=== PATIENT | male | born 1950 | race Caucasian/White ===

== ENCOUNTER 2018-04-13 00:20 | Outpatient (CLI) | payer MEDICARE, MEDICAID, SELFPAY ==
--- NOTE | 2018-04-13 11:00 | DI.CTLCSR_ITS ---
SYMPTOMS/DIAGNOSIS: YEARLY EXAM, NICOTINE DEPENDENCE, F17.200 CT SCAN OF THE CHEST LUNG CANCER SCREENING: CT scan of the chest was performed according to the lung cancer screening protocol. Comparison examination is 04/12/17. There is atherosclerosis of the thoracic aorta. The heart size is within normal limits. No significant pericardial effusion is seen. Coronary artery calcifications are seen. There are stable lymph nodes seen in the mediastinum. No significant thoracic adenopathy is seen. No pleural effusion or pneumothorax is present. Central lobular and paraseptal emphysematous changes are present. No noncalcified pulmonary nodules are identified. No focal consolidating infiltrates are seen. The tracheobronchial tree is unremarkable. Degenerative changes are seen in the spine. IMPRESSION: No pulmonary nodules. Lung-RAD Category: Lung RADS Category 1- Negative - annual follow up.
== END 2018-04-13 00:40 ==
PROVIDERS: PCP Family Medicine; Visit Provider Family Medicine
DX: Z12.2 Encounter for screening for malignant neoplasm of respiratory organs (principal); F17.200 Nicotine dependence, unspecified, uncomplicated; J43.9 Emphysema, unspecified
CPT/HCPCS: G0297

== ENCOUNTER 2018-10-13 16:23 | Outpatient (REF) | payer MEDICARE, MEDICAID, SELFPAY ==
[2018-10-13 19:12] LABS: Abs Immature Grans 0.01 k/cumm (0.0-0.09); Absolute Basophil Count 0.03 k/cumm (0.0-0.2); Absolute Eosinophil Count 0.21 k/cumm (0.0-0.7); Absolute Lymphocyte Count 1.98 k/cumm (1.2-3.4); Absolute Monocyte Count 0.49 k/cumm (0.11-0.7); Absolute Neutrophil Count 3.54 k/cumm (1.2-6.7); Basophils % 0.5; Eosinophils % 3.4; HCT 44.6 % (40.0-50.0); HGB 15.1 g/dL (13.5-17.5); Immature Grans % 0.2; Lymphocytes % 31.6; Mean Corp. HGB Concentration 33.9 g/dL (32.0-36.0); Mean Corpuscular Hemoglobin 30.5 pg (27.0-33.0); Mean Corpuscular Volume 90.1 fL (80-95); Mean Platelet Volume 10.1 fL (8.0-11.0); Monocytes % 7.8; Neutrophils % 56.5; Platelet Count 267 x1000/uL (130-400); RBC 4.95 m/cumm (4.50-6.00); RBC Distribution Width 12.9 % (11.8-14.1); White Blood Cell Count 6.26 k/cumm (4.4-10.8)
[2018-10-13 19:25] LABS: ALT 35 U/L (16-63); AST 20 U/L (15-37); Albumin 3.7 g/dL (3.4-5.0); Alkaline Phosphatase 53 U/L (46-116); Bilirubin, Direct 0.09 mg/dL (0.00-0.20); Bilirubin, Total 0.3 mg/dL (0.2-1.0); Total Protein 7.2 g/dL (6.4-8.2)
== END 2018-10-13 16:43 ==
LOC: LBN 16:23
PROVIDERS: PCP Family Medicine; Visit Provider Family Medicine
DX: R23.8 Other skin changes (principal)
CPT/HCPCS: 80076; 85025

== ENCOUNTER 2020-04-23 02:05 | Outpatient (CLI) | payer OTHER, MEDICAID, SELFPAY ==
[2020-04-23 12:52] LABS: ALT 42 U/L (16-63); AST 23 U/L (15-37); Albumin 3.7 g/dL (3.4-5.0); Alkaline Phosphatase 62 U/L (46-116); Anion Gap 11.4 mmol/L (3-11); BUN 13 mg/dL (7-18); Bilirubin, Total 0.6 mg/dL (0.2-1.0); CO2 23.6 mmol/L (21.0-32.0); CREATININE 1.2 mg/dL (0.70-1.30); Calcium 9.2 mg/dL (8.5-10.1); Calculated LDL 90 mg/dL (<100); Chloride 99 mmol/L (98-107); Cholesterol 154 mg/dL (<200); Glucose 95 mg/dL (74-106); HDL Cholesterol 44 mg/dL (40-60); Potassium 4.4 mmol/L (3.5-5.1); Sodium 134 mmol/L (136-145); Total Protein 7.5 g/dL (6.4-8.2); Triglyceride 101 mg/dL (<150)
== END 2020-04-23 02:06 | disposition home or self-care (01) ==
LOC: LOS 02:06
PROVIDERS: PCP Family Medicine; Visit Provider Family Medicine
DX: E78.5 Hyperlipidemia, unspecified (principal)
CPT/HCPCS: 36415; 80053; 80061

== ENCOUNTER 2020-06-16 01:43 | Outpatient (CLI) | payer OTHER, MEDICAID, SELFPAY ==
--- NOTE | 2020-06-16 06:45 | DI.US_ITS ---
Exam(s) US AAA SCREENING EXAM: US AAA SCREENING CLINICAL HISTORY: SCREENING FOR AAA,TOBACCO USE DISORDER,F17.200 COMPARISON: No exams were available for comparison FINDINGS: Dedicated ultrasound examination of the abdominal aorta exhibits no evidence of significant abdominal aortic aneurysm. Measurements as below. Abdominal Aorta: Proximal: 2.5 x 1.9 cm Mid: 1.8 x 1.6 cm Distal: 1.9 x 1.5 cm Iliac's: Right: 1.1 x 1.4 cm Left: 1.1 x 1.4 cm There is moderate atherosclerotic disease noted IMPRESSION: No evidence of significant abdominal aortic aneurysm. DATA REPOSITORY:
--- NOTE | 2020-06-16 08:32 | DI.CTLCSR_ITS ---
Exam(s) CT CHEST LUNG CANCER SCREEN EXAM: CT CHEST LUNG CANCER SCREEN CLINICAL HISTORY: Screening for lung cancer,CURRENT SMOKER, F17.210. TECHNIQUE: Imaging Protocol: Low Dose Technique CONTRAST MATERIAL: None COMPARISON: CT CT CHEST LUNG CANCER SCREEN from 04/13/2018 FINDINGS: CHEST: LUNGS: Advanced COPD emphysematous changes are again noted.. However, there is now a spiculated nodu le in the right lower lobe which measures approximately 1.4 by 0.7 cm, this noncalcified nodule appea ring concerning and not previously present. There are no new significant focal findings in the opposite-left lung. MEDIASTINUM: There is no obvious hilar nor mediastinal adenopathy. CARDIAC: Heart size is normal. There is no pericardial effusion.Moderate coronary artery calcificati on is noted. No pericardial effusion. Caliber thoracic aorta is within normal limits. OTHER: OSSEOUS: Advanced degenerative changes in the right shoulder-glenohumeral joint.. No fractures. No significant osseous lesions identified.. IMPRESSION: 1. The main finding here is a new concerning spiculated nodule in the right lower lobe as described a whitney, suspicious for malignancy. This is superimposed upon severe emphysematous COPD background. 2. There are no pleural effusions. No prominent intrathoracic adenopathy evident. 3. Lung RADS Cat 4X - Findings with additional features which require additional testing and tissue s ampling. Lung-RADS 1.0 CATEGORIES: Category 0 - Prior chest CT exam(s) being located for comparison. Category 1 - Annual screening in 12 months. No nodules or definitely benign nodules. Category 2 - Annual screening in 12 months. Benign appearance. Nodules with low likelihood of becomin g active cancer. Category 3 - 6-month follow-up. Probably benign. Short-term follow-up suggested. Nodules with low lik elihood of becoming active cancer. Category 4A - 3-month follow-up and CT/PET if >8 mm in size. Suspicious finding. Findings which requi re additional testing. Category 4B - Findings which require additional testing and tissue sampling. Modifier S- Potentially clinically significant findings (non lung cancer) RADIATION DOSE DELIVERED: 78.29mGy.cm Total DLP 1.84mGy CTDIvol DATA REPOSITORY: All CT scans at this facility are submitted to the National Radiology Data Registry (NRDR) Dose Index Registry (DIR) with the [employer] (ACR). RADIATION OPTIMIZATION: All CT scans at this facility use at least one of these dose optimization te chniques: automated exposure control; mA and/or kV adjustment per patient size (includes targeted exa ms where dose is matched to clinical indication); or iterative reconstruction.
== END 2020-06-16 02:03 ==
PROVIDERS: PCP Family Medicine; Visit Provider Family Medicine
DX: Z12.2 Encounter for screening for malignant neoplasm of respiratory organs (principal); F17.210 Nicotine dependence, cigarettes, uncomplicated; J44.9 Chronic obstructive pulmonary disease, unspecified; R91.1 Solitary pulmonary nodule; Z13.6 Encounter for screening for cardiovascular disorders
CPT/HCPCS: 71271; 76706

== ENCOUNTER 2021-01-19 01:35 | Outpatient (CLI) | payer OTHER, MEDICAID, SELFPAY ==
[2021-01-19 12:35] LABS: CREATININE 0.9 mg/dL (0.70-1.30)
--- NOTE | 2021-01-19 13:15 | DI.CT_ITS ---
Exam(s) CT CHEST W EXAM: CT CHEST W CLINICAL HISTORY: S/P SBRT RLL NSCLC, ASSESS TREATMENT RESPONSE. TECHNIQUE: Multi planar reconstructions were performed. CONTRAST MATERIAL: Omnipaque 350; 75 cc COMPARISON: CT CT CHEST LUNG CANCER SCREEN from 06/16/2020 FINDINGS: CHEST: LUNGS: COPD emphysematous changes in both lung gibbs again noted. The previously described subpleur al nodular infiltrate in the right lower lobe is again noted, slightly increased in size. No other r ight lung nodules evident and no pleural effusion. No left lung nodules identified. No new findings in trachea and mainstem bronchi. MEDIASTINUM: There is no hilar nor mediastinal adenopathy. Visualized thyroid unremarkable. CARDIAC: Heart size is normal. There is no pericardial effusion.Caliber of the thoracic aorta is wit hin normal limits. VISUALIZED UPPER ABDOMEN:There are no significant adrenal masses. There is a cyst in the caudate lob e of the liver which measures 1.2 x 0.7 cm, unchanged OSSEOUS: No significant osseous lesions.. IMPRESSION: 1. Previously described subpleural nodular density in the right lower lobe has slightly increased in size. This is spiculated and is suspicious for neoplasm. There is no overlying rib destruction. No associated pleural effusion nor obvious hilar/mediastinal adenopathy. 2. Findings are superimposed upon a severe COPD emphysematous setting. RADIATION DOSE DELIVERED: 514.34mGy.cm Total DLP DATA REPOSITORY: All CT scans at this facility are submitted to the National Radiology Data Registry (NRDR) Dose Index Registry (DIR) with the [employer] (ACR). RADIATION OPTIMIZATION: All CT scans at this facility use at least one of these dose optimization te chniques: automated exposure control; mA and/or kV adjustment per patient size (includes targeted exa ms where dose is matched to clinical indication); or iterative reconstruction.
[2021-01-19] MEDS: Omnipaque 350 MG/ML 100 ML BTL IJ (13:16)
== END 2021-01-19 01:55 ==
PROVIDERS: PCP Family Medicine; Visit Provider Preventive Medicine Undersea and Hyperbaric Medicine
DX: C34.31 Malignant neoplasm of lower lobe, right bronchus or lung (principal); R91.8 Other nonspecific abnormal finding of lung field; J44.9 Chronic obstructive pulmonary disease, unspecified
CPT/HCPCS: 71260; 82565; J3490

== ENCOUNTER → 2021-04-20 00:26 | Outpatient (CLI) | payer OTHER, MEDICAID, SELFPAY ==
--- NOTE | 2021-04-20 12:50 | DI.CT_ITS ---
Exam(s) CT CHEST W EXAM: CT CHEST W CLINICAL HISTORY: RT LUNG CA,S/P TREATMENT, EVALUATE FOR PROGRESSION,C34.91 TECHNIQUE: Imaging Protocol: Axial computed tomography images with coronal and sagittal reformatted images were created and reviewed CONTRAST MATERIAL: Intravenous: Omnipaque 350 Contrast volume:70 ml. COMPARISON: CT CT CHEST LUNG CANCER SCREEN from 06/16/[address] CHEST W from 01/19/2021 FINDINGS: Tracheobronchial tree: No bronchiectasis or mucous plugging. . Pulmonary parenchyma: Significant interval decrease in size and prominence of nodule in the superior segment of the right lower lobe. Now 9 millimeters maximally. Decreased density. Surrounding scarr ing. No new nodules. No infiltrates. Underlying emphysematous and fibrotic changes. Pleura: No effusion or pneumothorax. Heart: The heart is not dilated. coronary artery calcifications are seen. Aorta: Atherosclerotic changes. Upper abdomen: Cyst caudate lobe of the liver small left renal cyst. Lymph nodes: No change small mediastinal lymph nodes.. Bones: Unremarkable for age. Soft tissues: Unremarkable. IMPRESSION: Interval decrease in size of right lower lobe nodule. No new abnormalities. RADIATION DOSE DELIVERED: 436.83mGy.cm Total DLP DATA REPOSITORY: All CT scans at this facility are submitted to the National Radiology Data Registry (NRDR) Dose Index Registry (DIR) with the [employer] (ACR). RADIATION OPTIMIZATION: All CT scans at this facility use at least one of these dose optimization te chniques: automated exposure control; mA and/or kV adjustment per patient size (includes targeted exa ms where dose is matched to clinical indication); or iterative reconstruction.
[2021-04-20] MEDS: Omnipaque 350 MG/ML 100 ML BTL 70 ML IJ (12:54)
== END ==
PROVIDERS: PCP Family Medicine; Visit Provider Preventive Medicine Undersea and Hyperbaric Medicine
DX: Z01.812 Encounter for preprocedural laboratory examination (principal); C34.31 Malignant neoplasm of lower lobe, right bronchus or lung; R91.8 Other nonspecific abnormal finding of lung field
CPT/HCPCS: 71260; 82565; J3490

== ENCOUNTER → 2021-08-25 00:38 | Outpatient (CLI) | payer OTHER, MEDICAID, SELFPAY ==
--- NOTE | 2021-08-25 | DI.CT_ITS ---
Exam(s) CT CHEST WO EXAM: CT CHEST WO CLINICAL HISTORY: S/P SBRT FOR NSCLC RT LUNG, C34.91. TECHNIQUE: Multi planar reconstructions were performed. CONTRAST MATERIAL: None COMPARISON: CT CT CHEST W from 01/19/[address] CHEST W from 04/20/2021 FINDINGS: CHEST: LUNGS: The previously described right lower lobe nodule is unchanged in size and configuration from 0 04/20/2021, with maximum measurement 9 millimeters. No additional lung nodules noted and there are no pleural effusions. Interstitial fibrotic disease is again noted bilaterally. Also emphysematous ch anges. MEDIASTINUM: There is no obvious hilar nor mediastinal adenopathy. Visualized thyroid unremarkable.No obvious axillary adenopathy CARDIAC: Heart size is normal. There is no pericardial effusion.Caliber of the thoracic aorta is wit hin normal limits. VISUALIZED UPPER ABDOMEN:No adrenal masses. Cyst in the caudate lobe of the liver unchanged. Also c yst again noted in the posterior cortex of the left kidney. OSSEOUS: No significant osseous lesions.. IMPRESSION: 1. Stable appearance when compared to the most recent CT scan of 04/20/2021. 2. Maximum size of the right lower lobe nodule remains 9 mm, and there are no new additional nodules nor pleural effusions nor intrathoracic adenopathy. 3. Findings are again noted to be superimposed upon COPD and fibrotic changes. RADIATION DOSE DELIVERED: 418.64mGy.cm Total DLP DATA REPOSITORY: All CT scans at this facility are submitted to the National Radiology Data Registry (NRDR) Dose Index Registry (DIR) with the [employer] (ACR). RADIATION OPTIMIZATION: All CT scans at this facility use at least one of these dose optimization te chniques: automated exposure control; mA and/or kV adjustment per patient size (includes targeted exa ms where dose is matched to clinical indication); or iterative reconstruction.
--- OUTSIDE RECORDS SUMMARY | 2021-08-25 00:44 | XMS_ITS | Encounter Summary ---
:1950 Author Organization [facility] Address [address] [place] [address] Care Team Providers Name Role Phone Sheila aNyak MD PhD Primary Care Provider [phone] Reason for Visit Reason Onset Date Comments Appointment Related 09/14/2016 Patient no-showed fo r 09/14 appointment; per Dr. Luke, don't resc hedule appointment; he will send the patient a letter . Encounter Details Date Type Department Care Team Description 09/14/2016 Telephone [place] Jerad Luke Ap pointment Related Gastroenterology - Main (Patient no-showed [place] [address] [place] [address] for 09/14 appointment; [address] [facility] per Dr. Luke, [place] [address] [facility], [facility] don't reschedule [phone] Deb, Level 5 appointment; he will [place], [place] [phone] letter.) [phone] (Wo rk) Social History Tobacco Use Types Packs/Day Years Used Date Current Every Day Smoker Cigarettes 1 50 Smokeless Tobacco: Never Used Comments: occasionally; trying to quit Alcohol Use Standard Drinks/Week Comments Yes 10 (1 standard drink = 0.6 oz pure alcoh ol) Sex Assigned at Date Recorded Not on file documented as of this encounter Miscellaneous Notes Telephone Encounter - Frankie Tyson - 09/14/2016 1604 EDT Patient no-showed for 09/14 appointment; per Dr. Luke, don't reschedule appointment; he will send the patient a letter. documented in this encounter Plan of Treatment Not on filedocumented as of this encounter Goals Goal Patient Goal Associated Recent Patient-Stated? Author Type Problems Progress Blood Blood Hypertensive 122/70 No White, Pressure < Pressure disorder (12/31/2015 More 140/90 11:06 EST) documented as of this encounter Visit Diagnoses Not on filedocumented in this encounter Care Teams Liquefaction Supervisor Relationship Specialty Start Date End Date Sheila Nayak MD PhD PCP - General 06/10/08 05/18/17 [address] [place] [id number] documented as of this encounter
--- OUTSIDE RECORDS SUMMARY | 2021-08-25 00:44 | XMS_ITS | Encounter Summary ---
:1950 Author Organization [facility] Address [address] [place] [address] Care Team Providers Name Role Phone Sheila Nayak MD PhD Primary Care Provider [phone] Reason for Visit Reason Comments Immunizations Encounter Details Date Type Department Care Team Description 01/27/2016 Nurse Only [facility] Unknown, Marvin baires MD Need for hepatitis A Adult Primary Care - Linnea Arriola MD and B vaccination [place] Nurse, [facility] Ghassan Cannon MD (Primary Dx) [address] [place] [id number] Social History Tobacco Use Types Packs/Day Years Used Date Current Every Day Smoker Cigarettes 1 50 Smokeless Tobacco: Never Used Comments: occasionally; trying to quit Alcohol Use Standard Drinks/Week Comments Yes 10 (1 standard drink = 0.6 oz pure alcoh ol) Sex Assigned at Date Recorded Not on file documented as of this encounter Discharge Diagnoses Diagnosis Z23 Encounter for immunization-Z23[ICD-1 0-CM] documented in this encounter Discharge Disposition Disposition Code Departure Means Destination Auto Discharge documented in this encounter Progress Notes Erin Llanes RN - 01/27/2016 1100 EST I was supervised by Dr Sheila Nayak who was present and immediately available in the office suite. Erin Llanes RN 01/27/2016 11:16 documented in this encounter Plan of Treatment Not on filedocumented as of this encounter Goals Goal Patient Goal Associated Recent Patient-Stated? Author Type Problems Progress Blood Blood Hypertensive 122/70 No White, Pressure < Pressure disorder (12/31/2015 More 140/90 11:06 EST) documented as of this encounter Visit Diagnoses Diagnosis Need for hepatitis A and B vaccination - Primary Need for prophylactic vaccination and in oculation against viral hepatitis documented in this encounter Orders Immunization/Injection Count Last Ordered Date First O rdered Date HEPATITIS A HEPATITIS B COMBINED VACCINE 1 016 IM documented in this encounter Care Teams Brush Clearer Surveying Relationship Specialty Start Date End Date Sheila Nayak MD PhD PCP - General 06/10/08 05/18/17 [address] [place] [address] documented as of this encounter
--- OUTSIDE RECORDS SUMMARY | 2021-08-25 00:44 | XMS_ITS | Clinical Summary ---
:1950 Author Organization [facility] Address [address] [place] [address] Care Team Providers Name Role Phone Unknown, Provider Primary Care Provider Allergies Active Allergy Reactions Severity Noted Date Comments Other - See Comments Rash 11/14/2008 Contras t Dye Medications Medication Sig Dispensed Refills Start Date End Date Status ipratropium-albuterol Inhale 1 Puff as 1 Inhaler 3 09/02/2015 Active (COMBIVENT RESPIMAT) directed 4 times 20-100 mcg/actuation daily as needed for inhaler Wheezing. sofosbuvir-velpatasvi Take 1 Tab by mouth 28 Tab 2 01/07/20 16 Active r (EPCLUSA) 400-100 daily. Specialty mg tablet pharmacy simvastatin (ZOCOR) take 1 tablet by 90 Tab 0 12/22/2016 Active 10 mg tablet mouth once daily sildenafil citrate Take 1 Tab by mouth 3 Tab 3 12/22/2016 Active (VIAGRA) 100 mg as needed for tabletIndications: Erectile Male erectile Dysfunction. Needs disorder Office visit before next refill. Active Problems Problem Noted Date Chronic hepatitis C without hepatic coma ([facility]) Microhematuria 03/28/2012 Tobacco dependence syndrome 12/07/2010 Osteoarthritis of knee 09/15/2009 Hypertensive disorder 07/21/2009 Chronic obstructive pulmonary disease ([facility]) 2009 Hyperlipidemia 07/21/2009 Male erectile disorder 07/21/2009 Anxiety 07/21/2009 Gastric ulcer 07/21/2009 Overview: IMO Update Auto Replacement Immunizations Name Administration Dates Next Due Hep A/Hep B Vaccine (TWINRIX) IM 07/01/2016, 01/27/2016, Influenza Vaccine =>3yo Split 01/28/2012, 01/04/2011 Preservative Free IM Influenza Vaccine Quad (AFLURIA) PF 0.5 12/31/2015 ml IM (3 yrs+) Pneumococcal Conj Vacc PCV13 (PREVNAR-13) 09/02/2015 IM Pneumococcal Polysaccharide (PPSV23) 01/04/2011 Vaccine (PNEUMOVAX-23) =>2YO SQ/IM Zostavax (Zoster Vaccine, Live) SQ 02/26/2014 Medical History Medical History Date Comments Hypertension COPD (chronic obstructive pulmonary disease) ([facility]) ([facility]) Hyperlipidemia Fracture to face Gastric ulcer, unspecified as acute or chronic, without ment ion of 07/21/2009 hemorrhage, perforation, or obstruction Emphysema of lung ([facility]) ([facility]) Acne Arthritis Fatigue Wears glasses Sinus problem Back pain Joint pain Joint swelling Numbness High blood pressure High cholesterol Asthma Anxiety Depression Family History Medical History Relation Name Comments Cancer Father Skin Arthritis Sister Relation Name Status Comments Father Maternal Aunt Maternal Grandfather Maternal Grandmother Mother (Age 95) ?cancer Paternal Grandfather Paternal Grandmother Sister Alive Social History Tobacco Use Types Packs/Day Years Used Date Current Every Day Smoker Cigarettes 1 50 Smokeless Tobacco: Never Used Tobacco Cessation: Ready to Quit: Yes; C ounseling Given: Yes Comments: occasionally; trying to quit Alcohol Use Standard Drinks/Week Comments Yes 10 (1 standard drink = 0.6 oz pure alcoh ol) Sex Assigned at Date Recorded Not on file Last Filed Vital Signs Vital Sign Reading Time Taken Comments Blood Pressure 122/70 12/31/2015 1106 EST Pulse 68 12/31/2015 1106 EST r Temperature 36.3 ??C (97.4 ??F) 12/31/2015 1106 EST Respiratory Rate 16 12/31/2015 1106 EST Oxygen Saturation 95% 05/03/2012 0915 EDT Inhaled Oxygen Concentration - - Weight 60.3 kg (133 lb) 12/31/2015 1106 EST Height 165.1 cm (5' 5) 11/24/2015 1336 EDT Body Mass Index 22.13 11/24/2015 1336 EDT Plan of Treatment Health Maintenance Due Date Last Done Comments Copd Action Plan 1950 Lung Function Test (Spirometry) 1950 Barium Enema (Colon Cancer 2000 Screening) Colonoscopy (Colon Cancer 2000 Screening) Colorectal Cancer Screening 2000 Fecal Blood Test (Colon Cancer 2000 Screening) Fecal DNA (Colon Cancer Screening) 2000 Sigmoidoscopy (Colon Cancer 2000 Screening) Abdominal Aortic Aneurysm (AAA 05/18/2015 Screen) Fall Risk Screening 09/01/2016 09/02/2015 Hepatitis C Screen Completed 07/21/2016, 04/29/2016, 02/24/2016, Additional history exists Goals Goal Patient Goal Associated Recent Patient-Stated? Author Type Problems Progress Blood Blood Hypertensive 122/70 No White, Pressure < Pressure disorder (12/31/2015 More 140/90 11:06 EST) Advance Directives For more information, please contact: [phone] Documents on File Type Date Recorded Patient Manager Program Explanati on Advance Directives and Living Will Care Teams Rag Cutting Machine Operator Relationship Specialty Start Date End Date Unknown, Provider, PCP - General 05/19/17
--- OUTSIDE RECORDS SUMMARY | 2021-08-25 00:44 | XMS_ITS | Encounter Summary ---
:1950 Author Organization [facility] Address [address] [place] [address] Care Team Providers Name Role Phone Sheila Nayak MD PhD Primary Care Provider [phone] Reason for Visit Reason Onset Date Comments Medications Refill 12/22/2016 Encounter Details Date Type Department Care Team Description 12/22/2016 Refill [facility] Adult Sheila Nayak MD Medications Refill Primary Care - Ghassan PhD [address] [place] [address] [place], [place] [phone] (Wo rk) Social History Tobacco Use Types Packs/Day Years Used Date Current Every Day Smoker Cigarettes 1 50 Smokeless Tobacco: Never Used Comments: occasionally; trying to quit Alcohol Use Standard Drinks/Week Comments Yes 10 (1 standard drink = 0.6 oz pure alcoh ol) Sex Assigned at Date Recorded Not on file documented as of this encounter Ordered Prescriptions Prescription Sig Dispensed Refills Start Date End Date sildenafil citrate Take 1 Tab by mouth 3 Tab 3 12/23/19 17 (VIAGRA) 100 mg as needed for tabletIndications: Male Erectile Dysfunction. erectile disorder Needs Office visit before next refill. simvastatin (ZOCOR) 10 mg take 1 tablet by 90 Tab 0 12/08 tablet mouth once daily documented in this encounter Miscellaneous Notes Telephone Encounter - Christi Nava - 12/22/2016 1204 EST Medication(s) Requested: 1. ?? simvastatin (ZOCOR) 10 mg tablet [[id number]] Order Details ? Dose, Route, Frequency: As Directed ?? Dispense Quantity: 90 Tab Refills: 0 Fills Remaining: -- ? Sig: take 1 tablet by mouth once daily ? Written Date: 09/03/16 Expiration Date: -- ?? Start Date: 09/03/16 2. only wants 3 pills, can't afford more ?? sildenafil citrate (VIAGRA) 100 mg tablet [[id number]] DISCONTINUED Order Details ? Dose: 100 mg Route: oral Frequency: PRN for Erectile Dysfunction ?? Dispense Quantity: 3 Tab Refills: 3 Fills Remaining: -- ? Sig: Take 1 Tab by mouth as needed for Erectile Dysfunction. Needs Office visit before next refill. ?? Patient not taking: Reported on 11/24/2015 ? Discontinue Date: 12/25/2015 1403 Discontinue User: Patsy Miles RN Discontinue Reason: Therapy completed ?? Written Date: 09/02/15 Expiration Date: -- ?? Start Date: 09/02/15 End Date: 12/25/15 ? [facility] Is patient out of medication? Not out of the Zocor has 4 left Last Refill Date: 09.03.16 of the Zocor Last Visit Date with Ordering Provider: 12.31.15 Next Non-Acute Visit Date Scheduled with Care Team: No. Christi Nava 12/22/2016 12:05 documented in this encounter Plan of Treatment Not on filedocumented as of this encounter Goals Goal Patient Goal Associated Recent Patient-Stated? Author Type Problems Progress Blood Blood Hypertensive 122/70 No White, Pressure < Pressure disorder (12/31/2015 More 140/90 11:06 EST) documented as of this encounter Visit Diagnoses Diagnosis Male erectile disorder - Primary Impotence of organic origin documented in this encounter Discontinued Medications Medication Sig Discontinue Reason Start Date End Date simvastatin (ZOCOR) 10 mg take 1 tablet by Reorder 09/03/2016 12/22/2016 tablet mouth once daily documented as of this encounter Care Teams Air Quality Manager Relationship Specialty Start Date End Date Sheila Nayak MD PhD PCP - General 06/10/08 05/18/17 [address] [place] [phone] documented as of this encounter
--- OUTSIDE RECORDS SUMMARY | 2021-08-25 00:44 | XMS_ITS | Encounter Summary ---
:1950 Author Organization [facility] Address [address] [place] [address] Care Team Providers Name Role Phone Sheila Nayak MD PhD Primary Care Provider [phone] Reason for Visit Reason Comments Medication Management Encounter Details Date Type Department Care Team Description 05/03/[address] [facility] [address] [place] [address] Social History Tobacco Use Types Packs/Day Years Used Date Current Every Day Smoker Cigarettes 1 50 Smokeless Tobacco: Never Used Comments: occasionally; trying to quit Alcohol Use Standard Drinks/Week Comments Yes 10 (1 standard drink = 0.6 oz pure alcoh ol) Sex Assigned at Date Recorded Not on file documented as of this encounter Progress Notes Amanda Hernandez, [facility] - 05/03/2016 1329 EDT Celestine Dickson is a 65 y.o. male who will be starting treatment with Epclusa x12 weeks for HCV. ? I performed a complete review of the patient???s medical record, including medications, immunizations, and allergies. ? Regimen: Epclusa x12 weeks Genotype: 2 Treatment: Naive Cirrhosis: N Fibrosis Stage: 1 ? Treatment Start Date: 01/26/16 Lab: [facility] ? Week Date SCr Hct/Hgb AST ALT HCV RNA Quant Pretreatment 11/24/15 0.77 44.2/15.3 23 32 [id number] 4 02/23/16 ? 45.4 24 30 undetected 12 04/19/16 0.95 45.1/15.5 27 39 undetected?? 12 post-tx 07/12/16 ? Patient has completed therapy with Epclusa. SVR-12 lab results due in July. documented in this encounter Plan of Treatment Not on filedocumented as of this encounter Goals Goal Patient Goal Associated Recent Patient-Stated? Author Type Problems Progress Blood Blood Hypertensive 122/70 No White, Pressure < Pressure disorder (12/31/2015 More 140/90 11:06 EST) documented as of this encounter Visit Diagnoses Not on filedocumented in this encounter Care Teams Laundry Operator Wash Room Relationship Specialty Start Date End Date Sheila Nayak MD PhD PCP - General 06/10/08 05/18/17 [address] [place] [phone] documented as of this encounter
--- OUTSIDE RECORDS SUMMARY | 2021-08-25 00:44 | XMS_ITS | Encounter Summary ---
:1950 Author Organization [facility] Address [address] [place] [address] Care Team Providers Name Role Phone Sheila Nayak MD PhD Primary Care Provider [phone] Encounter Details Date Type Department Care Team Description 04/19/2016 Hospital Encounter [facility]- Maik Luke, [facility] [address] [facility] [phone] [place], [address] [place] [address] (Wo rk) Social History Tobacco Use Types Packs/Day Years Used Date Current Every Day Smoker Cigarettes 1 50 Smokeless Tobacco: Never Used Comments: occasionally; trying to quit Alcohol Use Standard Drinks/Week Comments Yes 10 (1 standard drink = 0.6 oz pure alcoh ol) Sex Assigned at Date Recorded Not on file documented as of this encounter Discharge Diagnoses Diagnosis B18.2 Chronic viral hepatitis C-B18.2[IC D-10-CM] documented in this encounter Medications at Time of Discharge Medication Sig Dispensed Refills Start Date End Date ipratropium-albuterol Inhale 1 Puff as 1 Inhaler 3 09/02/19 16 (COMBIVENT RESPIMAT) directed 4 times 20-100 mcg/actuation daily as needed for inhaler Wheezing. sofosbuvir-velpatasvir Take 1 Tab by mouth 28 Tab 2 12/10 (EPCLUSA) 400-100 mg daily. Specialty tablet pharmacy simvastatin (ZOCOR) 10 Take 1 Tab by mouth 90 Tab 3 08/0809/03/2016 mg tablet daily for 90 days. documented as of this encounter Discharge Disposition Disposition Code Departure Means Destination Home or Self Senior Care documented in this encounter Plan of Treatment Not on filedocumented as of this encounter Goals Goal Patient Goal Associated Recent Patient-Stated? Author Type Problems Progress Blood Blood Hypertensive 122/70 No White, Pressure < Pressure disorder (12/31/2015 More 140/90 11:06 EST) documented as of this encounter Visit Diagnoses Not on filedocumented in this encounter Care Teams Sand Slinger Operator Relationship Specialty Start Date End Date Sheila Nayak MD PhD PCP - General 06/10/08 05/18/17 [address] [place] [phone] documented as of this encounter
--- OUTSIDE RECORDS SUMMARY | 2021-08-25 00:44 | XMS_ITS | Encounter Summary ---
:1950 Author Organization [facility] Address [address] [place] [address] Care Team Providers Name Role Phone Sheila Nayak MD PhD Primary Care Provider [phone] Reason for Visit Reason Comments Other need for hep a and b vaccine Encounter Details Date Type Department Care Team Description 07/01/2016 Nurse Only [facility] Unknown, Marvin baires MD Need for hepatitis A Adult Primary Care - Eli Vargas PA-C [address] [place] [phone] and B vaccination [place] Nurse, [facility] Ghassan Cannon MD (Primary Dx) [address] [place] [address] Social History Tobacco Use Types Packs/Day Years [...] Discharge documented in this encounter Progress Notes Shilpa Wiley LPN - 07/01/2016 1300 EDT Obtained verbal consent prior to procedure. Patient received twinrix vaccine IM into Left arm. I was supervised by Dr. Romero who was present and immediately available in the office suite. SHILPA WILEY LPN 07/01/2016 13:15 documented in this encounter Plan of Treatment [...] HEPATITIS A HEPATITIS B COMBINED VACCINE 1 017 IM documented in this encounter Care Teams Farm General Manager Relationship Specialty Start Date End Date Sheila Nayak MD PhD PCP - General 06/10/08 05/18/17 [address] [place] [phone] documented as of this encounter
--- OUTSIDE RECORDS SUMMARY | 2021-08-25 00:44 | XMS_ITS | Encounter Summary ---
:1950 Author Organization [facility] Address [address] [place] [address] Care Team Providers Name Role Phone Sheila Nayak MD PhD Primary Care Provider [phone] Reason for Visit Reason Onset Date Comments Results 07/23/2016 Encounter Details Date Type Department Care Team Description 07/23/2016 Telephone [facility] Martha Gao RN [address] [address] Social History Tobacco Use Types Packs/Day Years Used Date Current Every Day Smoker Cigarettes 1 50 Smokeless Tobacco: Never Used Comments: occasionally; trying to quit Alcohol Use Standard Drinks/Week Comments Yes 10 (1 standard drink = 0.6 oz pure alcoh ol) Sex Assigned at Date Recorded Not on file documented as of this encounter Miscellaneous Notes Telephone Encounter - Martha Gao RN - 07/23/2016 1029 EDT Celestine Dickson is a 65 y.o. [...] Quant Pretreatment 11/24/15 0.77 44.2/15.3 23 32 [id number] 4 02/23/16 ? 45.4 24 30 undetected 12 04/19/16 0.95 45.1/15.5 27 39 undetected?? 12 post-tx 07/12/16 Undetected 07/21/16 The patient was made aware of 12 week post end of treatment HCV PCR and follow- up visit given for 09/14/16( per pt choice).He verbalized understanding and compliance. documented in this encounter Plan of Treatment Not on filedocumented as of this encounter Goals Goal Patient Goal Associated Recent Patient-Stated? Author Type Problems Progress Blood Blood Hypertensive 122/70 No White, Pressure < Pressure disorder (12/31/2015 More 140/90 11:06 EST) documented as of this encounter Visit Diagnoses Not on filedocumented in this encounter Care Teams Environmental Engineering Professor Relationship Specialty Start Date End Date Sheila Nayak MD PhD PCP - General 06/10/08 05/18/17 [address] [place] [address] documented as of this encounter
--- OUTSIDE RECORDS SUMMARY | 2021-08-25 00:44 | XMS_ITS | Encounter Summary ---
:1950 Author Organization [facility] Address [address] [place] [address] Care Team Providers Name Role Phone Sheila Nayak MD PhD Primary Care Provider [phone] Encounter Details Date Type Department Care Team Description 02/24/2016 Phlebotomy Only [facility] Med[facility] Emt, Chron ic hepatitis C - [facility] Outpatient without hepatic coma [address] ([facility]) (Primary [place], [place] Dx) [address] Social History Tobacco Use Types Packs/Day Years Used Date Current Every Day Smoker Cigarettes 1 50 Smokeless Tobacco: Never Used Comments: occasionally; trying to quit Alcohol Use Standard Drinks/Week Comments Yes 10 (1 standard drink = 0.6 oz pure alcoh ol) Sex Assigned at Date Recorded Not on file documented as of this encounter Plan of Treatment Not on filedocumented as of this encounter Goals Goal Patient Goal Associated Recent Patient-Stated? Author Type Problems Progress Blood Blood Hypertensive 122/70 No White, Pressure < Pressure disorder (12/31/2015 More 140/90 11:06 EST) documented as of this encounter Procedures Procedure Name Priority Date/Time Associated Comments Diagnosis HCV RNA DETECT QUANT Routine 02/24/2016 12:29 Chronic hepatiti s C Results for this EST without hepatic procedure ar e in coma (CMS-HCC) the results section. COMPLETE BLOOD COUNT Routine 02/24/2016 12:29 Chronic hepatiti s C Results for this EST without hepatic procedure ar e in coma (CMS-HCC) the results section. COMPREHENSIVE Routine 02/24/2016 12:29 Chronic hepatitis C Res ults for this METABOLIC PANEL (CMP) EST without hepatic pro cedure are in coma (CMS-HCC) the results section. documented in this encounter Results HCV RNA DETECT QUANT (02/24/2016 12:29 EST) Pathologist [facility] HCV RNA Detect Undetected Undetected IU/mL [facility] Quant Comment: CENTER Reference Range: ??Undetected LABORATORY The quantification range of this assay is 15 SERVICES IU/mL to 100,000,000 IU/mL. Testing was performed by the [employer] Ampliprep/Bria TaqMan HCV v2.0 ([employer] Specimen Blood specimen (specimen) - Blood Performing Organization Address City/[facility] Phon e Number [facility] [address] [place] [address] SERVICES COMPREHENSIVE METABOLIC PANEL (CMP) (02/24/2016 12:29 EST) Pathologist [facility] Potassium 4.7 3.5 - 5.0 [facility] mEq/L [place] [place] [facility] SERVICES Sodium 141 136 - 145 [facility] mEq/L [place] SERVICES Chloride 103 96 - 110 [facility] mEq/L [place] SERVICES CO2 25Comment: Note new 22 - 32 [facility] reference range mEq/L [facility] 11/25/15 SERVICES Total Alkaline 59 38 - 126 U/L [facility] Phosphatase [facility] Bilirubin, Total 0.6 <1.4 mg/dl [facility] SERVICES AST 24 15 - 46 U/L [facility] SERVICES ALT 30 21 - 72 U/L [facility] SERVICES Albumin 4.2 3.4 - 4.9 [facility] g/dl [facility] Total Protein 7.4 6.3 - 8.2 [facility] g/dl [facility] Creatinine 0.90 0.66 - 1.25 [facility] mg/dl [facility] SERVICES GFR, Calculated 89 >60 [facility] Comment: ml/min/1.73m [facility] LAB[facility]ATORY eGFR calculated using CKD-EPI equation for 2 SERVICES non Americans. Multiply eGFR by 1.16 for Americans. BUN 18 10 - 26 [facility] mg/dl [facility] SERVICES Calcium 9.3 8.5 - 10.5 [facility] mg/dl [facility] SERVICES Calculated Calcium 9.1 8.5 - 10.5 [facility] Comment: mg/dl [facility] Note new formula for calculation SERVICES in use 11/12/2015 Glucose, Serum 91 70 - 100 [facility] mg/dl [facility] SERVICES Fasting? YES [facility] SERVICES Specimen Blood specimen (specimen) - Blood Performing Organization Address City/[facility] Phon e Number [facility] [address] [place] [address] SERVICES HEMAGRAM (02/24/2016 12:29 EST) Pathologist Sig nature WBC 6.21 4.0 - 10.4 K/cmm [facility] SERVICES RBC 5.21 4.36 - 5.78 M/cmm [facility] SERVICES Hemoglobin 15.5 13.8 - 17.3 gm/dl [facility] SERVICES HCT 45.4 39.5 - 50.2 % [facility] SERVICES MCV 87 81 - 95 fl [facility] SERVICES MCH 29.8 27.6 - 33.0 pg [facility] SERVICES MCHC 34.1 32.8 - 36.4 gm/dl [facility] SERVICES RDW-CV 12.2 11.8 - 14.1 % [facility] SERVICES RDW-SD 38.7 36.5 - 45.9 fl [facility] SERVICES PLT 282 141 - 377 K/[facility] LABORATORY SERVICES MPV 10.0 9.5 - 12.7 fl [facility] SERVICES Specimen Blood specimen (specimen) - Blood Performing Organization Address City/State/[facility] Code Phon e Number [facility] [address] [place] [address] SERVICES documented in this encounter Visit Diagnoses Diagnosis Chronic hepatitis C without hepatic coma (HCC-CMS) (HCC) - Primary Chronic hepatitis C without mention of h epatic coma documented in this encounter Care Teams Vp Customer Development Relationship Specialty Start Date End Date Sheila Nayak MD PhD PCP - General 06/10/08 05/18/17 [address] [place] [phone] documented as of this encounter
--- OUTSIDE RECORDS SUMMARY | 2021-08-25 00:44 | XMS_ITS | Encounter Summary ---
:1950 Author Organization [facility] Address [address] [place] [address] Care Team Providers Name Role Phone Sheila Nayak MD PhD Primary Care Provider [phone] Reason for Visit Reason Comments Other Encounter Details Date Type Department Care Team Description 09/03/2016 Refill [facility] Adult Jesus Alberto Nayak MD PhD Other Primary Care - [address] [phone] (Wo rk) Social History Tobacco Use [...] Sig Dispensed Refills Start Date End Date simvastatin (ZOCOR) 10 mg take 1 tablet by 90 Tab 0 08/0812/22/2016 tablet mouth once daily documented in this encounter Miscellaneous Notes Telephone Encounter - Althea Vergara RN - 09/03/2016 0181 EDT Medication(s) Requested: Simvastatin 10 mg tablet Pharmacy: [facility] Last Refill Date: 09/02/15 Last Visit Date: 12/31/15 Next Visit Date: Visit date not found Is patient out of medication? Unknown ALTHEA VERGARA RN 09/03/2016 16:55 documented in this encounter Plan of Treatment Not on filedocumented as of this encounter Goals Goal Patient Goal Associated Recent Patient-Stated? Author Type Problems Progress Blood Blood Hypertensive 122/70 No White, Pressure < Pressure disorder (12/31/2015 More 140/90 11:06 EST) documented as of this encounter Visit Diagnoses Not on filedocumented in this encounter Discontinued Medications Medication Sig Discontinue Reason Start Date End Date simvastatin (ZOCOR) 10 mg Take 1 Tab by mouth Reorder 09/02/19 16 09/03/2016 tablet daily for 90 days. documented as of this encounter Care Teams Line Servicer Relationship Specialty Start Date End Date Sheila Nayak MD PhD PCP - General 06/10/08 05/18/17 [address] [place] [phone] documented as of this encounter
--- OUTSIDE RECORDS SUMMARY | 2021-08-25 00:44 | XMS_ITS | Encounter Summary ---
:[address] [facility] Address [address] [place] [address] Care Team Providers Name Role Phone Sheila Nayak MD PhD Primary Care Provider [phone] Reason for Visit Reason Onset Date Comments Labs Only 07/19/2016 Encounter Details Date Type Department Care Team Description 07/19/2016 Telephone [facility] Martha Gao RN La bs Only Gastroenterology - [facility] [place] [address] [place] [address] Social History Tobacco Use Types Packs/Day [...] Telephone Encounter - Martha Gao RN - 07/19/2016 1049 EDT Left reminder message to have 12 week post Hep C treatment HCV PCR drawn and need for follow-up appointment after labs are drawn. documented in this encounter Plan of Treatment Not on filedocumented as of this encounter Goals Goal Patient Goal Associated Recent Patient-Stated? Author Type Problems Progress Blood Blood Hypertensive 122/70 No White, Pressure < Pressure disorder (12/31/2015 More 140/90 11:06 EST) documented as of this encounter Visit Diagnoses Not on filedocumented in this encounter Care Teams Funding Analyst Relationship Specialty Start Date End Date Sheila Nayak MD PhD PCP - General 06/10/08 05/18/17 [facility] [place] [address] documented as of this encounter
--- OUTSIDE RECORDS SUMMARY | 2021-08-25 00:44 | XMS_ITS | Encounter Summary ---
:1950 Author Organization [facility] Address [address] [place] [address] Care Team Providers Name Role Phone Sheila Nayak MD PhD Primary Care Provider [phone] Reason for Visit Reason Onset Date Comments Results 03/02/2016 Encounter Details Date Type Department Care Team Description 03/02/[address] [facility] Martha Gao RN [address] [address] Social History Tobacco Use Types Packs/Day Years Used Date Current Every Day Smoker Cigarettes 1 50 Smokeless Tobacco: Never Used Comments: occasionally; trying to quit Alcohol Use Standard Drinks/Week Comments Yes 10 (1 standard drink = 0.6 oz pure alcoh ol) Sex Assigned at Date Recorded Not on file documented as of this encounter Miscellaneous Notes Telephone Encounter - Martha Gao RN - 03/02/2016 0928 EST Celestine Dickson is a 65 y.o. male who will be starting treatment with Epclusa x12 weeks for HCV. ?? I performed a complete review of the patient???s medical record, including medications, immunizations, and allergies. ?? Regimen: Epclusa x12 weeks Genotype: 2 Treatment: Naive Cirrhosis: N Fibrosis Stage: 1 ?? Treatment Start Date: 01/26/16 Lab: [facility] ?? Week Date SCr Hct/Hgb AST ALT HCV RNA Quant Pretreatment 11/24/15 0.77 44.2/15.3 23 32 [id number] 4 02/23/16 ?45.4 ??24 ??30 ??undetected 12 04/19/16 ? 12 post-tx 07/12/16 Patient called with results of week #4 labs while on Epclusa treatment & reminder to repeat labsat end of tx, week #12. Orders placed in Prism. Patient verbalized understanding & compliance. documented in this encounter Plan of Treatment Not on filedocumented as of this encounter Goals Goal Patient Goal Associated Recent Patient-Stated? Author Type Problems Progress Blood Blood Hypertensive 122/70 No White, Pressure < Pressure disorder (12/31/2015 More 140/90 11:06 EST) documented as of this encounter Results HEMAGRAM (04/19/2016 11:23 EDT) Pathologist Sig nature WBC 6.17 4.0 - 10.4 K/cmm [facility] RBC 5.11 4.36 - 5.78 M/cmm [facility] SERVICES Hemoglobin 15.5 13.8 - 17.3 gm/dl [facility] HCT 45.1 39.5 - 50.2 % [facility] SERVICES MCV 88 81 - 95 fl [facility] MCH 30.3 27.6 - 33.0 pg [facility] SERVICES MCHC 34.4 32.8 - 36.4 gm/dl [facility] SERVICES RDW-CV 12.5 11.8 - 14.1 % [facility] SERVICES RDW-SD 40.9 36.5 - 45.9 fl [facility] SERVICES PLT 248 141 - 377 K/cmm [facility] SERVICES MPV 9.7 9.5 - 12.7 fl [facility] SERVICES Specimen Blood specimen (specimen) - Blood Performing Organization Address City/State/ZIP Code Phon e Number [facility] [address] [place] [address] SERVICES PROTIME (04/19/2016 11:23 EDT) Pro Time 11.8 10.3 - 13.1 [facility] secs LABORATORY SERVICES I.N.R. 1.0 0.9 - 1.1 [facility] Comment: Ratio LABORATORY SERVICES Moderate Intensity Coumadin INR = 2.0-3.0 Adjustments in anticoagulant therapy dose should be based upon the INR and NOT the Pro Time. Specimen Blood specimen (specimen) - Blood Performing Organization Address City/[facility]/ZIP Code Phon e Number [facility] [address] [place] [address] SERVICES COMPREHENSIVE METABOLIC PANEL (CMP) (04/19/2016 11:23 EDT) Potassium 4.8 3.5 - 5.0 [facility] mEq/L [place] [facility] Sodium 137 136 - 145 [facility] mEq/L [place] [facility] Chloride 102 96 - 110 [facility] mEq/L [place] [facility] CO2 28Comment: Note new 22 - 32 [facility] reference range mEq/L [facility] 11/25/15 SERVICES Total Alkaline 60 38 - 126 U/L [facility] Phosphatase [place] [facility] Bilirubin, Total 0.6 <1.4 mg/dl [facility] SERVICES AST 27 15 - 46 U/L [facility] SERVICES ALT 39 21 - 72 U/L [facility] SERVICES Albumin 4.4 3.4 - 4.9 [facility] g/dl [place] [facility] Total Protein 7.5 6.3 - 8.2 [facility] g/dl [place] [facility] Creatinine 0.95 0.66 - 1.25 [facility] mg/dl [place] [facility] GFR, Calculated 84 >60 [facility] Comment: ml/min/1.73m [facility] eGFR calculated using CKD-EPI equation for 2 SERVICES non Americans. Multiply eGFR by 1.16 for Americans. BUN 17 10 - 26 [facility] mg/dl [facility] SERVICES Calcium 9.6 8.5 - 10.5 [facility] mg/dl [place] [facility] Calculated Calcium 9.3 8.5 - 10.5 [facility] Comment: mg/dl [facility] Note new formula for calculation SERVICES in use 11/12/2015 Glucose, Serum 99 70 - 100 [facility] mg/dl [facility] SERVICES Fasting? YES [facility] Specimen Blood specimen (specimen) - Blood Performing Organization Address City/[facility] Code Phon e Number [facility] [address] [place] [address] SERVICES documented in this encounter Visit Diagnoses Diagnosis Hep C w/o coma, chronic (HCC-CMS) (HCC) - Primary Chronic hepatitis C without mention of h epatic coma documented in this encounter Care Teams Firearms Sales Associate Relationship Specialty Start Date End Date Sheila Nayak MD PhD PCP - General 06/10/08 05/18/17 [address] [place] [phone] documented as of this encounter
--- OUTSIDE RECORDS SUMMARY | 2021-08-25 00:44 | XMS_ITS | Encounter Summary ---
:1950 Author Organization [facility] Address [address] [place] [address] Care Team Providers Name Role Phone Sheila Nayak MD PhD Primary Care Provider [phone] Reason for Visit Reason Onset Date Comments Other 07/13/2016 reminder for labwork due Encounter Details Date Type Department Care Team Description 07/13/2016 Telephone [facility] Martha Gao (jeronimo nevarez for Gastroenterology - Zachary Walsh RN labw ork due) [place] [address] [place] [address] Social History Tobacco Use Types Packs/Day [...] Telephone Encounter - Martha Gao RN - 07/13/2016 1242 EDT A call was made to the patient reminding him he is due for his 12 week post Epclusa tx. He verbalized understanding, stating he has been busy and will try to do so in the next week . documented in this encounter Plan of Treatment Not on filedocumented as of this encounter Goals Goal Patient Goal Associated Recent Patient-Stated? Author Type Problems Progress Blood Blood Hypertensive 122/70 No White, Pressure < Pressure disorder (12/31/2015 More 140/90 11:06 EST) documented as of this encounter Visit Diagnoses Not on filedocumented in this encounter Care Teams Card Runner Relationship Specialty Start Date End Date Sheila Nayak MD PhD PCP - General 06/10/08 05/18/17 [address] [place] [address] documented as of this encounter
--- OUTSIDE RECORDS SUMMARY | 2021-08-25 00:44 | XMS_ITS | Encounter Summary ---
:1950 Author Organization [facility] Address [address] [place] [address] Care Team Providers Name Role Phone Sheila Nayak MD PhD Primary Care Provider [phone] Encounter Details Date Type Department Care Team Description 04/29/2016 Phlebotomy Only [facility] It Infrastructure Specialist, Hep C w/o coma, - [facility] Outpatient chronic ([facility] [address] [facility] (Primary Dx) [place] [address] Social History Tobacco Use Types Packs/Day Years [...] encounter Procedures Procedure Name Priority Date/Time Associated Diagnosis Comme nts HCV RNA DETECT Routine 04/29/2016 11:45 Hep C w/o coma, Result s for this QUANT EDT chronic ([facility]) procedure are in the results section. documented in this encounter Results HCV RNA DETECT QUANT (04/29/2016 11:45 EDT) HCV RNA Detect Undetected Undetected IU/mL [facility] Comment: CENTER Reference Range: ??Undetected LABORATORY The quantification range of this assay is 15 SERVICES IU/mL to 100,000,000 IU/mL. Testing was performed by the Bria Ampliprep/Bria TaqMan HCV v2.0 ([employer] Specimen Blood specimen (specimen) - Blood Performing Organization Address City/State/ZIP Code Phon e Number [facility] [address] [place] [address] SERVICES documented in this encounter Visit Diagnoses Diagnosis Hep C w/o coma, chronic (HCC-CMS) (HCC) - Primary Chronic hepatitis C without mention of h epatic coma documented in this encounter Care Teams Bookkeeping Service Sales Agent Relationship Specialty Start Date End Date Sheila Nayak MD PhD PCP - General 06/10/08 05/18/17 2 [place] [address] documented as of this encounter
--- OUTSIDE RECORDS SUMMARY | 2021-08-25 00:44 | XMS_ITS | Encounter Summary ---
:1950 Author Organization [facility] Address [address] [place] [address] Care Team Providers Name Role Phone Sheila Nayak MD PhD Primary Care Provider [phone] Encounter Details Date Type Department Care Team Description 03/12/2016 Ambulatory Pharmacy [facility] [place] [facility] Main [place] [address] [place] [id number] Social History Tobacco Use Types Packs/Day Years [...] on filedocumented in this encounter Care Teams Carpentry Instructor Relationship Specialty Start Date End Date Sheila Nayak MD PhD PCP - General 06/10/08 05/18/17 [address] [place] [address] documented as of this encounter
--- OUTSIDE RECORDS SUMMARY | 2021-08-25 00:44 | XMS_ITS | Encounter Summary ---
:1950 Author Organization [facility] Address [address] [place] [address] Care Team Providers Name Role Phone Sheila Nayak MD PhD Primary Care Provider [phone] Reason for Visit Reason Onset Date Comments Results 05/03/2016 Encounter Details Date Type Department Care Team Description 05/03/2016 Telephone [facility] Martha Gao RN [address] [address] Social History Tobacco Use Types Packs/Day Years Used Date Current Every Day Smoker Cigarettes 1 50 Smokeless Tobacco: Never Used Comments: occasionally; trying to quit Alcohol Use Standard Drinks/Week Comments Yes 10 (1 standard drink = 0.6 oz pure alcoh ol) Sex Assigned at Date Recorded Not on file documented as of this encounter Miscellaneous Notes Telephone Encounter - Martha Gao RN - 05/03/2016 0903 EDT Celestine Dickson is a 65 y.o. [...] Quant Pretreatment 11/24/15 0.77 44.2/15.3 23 32 [id number] 4 02/23/16 ?45.4 ??24 ??30 ??undetected 12 3/13/17 ?0.95 ?45.1/15.5 ?27 ?39 ??undetected?? 12 post-tx 07/12/16 A message was left with results of week #12 viral load and recommendations to repeat this in 12 weeks, with a follow up appointment to be made after those results are reviewed.Lab slip was sent to the patient today as a reminder. documented in this encounter Plan of Treatment Not on filedocumented as of this encounter Goals Goal Patient Goal Associated Recent Patient-Stated? Author Type Problems Progress Blood Blood Hypertensive 122/70 No White, Pressure < Pressure disorder (12/31/2015 More 140/90 11:06 EST) documented as of this encounter Results HCV RNA DETECT QUANT (07/21/2016 11:14 EDT) HCV RNA Detect Undetected Undetected IU/mL [facility] Comment: CENTER Reference Range: ??Undetected LABORATORY The quantification range of this assay is 15 SERVICES IU/mL to 100,000,000 IU/mL. Testing was performed by the Bria Ampliprep/Bria TaqMan HCV v2.0 ([employer] Specimen Blood specimen (specimen) - Blood Performing Organization Address City/State/ZIP Code Phon e Number [facility] [address] [place] [address] SERVICES documented in this encounter Visit Diagnoses Diagnosis Hep C w/o coma, chronic (HCC-CMS) (HCC) - Primary Chronic hepatitis C without mention of h epatic coma documented in this encounter Care Teams Design Engineering Specialist Relationship Specialty Start Date End Date Sheila Nayak MD PhD PCP - General 06/10/08 05/18/17 2 [place] [address] documented as of this encounter
--- OUTSIDE RECORDS SUMMARY | 2021-08-25 00:44 | XMS_ITS | Encounter Summary ---
:1950 Author Organization [facility] Address [address] [place] [address] Care Team Providers Name Role Phone Sheila Nayak MD PhD Primary Care Provider [phone] Encounter Details Date Type Department Care Team Description 07/21/2016 Phlebotomy Only [facility] Rooms Coordinator, Hep C w/o coma, - [facility] Outpatient chronic ([facility]) [address] [facility] (Primary Dx) [place] [address] Social History Tobacco Use Types Packs/Day Years [...] Diagnosis Comme nts HCV RNA DETECT Routine 07/21/2016 11:14 Hep C w/o coma, Result s for this QUANT EDT chronic ([facility]) procedure are in the results section. documented in this encounter Results HCV RNA DETECT QUANT (07/21/2016 11:14 EDT) HCV RNA Detect Undetected Undetected IU/mL [facility] Comment: CENTER Reference Range: ??Undetected LABORATORY The quantification range of this assay is 15 SERVICES IU/mL to 100,000,000 IU/mL. Testing was performed by the Bria Ampliprep/Bria TaqMan HCV v2.0 ([employer] Specimen Blood specimen (specimen) - Blood Performing Organization Address City/State/ZIP Code Phon e Number [facility] [address] [place] [address] SERVICES documented in this encounter Visit Diagnoses Diagnosis Hep C w/o coma, chronic (HCC-CMS) (HCC) - Primary Chronic hepatitis C without mention of h epatic coma documented in this encounter Care Teams Head Piece Assembler Relationship Specialty Start Date End Date Sheila Nayak MD PhD PCP - General 06/10/08 05/18/17 2 [place] [address] documented as of this encounter
--- OUTSIDE RECORDS SUMMARY | 2021-08-25 00:44 | XMS_ITS | Encounter Summary ---
:1950 Author Organization [facility] Address [address] [place] [address] Care Team Providers Name Role Phone Sheila Nayak MD PhD Primary Care Provider [phone] Unknown, Provider Primary Care Provider Reason for Visit Reason Comments Medication Management Encounter Details Date Type Department Care Team Description 07/23/2016 Ambulatory Pharmacy [facility] [place] [address] [place] [address] Social History Tobacco Use Types Packs/Day Years Used Date Current Every Day Smoker Cigarettes 1 50 Smokeless Tobacco: Never Used Comments: occasionally; trying to quit Alcohol Use Standard Drinks/Week Comments Yes 10 (1 standard drink = 0.6 oz pure alcoh ol) Sex Assigned at Date Recorded Not on file documented as of this encounter Progress Notes Amanda Hernandez [facility] - 07/23/2016 1343 EDT Celestine Dickson is a 65 y.o. male who will be starting treatment with Epclusa x12 weeks for HCV. ? I performed a complete review of the patient???s medical record, including medications, immunizations, and allergies. ? Regimen: Epclusa x12 weeks Genotype: 2 Treatment: Naive Cirrhosis: N Fibrosis Stage: 1 ? Treatment Start Date: 01/26/16 Lab: [facility] ? Week Date SCr Hct/Hgb AST ALT HCV RNA Quant Pretreatment 11/24/15 0.77 44.2/15.3 23 32 [id number] 4 02/23/16 ? 45.4 24 30 undetected 12 04/19/16 0.95 45.1/15.5 27 39 undetected?? 12 post-tx 07/12/16 ? Undetected 07/21/16 ?? documented in this encounter Plan of Treatment Not on filedocumented as of this encounter Goals Goal Patient Goal Associated Recent Patient-Stated? Author Type Problems Progress Blood Blood Hypertensive 122/70 No White, Pressure < Pressure disorder (12/31/2015 More 140/90 11:06 EST) documented as of this encounter Visit Diagnoses Not on filedocumented in this encounter Care Teams Brewery Pumper Relationship Specialty Start Date End Date Sheila Nayak MD PhD PCP - General 06/10/08 05/18/[address] [place] [phone] Unknown, Provider, PCP - General 05/19/17 documented as of this encounter
--- OUTSIDE RECORDS SUMMARY | 2021-08-25 00:44 | XMS_ITS | Encounter Summary ---
:[address] [facility] Address [address] [place] [address] Care Team Providers Name Role Phone Sheila Nayak MD PhD Primary Care Provider [phone] Encounter Details Date Type Department Care Team Description 02/24/2016 Hospital Encounter [facility], [facility] [address] [address] [facility] [phone] [place], [address] [place] [address] (Wo rk) Social History Tobacco [...] Code Departure Means Destination Home or Self [facility] documented in this encounter Plan of Treatment Not on filedocumented as of this encounter Goals Goal Patient Goal Associated Recent Patient-Stated? Author Type Problems Progress Blood Blood Hypertensive 122/70 No White, Pressure < Pressure disorder (12/31/2015 More 140/90 11:06 EST) documented as of this encounter Visit Diagnoses Not on filedocumented in this encounter Care Teams Facepiece Line Supervisor Relationship Specialty Start Date End Date Sheila Nayak MD PhD PCP - General 06/10/08 05/18/17 2 [place] [address] documented as of this encounter
--- OUTSIDE RECORDS SUMMARY | 2021-08-25 00:44 | XMS_ITS | Encounter Summary ---
:1950 Author Organization [facility] Address [address] [place] [address] Care Team Providers Name Role Phone Sheila Nayak MD PhD Primary Care Provider [phone] Reason for Visit Reason Onset Date Comments Results 04/21/2016 labwork Encounter Details Date Type Department Care Team Description 04/21/2016 Telephone [facility] Martha Gao Resul ts (labwork) Gastroenterology - Main [place] [address] [place] [address] Social History Tobacco Use Types Packs/Day [...] Telephone Encounter - Martha Gao RN - 04/21/2016 0336 EDT A message was left for the patient that an HCV PCR quant was not drawn with his end of treatment labwork done on 04/19/16. A request was made to the patient to return to the lab at his convenience to have this drawn. ( order placed in Prism) documented in this encounter Plan of Treatment Not on filedocumented as of this encounter Goals Goal Patient Goal Associated Recent Patient-Stated? Author Type Problems Progress Blood Blood Hypertensive 122/70 No White, Pressure < Pressure disorder (12/31/2015 More 140/90 11:06 EST) documented as of this encounter Results HCV RNA DETECT QUANT (04/29/2016 11:45 EDT) HCV RNA Detect Undetected Undetected IU/mL [facility] Comment: CENTER Reference Range: ??Undetected LABORATORY The quantification range of this assay is 15 SERVICES IU/mL to 100,000,000 IU/mL. Testing was performed by the Bria Ampliprep/Bria TaqMan HCV v2.0 ([employer] Specimen Blood specimen (specimen) - Blood Performing Organization Address City/State/ZIP Code Phon e Number [facility] [address] [place] [address] SERVICES documented in this encounter Visit Diagnoses Diagnosis Hep C w/o coma, chronic (HCC-CMS) (HCC) - Primary Chronic hepatitis C without mention of h epatic coma documented in this encounter Care Teams Ground Service Equipment Mechanic Relationship Specialty Start Date End Date Sheila Nayak MD PhD PCP - General 06/10/08 05/18/17 [address] [place] [phone] documented as of this encounter
--- OUTSIDE RECORDS SUMMARY | 2021-08-25 00:44 | XMS_ITS | Encounter Summary ---
:1950 Author Organization [facility] Address [address] [place] [address] Care Team Providers Name Role Phone Sheila Nayak MD PhD Primary Care Provider [phone] Reason for Visit Reason Onset Date Comments Other 04/26/2016 Encounter Details Date Type Department Care Team Description 04/26/2016 Telephone [facility] Martha Gao RN Ot her Gastroenterology - [facility] [place] [address] [place] [address] Social History Tobacco Use Types [...] Telephone Encounter - Martha Gao RN - 04/26/2016 1040 EDT Another message was left with reminder to have end of treatment HCV PCR drawn,( not done with labs drawn on 04/19/16) order is in Prism. documented in this encounter Plan of Treatment Not on filedocumented as of this encounter Goals Goal Patient Goal Associated Recent Patient-Stated? Author Type Problems Progress Blood Blood Hypertensive 122/70 No White, Pressure < Pressure disorder (12/31/2015 More 140/90 11:06 EST) documented as of this encounter Visit Diagnoses Not on filedocumented in this encounter Care Teams Addresser Relationship Specialty Start Date End Date Sheila Nayak MD PhD PCP - General 06/10/08 05/18/17 [address] [place] [phone] documented as of this encounter
--- OUTSIDE RECORDS SUMMARY | 2021-08-25 00:44 | XMS_ITS | Encounter Summary ---
:1950 Author Organization [facility] Address [address] [place] [address] Care Team Providers Name Role Phone Sheila Nayak MD PhD Primary Care Provider [phone] Encounter Details Date Type Department Care Team Description 04/19/2016 Phlebotomy Only [facility] Hand Driller, Hep C w/o coma, - [facility] Outpatient chronic ([facility]) [address] [facility] (Primary Dx) [place] [address] Social History Tobacco Use Types Packs/Day Years [...] Procedure Name Priority Date/Time Associated Comments Diagnosis PROTIME Routine 04/19/2016 11:23 Hep C w/o coma, Results for this EDT chronic (CMS-HCC) procedure are in the results section. COMPLETE BLOOD COUNT Routine 04/19/2016 11:23 Hep C w/o coma, Results for this EDT chronic (CMS-HCC) procedure are in the results section. COMPREHENSIVE Routine 04/19/2016 11:23 Hep C w/o coma, Results for this METABOLIC PANEL (CMP) EDT chronic ([facility]) p rocedure are in the results section. documented in this encounter Results HEMAGRAM (04/19/2016 11:23 EDT) Pathologist Sig nature WBC 6.17 4.0 - 10.4 K/cmm [facility] RBC 5.11 4.36 - 5.78 M/cmm [facility] Hemoglobin 15.5 13.8 - 17.3 gm/dl [facility] HCT 45.1 39.5 - 50.2 % [facility] MCV 88 81 - 95 fl [facility] MCH 30.3 27.6 - 33.0 pg [facility] MCHC 34.4 32.8 - 36.4 gm/dl [facility] RDW-CV 12.5 11.8 - 14.1 % [facility] RDW-SD 40.9 36.5 - 45.9 fl [facility] PLT 248 141 - 377 K/cmm [facility] MPV 9.7 9.5 - 12.7 fl [facility] Specimen Blood specimen (specimen) - Blood Performing Organization Address City/[facility] Phon e Number [facility] [address] [place] [address] SERVICES PROTIME (04/19/2016 11:23 EDT) Pro Time 11.8 10.3 - 13.1 [facility] secs LABORATORY SERVICES I.N.R. 1.0 0.9 - 1.1 [facility] Comment: Ratio LABORATORY SERVICES Moderate Intensity Coumadin INR = 2.0-3.0 Adjustments in anticoagulant therapy dose should be based upon the INR and NOT the Pro Time. Specimen Blood specimen (specimen) - Blood Performing Organization Address City/[facility] Phon e Number [facility] [address] [place] [address] SERVICES COMPREHENSIVE METABOLIC PANEL (CMP) (04/19/2016 11:23 EDT) Potassium 4.8 3.5 - 5.0 [facility] mEq/L [facility] Sodium 137 136 - 145 [facility] mEq/L [facility] Chloride 102 96 - 110 [facility] mEq/L [facility] CO2 28Comment: Note new 22 - 32 [facility] reference range mEq/L [facility] 11/25/15 SERVICES Total Alkaline 60 38 - 126 U/L [facility] Phosphatase [facility] Bilirubin, Total 0.6 <1.4 mg/dl [facility] AST 27 15 - 46 U/L [facility] ALT 39 21 - 72 U/L [facility] Albumin 4.4 3.4 - 4.9 [facility] g/dl [facility] Total Protein 7.5 6.3 - 8.2 [facility] g/dl [facility] Creatinine 0.95 0.66 - 1.25 [facility] mg/dl [facility] GFR, Calculated 84 >60 [facility] Comment: ml/min/1.73m [facility] eGFR calculated using CKD-EPI equation for 2 SERVICES non Americans. Multiply eGFR by 1.16 for Americans. BUN 17 10 - 26 [facility] mg/dl [facility] Calcium 9.6 8.5 - 10.5 [facility] mg/dl [facility] Calculated Calcium 9.3 8.5 - 10.5 [facility] Comment: mg/dl [facility] Note new formula for calculation SERVICES in use 11/12/2015 Glucose, Serum 99 70 - 100 [facility] mg/dl [facility] Fasting? YES [facility] Specimen Blood specimen (specimen) - Blood Performing Organization Address City/State/ZIP Code Phon e Number [facility] [address] [place] [address] SERVICES documented in this encounter Visit Diagnoses Diagnosis Hep C w/o coma, chronic (HCC-CMS) (HCC) - Primary Chronic hepatitis C without mention of h epatic coma documented in this encounter Care Teams Test Conductor Relationship Specialty Start Date End Date Sheila Nayak MD PhD PCP - General 06/10/08 05/18/17 2 [place] [phone] documented as of this encounter
--- OUTSIDE RECORDS SUMMARY | 2021-08-25 00:44 | XMS_ITS | Encounter Summary ---
:[address] [facility] Address [address] [place] [address] Care Team Providers Name Role Phone Sheila Nayak MD PhD Primary Care Provider [phone] Unknown, Provider MD Primary Care Provider Reason for Visit Reason Comments Other Encounter Details Date Type Department Care Team Description 04/01/2017 Refill [facility] Adult Jesus Alberto Nayak MD PhD Other Primary Care - [address] [phone] (Wo rk) Social History Tobacco Use Types Packs/Day Years Used Date Current Every Day Smoker Cigarettes 1 50 Smokeless Tobacco: Never Used Comments: occasionally; trying to quit Alcohol Use Standard Drinks/Week Comments Yes 10 (1 standard drink = 0.6 oz pure alcoh ol) Sex Assigned at Date Recorded Not on file documented as of this encounter Miscellaneous Notes Telephone Encounter - Shara Vázquez - 04/17/2017 1418 EDT Patient has transferred care. elephone Encounter - Ayni Faith RN - 04/01/2017 1203 EST Requested Prescriptions Pending Prescriptions Disp Refills ??? simvastatin (ZOCOR) 10 mg tablet [Pharmacy Med Name: SIMVASTATIN 10 MG TABLET] 90 Tab 0 Sig: take 1 tablet by mouth once daily Pharmacy: [facility] Last Refill Date: 12/22/16 Last Visit Date: 12/31/15 Next Non-Acute Visit Date Scheduled with Care Team: Please Schedule an Appointment. Visit date not found Patient has not been seen for over a year. Needs an appointment with PCP Anyi Faith RN 04/01/2017 12:04 documented in this encounter Plan of Treatment Not on filedocumented as of this encounter Goals Goal Patient Goal Associated Recent Patient-Stated? Author Type Problems Progress Blood Blood Hypertensive 122/70 No White, Pressure < Pressure disorder (12/31/2015 More 140/90 11:06 EST) documented as of this encounter Visit Diagnoses Not on filedocumented in this encounter Care Teams Health Lead Relationship Specialty Start Date End Date Sheila Nayak MD PhD PCP - General 06/10/08 05/18/[address] [place] [phone] Unknown, Provider, PCP - General 05/19/17 documented as of this encounter
--- OUTSIDE RECORDS SUMMARY | 2021-08-25 00:44 | XMS_ITS | Encounter Summary ---
:1950 Author Organization [facility] Address [address] [place] [address] Care Team Providers Name Role Phone Sheila Nayak MD PhD Primary Care Provider [phone] Unknown, Provider MD Primary Care Provider Reason for Visit Reason Onset Date Comments Appointment Related 01/19/2016 cancelling med teach ing appt. today- needs to be called to [facility] this. Encounter Details Date Type Department Care Team Description 01/19/2016 Telephone [facility] Jerad Luke Ap pointment Related Gastroenterology - Main (cancelling med [place] [address] [place] [address] teaching appt. 111 [facility] today- needs to be [place], [place] [id number] [place] [address] called to [facility] this.) [phone] [facility] [address] [place] [phone] (Wo rk) Social History Tobacco Use Types [...] on filedocumented in this encounter Care Teams Farm Machine Tender Relationship Specialty Start Date End Date Sheila Nayak MD PhD PCP - General 06/10/08 05/18/17 [address] [place] [phone] Unknown, Provider, PCP - General 05/19/17 documented as of this encounter
--- OUTSIDE RECORDS SUMMARY | 2021-08-25 00:44 | XMS_ITS | Encounter Summary ---
:[address] [facility] Address [address] [place] [address] Care Team Providers Name Role Phone Sheila Nayak MD PhD Primary Care Provider [phone] Encounter Details Date Type Department Care Team Description 03/03/2016 Ambulatory Pharmacy [facility] - Main [facility] [place] [address] [place] [phone] Social History Tobacco Use Types Packs/Day Years Used Date Current Every Day Smoker Cigarettes 1 50 Smokeless Tobacco: Never Used Comments: occasionally; trying to quit Alcohol Use Standard Drinks/Week Comments Yes 10 (1 standard drink = 0.6 oz pure alcoh ol) Sex Assigned at Date Recorded Not on file documented as of this encounter Progress Notes Amanda Hernandez [facility] - 03/03/2016 1616 EST Celestine Dickson is a 65 y.o. male who will be starting treatment with Epclusa x12 weeks for HCV. ? I performed a complete review of the patient???s medical record, including medications, immunizations, and allergies. ? Regimen: Epclusa x12 weeks Genotype: 2 Treatment: Naive Cirrhosis: N Fibrosis Stage: 1 ? Treatment Start Date: 01/26/16 Lab: [facility] ? Week Date SCr Hct/Hgb AST ALT HCV RNA Quant Pretreatment 11/24/15 0.77 44.2/15.3 23 32 187328 4 02/23/16 ?45.4 ??24 ??30 ??undetected 12 04/19/16 ? 12 post-tx 07/12/16 ? documented in this encounter Plan of Treatment Not on filedocumented as of this encounter Goals Goal Patient Goal Associated Recent Patient-Stated? Author Type Problems Progress Blood Blood Hypertensive 122/70 No White, Pressure < Pressure disorder (12/31/2015 More 140/90 11:06 EST) documented as of this encounter Visit Diagnoses Not on filedocumented in this encounter Care Teams Batch Mixer Operator Relationship Specialty Start Date End Date Sheila Nayak MD PhD PCP - General 06/10/08 05/18/17 [address] [place] [address] documented as of this encounter
--- OUTSIDE RECORDS SUMMARY | 2021-08-25 00:44 | XMS_ITS | Encounter Summary ---
:1950 Author Organization [facility] Address [address] [place] [address] Care Team Providers Name Role Phone Sheila Nayak MD PhD Primary Care Provider [phone] Encounter Details Date Type Department Care Team Description 02/12/2016 Ambulatory Pharmacy [facility] Ambulatory Pharm[facility] - [facility] [place] [address] [place] [address] Social History Tobacco Use Types Packs/Day Years Used Date Current Every Day Smoker Cigarettes 1 50 Smokeless Tobacco: Never Used Comments: occasionally; trying to quit Alcohol Use Standard Drinks/Week Comments Yes 10 (1 standard drink = 0.6 oz pure alcoh ol) Sex Assigned at Date Recorded Not on file documented as of this encounter Progress Notes Nenita Weston - 02/12/2016 1243 EST Epclusa - [facility] will deliver Tuesday02/13/16 between 12-4pm. documented in this encounter Plan of Treatment Not on filedocumented as of this encounter Goals Goal Patient Goal Associated Recent Patient-Stated? Author Type Problems Progress Blood Blood Hypertensive 122/70 No White, Pressure < Pressure disorder (12/31/2015 More 140/90 11:06 EST) documented as of this encounter Visit Diagnoses Not on filedocumented in this encounter Care Teams Garment Patternmaker Relationship Specialty Start Date End Date Sheila Nayak MD PhD PCP - General 06/10/08 05/18/17 [address] [place] [phone] documented as of this encounter
--- OUTSIDE RECORDS SUMMARY | 2021-08-25 00:45 | XMS_ITS | Encounter Summary ---
:1950 Author Organization [facility] Address [address] [place] [address] Care Team Providers Name Role Phone Sheila Nayak MD PhD Primary Care Provider [phone] Encounter Details Date Type Department Care Team Description 04/03/2012 Hospital Encounter [facility] - S Ghazala [place] MD [address] [address] [place] [phone] Social History Tobacco Use Types Packs/Day Years Used Date Current Every Day Smoker Cigarettes 1 45 Smokeless Tobacco: Never Used Comments: occasionally; trying to quit Alcohol Use Standard Drinks/Week Comments Yes 35 (1 standard drink = 0.6 oz pure alcoh ol) Sex Assigned at Date Recorded Not on file documented as of this encounter Medications at Time of Discharge Medication Sig Dispensed Refills Start Date End Date alprazolam (XANAX) 0.5 mg Take 1 Tab by mouth 14 Each 0 0 03/28/2012 04/29/2012 tabletIndications: at bedtime as needed Anxiety for Sleep or Anxiety. aspirin 81 mg EC tablet Take 81 mg by mouth 0 12/25/2015 daily. ciprofloxacin (CIPRO) 500 Take 1 Tab by mouth 10 Tab 0 0 05/03/2012 08/15/2012 mg tablet 2 times daily. HYDROcodone-acetaminophen Take 1 Tab by mouth 5 Tab 0 0 05/03/2012 08/15/2012 (LORTAB) 5-500 mg tablet every 6 hours as needed for Pain. ipratropium-albuterol Inhale 2 Puffs as 1 Inhaler 3 012 04/23/2013 (COMBIVENT) 18-103 directed every 6 mcg/actuation inhaler hours as needed. omeprazole (PRILOSEC OTC) Take 1 Tab by mouth 90 Tab 3 1 03/06/2010 04/25/2012 20 mg tablet daily. sildenafil citrate Take 1 Tab by mouth 6 Tab 3 03/28/19 13 04/29/2012 (VIAGRA) 100 mg as needed for tabletIndications: Male Erectile erectile disorder Dysfunction. Needs Office visit before next refill. simvastatin (ZOCOR) 10 mg Take 1 Tab by mouth 90 Tab 3 0 02/11/2011 05/29/2012 tablet daily. documented as of this encounter Discharge Disposition Disposition Code Departure Means Destination Home or Self Care documented in this encounter Plan of Treatment Not on filedocumented as of this encounter Visit Diagnoses Not on filedocumented in this encounter Care Teams Outdoor Adventure Leader Relationship Specialty Start Date End Date Sheila Nayak MD PhD PCP - General 06/10/08 05/18/17 [address] [place] [phone] documented as of this encounter
--- OUTSIDE RECORDS SUMMARY | 2021-08-25 00:45 | XMS_ITS | Encounter Summary ---
:1950 Author Organization [facility] Address [address] [place] [address] Care Team Providers Name Role Phone Sheila Nayak MD PhD Primary Care Provider [phone] Encounter Details Date Type Department Care Team Description 08/28/2015 Phlebotomy Only [facility] Stack Supervisor, Vicente hernandez hypertension with goal blood pressure less than 140/90; - [facility] Outpatient Mixed hyperlipidemia [address] [place] [address] Social History Tobacco Use Types Packs/Day Years Used Date Current Every Day Smoker Cigarettes 1 45 Smokeless Tobacco: Never Used Comments: occasionally; trying to quit Alcohol Use Standard Drinks/Week Comments Yes 14 (1 standard drink = 0.6 oz pure alcoh ol) Sex Assigned at Date Recorded Not on file documented as of this encounter Plan of Treatment Not on filedocumented as of this encounter Procedures Procedure Name Priority Date/Time Associated Diagnosis Comme nts LIPID PROFILE Routine 08/28/2015 11:17 Mixed hyperlipidemia Re sults for this (INCLUDES EDT procedure are i n CHOLESTEROL, the results TRIGLYCERIDES, HDL, section. LDL) COMPREHENSIVE Routine 08/28/2015 11:17 Essential hypertension Results for this METABOLIC PANEL (CMP) EDT with goal blood pro cedure are in pressure less than the resul ts 140/90 section. documented in this encounter Results LIPID PROFILE (INCLUDES CHOLESTEROL, TRIGLYCERIDES, HDL, LDL) (08/28/2015 11:17 EDT) Cholesterol 172 mg/dl [facility] Comment: LABORATORY Desirable:<200 SERVICES Borderline High:200-239 High:>rn=955 Triglycerides 104 mg/dl [facility] Comment: LABORATORY Normal:<150 SERVICES Borderline High:150-199 High:200-499 Very High:>wm=165 HDL 48 mg/dl [facility] Comment: LABORATORY Low:<40 SERVICES Normal:40-60 Desirable: >60 LDL, Calculated 103 mg/dl [facility] Comment: LABORATORY Optimal:<100 SERVICES Near Optimal:100-129 Borderline High:130-159 High:160-189 Very High:>vm=069 Chol/HDL Ratio 3.6 [facility] LABORATORY SERVICES Fasting? YES [facility] LABORATORY SERVICES Non HDL Cholesterol 124 mg/dl [facility] Comment: LABORATORY Desirable:<130 SERVICES Borderline:130-159 High: 160-189 Very High: >ij=871 Specimen Blood specimen (specimen) - Blood Performing Organization Address City/State/ZIP Code Phon e Number [facility] LABORATORY [address] [place] [address] SERVICES (ABNORMAL) COMPREHENSIVE METABOLIC PANEL (CMP) (08/28/2015 11:17 EDT) Potassium 4.4 3.5 - 5.0 [facility] mEq/L [facility] Sodium 136 136 - 145 [facility] mEq/L [facility] Chloride 103 96 - 110 [facility] mEq/L [facility] CO2 23 (L) 24 - 32 mEq/L [facility]ORATORY SERVICES Total Alkaline 62 38 - 126 U/L [facility] Phosphatase [facility] Bilirubin, Total 0.7 <1.4 mg/dl [facility] LABORATORY SERVICES AST 22 15 - 46 U/L [facility]ORATORY SERVICES ALT 32 21 - 72 U/L [facility]ORATORY SERVICES Albumin 3.9 3.4 - 4.9 [facility] g/dl [facility] Total Protein 7.0 6.3 - 8.2 [facility] g/dl [facility] Creatinine 0.86 0.66 - 1.25 [facility] mg/dl [facility] GFR, Calculated 91 >60 [facility] Comment: ml/min/1.73m2 CENTER LABORATORY eGFR calculated using CKD-EPI equation for SERVICES non Americans. Multiply eGFR by 1.16 for Americans. BUN 13 10 - 26 mg/dl [facility] LABORATORY SERVICES Calcium 9.2 8.5 - 10.5 [facility] mg/dl [facility] Calculated Calcium 9.7 8.5 - 10.5 [facility] mg/dl [facility] Glucose, Serum 86 70 - 100 [facility] mg/dl [facility] SERVICES Fasting? YES [facility] LABORATORY SERVICES Specimen Blood specimen (specimen) - Blood Performing Organization Address City/State/ZIP Code Phon e Number [facility]ORY [address] [place] [address] SERVICES documented in this encounter Visit Diagnoses Diagnosis Essential hypertension with goal blood p ressure less than 140/90 Mixed hyperlipidemia documented in this encounter Care Teams Finished Carpet Inspector Relationship Specialty Start Date End Date Sheila Nayak MD PhD PCP - General 06/10/08 05/18/17 [address] [place] [address] documented as of this encounter
--- OUTSIDE RECORDS SUMMARY | 2021-08-25 00:45 | XMS_ITS | Encounter Summary ---
:1950 Author Organization [facility] Address [address] [place] [address] Care Team Providers Name Role Phone Sheila Nayak MD PhD Primary Care Provider [phone] Encounter Details Date Type Department Care Team Description 05/01/2012 Hospital Encounter [facility] [address] [facility] [address] [place] [address] [place], [place] [phone] Social History Tobacco Use Types Packs/Day Years [...] Sig Dispensed Refills Start Date End Date aspirin 81 mg EC tablet Take 81 [...] every 6 mcg/actuation inhaler hours as needed. simvastatin (ZOCOR) 10 mg Take 1 Tab by mouth 90 Tab 3 0 02/11/2011 05/29/2012 tablet daily. documented as of this encounter Discharge Disposition Disposition Code Departure Means Destination Auto Discharge Home documented in this encounter Plan of Treatment Not on filedocumented as of this encounter Visit Diagnoses Not on filedocumented in this encounter Care Teams Associate Director Regulatory Affairs Relationship Specialty Start Date End Date Sheila Nayak MD PhD PCP - General 06/10/08 05/18/17 [address] [place] [phone] documented as of this encounter
--- OUTSIDE RECORDS SUMMARY | 2021-08-25 00:45 | XMS_ITS | Encounter Summary ---
:[address] [facility] Address [address] [place] [address] Care Team Providers Name Role Phone Sheila Nayak MD PhD Primary Care Provider [phone] Encounter Details Date Type Department Care Team Description 08/16/2012 Phlebotomy Only [facility] Instrument Repair Technician, Micro scopic hematuria; - [facility] Outpatient Hypertension; [address] [facility] Microhematuria; [place] [address] Social History Tobacco Use Types Packs/Day Years Used Date Current Every Day Smoker Cigarettes 1 45 Smokeless Tobacco: Current User Comments: occasionally; trying to quit Alcohol Use Standard Drinks/Week Comments Yes 35 (1 standard drink = 0.6 oz pure alcoh ol) Sex Assigned at Date Recorded Not on file documented as of this encounter Plan of Treatment Not on filedocumented as of this encounter Procedures Procedure Name Priority Date/Time Associated Diagnosis Comme nts COMPLETE BLOOD COUNT Routine 08/16/2012 9:16 Hypertensio n Results for this EDT Microhematuria procedure are in the results section. COMPREHENSIVE Routine 08/16/2012 9:16 Hypertension Results for this METABOLIC PANEL (CMP) EDT proced ure are in the results section. URINE CHEMICAL (DIP) & Routine 08/16/2012 9:15 Microscopic Re sults for this SEDIMENT (MICRO) EDT hematuria procedure a re in WITHOUT REFLEX TO the result s CULTURE section. documented in this encounter Results HEMAGRAM (08/16/2012 9:16 EDT) Pathologist [facility] [place] WBC 7.50 4.0 - 10.4 K/cmm [facility] RBC 4.89 4.36 - 5.78 M/cmm [facility] Hemoglobin 14.6 13.8 - 17.3 gm/dl [facility] HCT 43.6 39.5 - 50.2 % [facility] MCV 89 81 - 95 fl [facility] MCH 29.8 27.6 - 33.0 pg [facility] MCHC 33.5 32.8 - 36.4 gm/dl [facility] PLT 200 141 - 320 K/cmm [facility] RDW-CV 12.9 11.8 - 14.1 % [facility] Specimen Blood specimen (specimen) Performing Organization Address City/[facility] Phon e Number [facility] [address] [place] [address] SERVICES [facility] [address] [place] [address] COMPREHENSIVE METABOLIC PANEL (CMP) (08/16/2012 9:16 EDT) [facility] Potassium 4.1 3.5 - 5.0 mEq/L [facility] Sodium 139 136 - 145 mEq/L [facility] Chloride 106 96 - 110 mEq/L [facility] CO2 25 24 - 32 mEq/L [facility] Total Alkaline 57 38 - 126 U/L [facility] Phosphatase Bilirubin, Total <0.5 0.2 - 1.3 mg/dl [facility] AST 44 15 - 46 U/L [facility] ALT 58 21 - 72 U/L [facility] Albumin 4.0 3.4 - 4.9 g/dl [facility] Total Protein 7.2 6.5 - 8.3 g/dl [facility] Creatinine 0.92 0.66 - 1.25 [facility] mg/dl GFR, Calculated >60 >60 [facility] ml/min/1.73m2 BUN 15 10 - 26 mg/dl [facility] Calcium 9.1 8.5 - 10.5 mg/dl [facility] Calculated Calcium 9.5 8.5 - 10.5 mg/dl [facility] Glucose, Serum 95 70 - 100 mg/dl [facility] Fasting? YES [facility] Specimen Blood specimen (specimen) Performing Organization Address City/[facility] Phon e Number [facility] [address] [place] [address] SERVICES [facility] [address] [place] [address] UA WITH MICROSCOPIC (08/16/2012 9:15 EDT) Color, UA Yellow [facility] Clarity, UA Clear [facility] Glucose, UA Neg Neg [facility] Bilirubin, UA Neg Neg [facility] Ketones, UA Neg Neg [facility] Specific [place], 1.010 1.001 - 1.035 [facility] Urine LAB Blood, UA Neg Neg [facility] pH, UA 5.5 4.6 - 8.0 [facility] Protein, UA Neg Neg [facility] Urobilinogen, UA 0.2 0.2 - 1.0 [facility] E.U./dl LAB Nitrite, UA Neg Neg [facility] Leuk Esterase Neg Neg [facility] WBC, UA None seen 0 - 5 /HPF [facility] RBC, UA None seen 0 - 5 /HPF [facility] Squam Epithel, UA None seen None seen [facility] /HPF LAB Renal Epithel, UA None seen None seen [facility] /HPF LAB Bacteria, UA None seen None seen [facility] /HPF LAB Crystals, UA None seen /HPF [facility] Hyaline Casts, UA None seen /LPF [facility] UA Comment Microscopic results [facility] Comment: LAB are unreliable on urines unrefrig >2hrs or refrig >8hrs. Specimen Urine (substance) - Urine Performing Organization Address City/State/ZIP Code Phon e Number [facility] [address] [place] [address] SERVICES [facility] [address] [place] [address] documented in this encounter Visit Diagnoses Diagnosis Microscopic hematuria Hypertensive disorder Unspecified essential hypertension Microhematuria Microscopic hematuria Gross hematuria documented in this encounter Orders Lab Orders Without Results Count Last Ordered Date st Ordered Date CYTOLOGY (NON-GYNECOLOGIC INCLUDING FLUIDS 1 08/16 AND FINE NEEDLE ASPIRATION)- ORDER ONLY documented in this encounter Care Teams Eligibility Consultant Relationship Specialty Start Date End Date Sheila Nayak MD PhD PCP - General 06/10/08 05/18/17 [address] [place] [phone] documented as of this encounter
--- OUTSIDE RECORDS SUMMARY | 2021-08-25 00:45 | XMS_ITS | Encounter Summary ---
:1950 Author Organization [facility] Address [address] [place] [address] Care Team Providers Name Role Phone Sheila Nayak MD PhD Primary Care Provider [phone] Reason for Visit Reason Onset Date Comments Medications Refill 05/29/2012 Encounter Details Date Type Department Care Team Description 05/29/2012 Refill [facility] Adult Sheila Nayak MD Medications Refill Primary [facility] - [place] PhD [address] [place] [id number] [place] [address] [phone] (Wo rk) Social History Tobacco Use [...] Tab by mouth 90 Tab 3 0 05/29/2012 03/29/2013 tablet daily. documented in this encounter Miscellaneous Notes Telephone Encounter - Melita Morse - 05/31/2012 1400 EDT I called [facility] in [place] to let them know that he is going to cone picker the Alprazolam Rx from 03/28/12 when he picks up the simvastatin Rx. elephone Encounter - Melita Morse - 05/29/2012 1515 EDT Pt requesting refill for: Med & Strength: Simvastatin, 10 mg Sig & Quantity: i po daily, #90 Pharmacy: [facility] [place] Last refill: 02/11/11 Last OV w/PCP: 03/28/12 Next OV w/PCP: 07/24/12 Is the pt out of the medication?: No Pt requesting refill for: Med & Strength: Alprazolam, 0.5 mg. Sig & Quantity: i po qhs prn sleep or anxiety/#14 Pharmacy: [facility] [place] Last refill: 03/28/12 Last OV w/PCP: 03/28/12 Next OV w/PCP: 07/24/12 Is the pt out of the medication?: Yes. He stated that he never picked up the 03/28/12 Rx. I verified this with [facility]. They have that Rx on file for him and said he can pick it up anytime he wants to. (He told me we would need to call it in again but [facility] says no.) documented in this encounter Plan of Treatment Not on filedocumented as of this encounter Visit Diagnoses Diagnosis Anxiety - Primary Anxiety state, unspecified documented in this encounter Discontinued Medications Medication Sig Discontinue Reason Start Date End Date simvastatin (ZOCOR) 10 mg Take 1 Tab by mouth Reorder 02/11/19 12 05/29/2012 tablet daily. documented as of this encounter Care Teams Mine Laborer Relationship Specialty Start Date End Date Sheila Nayak MD PhD PCP - General 06/10/08 05/18/17 [address] [place] [phone] documented as of this encounter
--- OUTSIDE RECORDS SUMMARY | 2021-08-25 00:45 | XMS_ITS | Encounter Summary ---
:1950 Author Organization [facility] Address [address] [place] [address] Care Team Providers Name Role Phone Sheila Nayak MD PhD Primary Care Provider [phone] Reason for Visit Reason Onset Date Comments Medications Refill 04/19/2013 Encounter Details Date Type Department Care Team Description 04/19/2013 Refill [facility] Adult Sheila Nayak MD Medications Refill Primary Care - [place] PhD [address] [place] [id number] [place] [address] [phone] (Wo rk) Social History Tobacco Use [...] Date ipratropium-albuterol Inhale 1 Puff as 1 Each 5 04/24/19 14 02/26/2014 (COMBIVENT RESPIMAT) directed 4 times 20-100 mcg/actuation daily. inhaler documented in this encounter Miscellaneous Notes Telephone Encounter - Amanda Goldstein RN - 04/23/2013 1303 EDT Tried to pend combivent but message comes up that MDI is no longer available and that all pts need to be changed to combivent respimat. I accepted the alternative offered and have pended it for physician to sign. elephone Encounter - Мария Bee - 04/19/2013 1033 EDT Pt requesting refill for: Med & Strength: Combivent inhaler Sig & Quantity: 2 puffs Q 6 hrs PRN Last refill:02/28/11 Is the pt out of the medication?: YES [facility]: [facility] Last OV w/PCP: 08/15/12 Next OV w/PCP: Visit date not found Мария Bee 04/19/2013 10:33 documented in this encounter Plan of Treatment Not on filedocumented as of this encounter Visit Diagnoses Not on filedocumented in this encounter Discontinued Medications Medication Sig Discontinue Reason Start Date End Date ipratropium-albuterol Inhale 2 Puffs as Reorder 11/29/2011 0 04/23/2013 (COMBIVENT) 18-103 directed every 6 mcg/actuation inhaler hours as needed. documented as of this encounter Care Teams Supervisor Paper Coating Relationship Specialty Start Date End Date Sheila Nayak MD PhD PCP - General 06/10/08 05/18/[address] [place] [phone] documented as of this encounter
--- OUTSIDE RECORDS SUMMARY | 2021-08-25 00:45 | XMS_ITS | Encounter Summary ---
:1950 Author Organization [facility] Address [address] [place] [address] Care Team Providers Name Role Phone Sheila Nayak MD PhD Primary Care Provider [phone] Encounter Details Date Type Department Care Team Description 04/03/2012 Phlebotomy Only [facility] Human Geography Faculty Member, [facility] Outpatient hematuria [address] [place] [address] Social History Tobacco Use Types Packs/Day Years [...] Name Priority Date/Time Associated Diagnosis Comme nts URINE CHEMICAL Routine 04/03/2012 9:27 EST Microscopic Result s for this (DIP) & SEDIMENT hematuria procedure a re in (MICRO) WITHOUT the results REFLEX TO CULTURE section. documented in this encounter Results (ABNORMAL) UA WITH MICROSCOPIC (04/03/2012 9:27 EST) Color, UA Yellow [facility] Clarity, UA Clear [facility] Glucose, UA Neg Neg [facility] Bilirubin, UA Neg Neg [facility] Ketones, UA Neg Neg [facility] Specific [place], >1.030 1.001 - [facility] Urine 1.035 LAB Blood, UA Trace (A) Neg [facility] pH, UA 5.5 4.6 - 8.0 [facility] Protein, UA Neg Neg [facility] Urobilinogen, UA 0.2 0.2 - 1.0 [facility]dl [facility] Nitrite, UA Neg Neg [facility] Leuk Esterase Neg Neg [facility] WBC, UA less than 1 0 - 5 /HPF [facility] RBC, UA less than 1 0 - 5 /HPF [facility] Squam Epithel, UA None seen None seen [facility] /HPF LAB Renal Epithel, UA None seen None seen [facility] /HPF LAB Bacteria, UA None seen None seen [facility] /[facility] Crystals, UA None seen /HPF [facility] Hyaline Casts, UA Rare /LPF [facility] Comment: LAB Hyaline Rare Granular UA Comment Microscopic results [facility] Comment: LAB are unreliable on urines unrefrig >2hrs or refrig >8hrs. Mucus, UA Present [facility] Refractometer 1.028 1.001 - [facility] SG,Urine 1.035 LAB Specimen Urine (substance) - Urine Performing Organization Address City/State/ZIP Code Phon e Number [facility] [address] [place] [address] SERVICES [facility] [address] [place] [address] documented in this encounter Visit Diagnoses Diagnosis Microscopic hematuria documented in this encounter Care Teams Hand Turner Relationship Specialty Start Date End Date Sheila Nayak MD PhD PCP - General 06/10/08 05/18/[address] [place] [address] [phone] documented as of this encounter
--- OUTSIDE RECORDS SUMMARY | 2021-08-25 00:45 | XMS_ITS | Encounter Summary ---
:1950 Author Organization [facility] Address [address] [place] [address] Care Team Providers Name Role Phone Sheila Nayak MD PhD Primary Care Provider [phone] Reason for Visit Reason Onset Date Comments Labs Only 02/18/2014 Encounter Details Date Type Department Care Team Description 02/18/2014 Telephone [facility] Adult Sheila Nayak MD Labs Only Primary Care - [place] PhD [address] [place] [address] [address] [place] [address] [place], [place] [phone] (Wo rk) Social History Tobacco Use Types Packs/Day Years Used Date Current Every Day Smoker Cigarettes 1 45 Smokeless Tobacco: Current User Comments: occasionally; trying to quit Alcohol Use Standard Drinks/Week Comments Yes 14 (1 standard drink = 0.6 oz pure alcoh ol) Sex Assigned at Date Recorded Not on file documented as of this encounter Miscellaneous Notes Telephone Encounter - [place] - 02/18/2014 1406 EST Patient notified of future fasting labs to be done prior to ov documented in this encounter Plan of Treatment Not on filedocumented as of this encounter Visit Diagnoses Not on filedocumented in this encounter Care Teams Postal Clerk Relationship Specialty Start Date End Date Sheila Nayak MD PhD PCP - General 06/10/08 05/18/17 [address] [place] [phone] documented as of this encounter
--- OUTSIDE RECORDS SUMMARY | 2021-08-25 00:45 | XMS_ITS | Encounter Summary ---
:1950 Author Organization [facility] Address [address] [place] [address] Care Team Providers Name Role Phone Sheila Nayak MD PhD Primary Care Provider [phone] Reason for Visit Reason Onset Date Comments Medications Refill 10/04/2013 Encounter Details Date Type Department Care Team Description 10/04/2013 Refill [facility] Adult Sheila Nayak MD Medications Refill Primary Care - [place] PhD [address] [place] [id number] [place] [address] [phone] (Wo rk) Social History Tobacco Use [...] 10 mg Take 1 Tab by mouth 30 Tab 0 0 10/04/2013 12/03/2013 tablet daily *office visit needed before further refills*. documented in this encounter Miscellaneous Notes Telephone Encounter - Zena Alexis - 10/04/2013 8618 EDT Rec'd fax from pharmacy for refill for: Simvastatin 10mg Take 1 tablet by mouth 1 time daily #90 Last Refill: 03/29/13 Is the pt out of the medication?: Unsure, fax from pharmacy Pharmacy: [facility] Last OV w/PCP: 08/15/12 Next OV w/PCP: Visit date not found Zena Alexis 10/04/2013 14:56 documented in this encounter Plan of Treatment Not on filedocumented as of this encounter Visit Diagnoses Not on filedocumented in this encounter Discontinued Medications Medication Sig Discontinue Reason Start Date End Date simvastatin (ZOCOR) 10 mg Take 1 Tab by mouth Reorder 03/29/19 14 10/04/2013 tablet daily. documented as of this encounter Care Teams Urban Renewal Manager Relationship Specialty Start Date End Date Sheila Nayak MD PhD PCP - General 06/10/08 05/18/17 [address] [place] [phone] documented as of this encounter
--- OUTSIDE RECORDS SUMMARY | 2021-08-25 00:45 | XMS_ITS | Encounter Summary ---
:1950 Author Organization [facility] Address [address] [place] [address] Care Team Providers Name Role Phone Sheila Nayak MD PhD Primary Care Provider [phone] Encounter Details Date Type Department Care Team Description 07/28/2012 Hospital Encounter [facility]- Sheila Nayak [facility] PhD [address] [address] [place], [place] [phone] (Wo rk) Social History Tobacco Use Types [...] 3 0 05/29/2012 03/29/2013 tablet daily. documented as of this encounter Discharge Disposition Disposition Code Departure Means Destination Home or Self Detention documented in this encounter Plan of Treatment Not on filedocumented as of this encounter Visit Diagnoses Not on filedocumented in this encounter Care Teams Fabric Lay Out Worker Relationship Specialty Start Date End Date Sheila Nayak MD PhD PCP - General 06/10/08 05/18/17 [address] [place] [phone] documented as of this encounter
--- OUTSIDE RECORDS SUMMARY | 2021-08-25 00:45 | XMS_ITS | Encounter Summary ---
:1950 Author Organization Address [address] [place] [address] Care Team Providers Name Role Phone Sheila Nayak MD PhD Primary Care Provider [phone] Encounter Details Date Type Department Care Team Description 08/28/2015 Hospital Encounter [facility]- Sheila Nayak [facility] MD PhD [address] [address] [place], [place] [phone] (Wo rk) Social History Tobacco Use Types Packs/Day Years Used Date Current Every Day Smoker Cigarettes 1 45 Smokeless Tobacco: Never Used Comments: occasionally; trying to quit Alcohol Use Standard Drinks/Week Comments Yes 14 (1 standard drink = 0.6 oz pure alcoh ol) Sex Assigned at Date Recorded Not on file documented as of this encounter Discharge Diagnoses Diagnosis E78.2 Mixed hyperlipidemia-E78.2[ICD-10- CM] I10 Essential (primary) hypertension-I10 [ICD-10-CM] documented in this encounter Medications at Time of Discharge Medication Sig Dispensed Refills Start Date End Date aspirin 81 mg EC tablet Take 81 mg by mouth 0 12/25/2015 daily. ipratropium-albuterol Inhale 1 Puff as 1 Inhaler 4 02/26/19 15 09/02/2015 (COMBIVENT RESPIMAT) directed every 4 20-100 mcg/actuation hours as needed for inhalerIndications: Wheezing. Chronic obstructive pulmonary disease (HCC-CMS) ([facility]) simvastatin (ZOCOR) 10 Take 1 Tab by mouth 90 Tab 0 /07/201509/02/2015 mg tablet daily for 90 days. traZODone (DESYREL) 50 Take 1 Tab by mouth 30 Tab 1 11/0809/02/2015 mg tablet at bedtime as needed for Sleep. documented as of this encounter Discharge Disposition Disposition Code Departure Means Destination Home or Self Intermediate documented in this encounter Plan of Treatment Not on filedocumented as of this encounter Procedures Procedure Name Priority Date/Time Associated Comments Diagnosis HCV RNA DETECT QUANT Routine 08/28/2015 11:17 Res ults for this EDT procedure are i n the results section. HEPATITIS C AB W Routine 08/28/2015 11:17 Results for this REFLEX TO HCV RNA BY EDT procedu re are in PCR the results section. HIV 1/2 ANTIGEN AND Routine 08/28/2015 11:17 Resu lts for this ANTIBODY, 4TH EDT procedure are in GENERATION the results section. PSA TOTAL, Routine 08/28/2015 11:17 Results for this DIAGNOSTIC EDT procedure are i n the results section. documented in this encounter Results (ABNORMAL) HCV RNA DETECT QUANT (08/28/2015 11:17 EDT) [facility] HCV RNA Detect 535,585 (A) Undetected IU/mL [facility] Comment: CENTER Reference Range: ??Undetected LABORATORY The quantification range of this assay is 15 SERVICES IU/mL to 100,000,000 IU/mL. Testing was performed by the [employer] Ampliprep/Bria TaqMan HCV v2.0 ([employer] Specimen Blood Performing Organization Address [facility] Phon e Number [facility] [address] [place] [address] SERVICES HIV 1/2 ANTIBODY (08/28/2015 11:17 EDT) [facility] HIV 1/2 Antibody Negative [facility] Comment: CENTER LABORATORY If acute HIV-1 infection is suspected in a SERVICES high risk patient, submit plasma specimen for HIV-1 RNA quantification test. Reference Range: ??Negative Assayed utilizing [employer] chemiluminescent technology. Specimen Blood Performing Organization Address [facility] Phon e Number [facility] [address] [place] [address] SERVICES (ABNORMAL) HEPATITIS C ANTIBODY (08/28/2015 11:17 EDT) [facility] Hep C Ab w Rfx PCR REACTIVE (A) Negative [facility] Comment: LABORATORY Supplemental testing for HCV RNA is ordered SERVICES to rule out active infection. Reference Range: ??Negative Specimen Blood Performing Organization Address City/State/ZIP Code Phon e Number [facility] [address] [place] [address] SERVICES PSA (08/28/2015 11:17 EDT) PSA 0.5 0 - 4.5 ng/ml [facility] Comment: LABORATORY SERVICES Serum PSA concentration should not be interpreted as absolute evidence for the presence or absence of malignant disease. Assayed utilizing [employer]) chemiluminescent technology. ??Values obtained by using different assay methods cannot be used interchangeably. Specimen Blood Performing Organization Address City/[facility]/ZIP Code Phon e Number [facility] [address] [place] [address] SERVICES documented in this encounter Visit Diagnoses Not on filedocumented in this encounter Care Teams Fruit Grader Relationship Specialty Start Date End Date Sheila Nayak MD PhD PCP - General 06/10/08 05/18/17 [address] [place] [phone] documented as of this encounter
--- OUTSIDE RECORDS SUMMARY | 2021-08-25 00:45 | XMS_ITS | Encounter Summary ---
:1950 Author Organization [facility] Address [address] [place] [address] Care Team Providers Name Role Phone Sheila Nayak MD PhD Primary Care Provider [phone] Reason for Referral Radiology Services (Other (Specify in Question)) - Closed Specialty Diagnoses / Procedures Referred By Contact Refer red To Contact Diagnoses Microscopic hematuria Víctor Cordova MD Procedures CHEST PA AND LATERAL [address] [place] [address] Referral ID Status Reason Start Date Expiration Date Visits Requ ested Visits Authorized [id number] Closed 03/27/2012 1 1 Reason for Visit Reason Onset Date Comments Orders (Non Pre-visit) 03/27/2012 Encounter Details Date Type Department Care Team Description 03/27/2012 Orders Only [facility] Víctor Cordova, Micro scopic hematuria Urology - Zachary arreguin MD (Primary Dx) [address] [facility] [address] [place], [place] [address] [place] [address] [phone] Social History Tobacco Use Types Packs/Day Years [...] Name Priority Date/Time Associated Diagnosis Comme nts CHEST PA AND Routine 05/01/2012 9:23 EDT Microscopic Results for this LATERAL hematuria procedure are i n the results section. documented in this encounter Results CHEST PA AND LATERAL (05/01/2012 9:23 EDT) Anatomical Region Laterality Modality Other Specimen Narrative [facility] - 05/01/2012 11:19 EDT CHEST PA AND LAT ??May 01, 2012 09:23:00 AM Signs and Symptoms/Comments: ?? 599.72-M icroscopic [id number]; PRE-OP CLEARANCE, HEMATURIA Comparison: 05/18/2009 Findings: Abnormally prominent interstit ial markings are unchanged from previously and the lungs look other lane clear. There is no evidence of pleural fluid. The cardiac s ilhouette and pulmonary vascularity are normal. The skeleton is grossly unremarkable for age. ?? Impression: Mild interstitial disease Procedure Note 05/01/2012 CHEST PA AND LAT May 01, 2012 09:23:00 A M Signs and Symptoms/Comments: 599.72-Micr oscopic [id number]; PRE-OP CLEARANCE, HEMATURIA Comparison: 05/18/2009 Findings: Abnormally prominent interstit ial markings are unchanged from previously and the lungs look other lane clear. There is no evidence of pleural fluid. The cardiac s ilhouette and pulmonary vascularity are normal. The skeleton is grossly unremarkable for age. Impression: Mild interstitial disease Performing Organization Address City/State/ZIP Code Phon e Number [facility] documented in this encounter Visit Diagnoses Diagnosis Microscopic hematuria - Primary documented in this encounter Care Teams Sales Store Checker Relationship Specialty Start Date End Date Sheila Nayak MD PhD PCP - General 06/10/08 05/18/17 [address] [place] [phone] documented as of this encounter
--- OUTSIDE RECORDS SUMMARY | 2021-08-25 00:45 | XMS_ITS | Encounter Summary ---
:1950 Author Organization [facility] Address [address] [place] [address] Care Team Providers Name Role Phone Sheila Nayak MD PhD Primary Care Provider [phone] Encounter Details Date Type Department Care Team Description 07/28/2012 Phlebotomy Only [facility] - Transmission Assembler, Hyp erlipidemia [facility] [address] [place] [address] Social History Tobacco Use Types Packs/Day Years [...] Associated Diagnosis Comme nts LIPID PROFILE Routine 07/28/2012 9:39 Hyperlipidemia Results f or this (INCLUDES EDT procedure are i n CHOLESTEROL, the results TRIGLYCERIDES, HDL, section. LDL) documented in this encounter Results LIPID PROFILE (INCLUDES CHOLESTEROL, TRIGLYCERIDES, HDL, LDL) (07/28/2012 9:39 EDT) Cholesterol 170 mg/dl [facility] Comment: Desirable:<200 Borderline High:200-239 High:>hz=536 Triglycerides 103 mg/dl [facility] Comment: Normal:<150 Borderline High:150-199 High:200-499 Very High:>yo=571 HDL 48 mg/dl [facility] Comment: Low:<40 Normal:40-60 Desirable: >60 LDL, Calculated 101 mg/dl [facility] Comment: Optimal:<100 Near Optimal:100-129 Borderline High:130-159 High:160-189 Very High:>bh=277 Chol/HDL Ratio 3.5 [facility] Fasting? YES [facility] Specimen Blood specimen (specimen) Performing Organization Address City/State/ZIP Code Phon e Number [facility] [address] [place] [address] SERVICES [facility] [address] [place] [address] documented in this encounter Visit Diagnoses Diagnosis Hyperlipidemia Other and unspecified hyperlipidemia documented in this encounter Care Teams Spiritual Counselor Relationship Specialty Start Date End Date Sheila Nayak MD PhD PCP - General 06/10/08 05/18/17 [address] [place] [phone] documented as of this encounter
--- OUTSIDE RECORDS SUMMARY | 2021-08-25 00:45 | XMS_ITS | Encounter Summary ---
:1950 Author Organization [facility] Address [address] [place] [address] Care Team Providers Name Role Phone Sheila Nayak MD PhD Primary Care Provider [phone] Reason for Referral Consult (Routine) - Specialty Report Received Specialty Diagnoses / Referred By Referred To Cont act Procedures Contact Gastroenterology and Diagnoses Hep C w/o coma, chronic (HCC-CMS) (HCC) Sheila Nayak M[facility] Hepatology MD Jaelyn PhD [address] [place] [id number] [place] [address] Phone: [phone] Referral ID Status Reason Start Expiration Visits Visits Date Date Requested Authorized [id number] Specialty Specialty 09/11/2015 1 1 Report Services Received Required Question Answer Reason for Request: Hep C - new, diagnosed on tx reening Reason for Visit Reason Onset Date Comments Results 09/10/2015 Encounter Details Date Type Department Care Team Description 09/10/2015 Telephone [facility] Adult Sheila Nayak MD Results Primary Care - [place] PhD [address] [place] [address] [address] [place], [place] [address] [place] [address] [phone] (Wo rk) Social History Tobacco Use Types Packs/Day Years Used Date Current Every Day Smoker Cigarettes 1 50 Smokeless Tobacco: Never Used Comments: occasionally; trying to quit Alcohol Use Standard Drinks/Week Comments Yes 10 (1 standard drink = 0.6 oz pure alcoh ol) Sex Assigned at Date Recorded Not on file documented as of this encounter Miscellaneous Notes Telephone Encounter - Sheila Nayak MD - 09/11/2015 0940 EDT i have made referral. Thank you for reaching him. elephone Encounter - Anyi Faith RN - 09/11/2015 0930 EDT Message reviewed with patient. He agreed to referral to Hepatology. elephone Encounter - Sheila Nayak MD - 09/10/2015 1427 EDT Please call pt. i have tried to reach him twice and left message both times. His hep c screening waspositive for hepatitis C. I recommend that he see the liver specialist as there are very good treatments. I will order referral once he is reached. documented in this encounter Plan of Treatment Scheduled Referrals Name Type Priority Associated Order Schedule Diagnoses AMB CONS/FOLLOW UP Outpatient Referral Routine Hep C w/o coma, Ordered: HEPATOLOGY chronic (CMS-HCC) 09/11/2015 documented as of this encounter Visit Diagnoses Diagnosis Hep C w/o coma, chronic (HCC-CMS) (HCC) - Primary Chronic hepatitis C without mention of h epatic coma documented in this encounter Care Teams Facsimile Operator Relationship Specialty Start Date End Date Sheila Nayak MD PhD PCP - General 06/10/08 05/18/17 [address] [place] [phone] documented as of this encounter
--- OUTSIDE RECORDS SUMMARY | 2021-08-25 00:45 | XMS_ITS | Encounter Summary ---
:1950 Author Organization [facility] Address [address] [place] [address] Care Team Providers Name Role Phone Sheila Nayak MD PhD Primary Care Provider [phone] Reason for Visit Reason Comments Chronic Obstructive Pulmonary Disease Hepatitis C Encounter Details Date Type Department Care Team Description 12/31/2015 Office Visit [facility] Sheila Nayak, Beatris ed for hepatitis A and B vaccination (Primary Dx); Adult Primary Care - PhD Need for influenza vaccination; [place] [address] [facility] Essential hypertension; [address] [place], [place] Chronic bronchitis, unspecif ied chronic bronchitis type ([facility]); [place] [id number] Tobacco dependence syndrome; [phone] (Wo rk) Chronic hepatitis C without hepatic coma ([facility]) Social History Tobacco Use Types Packs/Day Years [...] on file documented as of this encounter Last Filed Vital Signs Vital Sign Reading Time Taken Comments Blood Pressure 122/70 12/31/2015 1106 EST Pulse 68 12/31/2015 1106 EST r Temperature 36.3 ??C (97.4 ??F) 12/31/2015 1106 EST Respiratory Rate 16 12/31/2015 1106 EST Oxygen Saturation - - Inhaled Oxygen Concentration - - Weight 60.3 kg (133 lb) 12/31/2015 1106 EST Height - - Body Mass Index 22.13 11/24/2015 1336 EDT documented in this encounter Discharge Diagnoses Diagnosis Z23 Encounter for immunization-Z23[ICD-1 0-CM] I10 Essential (primary) hypertension-I10 [ICD-10-CM] J42 Unspecified chronic bronchitis-J42[I CD-10-CM] F17.200 Nicotine dependence, unspecified , uncomplicated-F17.200[ICD-10-CM] B18.2 Chronic viral hepatitis C-B18.2[IC D-10-CM] documented in this encounter Patient Instructions Patient InstructionsMore Watts - 12/31/2015 11:00 EST Quitting smoking Stopping smoking is the best step you can take to improve your own health and lengthen your life. Quitting smoking will lower your risk for heart attacks, lung problems, and many forms of cancer. When you stop smoking, your loved ones will breathe less smoke from the air. That will lower their risk for asthma, lung infections, heart attacks, and lung cancer. You will also save money, look and smell better, and feel good about what you've done. Many people have quit smoking. The best way to quit is to be clear on your reasons for quitting, ranulfo quit date, use medication, and work with a trained counselor. Counseling in [facility] offers free smoking cessation counseling services to [facility] including a telephone quit line, in person cessation groups, and [employer] - an online quit service. You may be able to get nicotine replacement medications for low or even no cost through these counseling services depending on your insurance. The [place] Department of [employer] also has tips and tools for those who want to try to quit on their own. To learn more about these options go to www.[employer].org or call 1 076-PPBV-RQK ( ). I hope you quit smoking. I think it's the best thing you can do for your health. Please call our office if you have any questions. documented in this encounter Discharge Disposition Disposition Code Departure Means Destination Auto Discharge documented in this encounter Progress Notes Sheila Nayak MD - 12/31/2015 1100 EST Subjective: Patient ID: Celestine Dickson is an 65 y.o. male. Chief Complaint Patient presents with ??? Chronic Obstructive Pulmonary Disease ??? Hepatitis C HPI Celestine follows up for a new diagnosis of hepatitis C as well as longstanding COPD and tobacco dependence. Saw Dr Luke and had recent liver ultrasound testing. Waiting to hear back from Dr Luke regarding treatment. He is here today also to get hep B and A vaccinations. He will need a PT, CMP and CBCannually. He continues to drink 2 to 3 alcoholic beverages per night. I reviewed Dr Luke's note and spoke to him regarding the importance of alcohol cessation. He had misunderstood this and only thought he needed to stop drinking while on treatment. He has multiple other questions regarding what hepatitis is and what hepatitis C is. These were all addressed. COPD: Continues to smoke. No complaints regarding his breathing. Continues on Combivent. Hyperlipidemia: Continues on simvastatin. 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 This is in the [facility]. We discussed that it would be easier for him to establish with a primary care doctor in that area rather than making the trip to [place]. He used to just reside seasonally in [place]. Patient Active Problem List Diagnosis ??? Hypertensive disorder ??? Chronic obstructive pulmonary disease ??? Hyperlipidemia ??? Male erectile disorder ??? Anxiety ??? Gastric ulcer ??? Osteoarthritis of knee ??? Tobacco dependence syndrome ??? Microhematuria ??? Chronic hepatitis C without hepatic coma Past Medical History Diagnosis Date ??? Acne ??? Anxiety ??? Arthritis ??? Asthma ??? Back pain ??? COPD (chronic obstructive pulmonary disease) ??? Depression ??? Emphysema of lung ??? Fatigue ??? Fracture to face ??? Gastric ulcer, unspecified as acute or chronic, without mention of hemorrhage, perforation, or obstruction 07/21/2009 ??? High blood pressure ??? High cholesterol ??? Hyperlipidemia ??? Hypertension ??? Joint pain ??? Joint swelling ??? Numbness ??? Sinus problem ??? Wears glasses Current Outpatient Prescriptions on File Prior to Visit Medication Sig Dispense Refill ??? ipratropium-albuterol (COMBIVENT RESPIMAT) 20-100 mcg/actuation inhaler Inhale 1 Puff as directed 4 times daily as needed for Wheezing. 1 Inhaler 3 ??? simvastatin (ZOCOR) 10 mg tablet Take 1 Tab by mouth daily for 90 days. 90 Tab 3 No current facility-administered medications on file prior to visit. Allergies Allergen Reactions ??? Other - See Comments Rash Contrast Dye Social Social History Substance Use Topics ??? Smoking status: Current Every Day Smoker Packs/day: 1.00 Years: 50.00 Types: Cigarettes ??? Smokeless tobacco: Never Used Comment: occasionally; trying to quit ??? Alcohol use 6.0 oz/week 10 Shots of liquor per week Review of Systems Constitutional: Negative for chills and fever. Cardiovascular: Negative for chest pain. Gastrointestinal: Negative for abdominal pain. Neurological: Negative for dizziness. - See HPI Objective: Visit Vitals ??? BP 122/70 (BP Cuff Location: Left arm, Patient Position: Sitting, BP Cuff Sizes: Adult, regular) ??? Pulse 68 Comment: r ??? Temp 36.3 ??C (97.4 ??F) (Tympanic) ??? Resp 16 ??? Wt 60.3 kg (133 lb) ??? BMI 22.13 kg/m2 Physical Exam Constitutional: He is oriented to person, place, and time. He appears well- developed and well-nourished. No distress. HENT: Head: Normocephalic. Eyes: Conjunctivae and EOM are normal. Neck: Normal range of motion. Neck supple. No thyromegaly present. Cardiovascular: Normal rate, regular rhythm, normal heart sounds and intact distal pulses. No murmur heard. Pulmonary/Chest: Effort normal and breath sounds normal. No respiratory distress. He has no wheezes.He has no rales. Musculoskeletal: He exhibits no edema. Lymphadenopathy: He has no cervical adenopathy. Neurological: He is alert and oriented to person, place, and time. Skin: Skin is warm and dry. Psychiatric: He has a normal mood and affect. His behavior is normal. Judgment and thought content normal. Vitals reviewed. Assessment: New hep C. Will be starting treatment. Advised no etoh. Hep a and b vaccines today Copd - advised no tobacco. 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 He may eventually establis with PCP in that area. Plan: Celestine was seen today for chronic obstructive pulmonary disease and hepatitis c. Diagnoses and all orders for this visit: Need for hepatitis A and B vaccination - Hepatitis A hepatitis B combined vaccine IM - Hepatitis A hepatitis B combined vaccine IM; Future - Hepatitis A hepatitis B combined vaccine IM; Future Need for influenza vaccination - [id number] - Influenza Vaccine =>3YO Quad Preservative Free IM Essential hypertension Chronic bronchitis, unspecified chronic bronchitis type Tobacco dependence syndrome Chronic hepatitis C without hepatic coma Return in about 10 months (around 10/30/2016) for P30. Maricruz Meléndez LPN - 12/31/2015 1100 EST Patient Education Topic: influenza quad vaccine AND adult Hepatitis A/ Hepatitis B(twinrix) vaccine given Method: Handout and Verbal Taught to: Patient Barriers: None Outcomes: independent and verbalized understanding Signature:Maricruz Leone LPN I was supervised by dr nayak who was present and immediately available in the office suite. Maricruz Leone LPN 12/31/2015 15:01 documented in this encounter Plan of Treatment [...] vaccination and in oculation against viral hepatitis Need for influenza vaccination Need for prophylactic vaccination and in oculation against influenza Essential hypertension Unspecified essential hypertension Chronic bronchitis, unspecified chronic bronchitis type (HCC-CMS) (HCC) Tobacco dependence syndrome Tobacco use disorder Chronic hepatitis C without hepatic coma (HCC-CMS) (HCC) Chronic hepatitis C without mention of h epatic coma documented in this encounter Orders Immunization/Injection Count Last Ordered Date First O rdered Date HEPATITIS A HEPATITIS B COMBINED VACCINE 3 017 12/31/2015 IM INFLUENZA VACCINE =>3YO QUAD PRESERVATIVE 1 2015 FREE IM documented in this encounter Care Teams Corporate Travel Agent Relationship Specialty Start Date End Date Sheila Nayak MD PhD PCP - General 06/10/08 05/18/17 [address] [place] [phone] documented as of this encounter
--- OUTSIDE RECORDS SUMMARY | 2021-08-25 00:45 | XMS_ITS | Encounter Summary ---
:1950 Author Organization [facility] Address [address] [place] [address] Care Team Providers Name Role Phone Sheila Nayak MD PhD Primary Care Provider [phone] Reason for Visit Reason Onset Date Comments Appointment Related 05/02/2012 cancel surg ? Time s ensitive. Encounter Details Date Type Department Care Team Description 05/02/2012 Telephone [facility] Víctor Cordova, Appoi ntment Related Urology - Main Jaqueline arreguin MD (cancel surg ? Time [address] [place] [address] [place], [place] [phone] Social History Tobacco Use Types Packs/Day Years Used Date Current Every Day Smoker Cigarettes 1 45 Smokeless Tobacco: Never Used Comments: occasionally; trying to quit Alcohol Use Standard Drinks/Week Comments Yes 35 (1 standard drink = 0.6 oz pure alcoh ol) Sex Assigned at Date Recorded Not on file documented as of this encounter Miscellaneous Notes Telephone Encounter - Margie Davalos RN - 05/02/[address] Cordova, pt advised that he can proceed with his procedure. If his symptoms become worse or if he develops a temperature he will need to reschedule. I advised the pt that anesthesia MD will talkto him and evaluate him prior to his procedure and they may choose to recommend rescheduling. elephone Encounter - Celina Porter RN - 05/02/2012 1314 EDT Per patient Sneezing, head cold, runny nose since last night. Denies fever, chills, body aches. Will review with Dr. Cordova. elephone Encounter - Noel Dykes. - 05/02/2012 1124 EDT Patient requests call back. Patient states he is coming down with a cold. Patient wants to know if he should cancel surgery tomrrow./ documented in this encounter Plan of Treatment Not on filedocumented as of this encounter Visit Diagnoses Not on filedocumented in this encounter Care Teams Group Home Worker Relationship Specialty Start Date End Date Sheila Nayak MD PhD PCP - General 06/10/08 05/18/17 [address] [place] [phone] documented as of this encounter
--- OUTSIDE RECORDS SUMMARY | 2021-08-25 00:45 | XMS_ITS | Encounter Summary ---
:1950 Author Organization [facility] Address [address] [place] [address] Care Team Providers Name Role Phone Sheila Nayak MD PhD Primary Care Provider [phone] Encounter Details Date Type Department Care Team Description 05/03/2012 Hospital Encounter [facility] Allyssa Cordova, Perioperative Services- [facility] [address] [place] [id number] [phone] Social History Tobacco Use Types Packs/Day Years [...] Sign Reading Time Taken Comments Blood Pressure 111/72 05/03/2012 0915 EDT Pulse - - Temperature 35.8 ??C (96.4 ??F) 05/03/2012 0845 EDT Respiratory Rate 18 05/03/2012 0915 EDT Oxygen Saturation 95% 05/03/2012 0915 EDT Inhaled Oxygen Concentration - - Weight 68 kg (150 lb) 04/29/2012 1334 EDT Height 167.6 cm (5' 6) 04/29/2012 1334 EDT Body Mass Index 24.21 04/29/2012 1334 EDT documented in this encounter Discharge Instructions Channing Olguin MD - 05/03/2012 Diet: Regular Activity: No restrictions. Driving: No driving while taking narcotic pain medication Skin/Wound Care: No dressing required. Bathing: No restrictions Pending Results: Not applicable Symptoms to Call Your Doctor About: Chest pain (angina) Dizziness or fainting Decreased urine output Inability to swallow or increasing difficulty swallowing Increased or new pain Shortness of breath or rapid breathing Signs of infection such as pain, redness, swelling or drainage at procedure or wound site Appointments: Follow up with Dr. Cordova in 2 weeks his office will contact you for an appointment documented in this encounter Medications at Time [...] tablet daily. documented as of this encounter Ordered Prescriptions Prescription Sig Dispensed Refills Start Date End Date ciprofloxacin (CIPRO) 500 Take 1 Tab by mouth 10 Tab 0 0 05/03/2012 08/15/2012 mg tablet 2 times daily. HYDROcodone-acetaminophen Take 1 Tab by mouth 5 Tab 0 0 05/03/2012 08/15/2012 (LORTAB) 5-500 mg tablet every 6 hours as needed for Pain. documented in this encounter Discharge Disposition Disposition Code Departure Means Destination Home or Self Care documented in this encounter Progress Notes Beata Jackson RN - 04/29/2012 1347 EDT Celestine Dickson has been instructed as follows regarding medication administration for the day of the scheduled procedure. Date of Surgery: 05/03/12 Instructions for Taking Medications Day of Surgery Medication Last Dose Hold DOS Take DOS ipratropium-albuterol (COMBIVENT) 18-103 mcg/actuation inhaler Yes,prn,bring simvastatin (ZOCOR) 10 mg tablet yes aspirin 81 mg EC tablet 04/25/12-takes for heart health-was told by surgeon and pcp to stop it due tohematuria. yes documented in this encounter H&P Notes Allyssa Cordova - 05/03/2012 0714 EDT The preoperative history and physical which was performed within 30 days of this procedure has been reviewed and the clinically appropriate elements of the physical examination havebeen repeated. There are no changes to the documented history and physical or if so such changes aredocumented below ALLYSSA CORDOVA MD 05/03/2012 7:14 Reba Bland PA - 04/25/2012 1409 EDT Subjective: Patient ID: Celestine Dickson is an 61 y.o. male. Chief Complaint Patient presents with ??? Pre-op Exam surgery on 05/03/[address] Cordova HPI Comments: Surgery: Bladder surgery Surgeon: Dr. Cordova Date: 05/03/12 HPI: pt has occasionally seen hemauria. He is scheduled for further evaluation of his bladder. Prior h/o of anesthetic complications - no Prior h/o bleeding problems -no Prior h/o DVT/PE - no Family history of anesthetic complications, bleeding problems or DVT/PE -no Cardiovascular or pulmonary risk factors: - no FH RI or CVA, father - DM, m.grandmother -DM Patient Active Problem List Diagnoses ??? Hypertension ??? Chronic obstructive pulmonary disease ??? Hyperlipidemia ??? Male erectile disorder ??? Anxiety ??? Gastric ulcer, unspecified as acute or chronic, without mention of hemorrhage, perforation, or obstruction ??? Osteoarthritis of knee ??? Tobacco dependence syndrome ??? Microhematuria Past Medical History Diagnosis Date ??? Hypertension ??? COPD (chronic obstructive pulmonary disease) ??? Hyperlipidemia ??? Fracture to face ??? Gastric ulcer, unspecified as acute or chronic, without mention of hemorrhage, perforation, or obstruction 07/21/2009 ??? Emphysema of lung ??? Acne ??? Arthritis ??? Fatigue ??? Wears glasses ??? Sinus problem ??? Back pain ??? Joint pain ??? Joint swelling ??? Numbness ??? High blood pressure ??? High cholesterol ??? Asthma ??? Anxiety ??? Depression Current Outpatient Prescriptions on File Prior to Visit Medication Sig Dispense Refill ??? alprazolam (XANAX) 0.5 mg tablet Take 1 Tab by mouth at bedtime as needed for Sleep or Anxiety. 14 Each 0 ??? sildenafil citrate (VIAGRA) 100 mg tablet Take 1 Tab by mouth as needed for Erectile Dysfunction. Needs Office visit before next refill. 6 Tab 3 ??? ipratropium-albuterol (COMBIVENT) 18-103 mcg/actuation inhaler Inhale 2 Puffs as directed every 6 hours as needed. 1 Inhaler 3 ??? simvastatin (ZOCOR) 10 mg tablet Take 1 Tab by mouth daily. 90 Tab 3 ??? omeprazole (PRILOSEC OTC) 20 mg tablet Take 1 Tab by mouth daily. 90 Tab 3 ??? aspirin 81 mg EC tablet Take 81 mg by mouth daily. Allergies Allergen Reactions ??? Other - See Comments Rash Contrast Dye Social History Substance Use Topics ??? Smoking status: Current Everyday Smoker -- 1.0 packs/day for 45 years Types: Cigarettes ??? Smokeless tobacco: Never Used Comment: occasionally; trying to quit ??? Alcohol Use: 21.0 oz/week 14 Shots of liquor per week Review of Systems Constitutional: Negative. HENT: Negative. Respiratory: Negative. Cardiovascular: Negative. Gastrointestinal: Negative. Genitourinary: Positive for hematuria. Musculoskeletal: Negative. Skin: Negative. Neurological: Negative. Psychiatric/Behavioral: Negative. - See HPI Objective: BP 124/82 Pulse 84 Temp(Src) 36.1 ??C (96.9 ??F) (Oral) Resp 16 Ht 165.1 cm (65) Wt 70.308 kg (155 lb) BMI 25.79 kg/m2 Physical Exam Nursing note and vitals reviewed. Constitutional: He is oriented to person, place, and time. He appears well- developed and well-nourished. No distress. HENT: Head: Normocephalic and atraumatic. Right Ear: Tympanic membrane, external ear and ear canal normal. Left Ear: Tympanic membrane, external ear and ear canal normal. Nose: Nose normal. Mouth/Throat: Oropharynx is clear and moist and mucous membranes are normal. No oropharyngeal exudate, posterior oropharyngeal edema or posterior oropharyngeal erythema. Eyes: Pupils are equal, round, and reactive to light. Neck: Normal range of motion. Neck supple. Cardiovascular: Normal rate and regular rhythm. No murmur heard. Pulmonary/Chest: Effort normal and breath sounds normal. No respiratory distress. He has no wheezes.He has no rales. Abdominal: Soft. Bowel sounds are normal. He exhibits no distension and no mass. There is no hepatosplenomegaly. There is no tenderness. There is no rebound, no guarding and no CVA tenderness. No hernia. Musculoskeletal: Normal range of motion. Lymphadenopathy: He has no cervical adenopathy. Neurological: He is alert and oriented to person, place, and time. Skin: Skin is warm and dry. He is not diaphoretic. Psychiatric: He has a normal mood and affect. Assessment: hematuria Plan: EKG:NSR Pre-op risk assessment: Pt smokes tobacco and has COPD. Revised Cardiac Risk Index: 0 risk factors. Rate of cardiac and nonfatal myocardial infarction, cardiac arrest or ventricular fibrillation, pulmonary edema, and complete heart block: No risk factors - 0.4 to 1.0 percent versus <1 percent with beta blockers Plan: Anesthesia per surgeon, pain management per surgeon, antibiotics per surgeon Hold nsaids, vitamin E, MVI and fish oil 1 week prior to surgery. Tobacco cessation recommended Reference: Revised Cardiac Risk Index (Simon - six independent predictors of cardiac complications): 1. High risk surgery (vascular, intraperitoneal, intrathoracic) 2. History of CAD (history of RI or a positive ETT, current ischemic chest pain, use of nitrates, orQ waves on ECG with pathological Q waves. (Don't count previous CABG unless another of the factors is present) 3. Hx CHF 4. Hx Stroke 5. Cr >2.0 mg/dl 6. DM on insulin documented in this encounter Procedure Notes MANAGER INVENTORY MANAGEMENT, SCAN 2 - 05/08/2012 4688 EDTAssociated Order(s): ECG REPORT - SCANNED documented in this encounter Nursing Notes MANAGER INVENTORY MANAGEMENT, SCAN 2 - 05/09/2012 1330 EDT documented in this encounter OR Notes OR PreOp - MANAGER INVENTORY MANAGEMENT, SCAN 2 - 05/08/2012 1552 EDT R PreOp - MANAGER INVENTORY MANAGEMENT, SCAN 2 - 05/05/2012 1319 EDT nesthesia Preprocedure Evaluation - MANAGER INVENTORY MANAGEMENT, SCAN 2 - 05/04/2012 1043 EDT R Surgeon - Allyssa Cordova - 05/04/2012 1018 EDT OPERATIVE REPORT SERVICE DATE: 05/03/2012 PREOPERATIVE DIAGNOSIS: Microhematuria. POSTOPERATIVE DIAGNOSIS: Microhematuria. PROCEDURE: Cystoscopy, bilateral retrograde pyelograms. SURGEON: Allyssa Cordova MD IMPREGNATOR AND DRIER HELPER: Channing Nayak MD ANESTHESIA: General. INDICATIONS: The patient is a 61-year-old male found to have microhematuria on urinalysis. Past smoking history is an average 2 packs per day since age 15. On 03/21/12, he had a cystoscopy, which showedno bladder tumor. He is allergic to IVP DYE. He underwent a kidney ultrasound, which showed no parenchymal lesion or stone. NARRATIVE: The patient was taken to the operating room and was placed in the supine position. He received adequate general anesthesia and a dose of intravenous antibiotic. He was placed in dorsal lithotomy position. The external genitalia and perineum were prepped and draped in the usual sterile fashion. A 22.5-Amharic cystoscope with 30-degree lens was introduced into the bladder. The bladder was examined with the 30 and 70-degree lenses. There was no papillary bladder tumor. No stone was seen. There was mild trabeculation. The prostate was 3 cm in length with slight to mild bilateral lateral lobe enlargement. There was a mild elevation of the bladder neck. Looking proximally from the verumontanum, there was no visual obstruction. The right ureteral orifice was cannulated with a 5-Amharic cone-tipblocking catheter. Contrast material diluted 70:30 was injected into the right ureter. Right ureteropyelogram showed no obstruction, filling defect or irregularity of the ureteral wall. Drainage film showed good exit of contrast from the right kidney. The left retrograde pyelogram was performed in thesame fashion. Evaluation of the left collecting system and ureter showed no filling defect or obstruction. There was no irregularity of the left ureteral wall. Drainage film showed exit of contrast from the left side. The bladder was drained and the cystoscope was removed. The patient tolerated the procedure well and was taken to the recovery area in stable condition. All intraoperative fluoroscopic images were interpreted by me. Fluoroscopy time was 0.9 minutes. Unless otherwise noted, there were no complications, no blood loss, no cultures obtained, no specimens removed, and no drains retained. Allyssa Cordova MD 09 09 AM / Allyssa Cordova MD ss Confirmation: [id number] Dictation ID: [id number] cc: Channing Nayak MD,PhD R PreOp - MANAGER INVENTORY MANAGEMENT, SCAN 2 - 05/03/2012 0857 EDT nesthesia Procedure Notes - MANAGER INVENTORY MANAGEMENT, SCAN 2 - 05/03/2012 0854 EDT documented in this encounter Miscellaneous Notes Scanned Note-Null - MANAGER INVENTORY MANAGEMENT, SCAN 2 - 05/08/2012 1552 EDT canned Note- Null - MANAGER INVENTORY MANAGEMENT, SCAN 2 - 05/08/2012 1552 EDT canned Note- Null - MANAGER INVENTORY MANAGEMENT, SCAN 2 - 05/05/2012 1319 EDT nesthesia Post-Eval - Tammy Jaramillo CRNA - 05/03/2012 0927 EDT Post Anesthesia Evaluation Note Date of Service: 05/03/2012 Celestine Dickson, a 61 y.o. year old male has received General Anesthesia today. He has been evaluated, assessed and discharged from anesthesia care with stable cardiorespiratory function and alert mental status. The last set of recorded vital signs and pain rating were reviewed: Temp: 35.8 ??C (96.4 ??F) (05/03/12 0845), Heart Rate: 78 BPM (05/03/12899), BP: 119/77 mmHg (05/03/12899), Resp: 18 (05/03/12899), SpO2: 96 % (05/03/12899),Numeric Pain Level (Scale 1-10): 0 Celestine Dickson participated in this evaluation unless otherwise noted. His pain, nausea and vomiting have been managed and his body temperature and fluid balance have been restored. Additional monitoring and assessment needs have been addressed. If present, any postoperative events are documented below. TAMMY JARAMILLO CRNA 05/03/2012 9:27 rief Op Note - Channing Nayak MD - 05/03/2012 0838 EDT BRIEF OP NOTE Pre-Op Diagnosis: hematuria Post-Op Diagnosis: same Procedure: cysto Date: .05/03/2012 Surgeon: Art ROUSSEAU Womens Volleyball Coach: King ONELIA Anesth: gen Findings: clean upper tract and negative cysto EBL: min IVF: 1000cc LR UOP: not kentrell Specimen: none Cultures: none Foreign Material Retained: none Complications: none Dispo: PACU stable Channing Nayak MD [id number] documented in this encounter Plan of Treatment Not on filedocumented as of this encounter Procedures Procedure Name Priority Date/Time Associated Comments Diagnosis ECG REPORT - SCANNED 05/08/2012 15:52 Res ults for this EDT procedure are i n the results section. RETROGRADE UROGRAM Routine 05/03/2012 8:33 EDT Re sults for this procedure are i n the results section. documented in this encounter Results ECG REPORT - SCANNED (05/08/2012 15:52 EDT) Specimen Narrative 05/08/2012 15:57 EDT Procedure Note MANAGER INVENTORY MANAGEMENT, SCAN 2 - 05/08/2012 15:52 EDT RETROGRADE UROGRAM (05/03/2012 8:33 EDT) Anatomical Region Laterality Modality Other Specimen Narrative [facility] - 05/03/2012 8:33 EDT Non Reportable Exam Procedure Note 05/03/2012 Non Reportable Exam Performing Organization Address City/State/ZIP Code Phon e Number [facility] documented in this encounter Visit Diagnoses Not on filedocumented in this encounter Administered Medications Inactive Administered Medications - up to 3 most recent administrations Medication Order MAR Action Action Date Dose Rate Site ceFAZolin (ANCEF) syringe 1 g Given by Other 05/03/2012 7:43 EDT 1 g 1 g, intravenous, Administer over 10 Minutes, PRE-OP ONCE, 1 dose, On Tue05/03/12 at 0700, Routine, Pre Op Day of Surgery lactated ringers (LR) infusion New Bag 05/03/2012 7:23 EDT 75 mL/hr at 75 mL/hr, intravenous, CONTINUOUS, Starting on Tue05/03/12 at 0700, Until Tue05/03/12 at 0827, Routine, Pre Op Day of Surgery documented in this encounter Discontinued Medications Medication Sig Discontinue Reason Start Date End Date alprazolam (XANAX) 0.5 Take 1 Tab by mouth 03/28/2012 04/29/2012 mg tabletIndications: at bedtime as needed Anxiety for Sleep or Anxiety. sildenafil citrate Take 1 Tab by mouth Error 03/28/2012 (VIAGRA) 100 mg as needed for tabletIndications: Male Erectile Dysfunction. erectile disorder Needs Office visit before next refill. documented as of this encounter Active and Recently Administered Medications Times are shown in EDT. Scheduled Medication Order 05/01/2012 05/02/2012 05/03/2012 ceFAZolin (ANCEF) syringe 1 g (COMPLETED) 07 (Due)0743 (Given by Other - Provider: Haider Groves RN - Comment: by anerodríguez) 1 g, intravenous, for 10 Minutes, PRE-OP ONCE, 1 dose, Tue at 0700 Continuous Medication Order 05/01/2012 05/02/2012 05/03/2012 lactated ringers (LR) infusion (CANCELED) 07 (New Bag - Provider: Leti Sanchez RN) at 75 mL/hr, intravenous, CONTINUOUS, St arting Tue05/03/12 at 0700, Until Tue05/03/12 at 0827 documented in this encounter Orders Medications Ordered That Might Not Have Count Last Ord ered Date First Ordered Date Been Administered acetaminophen (TYLENOL) tablet 650 mg 1 05/03/2012 atropine 0.1 mg/mL 10 mL syringe 0.4 mg 1 05/04/19 13 diphenhydrAMINE (BENADRYL) injection 6.25 1 2012 mg fentaNYL citrate (PF) 50 mcg/mL injection 1 2012 25-100 mcg HYDROcodone-acetaminophen (LORTAB) 5-500 1 013 mg tablet 1-2 Tab HYDROmorphone (DILAUDID) tablet 2 mg 1 05/03/2012 HYDROmorphone (PF) (DILAUDID) 1 mg/mL 1 05/03/2012 injection 0.2-1 mg lactated ringers (LR) infusion 1 05/03/2012 meperidine (PF) (DEMEROL) 25 mg/0.5 mL 1 3 injection 12.5 mg naloxone (NARCAN) injection 0.2 mg 1 05/03/2012 ondansetron (PF) (ZOFRAN) injection 2-4 mg 1 05/03 oxyCODONE (ROXICODONE) immediate release 1 013 tablet 5 mg oxyCODONE-acetaminophen (PERCOCET) 5-325 1 013 mg per tablet 1-2 Tab Transfer Count Last Ordered Date First Ordered Date NOTIFY PPS PACU PATIENT DISCHARGE 1 05/03/2012 NOTIFY PPS PATIENT ARRIVAL IN PACU 1 05/03/2012 Discharge Count Last Ordered Date First Ordered Date DISCHARGE PATIENT 1 05/03/2012 documented in this encounter Care Teams Turning Machine Operator Helper Relationship Specialty Start Date End Date Sheila Nayak MD PhD PCP - General 06/10/08 05/18/17 [address] [place] [id number] documented as of this encounter
--- OUTSIDE RECORDS SUMMARY | 2021-08-25 00:45 | XMS_ITS | Encounter Summary ---
:1950 Author Organization [facility] Address [address] [place] [address] Care Team Providers Name Role Phone Sheila Nayak MD PhD Primary Care Provider [phone] Reason for Visit Reason Onset Date Comments Labs Only 02/13/2014 Encounter Details Date Type Department Care Team Description 02/13/2014 Orders Only [facility] Sheila Nayak Hyperli pidemia (Primary Dx); Adult Primary Care - MD Jaelyn PhD HTN (hypertension) [address] [phone] Social History Tobacco Use Types Packs/Day Years [...] Not on filedocumented as of this encounter Results (ABNORMAL) COMPREHENSIVE METABOLIC PANEL (CMP) (02/25/2014 12:10 EST) Pathologist Sig nature Potassium 5.0 3.5 - 5.0 mEq/L [facility] Sodium 134 (L) 136 - 145 mEq/L [facility] Chloride 100 96 - 110 mEq/L [facility] CO2 24 24 - 32 mEq/L [facility] Total Alkaline 62 38 - 126 U/L [facility] Phosphatase LABORATORY SERVICES Bilirubin, Total 0.6 <1.4 mg/dl [facility] AST 26 15 - 46 U/L [facility] ALT 27 21 - 72 U/L [facility] Albumin 4.4 3.4 - 4.9 g/dl [facility] Total Protein 7.2 6.5 - 8.3 g/dl [facility] Creatinine 0.91 0.66 - 1.25 [facility] mg/dl LABORATORY SERVICES GFR, Calculated >60 >60 [facility] ml/min/1.73m2 LAB[facility] SERVICES BUN 19 10 - 26 mg/dl [facility] Calcium 9.4 8.5 - 10.5 [facility] mg/dl LABORATORY SERVICES Calculated Calcium 9.4 8.5 - 10.5 [facility] mg/dl LAB[facility]ORY SERVICES Glucose, Serum 96 70 - 100 mg/dl [facility] Fasting? YES [facility] Specimen Blood specimen (specimen) - Blood Performing Organization Address City/[facility] Phon e Number [facility] [address] [place] [address] SERVICES LIPID PROFILE (INCLUDES CHOLESTEROL, TRIGLYCERIDES, HDL, LDL) (02/25/2014 12:10 EST) Cholesterol 150 mg/dl [facility] Comment: LABORATORY Desirable:<200 SERVICES Borderline High:200-239 High:>wl=775 Triglycerides 43 mg/dl [facility] Comment: LABORATORY Normal:<150 SERVICES Borderline High:150-199 High:200-499 Very High:>lu=897 HDL 58 mg/dl [facility] Comment: LABORATORY Low:<40 SERVICES Normal:40-60 Desirable: >60 LDL, Calculated 83 mg/dl [facility] Comment: LABORATORY Optimal:<100 SERVICES Near Optimal:100-129 Borderline High:130-159 High:160-189 Very High:>ol=509 Chol/HDL Ratio 2.6 [facility] Fasting? YES [facility] Non HDL Cholesterol 92 mg/dl [facility] Comment: LABORATORY Desirable:<130 SERVICES Borderline:130-159 High: 160-189 Very High: >bf=161 Specimen Blood specimen (specimen) - Blood Performing Organization Address City/State/[facility] Phon e Number [facility] [address] [place] [address] SERVICES documented in this encounter Visit Diagnoses Diagnosis Hyperlipidemia - Primary Other and unspecified hyperlipidemia HTN (hypertension) Unspecified essential hypertension documented in this encounter Care Teams Germination Worker Relationship Specialty Start Date End Date Sheila Nayak MD PhD PCP - General 06/10/08 05/18/17 [address] [place] [phone] documented as of this encounter
--- OUTSIDE RECORDS SUMMARY | 2021-08-25 00:45 | XMS_ITS | Encounter Summary ---
:1950 Author Organization [facility] Address [address] [place] [address] Care Team Providers Name Role Phone Sheila Nayak MD PhD Primary Care Provider [phone] Encounter Details Date Type Department Care Team Description 08/16/2012 Hospital Encounter [facility]- Allyssa Rodriguez [facility] [address] [address] [place], [place] [phone] Social History Tobacco Use Types Packs/Day Years [...] Sig Dispensed Refills Start Date End Date ALPRAZolam (XANAX) 0.5 Take 0.5 mg by mouth 0 12/03/2013 mg tablet at bedtime as needed. aspirin 81 mg EC tablet Take 81 mg by mouth 0 12/25/2015 daily. ipratropium-albuterol Inhale 2 Puffs as 1 Inhaler 3 012 04/23/2013 (COMBIVENT) 18-103 directed every 6 mcg/actuation inhaler hours as needed. simvastatin (ZOCOR) 10 Take 1 Tab by mouth 90 Tab 3 05/0903/29/2013 mg tablet daily. documented as of this encounter Discharge Disposition Disposition Code Departure Means Destination Home or Self Jail documented in this encounter Plan of Treatment Not on filedocumented as of this encounter Procedures Procedure Name Priority Date/Time Associated Diagnosis Comme nts CYTOPATHOLOGY Routine 08/16/2012 0:00 EDT Results for this procedure are i n the results section . documented in this encounter Results CYTOPATHOLOGY (08/16/2012 0:00 EDT) Pathologist [facility] Pathology Report: CYTOPATHOLOGY REPORT [facility] Reports generated via electronic interface contain adriana ginal data; however they are lacking the format of the original re port. Caution should be taken when reading/interpreting unfo rmatted reports. Name: ? CELESTINE DICKSON ? Accession #: ? [id number] : ? 1950 (Age: 62) ??M ?Collect Date: ? 08/07 Location: ? [facility] ? Receive Date : ? 08/16/2012 Provider: ? ALLYSSA SQUIRES MD Copy to: ?SHEILA NAYAK MD ? CYTOLOGIC DIAGNOSIS: URINE, VOIDED, CYTOLOGIC EVALUATION: - ??Negative for malignant cells. Document reviewed and electronically signed by: ? CARLOS LINTON MD Report Date: ??08/16/2012 16:41 By the signature above, the attending physician certif ies that he/she has personally conducted a gross and/or microscopic examin ation of the described specimens and rendered or confirmed the above diagnosi s. Specimen Type: ? Urine, Voided Clinical History: ? Microscopic hematuria. clinical diagnosis code: ??599.72. ? Gross Description: ? 30 ccs of clear yellow fluid were received and processed by selective cellular enhancement technique. ? End of Report Specimen Performing Organization Address City/State/ZIP Code Phon e Number [facility] [address] [place] [address] SERVICES [facility] [address] [place] [address] documented in this encounter Visit Diagnoses Not on filedocumented in this encounter Care Teams Pipe Fitter Welding Relationship Specialty Start Date End Date Sheila Nayak MD PhD PCP - General 06/10/08 05/18/17 [address] [place] [phone] documented as of this encounter
--- OUTSIDE RECORDS SUMMARY | 2021-08-25 00:45 | XMS_ITS | Encounter Summary ---
:1950 Author Organization [facility] Address [address] [place] [address] Care Team Providers Name Role Phone Sheila Nayak MD PhD Primary Care Provider [phone] Reason for Visit Reason Comments Hematuria Encounter Details Date Type Department Care Team Description 09/26/2012 Office Visit [facility] Víctor Cordova, Micro scopic hematuria (Primary Dx); Urology - Zachary arreguin MD Nocturia [address] [facility] [address] [place] [address] [place], [place] [phone] Social History Tobacco Use Types Packs/Day Years Used Date Current Every Day Smoker Cigarettes 1 45 Smokeless Tobacco: Current User Comments: occasionally; trying to quit Alcohol Use Standard Drinks/Week Comments Yes 14 (1 standard drink = 0.6 oz pure alcoh ol) Sex Assigned at Date Recorded Not on file documented as of this encounter Progress Notes Víctor Cordova - 09/26/2012 1206 EDT Subjective: Patient ID: Celestine Dickson is an 62 y.o. male. Celestine Dickson is seen in the office today for Hematuria. HPI Comments: 02-25-12 last ov: blood found in his urine at a [facility] physicial 05-06-12 cystoscopy with bilateral retrograde pyelogram (films reviewed again today); operative note states prostate was 3 cm in length with slight to mild bilateral lateral lobe enlargement. There was a mild elevation of the bladder neck. Looking proximally from the verumontanum, there was no visual obstruction. 08-16-12 UA clear with negative cytology trouble holding it; it just seems like I don't have capacity any more; medium FOS (no decrease in FOS); denies hesitancy, sensation of incomplete emptying, double-voiding Current: smoking 1/2 ppd Hematuria Patient Active Problem List Diagnoses ??? Hypertension [...] cholesterol ??? Asthma ??? Anxiety ??? Depression No past surgical history on file. Family History Problem Relation Age of Onset ??? Cancer Father Skin ??? Arthritis Sister Social History Substance Use Topics ??? Smoking status: Current Everyday Smoker -- 1.0 packs/day for 45 years Types: Cigarettes ??? Smokeless tobacco: Current User Comment: occasionally; trying to quit ??? Alcohol Use: 21.0 oz/week 14 Shots of liquor per week Current Outpatient Prescriptions on File Prior to Visit Medication Sig Dispense Refill ??? ALPRAZolam (XANAX) 0.5 mg tablet Take 0.5 mg by mouth at bedtime as needed. ??? simvastatin (ZOCOR) 10 mg tablet Take 1 Tab by mouth daily. 90 Tab 3 ??? ipratropium-albuterol (COMBIVENT) 18-103 mcg/actuation inhaler Inhale 2 Puffs as directed every 6 hours as needed. 1 Inhaler 3 ??? aspirin 81 mg EC tablet Take 81 mg by mouth daily. Allergies Allergen Reactions ??? Other - See Comments Rash Contrast Dye Review of Systems Constitutional: Negative for fever. Genitourinary: No gross hematuria, urge incontinence, painful urination When I need to go, I need to go Nocturia X1-2 (new) Endo/Heme/Allergies: Does not bruise/bleed easily. - See HPI Objective: There were no vitals taken for this visit. Physical Exam Constitutional: No distress. Pulmonary/Chest: Effort normal. Neurological: He is alert. Psychiatric: He has a normal mood and affect. No visits with results within 1 Day(s) from this visit. Latest known visit with results is: Phlebotomy Only on 08/16/2012 Component Date Value Range Status ??? Color, UA 08/16/2012 Yellow Final ??? Clarity, UA 08/16/2012 Clear Final ??? Glucose, UA 08/16/2012 Neg Neg Final ??? Bilirubin, UA 08/16/2012 Neg Neg Final ??? Ketones, UA 08/16/2012 Neg Neg Final ??? Specific [place], Urine 08/16/2012 1.010 1.001 - 1.035 Final ??? Blood, UA 08/16/2012 Neg Neg Final ??? pH, UA 08/16/2012 5.5 4.6 - 8.0 Final ??? Protein, UA 08/16/2012 Neg Neg Final ??? Urobilinogen, UA 08/16/2012 0.2 0.2 - 1.0 E.U./dl Final ??? Nitrite, UA 08/16/2012 Neg Neg Final ??? Leuk Esterase 08/16/2012 Neg Neg Final ??? WBC, UA 08/16/2012 None seen 0 - 5 /HPF Final ??? RBC, UA 08/16/2012 None seen 0 - 5 /HPF Final ??? Squam Epithel, UA 08/16/2012 None seen None seen /HPF Final ??? Renal Epithel, UA 08/16/2012 None seen None seen /HPF Final ??? Bacteria, UA 08/16/2012 None seen None seen /HPF Final ??? Crystals, UA 08/16/2012 None seen Final ??? Casts, UA 08/16/2012 None seen Final ??? UA Comment 08/16/2012 Microscopic results Final Comment: are unreliable on urines unrefrig >2hrs or refrig >8hrs. ??? Potassium 08/16/2012 4.1 3.5 - 5.0 mEq/L Final ??? Sodium 08/16/2012 139 136 - 145 mEq/L Final ??? Chloride 08/16/2012 106 96 - 110 mEq/L Final ??? CO2 08/16/2012 25 24 - 32 mEq/L Final ??? Total Alkaline Phosphatase 08/16/2012 57 38 - 126 U/L Final ? ? Bilirubin, Total 08/16/2012 <0.5 0.2 - 1.3 mg/dl Final ??? AST 08/16/2012 44 15 - 46 U/L Final ??? ALT 08/16/2012 58 21 - 72 U/L Final ??? Albumin 08/16/2012 4.0 3.4 - 4.9 g/dl Final ??? Total Protein 08/16/2012 7.2 6.5 - 8.3 g/dl Final ??? Creatinine 08/16/2012 0.92 0.66 - 1.25 mg/dl Final ? ? GFR, Calculated 08/16/2012 >60 >60 ml/min/1.73m2 Final ??? BUN 08/16/2012 15 10 - 26 mg/dl Final ??? Calcium 08/16/2012 9.1 8.5 - 10.5 mg/dl Final ??? Calculated Calcium 08/16/2012 9.5 8.5 - 10.5 mg/dl Final ??? Glucose, Serum 08/16/2012 95 70 - 100 mg/dl Final ??? Fasting? 08/16/2012 YES Final ??? WBC 08/16/2012 7.50 4.0 - 10.4 K/cmm Final ??? RBC 08/16/2012 4.89 4.36 - 5.78 M/cmm Final ??? Hemoglobin 08/16/2012 14.6 13.8 - 17.3 gm/dl Final ??? HCT 08/16/2012 43.6 39.5 - 50.2 % Final ??? MCV 08/16/2012 89 81 - 95 fl Final ??? MCH 08/16/2012 29.8 27.6 - 33.0 pg Final ??? MCHC 08/16/2012 33.5 32.8 - 36.4 gm/dl Final ??? PLT 08/16/2012 200 141 - 320 K/cmm Final ??? RDW-CV 08/16/2012 12.9 11.8 - 14.1 % Final PSA: Lab Results Component Value Date PSA 0.7 05/21/2011 BMP: Lab Results Component Value Date NA 139 08/16/2012 K 4.1 08/16/2012 CL 106 08/16/2012 CO2 25 08/16/2012 BUN 15 08/16/2012 CREATININE 0.92 08/16/2012 CALCIUM 9.1 08/16/2012 CALCCA 9.5 08/16/2012 PHOS 3.0 05/21/2011 LABALBU 4.0 08/16/2012 Assessment / Plan: 1. Microscopic hematuria 2. Nocturia evaluated with (1) kidney U/S, (2) office cystoscopy, and (3) cystoscopy with bilateral retrograde pyelogram - no source of bleeding detected; last UA clear in 08-19 with negative cytology; patient will do two more voided urine cytologies this fall; send urine for UA today; he continues to smoke nocturia - degree of sx is I can live with it right now; discussed option of trial of tamsulosin 0.4 mg and mechanism of action; update PSA; next prostate exam in 02-20 Other Orders Placed This Visit Procedures ??? UA with Microscopic ??? PSA Víctor Cordova MD documented in this encounter Plan of Treatment Not on filedocumented as of this encounter Procedures Procedure Name Priority Date/Time Associated Diagnosis Comme nts URINE CHEMICAL Routine 09/26/2012 12:06 Microscopic Results f or this (DIP) & SEDIMENT EDT hematuria procedure a re in (MICRO) WITHOUT the results REFLEX TO CULTURE section. documented in this encounter Results (ABNORMAL) UA WITH MICROSCOPIC (09/26/2012 12:06 EDT) Color, UA Yellow [facility] Clarity, UA Clear [facility] Glucose, UA Neg Neg [facility] Bilirubin, UA Neg Neg [facility] Ketones, UA Neg Neg [facility] Specific [place], 1.010 1.001 - 1.035 [facility] Blood, UA Trace (A) Neg [facility] pH, UA 6.0 4.6 - 8.0 [facility] Protein, UA Neg Neg [facility] Urobilinogen, UA 0.2 0.2 - 1.0 [facility] E.U./dl LAB Nitrite, UA Neg Neg [facility] Leuk Esterase Neg Neg [facility] WBC, UA None seen 0 - 5 /HPF [facility] RBC, UA less than 1 0 - 5 /HPF [facility] Squam Epithel, UA None seen None seen [facility]PF LAB Renal Epithel, UA None seen None seen [facility] Bacteria, UA None seen None seen [facility] Crystals, UA None seen /HPF [facility] Hyaline Casts, UA None seen /LPF [facility] UA Comment Microscopic results [facility] Comment: LAB are unreliable on urines unrefrig >2hrs or refrig >8hrs. Specimen Urine (substance) - Urine Performing Organization Address City/State/ZIP Code Phon e Number [facility] [address] [place] [address] SERVICES [facility] [address] [place] [address] documented in this encounter Visit Diagnoses Diagnosis Microscopic hematuria - Primary Nocturia documented in this encounter Care Teams High Lift Mule Operator Relationship Specialty Start Date End Date Sheila Nayak MD PhD PCP - General 06/10/08 05/18/17 [address] [place] [address] documented as of this encounter
--- OUTSIDE RECORDS SUMMARY | 2021-08-25 00:45 | XMS_ITS | Encounter Summary ---
:[address] 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 LDL) COMPREHENSIVE Routine 02/25/2014 12:10 HTN (hypertension) Resu lts for this METABOLIC PANEL (CMP) EST proced ure are in the results section. documented in this encounter Results (ABNORMAL) COMPREHENSIVE METABOLIC PANEL (CMP) (02/25/2014 12:10 EST) Pathologist Sig nature Potassium 5.0 3.5 - 5.0 mEq/L [facility] Sodium 134 (L) 136 - 145 mEq/L [facility] Chloride 100 96 - 110 mEq/L [facility] CO2 24 24 - 32 mEq/L [facility] Total Alkaline 62 38 - 126 U/L [facility] Phosphatase LABORATORY SERVICES Bilirubin, Total 0.6 <1.4 mg/dl [facility] AST 26 15 - 46 U/L [facility] ALT 27 21 - 72 U/L [facility] Albumin 4.4 3.4 - 4.9 g/dl [facility] Total Protein 7.2 6.5 - 8.3 g/dl [facility] Creatinine 0.91 0.66 - 1.25 [facility] mg/dl LABORATORY SERVICES GFR, Calculated >60 >60 [facility] ml/min/1.73m2 LABORATORY SERVICES BUN 19 10 - 26 mg/dl [facility] Calcium 9.4 8.5 - 10.5 [facility] mg/dl LABORATORY SERVICES Calculated Calcium 9.4 8.5 - 10.5 [facility] mg/dl LABORATORY SERVICES Glucose, Serum 96 70 - 100 mg/dl [facility] Fasting? YES [facility] Specimen Blood specimen (specimen) - Blood Performing Organization Address [facility] Phon e Number [facility] [address] [place] [address] SERVICES LIPID PROFILE (INCLUDES CHOLESTEROL, TRIGLYCERIDES, HDL, LDL) (02/25/2014 12:10 EST) Cholesterol 150 mg/dl [facility] Comment: LABORATORY Desirable:<200 SERVICES Borderline High:200-239 High:>ps=751 Triglycerides 43 mg/dl [facility] Comment: LABORATORY Normal:<150 SERVICES Borderline High:150-199 High:200-499 Very High:>mg=283 HDL 58 mg/dl [facility] Comment: LABORATORY Low:<40 SERVICES Normal:40-60 Desirable: >60 LDL, Calculated 83 mg/dl [facility] Comment: LABORATORY Optimal:<100 SERVICES Near Optimal:100-129 Borderline High:130-159 High:160-189 Very High:>gj=757 Chol/HDL Ratio 2.6 [facility] SERVICES Fasting? YES [facility] Non HDL Cholesterol 92 mg/dl [facility] Comment: LABORATORY Desirable:<130 SERVICES Borderline:130-159 High: 160-189 Very High: >xv=745 Specimen Blood specimen (specimen) - Blood Performing Organization Address City/[facility] Phon e Number [facility] [address] [place] [address] SERVICES documented in this encounter Visit Diagnoses Diagnosis Hyperlipidemia Other and unspecified hyperlipidemia HTN (hypertension) Unspecified essential hypertension documented in this encounter Care Teams Marble Helper Relationship Specialty Start Date End Date Sheila Nayak MD PhD PCP - General 06/10/08 05/18/17 [address] [place] [address] documented as of this encounter
--- OUTSIDE RECORDS SUMMARY | 2021-08-25 00:45 | XMS_ITS | Encounter Summary ---
:[address] [facility] Address [address] [place] [address] Care Team Providers Name Role Phone Sheila Nayak MD PhD Primary Care Provider [phone] Reason for Visit Reason Onset Date Comments Labs Only 07/11/2012 Encounter Details Date Type Department Care Team Description 07/11/2012 Telephone [facility] Adult Sheila Nayak MD Labs Only Primary Care - [place] PhD [address] [place] [id number] [place] [address] [phone] (Wo rk) Social History Tobacco Use Types Packs/Day Years Used Date Current Every Day Smoker Cigarettes 1 45 Smokeless Tobacco: Never Used Comments: occasionally; trying to quit Alcohol Use Standard Drinks/Week Comments Yes 35 (1 standard drink = 0.6 oz pure alcoh ol) Sex Assigned at Date Recorded Not on file documented as of this encounter Miscellaneous Notes Telephone Encounter - Yessy Horvath - 07/11/2012 1519 EDT Pt aware Telephone Encounter - More Watts - 07/11/2012 1351 EDT When patient calls back notify of future fasting lab to be done 3-5 days before ov with dr. Nayak documented in this encounter Plan of Treatment Not on filedocumented as of this encounter Visit Diagnoses Not on filedocumented in this encounter Care Teams Warehouse Freight Handler Relationship Specialty Start Date End Date Sheila Nayak MD PhD PCP - General 06/10/08 05/18/17 [address] [place] [address] documented as of this encounter
--- OUTSIDE RECORDS SUMMARY | 2021-08-25 00:45 | XMS_ITS | Encounter Summary ---
:1950 Author Organization [facility] Address [address] [place] [address] Care Team Providers Name Role Phone Sheila Nayak MD PhD Primary Care Provider [phone] Reason for Visit Reason Onset Date Comments Medications Refill 06/13/2015 Encounter Details Date Type Department Care Team Description 06/13/2015 Refill [facility] Adult Sheila Nayak MD Medications Refill Primary Care - [place] PhD [address] [place] [id number] [place] [address] [phone] (Wo rk) Social History Tobacco Use [...] 1 Tab by mouth 90 Tab 0 0 06/13/2015 09/02/2015 tablet daily for 90 days. documented in this encounter Miscellaneous Notes Telephone Encounter - Reba Conrad PA - 06/13/2015 9134 EDT Eprescribed. elephone Encounter - Мария Bee - 06/13/2015 1301 EDT Medication(s) requested: Simvastatin 10 mg Is the pt out of the medication?: Yes [facility] Last refill date: 02-26-15 Last OV w/PCP: 02-26-14 Next OV w/PCP: 08/18/2015 Мария Bee 06/13/2015 13:01 documented in this encounter Plan of Treatment Not on filedocumented as of this encounter Visit Diagnoses Not on filedocumented in this encounter Discontinued Medications Medication Sig Discontinue Reason Start Date End Date simvastatin (ZOCOR) 10 mg Take 1 Tab by mouth Reorder 03/27/19 16 06/13/2015 tablet daily. documented as of this encounter Care Teams Hourly Shift Relationship Specialty Start Date End Date Sheila Nayak MD PhD PCP - General 06/10/08 05/18/17 [address] [place] [phone] documented as of this encounter
--- OUTSIDE RECORDS SUMMARY | 2021-08-25 00:45 | XMS_ITS | Encounter Summary ---
:1950 Author Organization [facility] Address [address] [place] [address] Care Team Providers Name Role Phone Sheila Nayak MD PhD Primary Care Provider [phone] Reason for Visit Reason Onset Date Comments Prior Auth, Medication 12/04/2013 Encounter Details Date Type Department Care Team Description 12/04/2013 Telephone [facility] Sheila Nayak, Pr ior Auth, Medication Adult Primary Care - PhD Ghass[place] [address] [phone] (Wo rk) Social History Tobacco Use Types [...] Sig Dispensed Refills Start Date End Date traZODone (DESYREL) 50 mg Take 1 Tab by mouth 30 Tab 1 1 09/02/2015 tablet at bedtime as needed for Sleep. documented in this encounter Miscellaneous Notes Telephone Encounter - Sheila Nayak MD - 12/05/2013 3108 EDT i ordered trazodone elephone Encounter - Erin Llanes RN - 12/05/2013 1432 EDT Spoke with patient. Patient would be willing to trial something else for sleep. Telephone Encounter - Sheila Nayak MD - 12/05/2013 1420 EDT My records say he uses this for sleep. I would recommend trazadone instead. elephone Encounter - Zandra Collins - 12/04/2013 1423 EDT Received request from [facility] for prior authorization for patient's Alprazolam 0.5 mg tablet. Called patient to find out if he has ever tried anything else left message for patient to call back. Talked to Melita at they can not approve until patient has tried at least two other m edications example lorazepam, clonazepam, diazepam. documented in this encounter Plan of Treatment Not on filedocumented as of this encounter Visit Diagnoses Not on filedocumented in this encounter Care Teams Manager Bar Relationship Specialty Start Date End Date Sheila Nayak MD PhD PCP - General 06/10/08 05/18/17 [address] [place] [phone] documented as of this encounter
--- OUTSIDE RECORDS SUMMARY | 2021-08-25 00:45 | XMS_ITS | Encounter Summary ---
:1950 Author Organization [facility] Address [address] [place] [address] Care Team Providers Name Role Phone Sheila Nayak MD PhD Primary Care Provider [phone] Reason for Visit Reason Comments Hyperlipidemia Hypertension Chronic Obstructive Pulmonary Disease Medications Refill xanax, simvastatin, combiven t Encounter Details Date Type Department Care Team Description 08/15/2012 Office Visit [facility] Sheila Nayak Chronic obstructive pulmonary disease ([facility]) (Primary Dx); Adult Primary Care - MD Jaelyn PhD Hyperlipidemia; [place] [address] Hypertension; [address] [place] [address] Tobacco dependence syndrome; [place], [place] [id number] Microhematuria [phone] Social History Tobacco Use Types Packs/Day Years [...] Sign Reading Time Taken Comments Blood Pressure 124/80 08/15/2012 1056 EDT Pulse 84 08/15/2012 1056 EDT r Temperature 36.4 ??C (97.5 ??F) 08/15/2012 1056 EDT Respiratory Rate 16 08/15/2012 1056 EDT Oxygen Saturation - - Inhaled Oxygen Concentration - - Weight 68.5 kg (151 lb) 08/15/2012 1056 EDT with shoes Height 167.6 cm (5' 6) 08/15/2012 1056 EDT Body Mass Index 24.37 08/15/2012 1056 EDT documented in this encounter Discharge Disposition Disposition Code Departure Means Destination Auto Discharge documented in this encounter Progress Notes Sheila Nayak MD - 08/15/2012 1247 EDT Subjective: Patient ID: Celestine Dickson is an 62 y.o. male. Chief Complaint Patient presents with ??? Hyperlipidemia ??? Hypertension ??? Chronic Obstructive Pulmonary Disease ??? Medications Refill xanax, simvastatin, combivent HPI Celestine is here to follow up for multiple medical problems including hyperlipidemia, hypertension, COPD and a problem of hematuria. Hematuria: He has followed with Dr Cordova. Had cystoscopy with review of bladder and upper urinary tract system. This was negative. A renal ultrasound done in Dr Cordova's office also negative. This was done in place of a CT urogram due to Mr Dickson's IV CONTRAST ALLERGY. At this point in time, he is not having any gross hematuria. He does have risk factors of tobacco use and he is continuing to smoke. He has tried to cut back and was down to 5 cigarettes a day, but now is back up to a pack a day. He is concerned as an uncle also had hematuria and a negative cystoscopy and then was found to havea bladder cancer. Discussed the importance of tobacco cessation. Hyperlipidemia: Continues on Zocor. Hypertension: Not on any medications. Blood pressure is at goal. COPD: Continuing to use inhaler. Patient Active Problem List Diagnoses ??? Hypertension [...] to Visit Medication Sig Dispense Refill ??? simvastatin (ZOCOR) 10 mg tablet Take [...] Review of Systems Constitutional: Negative. HENT: Negative. Eyes: Negative. Respiratory: Negative for cough and shortness of breath. Cardiovascular: Negative for chest pain. Gastrointestinal: Negative for nausea, vomiting and abdominal pain. Skin: Negative. Neurological: Negative for dizziness. - See HPI Objective: BP 124/80 Pulse 84 Temp(Src) 36.4 ??C (97.5 ??F) (Oral) Resp 16 Ht 167.6 cm (66) Wt 68.493 kg (151 lb) BMI 24.37 kg/m2 Physical Exam Vitals reviewed. Constitutional: He is oriented to person, place, and time. He appears well- developed and well-nourished. No distress. HENT: Head: Normocephalic. Eyes: Conjunctivae normal and EOM are normal. No scleral icterus. Neck: Normal range of motion. Neck supple. No JVD present. No thyromegaly present. +2 carotids, no bruits Cardiovascular: Normal rate, regular rhythm and normal heart sounds. No murmur heard. Pulmonary/Chest: Effort normal and breath sounds normal. No respiratory distress. He has no wheezes.He has no rales. Musculoskeletal: He exhibits no edema. Lymphadenopathy: He has no cervical adenopathy. Neurological: He is alert and oriented to person, place, and time. Skin: Skin is warm. Psychiatric: He has a normal mood and affect. His behavior is normal. Judgment and thought content normal. Results for orders placed in visit on 07/28/12 LIPID PROFILE (INCLUDES CHOLESTEROL, TRIGLYCERIDES, HDL, LDL) Component Value Range Cholesterol 170 Triglycerides 103 HDL 48 LDL, Calculated 101 Chol/HDL Ratio 3.5 Fasting? YES Assessment: Plan: Celestine was seen today for hyperlipidemia, hypertension, chronic obstructive pulmonary disease and medications refill. Diagnoses and associated orders for this visit: Chronic obstructive pulmonary disease Hyperlipidemia - at goal. Hypertension - nl bp. No meds. - Comprehensive Metabolic Panel (CMP); Future - Hemagram; Future Tobacco dependence syndrome - encouraged tobacco cessation. Using electric cigarette. Patch not effective. Microhematuria - nl cystoscopy. discussed with Dr. Cordova. He will contact pt to get urine cytologydone. This had been ordered but not done. Follow up with Dr. Cordova in Sep. - Hemagram; Future Other Orders - ALPRAZolam (XANAX) 0.5 mg tablet; Take 0.5 mg by mouth at bedtime as needed. Return in about 3 months (around 11/15/2012) for 30 min. Kalin Velez - 08/15/2012 1144 EDT Subjective: Patient ID: Celestine Dickson is an 62 y.o. male. Chief Complaint Patient presents with ??? Hyperlipidemia ??? Hypertension ??? Chronic Obstructive Pulmonary Disease ??? Medications Refill xanax, simvastatin, combivent HPIpt is a 62 yo M w/ PMHx significant for COPD, HLD, and HTN who presents to clinic today for follow up of his recurrent hematuria. Pt had UA about 6 mo. Ago which showed microscopic hematuria and since then began noticing occasional redness in his urine. He has had microscopic hematuria on multiple UA since then. In April he was evaluated by Dr. Cordova in Urology and underwent a cystoscopy and retrograde pyelogram. Both tests showed no evidence of malignancy or abnormality. No record of urine cytology found. He has had any gross hematuria recently since his cystoscopy in April. He denies any fever, chills, weight loss, chest pain, flank pain, abdominal pain, dysuria, changes in bowel habits, constipation. He is quite anxious about having some type of cancer because recently his maternal uncle had a similar workup that was negative and then was found later to have bladder cancer. Also discussed health maintenance w/ pt regarding his COPD, HLD, HTN, and tobacco use. He says he recently cut back from 2 packs per day to one pack by using the electronic cigarettes. He says he wantsto quit but has been unsuccessful in his previous attempts. He has tried the nicotine patch, the gum, and Chantix and none worked for him. Spoke with Dr. Cordova after patient's visit and he explained that a renal U/S was done in the office instead of a renal CT due to the patients allergy to contrast dye. He also said he would order a urine cytology and discuss this with the patient himself. I will call patient today to notify him of this update. Patient Active Problem List Diagnoses ??? Hypertension [...] to Visit Medication Sig Dispense Refill ??? simvastatin (ZOCOR) 10 mg tablet Take [...] liquor per week Review of Systems Constitutional: Positive for malaise/fatigue. Negative for fever, chills and weight loss. Respiratory: Positive for cough, shortness of breath and wheezing. Negative for sputum production. Cardiovascular: Positive for orthopnea. Negative for chest pain, palpitations, claudication and leg swelling. Gastrointestinal: Negative for nausea, abdominal pain, diarrhea, constipation and blood in stool. Genitourinary: Positive for hematuria. Negative for dysuria, urgency, frequency and flank pain. Neurological: Positive for weakness. Negative for dizziness. - See HPI Objective: BP 124/80 Pulse 84 Temp(Src) 36.4 ??C (97.5 ??F) (Oral) Resp 16 Ht 167.6 cm (66) Wt 68.493 kg (151 lb) BMI 24.37 kg/m2 Physical Exam Constitutional: He appears well-developed and well-nourished. No distress. HENT: Head: Normocephalic. Neck: Neck supple. No tracheal deviation present. Cardiovascular: Normal rate and regular rhythm. Exam reveals no gallop and no friction rub. No murmur heard. Pulmonary/Chest: Breath sounds normal. He has no wheezes. Abdominal: There is no CVA tenderness. Lymphadenopathy: He has no cervical adenopathy. Right: No supraclavicular adenopathy present. Left: No supraclavicular adenopathy present. Neurological: He is alert. Skin: Skin is warm and dry. Nails show clubbing. Assessment: Pt is a 62 yo M w/ PMHx significant for COPD, 45+ yr pack smoking Hx who presents to clinic today for f/u after urologic evaluation of his persistant gross/microscopic hematuria. Due to his risk factors of age>50, tobacco use, and gross hematuria, urinary tract malignancy must still be ruled out. Other causes of persistent hematuria could be nephrolithiasis, BPH, nephropathy, or idiopathic. Plan: Celestine was seen today for hyperlipidemia, hypertension, chronic obstructive pulmonary disease and medications refill. Diagnoses and associated orders for this visit: Chronic obstructive pulmonary disease - continue combivent as ordered - continue actively trying to quit smoking per below Hyperlipidemia - continue statin therapy Hypertension - Comprehensive Metabolic Panel (CMP); Future - Hemagram; Future Tobacco dependence syndrome - continue E-cigarette - attempt patch, nicorette gum again - smoking cessation counseling/support groups Microhematuria/Gross Hematuria - Hemagram; Future - f/u urology w/ Dr. Cordova - if hematuria continues, would get UCT and premedicate w/ Tylenol and Benadryl Other Orders - ALPRAZolam (XANAX) 0.5 mg tablet; Take 0.5 mg by mouth at bedtime as needed. Return in about 3 months (around 11/15/2012) for 30 min. documented in this encounter Plan of Treatment Not on filedocumented as of this encounter Results HEMAGRAM (08/16/2012 9:16 EDT) Pathologist Sig nature WBC 7.50 4.0 - 10.4 K/cmm [...] Organization Address City/State/ZIP Code Phon e Number [facility] [address] [place] [address] SERVICES [facility] [address] [place] [address] COMPREHENSIVE METABOLIC PANEL (CMP) (08/16/2012 9:16 EDT) Pathologist Sig nature Potassium 4.1 3.5 - 5.0 mEq/L [facility] [...] Organization Address City/State/ZIP Code Phon e Number [facility] [address] [place] [address] SERVICES [facility] [address] [place] [address] documented in this encounter Visit Diagnoses Diagnosis Chronic obstructive pulmonary disease (H CC-CMS) (HCC) - Primary Chronic airway obstruction, not elsewher e classified Hyperlipidemia Other and unspecified hyperlipidemia Hypertensive disorder Unspecified essential hypertension Tobacco dependence syndrome Tobacco use disorder Microhematuria Microscopic hematuria documented in this encounter Discontinued Medications Medication Sig Discontinue Reason Start Date End Date HYDROcodone-acetaminophen Take 1 Tab by 05/03/2012 0 08/15/2012 (LORTAB) 5-500 mg tablet mouth every 6 hours as needed for Pain. ciprofloxacin (CIPRO) 500 Take 1 Tab by 05/03/2012 0 08/15/2012 mg tablet mouth 2 times daily. documented as of this encounter Historical Medications This list may reflect changes made after this encounter. Medication Sig Dispensed Refills Start Date End Date ALPRAZolam (XANAX) 0.5 Take 0.5 mg by mouth 0 12/03/2013 mg tablet at bedtime as needed. added in this encounter Care Teams E Marketing Specialist Relationship Specialty Start Date End Date Sheila Nayak MD PhD PCP - General 06/10/08 05/18/17 2 [place] [address] documented as of this encounter
--- OUTSIDE RECORDS SUMMARY | 2021-08-25 00:45 | XMS_ITS | Encounter Summary ---
:1950 Author Organization [facility] Address [address] [place] [address] Care Team Providers Name Role Phone Sheila Nayak MD PhD Primary Care Provider [phone] Encounter Details Date Type Department Care Team Description 11/24/2015 Results Only [facility] Jerad Luke, Gastroenterology - [address] [address] [address], [place] [id number] (Wo rk) Social History Tobacco Use Types [...] Priority Date/Time Associated Diagnosis Comme nts HCV GENOTYPE, SERUM Routine 11/24/2015 14:35 Resu lts for this EDT procedure are i n the results section. documented in this encounter Results (ABNORMAL) HCV GENOTYPE, SERUM (11/24/2015 14:35 EDT) Hepatitis C 2 (A) Undetected [facility] Genotype Comment: LABORATORY SERVICES (Note) ADDITIONAL INFORMATION ------ This test was performed using the [employer] RealTime HCV Genotype II assay ([employer] [place], [place]). Performed by: [facility]: [address], [place] [address], Lab Dir: Vijay Joaquin II, M.D., Ph.D. Specimen Blood Performing Organization Address City/State/ZIP Code Phon e Number [facility] [address] [place] [phone] SERVICES documented in this encounter Visit Diagnoses Not on filedocumented in this encounter Care Teams Chief Radiology Relationship Specialty Start Date End Date Sheila Nayak MD PhD PCP - General 06/10/08 05/18/17 [address] [place] [address] documented as of this encounter
--- OUTSIDE RECORDS SUMMARY | 2021-08-25 00:45 | XMS_ITS | Encounter Summary ---
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) (Primary [place], [place] Dx) [address] Social History Tobacco Use Types Packs/Day Years [...] Priority Date/Time Associated Comments Diagnosis HCV RNA QUANT WITH Routine 11/24/2015 14:35 Chronic hepatitis C Results for this REFLEX TO GENOTYPE EDT without hepatic proced ure are in coma ([facility]) the results section. HEPATITIS A TOTAL Routine 11/24/2015 14:35 Chronic hepatitis C Results for this ANTIBODY W REFLEX EDT without hepatic procedu re are in coma ([facility]-H[facility]) the results section. HEPATITIS B SURFACE Routine 11/24/2015 14:35 Chronic hepatitis C Results for this ANTIBODY EDT without hepatic procedure ar e in coma ([facility]-H[facility]) the results section. HEPATITIS B SURFACE Routine 11/24/2015 14:35 Chronic hepatitis C Results for this ANTIGEN EDT without hepatic procedure ar e in coma (CMS-HCC) the results section. PROTIME Routine 11/24/2015 14:35 Chronic hepatitis C Resu lts for this EDT without hepatic procedure ar e in coma (CMS-HCC) the results section. COMPLETE BLOOD COUNT Routine 11/24/2015 14:35 Chronic hepatiti s C Results for this EDT without hepatic procedure ar e in coma (CMS-HCC) the results section. COMPREHENSIVE Routine 11/24/2015 14:35 Chronic hepatitis C Res ults for this METABOLIC PANEL (CMP) EDT without hepatic pro cedure are in coma (CMS-HCC) the results section. documented in this encounter Results (ABNORMAL) HCV RNA QUANT WITH REFLEX TO GENOTYPE (11/24/2015 14:35 EDT) [facility] HCV RNA Detect 586,863 (A) Undetected IU/mL [facility] Comment: CENTER Reference Range: ??Undetected LABORATORY The quantification range of this assay is 15 SERVICES IU/mL to 100,000,000 IU/mL. Testing was performed by the Bria Ampliprep/Bria TaqMan HCV v2.0 ([employer] Specimen Blood specimen (specimen) - Blood Performing Organization Address City/[facility]/ZIP [facility] Phon e Number [facility] [address] [place] [address] SERVICES HEPATITIS B SURFACE ANTIBODY (11/24/2015 14:35 EDT) [facility] Hepatitis B Negative [facility] Surface Ab Comment: LABORATORY SERVICES Reference Range: Unvaccinated: ??Negative Vaccinated: ??Positive HBs Antibody, <5.0 mIU/mL [facility] Quant Comment: LABORATORY SERVICES Patient is presumed to not be immune to infection with HBV. Reference Range: Positive: >=12.0 mIU/mL Indeterminate: >=5.0 to <12.0 mIU/mL Negative: <5.0 mIU/mL Specimen Blood specimen (specimen) - Blood Performing Organization Address City/[facility] Phon e Number [facility] [address] [place] [address] SERVICES HEPATITIS A TOTAL ANTIBODY (11/24/2015 14:35 EDT) Pathologist [facility] Hep A Antibody NegativeComment: [facility] Reference Range: LABORATORY SERVICES Negative Specimen Blood specimen (specimen) - Blood Performing Organization Address City/[facility]/ZIP Code Phon e Number [facility] [address] [place] [address] SERVICES HEPATITIS B SURFACE ANTIGEN (11/24/2015 14:35 EDT) Hepatitis B NegativeComment: [facility] Surface Ag Reference Range: LABORATORY SERVICES Negative Specimen Blood specimen (specimen) - Blood Performing Organization Address City/[facility]/ZIP Code Phon e Number [facility] [address] [place] [address] SERVICES PROTIME (11/24/2015 14:35 EDT) Pro Time 12.5Comment: New 10.3 - 13.1 [facility] prothrombin time range secs LABORATORY SERVICE S effective 11/04/15 I.N.R. 1.1 0.9 - 1.1 [facility] Comment: Ratio LABORATORY SERVICES Moderate Intensity Coumadin INR = 2.0-3.0 Adjustments in anticoagulant therapy dose should be based upon the INR and NOT the Pro Time. Specimen Blood specimen (specimen) - Blood Performing Organization Address City/[facility]/ZIP Code Phon e Number [facility] [address] [place] [address] SERVICES (ABNORMAL) HEMAGRAM (11/24/2015 14:35 EDT) Pathologist Sig nature WBC 6.38 4.0 - 10.4 K/cmm [facility] SERVICES RBC 5.02 4.36 - 5.78 M/cmm [facility] SERVICES Hemoglobin 15.3 13.8 - 17.3 gm/dl [facility] SERVICES HCT 44.2 39.5 - 50.2 % [facility] SERVICES MCV 88 81 - 95 fl [facility] SERVICES MCH 30.5 27.6 - 33.0 pg [facility] SERVICES MCHC 34.6 32.8 - 36.4 gm/dl [facility] SERVICES RDW-CV 12.5 11.8 - 14.1 % [facility] SERVICES RDW-SD 41.0 36.5 - 45.9 fl [facility] SERVICES PLT 268 141 - 377 K/cmm [facility] SERVICES MPV 9.2 (L) 9.5 - 12.7 fl [facility] SERVICES Specimen Blood specimen (specimen) - Blood Performing Organization Address City/[facility]/ZIP Code Phon e Number [facility] [address] [place] [address] SERVICES (ABNORMAL) COMPREHENSIVE METABOLIC PANEL (CMP) (11/24/2015 14:35 EDT) Potassium 4.2 3.5 - 5.0 [facility] mEq/L [facility] Sodium 139 136 - 145 [facility] mEq/L [facility] Chloride 101 96 - 110 [facility] mEq/L [facility] CO2 24 24 - 32 [facility] mEq/L [facility] Total Alkaline 47 38 - 126 U/L [facility] Phosphatase [facility] Bilirubin, Total 0.5 <1.4 mg/dl [facility] SERVICES AST 23 15 - 46 U/L [facility] ALT 32 21 - 72 U/L [facility] SERVICES Albumin 4.0 3.4 - 4.9 [facility] g/dl [facility] Total Protein 7.3 6.3 - 8.2 [facility] g/dl [facility] Creatinine 0.77 0.66 - 1.25 [facility] mg/dl [facility] GFR, Calculated 95 >60 [facility] Comment: ml/min/1.73m [facility] eGFR calculated using CKD-EPI equation for 2 SERVICES non Americans. Multiply eGFR by 1.16 for Americans. BUN 9 (L) 10 - 26 [facility] mg/dl [facility] Calcium 9.5 8.5 - 10.5 [facility] mg/dl [facility] Calculated Calcium 9.5 8.5 - 10.5 [facility] Comment: mg/dl [facility] Note new formula for calculation SERVICES in use 11/12/2015 Glucose, Serum 78 70 - 100 [facility] mg/dl [facility] Fasting? No [facility] SERVICES Specimen Blood specimen (specimen) - Blood Performing Organization Address City/[facility]/ZIP Code Phon e Number [facility] [address] [place] [address] SERVICES documented in this encounter Visit Diagnoses Diagnosis Chronic hepatitis C without hepatic coma (HCC-CMS) (HCC) - Primary Chronic hepatitis C without mention of h epatic coma documented in this encounter Care Teams Human Resources Team Member Relationship Specialty Start Date End Date Sheila Nayak MD PhD PCP - General 06/10/08 05/18/17 2 [place] [address] documented as of this encounter
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
--- OUTSIDE RECORDS SUMMARY | 2021-08-25 00:45 | XMS_ITS | Encounter Summary ---
:1950 Author Organization [facility] Address [address] [place] [address] Care Team Providers Name Role Phone Sheila Nayak MD PhD Primary Care Provider [phone] Reason for Visit Reason Comments Pre-op Exam surgery on 05/03/[address] Cordova Encounter Details Date Type Department Care Team Description 04/25/2012 Office Visit [facility], Pre-opera ti cardiovascular examination (Primary Dx); Adult Primary Care - [place] Disla Microhematuria [place] [address] [address] [place] [id number] Social History Tobacco Use Types Packs/Day Years [...] Sign Reading Time Taken Comments Blood Pressure 124/82 04/25/2012 1357 EDT Pulse 84 04/25/2012 1357 EDT r Temperature 36.1 ??C (96.9 ??F) 04/25/2012 1357 EDT Respiratory Rate 16 04/25/2012 1357 EDT Oxygen Saturation - - Inhaled Oxygen Concentration - - Weight 70.3 kg (155 lb) 04/25/2012 1357 EDT Height 165.1 cm (5' 5) 04/25/2012 1357 EDT Body Mass Index 25.79 04/25/2012 1357 EDT documented in this encounter Discharge Disposition Disposition Code Departure Means Destination Auto Discharge documented in this encounter Progress Notes More Watts - 04/25/2012 1430 EDT ekg performed today I was supervised by Reba Conrad PA-C who was present and immediately available in the office suite. More Watts 04/25/2012 14:30 Reba Bland PA - 04/25/2012 1409 EDT [...] or pulmonary risk factors: - no FH DC or CVA, father - DM, m.grandmother -DM [...] intrathoracic) 2. History of CAD (history of DC or a positive ETT, current ischemic chest pain, use of nitrates, orQ waves on ECG with pathological Q waves. (Don't count previous CABG unless another of the factors is present) 3. Hx CHF 4. Hx Stroke 5. Cr >2.0 mg/dl 6. DM on insulin documented in this encounter Procedure Notes MEDICATION TECHNICIAN, SCAN 2 - 04/25/2012 1534 EDTAssociated Order(s): ECG REPORT - SCANNED documented in this encounter Plan of Treatment Scheduled Orders Name Type Priority Associated Diagnoses Order S chedule EKG 12-LEAD ECG Routine Pre-operative cardiovascular Ordered: 04/25/2012 examination documented as of this encounter Procedures Procedure Name Priority Date/Time Associated Diagnosis Comme nts ECG REPORT - 04/25/2012 15:34 Results for this SCANNED EDT procedure are i n the results section. documented in this encounter Results ECG REPORT - SCANNED (04/25/2012 15:34 EDT) Specimen Narrative 04/25/2012 15:34 EDT Procedure Note MEDICATION TECHNICIAN, SCAN 2 - 04/25/2012 15:34 EDT documented in this encounter Visit Diagnoses Diagnosis Pre-operative cardiovascular examination - Primary Microhematuria Microscopic hematuria documented in this encounter Discontinued Medications Medication Sig Discontinue Reason Start Date End Date omeprazole (PRILOSEC Take 1 Tab by Patient Stopped Taking 1 04/25/2012 OTC) 20 mg tablet mouth daily. documented as of this encounter Care Teams Pcas Relationship Specialty Start Date End Date Sheila Nayak MD PhD PCP - General 06/10/08 05/18/17 [address] [place] [address] documented as of this encounter
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
--- OUTSIDE RECORDS SUMMARY | 2021-08-25 00:45 | XMS_ITS | Encounter Summary ---
:1950 Author Organization [facility] Address [address] [place] [address] Care Team Providers Name Role Phone Sheila Nayak MD PhD Primary Care Provider [phone] Reason for Visit Reason Onset Date Comments Health Assistance Program 03/04/2014 Encounter Details Date Type Department Care Team Description 03/04/2014 Telephone [facility] Sheila Nayak He alth Assistance Family Medicine - MD PhD Program [address] [address] [phone] Social History Tobacco Use Types Packs/Day Years Used Date Current Every Day Smoker Cigarettes 1 45 Smokeless Tobacco: Never Used Comments: occasionally; trying to quit Alcohol Use Standard Drinks/Week Comments Yes 14 (1 standard drink = 0.6 oz pure alcoh ol) Sex Assigned at Date Recorded Not on file documented as of this encounter Miscellaneous Notes Telephone Encounter - Debra Nunez - 03/04/2014 1121 EST LM for patient with HAP contact info and also mailed letter to patient's home with our info. documented in this encounter Plan of Treatment Not on filedocumented as of this encounter Visit Diagnoses Not on filedocumented in this encounter Care Teams Siebel Administrator Relationship Specialty Start Date End Date Sheila Nayak MD PhD PCP - General 06/10/08 05/18/17 [address] [place] [address] documented as of this encounter
--- OUTSIDE RECORDS SUMMARY | 2021-08-25 00:45 | XMS_ITS | Encounter Summary ---
:1950 Author Organization [facility] Address [address] [place] [address] Care Team Providers Name Role Phone Sheila Nayak MD PhD Primary Care Provider [phone] Encounter Details Date Type Department Care Team Description 01/07/2016 Orders Only [facility] Amanda Hernandez Gastroenterology - [facility] [address] [place] [address] Social History Tobacco Use Types [...] Sig Dispensed Refills Start Date End Date sofosbuvir-velpatasvir Take 1 Tab by mouth 28 Tab 2 12/10 (EPCLUSA) 400-100 mg daily. Specialty tablet pharmacy documented in this encounter Plan of Treatment Not on filedocumented as of this encounter Goals Goal Patient Goal Associated Recent Patient-Stated? Author Type Problems Progress Blood Blood Hypertensive 122/70 No White, Pressure < Pressure disorder (12/31/2015 More 140/90 11:06 EST) documented as of this encounter Visit Diagnoses Not on filedocumented in this encounter Care Teams Senior Housekeeper Relationship Specialty Start Date End Date Sheila Nayak MD PhD PCP - General 06/10/08 05/18/17 [address] [place] [phone] documented as of this encounter
--- OUTSIDE RECORDS SUMMARY | 2021-08-25 00:45 | XMS_ITS | Encounter Summary ---
:1950 Author Organization [facility] Address [address] [place] [address] Care Team Providers Name Role Phone Sheila Nayak MD PhD Primary Care Provider Reason for Visit Reason Onset Date Comments No Show 09/04/2014 Encounter Details Date Type Department Care Team Description 09/06/2014 Telephone [facility] Adult Sheila Nayak MD No Show Primary Care - [place] PhD [address] [place] [address] [address] [place] [address] [place], [place] [phone] (Wo rk) Social History Tobacco Use [...] Notes Telephone Encounter - Zena Alexis - 09/06/2014 1104 EDT Left a message for Celestine regarding his missed appointment (F30) with Dr Nayak on 09/04/14. Asked thathe call back to reschedule. documented in this encounter Plan of Treatment Not on filedocumented as of this encounter Visit Diagnoses Not on filedocumented in this encounter Care Teams Orthopedic Podiatrist Relationship Specialty Start Date End Date Sheila Nayak MD PhD PCP - General 06/10/08 05/18/17 2 [place] [address] documented as of this encounter
--- OUTSIDE RECORDS SUMMARY | 2021-08-25 00:45 | XMS_ITS | Encounter Summary ---
:1950 Author Organization [facility] Address [address] [place] [address] Care Team Providers Name Role Phone Sheila Nayak MD PhD Primary Care Provider [phone] Reason for Visit Reason Onset Date Comments Prior Auth, Medication 01/05/2016 Encounter Details Date Type Department Care Team Description 01/05/2016 Telephone [facility] Jerad Luke Pr ior Auth, Gastroenterology - [facility] Medication [place] [address] [place] [id number] [place] [address] [facility] [address] [place] [address] (Wo rk) Social History Tobacco Use Types Packs/Day Years Used Date Current Every Day Smoker Cigarettes 1 50 Smokeless Tobacco: Never Used Comments: occasionally; trying to quit Alcohol Use Standard Drinks/Week Comments Yes 10 (1 standard drink = 0.6 oz pure alcoh ol) Sex Assigned at Date Recorded Not on file documented as of this encounter Miscellaneous Notes Telephone Encounter - Nenita Weston - 01/05/2016 1542 EST Prior Authorization Approval Medication: Epclusa Approved: 10/09/15-01/06/17 Authorization Number: N/A Benefits Information or Other Notes: [facility]: [facility] Prior Authorization Submission Process Medication: Epclusa Insurance: LocalSort Date PA Request Received: 12/29/15 [place] Submission Date: 01/05/16 Submitted by: Nenita Castillo Phone: documented in this encounter Plan of Treatment Not on filedocumented as of this encounter Goals Goal Patient Goal Associated Recent Patient-Stated? Author Type Problems Progress Blood Blood Hypertensive 122/70 No White, Pressure < Pressure disorder (12/31/2015 More 140/90 11:06 EST) documented as of this encounter Visit Diagnoses Not on filedocumented in this encounter Care Teams Drilling Rig Operator Relationship Specialty Start Date End Date Sheila Nayak MD PhD PCP - General 06/10/08 05/18/17 [address] [place] [phone] documented as of this encounter
--- OUTSIDE RECORDS SUMMARY | 2021-08-25 00:45 | XMS_ITS | Encounter Summary ---
:1950 Author Organization [facility] Address [address] [place] [address] Care Team Providers Name Role Phone Sheila Nayak MD PhD Primary Care Provider [phone] Reason for Visit Reason Comments Other Encounter Details Date Type Department Care Team Description 03/26/2015 Telephone [facility] Adult Sheila Nayak MD Other Primary Care - [place] PhD [address] [place] [id number] [place] [address] [phone] (Wo rk) Social History Tobacco Use [...] Tab by mouth 30 Tab 0 0 03/27/2015 06/13/2015 tablet daily. documented in this encounter Miscellaneous Notes Telephone Encounter - Мария Bee - 03/28/2015 1641 EST Patient scheduled elephone Encounter - Jaleesa Alas RN - 03/27/2015 1054 EST Pt was due for f/u in August. 1 month refill given of simvastatin. Please call pt to set up f/u appt with Dr. Nayak. documented in this encounter Plan of Treatment Not on filedocumented as of this encounter Visit Diagnoses Not on filedocumented in this encounter Discontinued Medications Medication Sig Discontinue Reason Start Date End Date simvastatin (ZOCOR) 10 mg Take 1 Tab by mouth Reorder 02/26/19 15 03/26/2015 tablet daily. documented as of this encounter Care Teams High School Teacher Relationship Specialty Start Date End Date Sheila Nayak MD PhD PCP - General 06/10/08 05/18/[address] [place] [phone] documented as of this encounter
--- OUTSIDE RECORDS SUMMARY | 2021-08-25 00:45 | XMS_ITS | Encounter Summary ---
:1950 Author Organization [facility] Address [address] [place] [address] Care Team Providers Name Role Phone Sheila Nayak MD PhD Primary Care Provider [phone] Encounter Details Date Type Department Care Team Description 08/15/2012 Orders Only [facility] Víctor Cordova, Gross hematuria (Primary Dx); Urology - Zachary arreguin MD Microscopic hematuria [address] [place] [address] [place], [place] [phone] Social History Tobacco Use Types Packs/Day Years [...] as of this encounter Visit Diagnoses Diagnosis Gross hematuria - Primary Microscopic hematuria documented in this encounter Orders Lab Orders Without Results Count Last Ordered Date Fir st Ordered Date CYTOLOGY (NON-GYNECOLOGIC INCLUDING FLUIDS 3 08/15 AND FINE NEEDLE ASPIRATION)- ORDER ONLY UA WITH MICROSCOPIC 1 08/15/2012 documented in this encounter Care Teams Registered Representative Relationship Specialty Start Date End Date Sheila Nayak MD PhD PCP - General 06/10/08 05/18/17 [address] [place] [phone] documented as of this encounter
--- OUTSIDE RECORDS SUMMARY | 2021-08-25 00:45 | XMS_ITS | Encounter Summary ---
:1950 Author Organization [facility] Address [address] [place] [address] Care Team Providers Name Role Phone Sheila Nayak MD PhD Primary Care Provider [phone] Reason for Visit Reason Comments New Patient Visit HEP C Consult (Routine) - Specialty Report Received Specialty Diagnoses / Referred By Referred To Cont act Procedures Contact Gastroenterology and Diagnoses Hep C w/o coma, chronic ([facility]) (HCC) Sheila Nayak Mp5 Gi Hepatology MD Jaelyn PhD [address] [place] [address] Phone: [phone] Referral ID Status Reason Start Expiration Visits Visits Date Date Requested Authorized [id number] Specialty Specialty 09/11/2015 1 1 Report Services Received Required Encounter Details Date Type Department Care Team Description 11/24/2015 Office Visit [facility] Jerad Luke ic hepatitis C Gastroenterology - Zachary Morales MD without hepatic [place] [address] [facility] (CMS-HCC) [address] [facility] (Primary Dx) [place], [place] [id number] [place] [address] [facility] [address] [place] [address] Social History Tobacco Use Types Packs/Day Years Used Date Current Every Day Smoker Cigarettes 1 50 Smokeless Tobacco: Never Used Tobacco Cessation: Ready to Quit: Yes Comments: occasionally; trying to quit Alcohol Use Standard Drinks/Week Comments Yes 10 (1 standard drink = 0.6 oz pure alcoh ol) Sex Assigned at Date Recorded Not on file documented as of this encounter Last Filed Vital Signs Vital Sign Reading Time Taken Comments Blood Pressure 118/66 11/24/2015 1336 EDT Pulse 72 11/24/2015 1336 EDT Temperature - - Respiratory Rate 14 11/24/2015 1336 EDT Oxygen Saturation - - Inhaled Oxygen Concentration - - Weight 60.6 kg (133 lb 8 oz) 11/24/2015 1336 EDT Height 165.1 cm (5' 5) 11/24/2015 1336 EDT Body Mass Index 22.22 11/24/2015 1336 EDT documented in this encounter Discharge Diagnoses Diagnosis B18.2 Chronic viral hepatitis C-B18.2[IC D-10-CM] documented in this encounter Discharge Disposition Disposition Code Departure Means Destination Auto Discharge documented in this encounter Progress Notes Jerad Luke MD - 11/24/2015 1400 EDT This office note has been dictated. documented in this encounter Consult Notes Jerad Luke MD - 11/25/2015 0800 EDT [facility] GA[facility]PATOLOGY CONSULTATION - 11/24/2015 Sheila Nayak MD,PhD [facility] - [place] [address] Nayak: Thank you for asking me to see your patient, Celestine Dickson, in consultation today. As you know, he is a 65-year-old man with recently diagnosed hepatitis C infection. He underwent laboratory screeningin August 2015. Serum hepatitis C antibody was positive, and the diagnosis was confirmed by detection of hepatitis C viral RNA. There have been no previous signs or symptoms from the standpoint of liver disease, including jaundice, fluid retention or gastrointestinal bleeding. Past health is otherwise significant for chronic obstructive pulmonary disease, dyslipidemia, and a history of borderline hypertension. There is no history of blood transfusion. Over the past year, there has been an unintentional 20-pound weight loss. A 12-point review of systems was taken, which was otherwise negative. Family history is negative for liver disease. 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 There is a history of significant alcohol use, which has been scaled down over the past several years to approximately 10 to 18 units per week. Adverse reactions to agents include CONTRAST DYE. Current medications include simvastatin, ipratropium albuterol inhaler and aspirin. On physical examination, the patient was found to be a cooperative white man. Weight 133 pounds, (BMI 22.22), blood pressure 118/66, pulse 72. The skin revealed no spider angiomata. The sclerae were clear. The oropharynx was clear. The neck revealed no lymphadenopathy. The lungs revealed decreased breath sounds throughout. Cardiac examination revealed a regular rhythm. The abdomen revealed no obviousascites. It was soft, nontender, and no masses were appreciated. I could not palpate a liver or spleen. There was no pretibial edema. Laboratory data obtained in August 2015 show bilirubin 0.7, alkaline phosphatase 62, ALT 32, AST 22, albumin 3.9. In summary, Mr Dickson has hepatitis C infection, which is likely chronic and possibly of long duration. If so, the presence of concomitant alcohol use and components of metabolic syndrome place him at increased risk for the presence of advanced hepatic fibrosis. To evaluate this, I will arrange for laboratory testing today. If the FIB-4 score is elevated, I will arrange for a screening ultrasound and if unrevealing, a liver biopsy. If not, I will arrange for transient elastography, a noninvasive test that measures liver stiffness. Regardless of the test results, successful antiviral treatment will prevent the development of decompensated liver disease. I have strongly recommended alcohol cessation. The treatment of choice for hepatitis C is genotype dependent, and I will arrange for testing. I will be in touch with you and the patient when the results are available. My only other recommendations are that you vaccinate the patient against hepatitis A and B if there is no serological evidence of immunity (I will test for this) and that you monitor him at least yearly with a complete blood count, comprehensive metabolic panel and prothrombin time. Thank you once again for allowing me to see this patient in consultation with you. Should you have any further questions regarding this evaluation, please feel free to contact me at any time. Sincerely, Jerad Luke MD,PhD 04 08 PM - Jerad Luke MD,PhD jn Dictation ID: [id number] cc: Sheila Nayak MD,PhD, [facility] - [place] [address] documented in this encounter Plan of Treatment Not on filedocumented as of this encounter Goals Goal Patient Goal Associated Recent Patient-Stated? Author Type Problems Progress Blood Blood Hypertensive 122/70 No White, Pressure < Pressure disorder (12/31/2015 More 140/90 11:06 EST) documented as of this encounter Results (ABNORMAL) HCV RNA QUANT WITH REFLEX TO GENOTYPE (11/24/2015 14:35 EDT) Pathologist [facility] [place] HCV RNA Detect [phone] (A) Undetected IU/mL [facility] Comment: CENTER Reference Range: ??Undetected LABORATORY The quantification range of this assay is 15 SERVICES IU/mL to 100,000,000 IU/mL. Testing was performed by the [employer] Ampliprep/Bria TaqMan HCV v2.0 ([employer] Specimen Blood specimen (specimen) - Blood Performing Organization Address [facility] Phon e Number [facility] [address] [place] [address] SERVICES HEPATITIS B SURFACE ANTIBODY (11/24/2015 14:35 EDT) Pathologist [facility] [place] Hepatitis B Negative [facility] Surface Ab Comment: LABORATORY SERVICES Reference Range: Unvaccinated: ??Negative Vaccinated: ??Positive HBs Antibody, <5.0 mIU/mL [facility] Quant Comment: LABORATORY SERVICES Patient is presumed to not be immune to infection with HBV. Reference Range: Positive: >=12.0 mIU/mL Indeterminate: >=5.0 to <12.0 mIU/mL Negative: <5.0 mIU/mL Specimen Blood specimen (specimen) - Blood Performing Organization Address [facility] Phon e Number [facility] [address] [place] [phone] SERVICES HEPATITIS A TOTAL ANTIBODY (11/24/2015 14:35 EDT) Pathologist Sig nature Hep A Antibody NegativeComment: [facility] Reference Range: LABORATORY SERVICES Negative Specimen Blood specimen (specimen) - Blood Performing Organization Address City/[facility]/ZIP Code Phon e Number [facility] [address] [place] [address] SERVICES HEPATITIS B SURFACE ANTIGEN (11/24/2015 14:35 EDT) Hepatitis B NegativeComment: [facility] Surface Ag Reference Range: LABORATORY SERVICES Negative Specimen Blood specimen (specimen) - Blood Performing Organization Address City/[facility]/ZIP [facility] Phon e Number [facility] [address] [place] [address] SERVICES PROTIME (11/24/2015 14:35 EDT) Pro Time 12.5Comment: New 10.3 - 13.1 [facility] prothrombin time range secs LABORATORY SERVICE S effective 11/04/15 I.N.R. 1.1 0.9 - 1.1 [facility] Comment: Ratio LABORATORY SERVICES Moderate Intensity Coumadin INR = 2.0-3.0 Adjustments in anticoagulant therapy dose should be based upon the INR and NOT the Pro Time. Specimen Blood specimen (specimen) - Blood Performing Organization Address [facility]/ZIP [facility] Phon e Number [facility] [address] [place] [address] SERVICES (ABNORMAL) HEMAGRAM (11/24/2015 14:35 EDT) Pathologist Sig nature WBC 6.38 4.0 - 10.4 K/cmm [facility] SERVICES RBC 5.02 4.36 - 5.78 M/cmm [facility] SERVICES Hemoglobin 15.3 13.8 - 17.3 gm/dl [facility] SERVICES HCT 44.2 39.5 - 50.2 % [facility] SERVICES MCV 88 81 - 95 fl [facility] SERVICES MCH 30.5 27.6 - 33.0 pg [facility] SERVICES MCHC 34.6 32.8 - 36.4 gm/dl [facility] SERVICES RDW-CV 12.5 11.8 - 14.1 % [facility] SERVICES RDW-SD 41.0 36.5 - 45.9 fl [facility] SERVICES PLT 268 141 - 377 K/cmm [facility] SERVICES MPV 9.2 (L) 9.5 - 12.7 fl [facility] SERVICES Specimen Blood specimen (specimen) - Blood Performing Organization Address City/[facility] Code Phon e Number [facility] [address] [place] [address] SERVICES (ABNORMAL) COMPREHENSIVE METABOLIC PANEL (CMP) (11/24/2015 14:35 EDT) Potassium 4.2 3.5 - 5.0 [facility] mEq/L [facility] Sodium 139 136 - 145 [facility] mEq/L [facility] Chloride 101 96 - 110 [facility] mEq/L [facility] CO2 24 24 - 32 [facility] mEq/L [facility] Total Alkaline 47 38 - 126 U/L [facility] Phosphatase [facility] SERVICES Bilirubin, Total 0.5 <1.4 mg/dl [facility] SERVICES AST 23 15 - 46 U/L [facility] SERVICES ALT 32 21 - 72 U/L [facility] SERVICES Albumin 4.0 3.4 - 4.9 [facility] g/dl [facility] Total Protein 7.3 6.3 - 8.2 [facility] g/dl [facility] SERVICES Creatinine 0.77 0.66 - 1.25 [facility] mg/dl [facility] SERVICES GFR, Calculated 95 >60 [facility] Comment: ml/min/1.73m [facility] eGFR calculated using CKD-EPI equation for 2 SERVICES non Americans. Multiply eGFR by 1.16 for Americans. BUN 9 (L) 10 - 26 [facility] mg/dl [facility] SERVICES Calcium 9.5 8.5 - 10.5 [facility] mg/dl [facility] SERVICES Calculated Calcium 9.5 8.5 - 10.5 [facility] Comment: mg/dl CENTER LABORATORY Note new formula for calculation SERVICES in use 11/12/2015 Glucose, Serum 78 70 - 100 [facility] mg/dl [facility] SERVICES Fasting? No [facility] SERVICES Specimen Blood specimen (specimen) - Blood Performing Organization Address City/[facility] Code Phon e Number [facility] [address] [place] [address] SERVICES documented in this encounter Visit Diagnoses Diagnosis Chronic hepatitis C without hepatic coma (HCC-CMS) (HCC) - Primary Chronic hepatitis C without mention of h epatic coma documented in this encounter Care Teams Mis Specialist Relationship Specialty Start Date End Date Sheila Nayak MD PhD PCP - General 06/10/08 05/18/17 [address] [place] [phone] documented as of this encounter
--- OUTSIDE RECORDS SUMMARY | 2021-08-25 00:45 | XMS_ITS | Encounter Summary ---
:1950 Author Organization [facility] Address [address] [place] [address] Care Team Providers Name Role Phone Sheila Nayak MD PhD Primary Care Provider [phone] Reason for Visit Reason Onset Date Comments Medications Refill 03/29/2013 Encounter Details Date Type Department Care Team Description 03/29/2013 Refill [facility] Adult Sheila Nayak MD Medications Refill Primary Care - Ghassan PhD [address] [place] [address] [place], [place] [phone] (Wo rk) Social History Tobacco Use [...] Take 1 Tab by mouth 90 Tab 1 0 03/29/2013 10/04/2013 tablet daily. documented in this encounter Miscellaneous Notes Telephone Encounter - Melita Kelly - 03/29/2013 0834 EST Pt requesting refill for: Med & Strength: Simvastatin 10 mg Sig & Quantity: Take 1 tab by mouth daily, #90 Last refill: 05/29/12 Is the pt out of the medication?: No Only has a few days left [facility] Last OV w/PCP: 08/15/12 Next OV w/PCP: Visit date not found Melita Kelly 03/29/2013 8:34 documented in this encounter Plan of Treatment Not on filedocumented as of this encounter Visit Diagnoses Not on filedocumented in this encounter Discontinued Medications Medication Sig Discontinue Reason Start Date End Date simvastatin (ZOCOR) 10 mg Take 1 Tab by mouth Reorder 05/30/19 13 03/29/2013 tablet daily. documented as of this encounter Care Teams Guest Relation Officer Relationship Specialty Start Date End Date Sheila Nayak MD PhD PCP - General 06/10/08 05/18/17 [address] [place] [phone] documented as of this encounter
--- OUTSIDE RECORDS SUMMARY | 2021-08-25 00:46 | XMS_ITS | Encounter Summary ---
:1950 Author Organization [facility] Address [address] [place] [address] Care Team Providers Name Role Phone Sheila Nayak MD PhD Primary Care Provider [phone] Reason for Visit Reason Onset Date Comments Medications Refill 10/31/2009 Encounter Details Date Type Department Care Team Description 10/31/2009 Refill [facility] Adult Sheila Nayak MD Medications Refill Primary Care - Golva PhD [address] [place] [id number] [place] [address] [phone] (Wo rk) Social History Tobacco Use Types Packs/Day Years Used Date Current Every Day Smoker Cigarettes 1 45 Comments: occasionally; trying to quit Alcohol Use Standard Drinks/Week Comments Yes 35 (1 standard drink = 0.6 oz pure alcoh ol) Sex Assigned at Date Recorded Not on file documented as of this encounter Ordered Prescriptions Prescription Sig Dispensed Refills Start Date End Date alprazolam (XANAX) 0.5 mg Take by mouth. 1/2 30 Each 5 11/12/2010 tablet - 1 BID PRN lisinopril (PRINIVIL, Take 1 Tab by mouth 90 Tab 3 10/3111/12/2010 ZESTRIL) 10 mg tablet daily. simvastatin (ZOCOR) 10 mg Take 1 Tab by mouth 90 Tab 3 0 10/31/2009 11/12/2010 tablet daily. documented in this encounter Miscellaneous Notes Telephone Encounter - Yessy Horvath - 10/31/2009 1523 EDT Script called to pharmacy elephone Encounter - Risa Medina - 10/31/2009 1126 EDT Please check SIG for Alprazolam, is unclear as to how he should be taking it Needs today. Xpld 72 hour notice for future refills. documented in this encounter Plan of Treatment Not on filedocumented as of this encounter Visit Diagnoses Not on filedocumented in this encounter Discontinued Medications Medication Sig Discontinue Reason Start Date End Date simvastatin (ZOCOR) 10 mg Take 10 mg by Reorder 0 10/31/2009 tablet mouth. lisinopril (PRINIVIL, Take 10 mg by Reorder 10/31 ZESTRIL) 10 mg tablet mouth. alprazolam (XANAX) 0.5 mg Take 0.5 mg by Reorder 10/31/2009 tablet mouth 2 times daily as needed for Sleep. 1/2 - 1 BID PRN documented as of this encounter Care Teams Armature Straightener Relationship Specialty Start Date End Date Sheila Nayak MD PhD PCP - General 06/10/08 05/18/17 [address] [place] [phone] documented as of this encounter
--- OUTSIDE RECORDS SUMMARY | 2021-08-25 00:46 | XMS_ITS | Encounter Summary ---
:1950 Author Organization [facility] Address [address] [place] [address] Care Team Providers Name Role Phone Sheila Nayak MD PhD Primary Care Provider [phone] Reason for Visit Reason Comments Mouth Lesions Encounter Details Date Type Department Care Team Description 01/28/2012 Office Visit [facility] 111 [facility] [address] [phone] [facility], [address] [place] [address] (Wo rk) Social History Tobacco Use Types Packs/Day Years Used Date Current Every Day Smoker Cigarettes 1 45 Smokeless Tobacco: Never Used Comments: occasionally; trying to quit Alcohol Use Standard Drinks/Week Comments Yes 35 (1 standard drink = 0.6 oz pure alcoh ol) Sex Assigned at Date Recorded Not on file documented as of this encounter Progress Notes Anyi Rivera MD - 01/28/2012 1532 EST Subjective: Patient ID: Celestine Dickson is an 61 y.o. male. Chief Complaint Patient presents with ??? Mouth Lesions HPI Sheila Nayak has requested that I see Celestine Dickson in consultation regarding mouth lesions. He first noticed these about 6 months ago. 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 He denies associated pain, otalgia, dysphagia, odynophagia, throat pain, voice change, or weightloss. Patient Active Problem List Diagnoses ??? Hypertension ??? Chronic obstructive pulmonary disease ??? Hyperlipidemia ??? Male erectile disorder ??? Anxiety ??? Gastric ulcer, unspecified as acute or chronic, without mention of hemorrhage, perforation, or obstruction ??? Osteoarthritis of knee ??? Tobacco dependence syndrome Past Medical History Diagnosis Date ??? Hypertension ??? COPD (chronic obstructive pulmonary disease) ??? Hyperlipidemia ??? Fracture to face ??? Gastric ulcer, unspecified as acute or chronic, without mention of hemorrhage, perforation, or obstruction 07/21/2009 ??? Emphysema of lung ??? Acne ??? Arthritis No past surgical history on file. Family History Problem Relation Age of Onset ??? Cancer Father Skin ??? Arthritis Sister Social History Social History ??? Marital Status: Single Spouse Name: N/A Number of Children: N/A ??? Years of Education: N/A Occupational History ??? Not on file. Social History Main Topics ??? Smoking status: Current Everyday Smoker -- 1.0 packs/day for 45 years Types: Cigarettes ??? Smokeless tobacco: Never Used Comment: occasionally; trying to quit ??? Alcohol Use: 21.0 oz/week 14 Shots of liquor per week ??? Drug Use: No ??? Sexually Active: Yes -- Female partner(s) Other Topics Concern ??? Not on file Social History Narrative ??? No narrative on file Outpatient Prescriptions Marked as Taking for the 01/28/12 encounter (Office Visit) with Anyi Rivera MD Medication Sig Dispense Refill ??? ipratropium-albuterol (COMBIVENT) 18-103 mcg/actuation inhaler Inhale 2 Puffs as directed every 6 hours as needed. 1 Inhaler 3 ??? buPROPion (WELLBUTRIN XL) 150 mg XL tablet Take 1 Tab by mouth every morning. 30 Tab 2 ??? simvastatin (ZOCOR) 10 mg tablet Take 1 Tab by mouth daily. 90 Tab 3 ??? aspirin 81 mg EC tablet Take 81 mg by mouth daily. Allergies Allergen Reactions ??? Other - See Comments Rash Contrast Dye Review of Systems Constitutional: Negative for fever, chills, weight loss and malaise/fatigue. HENT: Positive for sore throat. Negative for hearing loss, ear pain, congestion and tinnitus. Eyes: Negative for blurred vision, double vision and photophobia. Respiratory: Positive for cough and shortness of breath. Negative for hemoptysis and wheezing. Cardiovascular: Negative for chest pain, palpitations, claudication and leg swelling. Gastrointestinal: Negative for heartburn. Musculoskeletal: Positive for joint pain. Negative for myalgias. Skin: Negative for rash. Neurological: Negative for sensory change, focal weakness and headaches. Endo/Heme/Allergies: Negative for environmental allergies. Does not bruise/bleed easily. - See HPI Objective: There were no vitals taken for this visit. Physical Exam Department of Otolaryngology PHYSICAL EXAMINATION CONSTITUTIONAL: VITAL SIGNS: Not reviewed APPEARANCE: The patient appears alert, cooperative, and comfortable. ABILITY TO COMMUNICATE / VOICE: Normal HEAD AND FACE: INSPECTION: Normal without apparent scars, lesions, or masses. PALPATION: There are no masses or sinus tenderness. SALIVARY GLANDS: Submandibular and Parotid glands are normal bilaterally FACIAL STRENGTH: Intact and symmetrical bilaterally EXTERNAL EAR & NOSE: No external ear or nose deformity noted EYES: EYES: exam not performed EARS, NOSE, MOUTH AND THROAT: OTOSCOPY: Right external auditory canal: patent and non-inflamed Left external auditory canal: patent and non-inflamed Right tympanic membrane: intact and normally mobile without retraction, perforation or effusion Left tympanic membrane: intact and normally mobile without retraction, perforation or effusion WHISPER/TUNING FORK: Not assessed NOSE: normal turbinates and mucosa: septum in midline LIPS, TEETH & GUMS: partially edentulous, poor dentition ORAL CAVITY & OROPHARYNX: mandibular torii present with clear flow of saliva from both camelia'sducts HYPOPHARYNX & PHARYNGEAL WANG: Unable to visualize because of significant gag reflex LARYNX: Unable to visualize because of significant gag reflex NASOPHARYNX: Not examined NECK: GENERAL: Supple, no asymmetry or crepitus, trachea midline THYROID: Normal LYMPHATIC: CERVICAL LYMPH NODES: No pathologic cervical lymphadenopathy noted RESPIRATORY: LUNGS: Not examined CARDIOVASCULAR: CARDIOVASCULAR: Not examined NEUROLOGIC: NEUROLOGIC: Normal mood and affect Assessment: 61 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 These are benign lesions that do not require further treatment at this time. 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
--- OUTSIDE RECORDS SUMMARY | 2021-08-25 00:46 | XMS_ITS | Encounter Summary ---
:[address] [facility] Address [address] [place] [address] Care Team Providers Name Role Phone Sheila Nayak MD PhD Primary Care Provider [phone] Encounter Details Date Type Department Care Team Description 03/08/2012 Phlebotomy Only [facility] Gelatin Dynamite Packing Operator, Micro [facility] Outpatient hematuria [address] [place] [address] Social History Tobacco Use Types Packs/Day Years [...] Associated Diagnosis Comme nts URINE CHEMICAL Routine 03/08/2012 10:57 Microscopic Results f or this (DIP) & SEDIMENT EST hematuria procedure a re in (MICRO) WITHOUT the results REFLEX TO CULTURE section. documented in this encounter Results (ABNORMAL) UA WITH MICROSCOPIC (03/08/2012 10:57 EST) Color, UA Yellow [facility] Clarity, UA Clear [facility] Glucose, UA Neg Neg [facility] Bilirubin, UA Neg Neg [facility] Ketones, UA Neg Neg [facility] Specific [place], 1.020 1.001 - 1.035 [facility] Blood, UA Trace (A) Neg [facility] pH, UA 5.5 4.6 - [...] Epithel, UA None seen None seen [facility] Bacteria, UA None seen None seen [facility] Crystals, UA None seen /HPF [facility] Hyaline Casts, UA None seen /LPF [facility] UA Comment Microscopic results [facility] Comment: LAB are unreliable on urines unrefrig >2hrs or refrig >8hrs. Specimen Urine (substance) - Urine Performing Organization Address City/State/ZIP Code Phon e Number [facility] [address] [place] [address] SERVICES [facility] [address] [place] [address] documented in this encounter Visit Diagnoses Diagnosis Microscopic hematuria documented in this encounter Care Teams Chimney Sweeper Relationship Specialty Start Date End Date Sheila Nayak MD PhD PCP - General 06/10/08 05/18/17 [address] [place] [phone] documented as of this encounter
--- OUTSIDE RECORDS SUMMARY | 2021-08-25 00:46 | XMS_ITS | Encounter Summary ---
:1950 Author Organization [facility] Address [address] [place] [address] Care Team Providers Name Role Phone Sheila Nayak MD PhD Primary Care Provider [phone] Encounter Details Date Type Department Care Team Description 03/13/2012 Phlebotomy Only [facility] Heavy Duty Mechanic Farm Equipment, Micro [facility] Outpatient hematuria [address] [place] [address] Social History Tobacco Use Types Packs/Day Years [...] Associated Diagnosis Comme nts URINE CHEMICAL Routine 03/13/2012 11:46 Microscopic Results f or this (DIP) & SEDIMENT EST hematuria procedure a re in (MICRO) WITHOUT the results REFLEX TO CULTURE section. documented in this encounter Results (ABNORMAL) UA WITH MICROSCOPIC (03/13/2012 11:46 EST) Color, UA Yellow [facility] Clarity, UA Clear [facility] Glucose, UA Neg Neg [facility] Bilirubin, UA Neg Neg [facility] Ketones, UA Neg Neg [facility] Specific [place], 1.020 1.001 - 1.035 [facility] Blood, UA Trace (A) Neg [facility] pH, UA 6.0 4.6 - 8.0 [facility] Protein, UA Neg Neg [facility] Urobilinogen, UA 0.2 0.2 - 1.0 [facility]dl [facility] Nitrite, UA Neg Neg [facility] Leuk Esterase Neg Neg [facility] WBC, UA None seen 0 - 5 /HPF [facility] RBC, UA 1 to 5 0 - 5 /HPF [facility] Squam Epithel, UA None seen None seen [facility] Renal Epithel, UA None seen None seen [facility] Bacteria, UA None seen None seen [facility] Crystals, UA None seen /HPF [facility] Hyaline Casts, UA None seen /LPF [facility] UA Comment Microscopic results [facility] Comment: LAB are unreliable on urines unrefrig >2hrs or refrig >8hrs. Mucus, UA Present [facility] Specimen Urine (substance) - Urine Performing Organization Address City/State/ZIP Code Phon e Number [facility] [address] [place] [address] SERVICES [facility] [address] [place] [address] documented in this encounter Visit Diagnoses Diagnosis Microscopic hematuria documented in this encounter Care Teams Qa Auditor Relationship Specialty Start Date End Date Sheila Nayak MD PhD PCP - General 06/10/08 05/18/17 [address] [place] [phone] documented as of this encounter
--- OUTSIDE RECORDS SUMMARY | 2021-08-25 00:46 | XMS_ITS | Encounter Summary ---
:1950 Author Organization [facility] Address [address] [place] [address] Care Team Providers Name Role Phone Sheila Nayak MD PhD Primary Care Provider [phone] Reason for Visit Reason Onset Date Comments Results 12/22/2009 Patient called to [facility] lab results. Please call. Encounter Details Date Type Department Care Team Description 12/22/2009 Telephone [facility] Beata Gilbert, Harleen segura (Patient Dermatology - Main PA called to get lab [address] results. Please call. [address]IOJOSA ) [place] [address] [facility] [address] [place] [address] (Wo rk) Social History Tobacco Use Types Packs/Day Years Used Date Current Every Day Smoker Cigarettes 1 45 Smokeless Tobacco: Never Used Comments: occasionally; trying to quit Alcohol Use Standard Drinks/Week Comments Yes 35 (1 standard drink = 0.6 oz pure alcoh ol) Sex Assigned at Date Recorded Not on file documented as of this encounter Miscellaneous Notes Telephone Encounter - Tisha Edwards - 12/23/2009 8937 EST Spoke with patient today regarding his need to have his blood drawn. He will have that done as soon as possible. He then asked if he could have the RX for Lamisil. I did inform him that he does have tohave his blood work done, prior to getting the RX. Tisha Edwards elephone Encounter - Beata Gilbert PA - 12/23/2009 1426 EST Please have the patient go to the lab to have his bloodwork drawn and then once they come back I cangive him his lab results. Thanks .cssi documented in this encounter Plan of Treatment Not on filedocumented as of this encounter Visit Diagnoses Not on filedocumented in this encounter Care Teams Corporate Physical Security Supervisor Relationship Specialty Start Date End Date Sheila Nayak MD PhD PCP - General 06/10/08 05/18/17 [address] [place] [phone] documented as of this encounter
--- OUTSIDE RECORDS SUMMARY | 2021-08-25 00:46 | XMS_ITS | Encounter Summary ---
:1950 Author Organization [facility] Address [address] [place] [address] Care Team Providers Name Role Phone Sheila Nayak MD PhD Primary Care Provider [phone] Reason for Visit Reason Comments Hematuria cystoscopy. Renal ultrasound done today Encounter Details Date Type Department Care Team Description 03/21/2012 Office Visit [facility] Allyssa Cordova, Micro scopic hematuria Urology - Zachary arreguin MD (Primary Dx) 111 [facility] [address] [place], [place] [id number] [place] [phone] Social History Tobacco Use Types Packs/Day Years Used Date Current Every Day Smoker Cigarettes 1 45 Smokeless Tobacco: Never Used Comments: occasionally; trying to quit Alcohol Use Standard Drinks/Week Comments Yes 35 (1 standard drink = 0.6 oz pure alcoh ol) Sex Assigned at Date Recorded Not on file documented as of this encounter Progress Notes Allyssa Cordova - 03/21/2012 1104 EST Subjective: Patient ID: Celestine Dickson is an 61 y.o. male. Celestine Dickson is seen in the office today for kidney ultrasound and cystoscopy. HPI Comments: I reviewed the patient's renal ultrasound from today: no renal parenchymal lesion or stone Hematuria Associated symptoms include hematuria. Patient Active Problem List Diagnoses ??? Hypertension [...] cholesterol ??? Asthma ??? Anxiety ??? Depression History reviewed. No pertinent past surgical history. Family History Problem Relation Age of Onset [...] Sleep or Anxiety. 14 Each 0 ??? ipratropium-albuterol (COMBIVENT) 18-103 mcg/actuation inhaler Inhale 2 Puffs as directed every 6 hours as needed. 1 Inhaler 3 ??? sildenafil citrate (VIAGRA) 100 mg tablet Take 1 Tab by mouth as needed for Erectile Dysfunction. Needs Office visit before next refill. 6 Tab 3 ??? buPROPion (WELLBUTRIN XL) 150 mg XL tablet Take 1 Tab by mouth every morning. 30 Tab 2 ??? simvastatin (ZOCOR) 10 mg tablet Take 1 Tab by mouth daily. 90 Tab 3 ??? omeprazole (PRILOSEC OTC) 20 mg tablet Take 1 Tab by mouth daily. 90 Tab 3 ??? diclofenac (VOLTAREN) 50 mg EC tablet Take 1 Tab by mouth 2 times daily. 180 Each 0 ??? aspirin 81 mg EC tablet Take 81 mg by mouth daily. Allergies Allergen Reactions ??? Other - See Comments Rash Contrast Dye Review of Systems Genitourinary: Positive for hematuria. - See HPI Objective: There were no vitals taken for this visit. Physical Exam No visits with results within 1 Day(s) from this visit. Latest known visit with results is: Phlebotomy Only on 03/13/2012 Component Date Value Range Status ??? Color, UA 03/13/2012 Yellow Final ??? Clarity, UA 03/13/2012 Clear Final ??? Glucose, UA 03/13/2012 Neg Neg Final ??? Bilirubin, UA 03/13/2012 Neg Neg Final ??? Ketones, UA 03/13/2012 Neg Neg Final ??? Specific [place], Urine 03/13/2012 1.020 1.001-1.035 Final ??? Blood, UA 03/13/2012 Trace* Neg Final ??? pH, UA 03/13/2012 6.0 4.6-8.0 Final ??? Protein, UA 03/13/2012 Neg Neg Final ??? Urobilinogen, UA (E.U./dl) 03/13/2012 0.2 0.2-1.0 Final ??? Nitrite, UA 03/13/2012 Neg Neg Final ??? Leuk Esterase 03/13/2012 Neg Neg Final ??? WBC, UA (/HPF) 03/13/2012 None seen 0-5 Final ??? RBC, UA (/HPF) 03/13/2012 1 to 5 0-5 Final ??? Squam Epithel, UA (/HPF) 03/13/2012 None seen None seen Final ??? Renal Epithel, UA (/HPF) 03/13/2012 None seen None seen Final ??? Bacteria, UA (/HPF) 03/13/2012 None seen None seen Final ??? Crystals, UA (/HPF) 03/13/2012 None seen Final ??? Casts, UA (/LPF) 03/13/2012 None seen Final ??? UA Comment 03/13/2012 Microscopic results Final Comment: are unreliable on urines unrefrig >2hrs or refrig >8hrs. ??? Mucus, UA 03/13/2012 Present Final PSA: Lab Results Component Value Date PSA 0.7 05/21/2011 BMP: Lab Results Component Value Date NA 138 01/28/2012 K 4.5 01/28/2012 CL 105 01/28/2012 CO2 26 01/28/2012 BUN 18 01/28/2012 CREATININE 0.96 01/28/2012 CALCIUM 9.1 01/28/2012 CALCCA 9.3 01/28/2012 PHOS 3.0 05/21/2011 LABALBU 4.0 05/21/2011 URO Office Cystoscopy Office cystoscopy for: Hematuria. Anesthesia: 2% lidocaine gel . Procedure: Patient identified, prepped and draped in usual sterile manner 14 welsh. Flexible cystoscope inserted into urethra and guided into bladder under direct vision. Finding: mild to moderate trabeculation; no tumor or stone; one tiny (1-2 mm) area of slightly increased erythema on mid-left posterior wall that was fairly well-circumscribed, and most consistent withinflammatory change; bladder washing sent for cytology; with retroflexion, mild intravesical component to prostate; 3 cm prostatic urethral length; slight to mild bilateral lateral lobe enlargement with anterior 1/3 midline coaptation; no visual obstruction, looking proximally from the verumontanum Plan: ciprofloxacin 500 mg PO now. ALLYSSA CORDOVA MD March 21, 2012 Assessment / Plan: 1. Microscopic hematuria between first ov 02-25-12 and now, one of patient's urinalyses showed 1-5R, and the other two <1R allergic to IVP contrast kidney U/S neg.; BPH seen on cystoscopy - may be source of urine findings check bladder wash cytology result first morning urine for cytology X 3 advise close follow-up of UA and urine cytology at 6 month intervals; if abnormal cytology or changein amount of microscopic hematuria, re-evaluate: cystoscopy and bilateral retrograde pyelograms Other Orders Placed This Visit Procedures ??? POCT Urine Sediment ??? POCT Urine Dipstick Allyssa Cordova MD documented in this encounter Miscellaneous Notes Scanned Note-Null - MAIL FORWARDING SYSTEM MARKUP CLERK, SCAN 2 - 03/26/2012 0708 EST documented in this encounter Plan of Treatment Not on filedocumented as of this encounter Visit Diagnoses Diagnosis Microscopic hematuria - Primary documented in this encounter Care Teams Maintenance Plumber Relationship Specialty Start Date End Date Sheila Nayak MD PhD PCP - General 06/10/08 05/18/17 2 [place] [phone] documented as of this encounter
--- OUTSIDE RECORDS SUMMARY | 2021-08-25 00:46 | XMS_ITS | Encounter Summary ---
:1950 Author Organization [facility] Address [address] [place] [address] Care Team Providers Name Role Phone Sheila Nayak MD PhD Primary Care Provider [phone] Reason for Visit Reason Comments Follow-up review things, blood work do ne two weeks ago Encounter Details Date Type Department Care Team Description 05/05/2011 Office Visit [facility] Sheila Nayak HT N (hypertension); Adult Primary Care - PhD Hyperlipidemia; [address] COPD (chronic obstructive pulmonary dise ase) ([facility]); [address] [place] [address] Tobacco abuse; [place], [place] [id number] Elevated serum creatinine [phone] (Wo rk) Social History Tobacco Use Types [...] Sign Reading Time Taken Comments Blood Pressure 120/80 05/05/2011 0848 EDT Pulse 62 05/05/2011 0848 EDT reg Temperature - - Respiratory Rate - - Oxygen Saturation - - Inhaled Oxygen Concentration - - Weight 68.9 kg (152 lb) 05/05/2011 0848 EDT Height 167 cm (5' 5.75) 05/05/2011 0848 EDT Body Mass Index 24.72 05/05/2011 0848 EDT documented in this encounter Patient Instructions Patient InstructionsSheila Nayak MD PhD - 05/05/2011 9:14 EDT Stop diclofenac and lisinopril . Start wellbutrin. documented in this encounter Ordered Prescriptions Prescription Sig Dispensed Refills Start Date End Date buPROPion (WELLBUTRIN XL) Take 1 Tab by mouth 30 Tab 2 0 05/05/2011 03/28/2012 150 mg XL every morning. tabletIndications: Tobacco abuse documented in this encounter Progress Notes Sheila Nayak MD PhD - 05/06/2011 1531 EDT Subjective: Patient ID: Celestine Dickson is an 60 y.o. male. Chief Complaint Patient presents with ??? Follow-up review things, blood work done two weeks ago HPI Celestine is here in followup for multiple medical problems including hypertension, hyperlipidemia, COPDand tobacco use. His medication list was reviewed and updated. Problem list reviewed. He has completed laboratories. He continues to try to quit smoking. He is interested in trying Wellbutrin. He has a prescription for Xanax but rarely uses this. His neck and hand pain have improved. He is currently taking diclofenac once a day. Reviewed his laboratories. His creatinine has increased, which is new for him. He has no complaints of dysuria, frequency or urgency. As noted above, taking diclofenac daily. He is also on lisinopril. Patient Active Problem List Diagnoses ??? HTN (hypertension) ??? COPD (chronic obstructive pulmonary disease) ??? Hyperlipidemia ??? ED (erectile dysfunction) ??? Anxiety ??? Stomach ulcer ??? Osteoarthritis of knee ??? Tobacco dependence Past Medical History Diagnosis Date ??? Hypertension ??? COPD (chronic obstructive pulmonary disease) ??? Hyperlipidemia ??? Fracture to face ??? Stomach ulcer 07/21/2009 ??? Emphysema of lung ??? Acne ??? Arthritis Current Outpatient Prescriptions on File Prior to Visit Medication Sig Dispense Refill ??? lisinopril (PRINIVIL, ZESTRIL) 10 mg tablet Take 1 Tab by mouth daily. 90 Tab 3 ??? simvastatin (ZOCOR) 10 mg tablet Take 1 Tab by mouth daily. 90 Tab 3 ??? omeprazole (PRILOSEC OTC) 20 mg tablet Take 1 Tab by mouth daily. 90 Tab 3 ??? alprazolam (XANAX) 0.5 mg tablet Take 1 Tab by mouth at bedtime as needed for Sleep or Anxiety. 14 Each 0 ??? sildenafil citrate (VIAGRA) 100 mg tablet Take 1 Tab by mouth as needed for Erectile Dysfunction. Needs Office visit before next refill. 6 Tab 3 ??? diclofenac (VOLTAREN) 50 mg EC tablet Take 1 Tab by mouth 2 times daily. 180 Each 0 ??? aspirin 81 mg EC tablet Take 81 mg by mouth daily. ??? IPRATROPIUM/ALBUTEROL SULFATE (COMBIVENT INHL) Inhale 2 Puffs as directed 4 times daily as needed. Allergies Allergen Reactions ??? Other - See Comments Rash Contrast Dye Social History Substance Use Topics ??? Smoking status: Current Everyday Smoker -- 1.0 packs/day for 45 years Types: Cigarettes ??? Smokeless tobacco: Never Used Comment: occasionally; trying to quit ??? Alcohol Use: 21.0 oz/week 14 Shots of liquor per week Review of Systems Constitutional: Negative for fever, chills, weight loss and malaise/fatigue. HENT: Negative. Respiratory: Negative for cough and shortness of breath. Cardiovascular: Negative for chest pain and leg swelling. Gastrointestinal: Negative for heartburn and abdominal pain. Genitourinary: Negative. Musculoskeletal: Negative. Skin: Negative. Neurological: Negative. Negative for weakness. Endo/Heme/Allergies: Negative. - See HPI Objective: BP 120/80 Pulse 62 Ht 167 cm (65.75) Wt 68.947 kg (152 lb) BMI 24.72 kg/m2 Physical Exam Vitals reviewed. Constitutional: He is oriented to person, place, and time. He appears well- developed and well-nourished. No distress. HENT: Head: Normocephalic. Eyes: Conjunctivae and EOM are normal. No [...] Results for orders placed in visit on 04/22/11 LIPID PROFILE (INCLUDES CHOLESTEROL, TRIGLYCERIDES, HDL, LDL) Component Value Range Cholesterol 153 Triglycerides 71 HDL 47 LDL 92 Chol/HDL Ratio 3.3 Fasting? Yes COMPREHENSIVE METABOLIC PANEL (CMP) Component Value Range Potassium 5.4 (*) 3.5 - 5.0 (mEq/L) Sodium 140 136 - 145 (mEq/L) Chloride 105 96 - 110 (mEq/L) CO2 26 24 - 32 (mEq/L) Total Alkaline Phosphatase 64 38 - 126 (U/L) Bilirubin, Total <0.5 0.2 - 1.3 (mg/dl) AST 37 15 - 46 (U/L) ALT 44 21 - 72 (U/L) Albumin 4.1 3.4 - 4.9 (g/dl) Total Protein 7.0 6.5 - 8.3 (g/dl) Creatinine 1.33 (*) 0.66 - 1.25 (mg/dl) GFR, Calculated 55 (*) >60 (ml/min/1.73m2) BUN 32 (*) 10 - 26 (mg/dl) Calcium 9.1 8.5 - 10.5 (mg/dl) Calculated Calcium 9.4 8.5 - 10.5 (mg/dl) Glucose, Serum 89 70 - 100 (mg/dl) Fasting? Yes Assessment: Plan: Celestine was seen today for follow-up. Diagnoses and associated orders for this visit: Htn (hypertension) - BP is good. Due to increase in CR will d/c lisinopril for now and see him back in 3-4 weeks. Hyperlipidemia - doing well on statin. Cholesterol good Copd (chronic obstructive pulmonary disease) Tobacco abuse - encouraged cessation - buPROPion (WELLBUTRIN XL) 150 mg XL tablet; Take 1 Tab by mouth every morning. Elevated serum creatinine - increase may be due to nsaid. stop diclofenac and lisinopril. Encouragedfluids and rov in 3 weeks with labs before. - Albumin, Urine; Future - PSA; Future - Nephrology Profile (Includes BUN, Creatinine, Calculated GFR, Electrolytes, Calcium, Phosphorus, Albumin); Future documented in this encounter Plan of Treatment Not on filedocumented as of this encounter Results (ABNORMAL) NEPHROLOGY PROFILE (INCLUDES BUN, CREATININE, CALCULATED GFR, ELECTROLYTES, CALCIUM, PHOSPHORUS, ALBUMIN) (05/21/2011 12:36 EDT) Pathologist Sig nature Sodium 136 136 - 145 mEq/L [facility] Potassium 4.3 3.5 - 5.0 mEq/L [facility] Chloride 105 96 - 110 mEq/L [facility] CO2 21 (L) 24 - 32 mEq/L [facility] Albumin 4.0 3.4 - 4.9 g/dl [facility] Calcium 8.6 8.5 - 10.5 mg/dl [facility] Calculated Calcium 9.0 8.5 - 10.5 mg/dl [facility] BUN 21 10 - 26 mg/dl [facility] Creatinine 0.87 0.66 - 1.25 mg/dl [facility] GFR, Calculated >60 >60 ml/min/1.73m2 [facility] Phosphorus 3.0 2.5 - 4.5 mg/dl [facility] Specimen Blood specimen (specimen) Performing Organization Address [facility] Phon e Number [facility] [address] [place] [address] SERVICES [facility] [address] [place] [address] PSA (05/21/2011 12:36 EDT) PSA 0.7 0 - 4.5 ng/ml [facility] Comment: LAB Serum PSA concentration should not be interpreted as absolute evidence for the presence or absence of malignant disease. Assayed utilizing Siemens (Source4Style) chemiluminescent technology. ??Values obtained by using different assay methods cannot be used interchangeably. Specimen Blood specimen (specimen) Performing Organization Address [facility] Phon e Number [facility] [address] [place] [address] SERVICES [facility] [address] [place] [address] ALBUMIN, URINE (05/21/2011 12:26 EDT) Pathologist Sig nature Creatinine, Urn 191.4 mg/dl [facility] Ur Albumin mg/dl 0.7 <1.9 mg/dl [facility] Ur Alb ug/mg Crea 3.7 ug/mg Crea [facility] Comment: Normal: <30 ug/mg creat High: 30-300 ug/mg creat Very high and nephrotic: >300 ug/mg creat Specimen Urine (substance) Performing Organization Address City/State/ZIP Code Phon e Number [facility] [address] [place] [address] SERVICES [facility] [address] [place] [address] documented in this encounter Visit Diagnoses Diagnosis HTN (hypertension) Unspecified essential hypertension Hyperlipidemia Other and unspecified hyperlipidemia COPD (chronic obstructive pulmonary dise ase) ([facility]) (HCC) Chronic airway obstruction, not elsewher e classified Tobacco abuse Tobacco use disorder Elevated serum creatinine Other nonspecific findings on examinatio n of blood documented in this encounter Discontinued Medications Medication Sig Discontinue Reason Start Date End Date cyclobenzaprine (FLEXERIL) Take 1 Tab by 12/07/2010 05/05/2011 10 mg tablet mouth at bedtime as needed for Muscle Spasms. documented as of this encounter Care Teams Ground Worker Relationship Specialty Start Date End Date Sheila Nayak MD PhD PCP - General 06/10/08 05/18/17 [address] [place] [address] documented as of this encounter
--- OUTSIDE RECORDS SUMMARY | 2021-08-25 00:46 | XMS_ITS | Encounter Summary ---
:1950 Author Organization [facility] Address [address] [place] [address] Care Team Providers Name Role Phone Sheila Nayak MD PhD Primary Care Provider [phone] Reason for Visit Reason Comments Hematuria Mouth Lesions growths Encounter Details Date Type Department Care Team Description 01/28/2012 Office Visit [facility] Sheila Nayak He maturia (Primary Dx); Adult Primary Care - PhD Oral lesion; [address] Flu vaccine need; [address] [place] [address] [place] [phone] (Wo rk) Social History Tobacco Use Types [...] Sign Reading Time Taken Comments Blood Pressure 116/82 01/28/2012 0835 EST left Pulse 80 01/28/2012 0835 EST Temperature 36.2 ??C (97.1 ??F) 01/28/2012 0835 EST Respiratory Rate 12 01/28/2012 0835 EST Oxygen Saturation - - Inhaled Oxygen Concentration - - Weight 69.4 kg (153 lb) 01/28/2012 0835 EST with shoes Height 167.6 cm (5' 6) 01/28/2012 0835 EST with shoes Body Mass Index 24.69 01/28/2012 0835 EST documented in this encounter Progress Notes Sheila Nayak MD - 01/28/2012 1531 EST Subjective: Patient ID: Celestine Dickson is an 61 y.o. male. Chief Complaint Patient presents with ??? Hematuria ??? 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 The examining physician there noted that he had microhematuria. He also noted oral lesions. Celestine states that maybe about 4 months ago he noted something in his mouth, but that it was very small and itdid not bother him. When this was pointed out to him by the physician at [facility], he was very surprised at how much these had changed and grown in size. He denies any pain. Has not really been bothered by them in his mouth. No problems with chewing or swallowing. The growths are on the bottom of hismouth. He was also noted to have hematuria. He denies any gross hematuria. No difficulty with urination. Nofever or back pain. History of tobacco: He continues to smoke, but continues to try to cut back. Patient Active Problem List Diagnoses ??? Hypertension [...] for fever, chills, weight loss and malaise/fatigue. Respiratory: Negative for cough. Cardiovascular: Negative for chest pain. Genitourinary: Negative for dysuria, urgency, frequency and flank pain. Neurological: Negative for headaches. - See HPI Objective: BP 116/82 Pulse 80 Temp(Src) 36.2 ??C (97.1 ??F) (Oral) Resp 12 Ht 167.6 cm (66) Wt 69.4 kg (153 lb) BMI 24.69 kg/m2 Physical Exam Vitals reviewed. Constitutional: He is oriented to person, place, and time. He appears well- developed and well-nourished. No distress. HENT: Head: Normocephalic. Floor of mouth (under tongue) has 2 large, firm/hard, submucosal masses, one on right and one on left, symmetric. Cardiovascular: Normal rate, regular rhythm and normal heart sounds. Pulmonary/Chest: Effort normal and breath sounds normal. No respiratory distress. He has no wheezes.He has no rales. Neurological: He is alert and oriented to person, place, and time. Skin: Skin is warm and dry. Psychiatric: He has a normal mood and affect. His behavior is normal. Judgment and thought content normal. Results for orders placed in visit on 01/28/12 POCT URINE DIPSTICK Component Value Range Color YELLOW Clarity, UA Clear Glucose Neg Neg Bilirubin Neg Neg Ketones Neg Neg Specific [place] 1.020 1.001 - 1.035 Blood 1+ (*) Neg pH 6.0 4.6 - 8.0 Protein Neg Neg Urobilinogen 0.2 0.2 - 1.0 (E.U./dl) Nitrite Neg Neg Leuk Esterase Neg Neg Tech ID [id number] BASIC METABOLIC PANEL Component Value Range Sodium 138 136 - 145 (mEq/L) Potassium 4.5 3.5 - 5.0 (mEq/L) Chloride 105 96 - 110 (mEq/L) CO2 26 24 - 32 (mEq/L) BUN 18 10 - 26 (mg/dl) Creatinine 0.96 0.66 - 1.25 (mg/dl) GFR, Calculated >60 >60 (ml/min/1.73m2) Calcium 9.1 8.5 - 10.5 (mg/dl) Calculated Calcium 9.3 8.5 - 10.5 (mg/dl) Glucose, Serum 86 70 - 100 (mg/dl) Fasting? Unknown Assessment: Plan: Celestine was seen today for hematuria and mouth lesions. Diagnoses and associated orders for this visit: Hematuria - refer to Urology for microhematuria. Cx urine. - POCT Urine Dipstick - Basic Metabolic Panel - Bacterial Culture, Urine Oral lesion - possible oral alisson. He will see ENT today. Flu vaccine need - Flu vaccine greater than or equal to 3yo preservative free IM Tobacco dependence syndrome - encouraged cessation. Other Orders - Cancel: HiB HBOC conjugate vaccine 4 dose IM Izabela Emerson - 01/28/2012 0930 EST Patient Education Topic: Flu vaccine administered with no issues Method: Handout and Verbal Taught to: Patient Barriers: None Outcomes: independent and verbalized understanding PT drawn for labs ordered from 01/28/12 office visit note, per Dr. Nayak. I was supervised by Sheila Nayak documented in this encounter Plan of Treatment Not on filedocumented as of this encounter Procedures Procedure Name Priority Date/Time Associated Diagnosis Comme nts BACTERIAL CULTURE, Routine 01/28/2012 10:28 Hematuria Resul ts for this URINE EST procedure are i n the results section. POCT URINE Routine 01/28/2012 9:14 EST Hematuria Results for this DIPSTICK, CLINITEK procedure are in the results section. BASIC METABOLIC Routine 01/28/2012 9:07 EST Hematuria Resul ts for this PANEL (BMP) procedure are i n the results section. documented in this encounter Results BACTERIAL CULTURE, URINE (01/28/2012 10:28 EST) Specimen Description Urine [facility] Result No growth [facility] Report Status 01/29/2012 Final [facility] Specimen Urine (substance) - Urine Performing Organization Address [facility] Phon e Number [facility] [address] [place] [address] SERVICES [facility] [address] [place] [address] (ABNORMAL) POCT URINE DIPSTICK (01/28/2012 9:14 EST) Color YELLOW [facility] Clarity, UA Clear [facility] Glucose Neg Neg [facility] Bilirubin Neg Neg [facility] Ketones Neg Neg [facility] Specific [place] 1.020 1.001 - 1.035 [facility] Blood 1+ (A) Neg [facility] pH 6.0 4.6 - 8.0 [facility] Protein Neg Neg [facility] Urobilinogen 0.2 0.2 - 1.0 [facility] E.U./dl LAB Nitrite Neg Neg [facility] Leuk Esterase Neg Neg [facility] clutch operator ID [id number]: [facility] Test performed at [facility] Specimen Urine (substance) Performing Organization Address City/[facility]/ZIP Code Phon e Number [facility] [address] [place] [address] SERVICES [facility] [address] [place] [address] BASIC METABOLIC PANEL (01/28/2012 9:07 EST) Pathologist Sig nature Sodium 138 136 - 145 mEq/L [facility] Potassium 4.5 3.5 - 5.0 mEq/L [facility] Chloride 105 96 - 110 mEq/L [facility] CO2 26 24 - 32 mEq/L [facility] BUN 18 10 - 26 mg/dl [facility] Creatinine 0.96 0.66 - 1.25 mg/dl [facility] GFR, Calculated >60 >60 ml/min/1.73m2 [facility] Calcium 9.1 8.5 - 10.5 mg/dl [facility] Calculated Calcium 9.3 8.5 - 10.5 mg/dl [facility] Glucose, Serum 86 70 - 100 mg/dl [facility] Fasting? Unknown [facility] Specimen Blood specimen (specimen) Performing Organization Address City/State/ZIP Code Phon e Number [facility] [address] [place] [address] SERVICES [facility] [address] [place] [address] documented in this encounter Visit Diagnoses Diagnosis Hematuria - Primary Hematuria, unspecified Oral lesion Other and unspecified diseases of the or al soft tissues Flu vaccine need Need for prophylactic vaccination and in oculation against influenza Tobacco dependence syndrome Tobacco use disorder documented in this encounter Discontinued Medications Medication Sig Discontinue Reason Start Date End Date lisinopril (PRINIVIL, Take 1 Tab by mouth 02/11/2011 01/28/2012 ZESTRIL) 10 mg tablet daily. documented as of this encounter Orders Immunization/Injection Count Last Ordered Date First O rdered Date INFLUENZA VACCINE =>3YO SPLIT PRESERVATIVE 1 01/27 FREE IM documented in this encounter Care Teams Cable Assembler And Swager Relationship Specialty Start Date End Date Sheila Nayak MD PhD PCP - General 06/10/08 05/18/17 [address] [place] [address] documented as of this encounter
--- OUTSIDE RECORDS SUMMARY | 2021-08-25 00:46 | XMS_ITS | Encounter Summary ---
:1950 Author Organization [facility] Address [address] [place] [address] Care Team Providers Name Role Phone Sheila Nayak MD PhD Primary Care Provider [phone] Reason for Visit Reason Comments Hematuria microscopic. Encounter Details Date Type Department Care Team Description 02/25/2012 Office Visit [facility] Víctor Cordova, Micro scopic hematuria Urology - Zachary arreguin MD (Primary Dx) [address] [facility] [address] [place], [place] [id number] [place] [address] [phone] Social History Tobacco Use Types Packs/Day Years Used Date Current Every Day Smoker Cigarettes 1 45 Smokeless Tobacco: Never Used Comments: occasionally; trying to quit Alcohol Use Standard Drinks/Week Comments Yes 35 (1 standard drink = 0.6 oz pure alcoh ol) Sex Assigned at Date Recorded Not on file documented as of this encounter Progress Notes Vícotr Cordova - 02/25/2012 0958 EST Subjective: Patient ID: Celestine Dickson is an [address] Sheila Nayak has requested that I see Celestine Dickson in consultation for Hematuria. 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 Patient Active [...] Emphysema of lung ??? Acne ??? Arthritis History reviewed. No pertinent past surgical history. [...] Review of Systems Genitourinary: Positive for hematuria. No difficulty passing his urine No gross hematuria Endo/Heme/Allergies: Does not bruise/bleed easily. - See HPI Objective: There were no vitals taken for this visit. Physical Exam Constitutional: He appears well-developed and well-nourished. No distress. Cardiovascular: Normal rate and regular rhythm. Distant heart sounds Pulmonary/Chest: Diminished breath sounds right lobe Abdominal: Soft. He exhibits no distension. There is no tenderness. Genitourinary: Penis normal. Right testis shows no mass and no tenderness. Left testis shows no massand no tenderness. Circumcised. Prostate 15-20 gm, slightly irregular contour, compressible without discrete nodule Lymphadenopathy: He has no cervical adenopathy. Skin: Skin is warm and dry. Psychiatric: He has a normal mood and affect. No visits with results within 1 Day(s) from this visit. Latest known visit with results is: Office Visit on 01/28/2012 Component Date Value Range Status ??? Color 01/28/2012 YELLOW Final ??? Clarity, UA 01/28/2012 Clear Final ??? Glucose 01/28/2012 Neg Neg Final ??? Bilirubin 01/28/2012 Neg Neg Final ??? Ketones 01/28/2012 Neg Neg Final ??? Specific [place] 01/28/2012 1.020 1.001-1.035 Final ??? Blood 01/28/2012 1+* Neg Final ??? pH 01/28/2012 6.0 4.6-8.0 Final ??? Protein 01/28/2012 Neg Neg Final ??? Urobilinogen (E.U./dl) 01/28/2012 0.2 0.2-1.0 Final ??? Nitrite 01/28/2012 Neg Neg Final ??? Leuk Esterase 01/28/2012 Neg Neg Final ??? Tech ID 01/28/2012 [id number] Final Test performed at [facility] ??? Sodium (mEq/L) 01/28/2012 138 136-145 Final ??? Potassium (mEq/L) 01/28/2012 4.5 3.5-5.0 Final ??? Chloride (mEq/L) 01/28/2012 105 96-110 Final ??? CO2 (mEq/L) 01/28/2012 26 24-32 Final ??? BUN (mg/dl) 01/28/2012 18 10-26 Final ??? Creatinine (mg/dl) 01/28/2012 0.96 0.66-1.25 Final ? ? GFR, Calculated (ml/min/1.73m2) 01/28/2012 >60 >60 Final ??? Calcium (mg/dl) 01/28/2012 9.1 8.5-10.5 Final ??? Calculated Calcium (mg/dl) 01/28/2012 9.3 8.5-10.5 Final ??? Glucose, Serum (mg/dl) 01/28/2012 86 70-100 Final ??? Fasting? 01/28/2012 Unknown Final ??? Specimen Description 01/28/2012 Urine Final ??? Result 01/28/2012 No growth Final ??? Report Status 01/28/2012 01/29/2012 Final Final PSA: Lab Results Component Value Date PSA 0.7 05/21/2011 BMP: Lab Results Component Value Date NA 138 01/28/2012 K 4.5 01/28/2012 CL 105 01/28/2012 CO2 26 01/28/2012 BUN 18 01/28/2012 CREATININE 0.96 01/28/2012 CALCIUM 9.1 01/28/2012 CALCCA 9.3 01/28/2012 PHOS 3.0 05/21/2011 LABALBU 4.0 05/21/2011 Assessment / Plan: 1. Microscopic hematuria risk factor for TCCa is heavy smoking hx; tiny to small amount of microhematuria on testing so far; anatomic evaluation for source of urinary blood: 3 complete UAs thru hospital Cystoscopy Office kidney U/S Other Orders Placed This Visit Procedures ??? POCT Urine Sediment ??? POCT Urine Dipstick Víctor Cordova MD documented in this encounter Plan of Treatment Not on filedocumented as of this encounter Procedures Procedure Name Priority Date/Time Associated Diagnosis Comme nts POCT URINE Routine 02/25/2012 10:06 Microscopic Results for this DIPSTICK, CLINITEK EST hematuria procedure are in the results section. POCT URINE SEDIMENT Routine 02/25/2012 9:15 EST Microscopic R esults for this hematuria procedure are i n the results section. documented in this encounter Results (ABNORMAL) POCT URINE DIPSTICK (02/25/2012 10:06 EST) Color YELLOW [facility] Clarity, UA Clear [facility] Glucose Neg Neg [facility] Bilirubin Neg Neg [facility] Ketones Neg Neg [facility] Specific [place] <=1.005 1.001 - 1.035 [facility] Blood Trace (A) Neg [facility] pH 6.0 4.6 - 8.0 [facility] Protein Neg Neg [facility] Urobilinogen 0.2 0.2 - 1.0 [facility] E.U./dl LAB Nitrite Neg Neg [facility] Leuk Esterase Neg Neg [facility] loan documentation specialist ID [id number]: [facility] Test performed at [facility] Specimen Urine (substance) Performing Organization Address City/State/ZIP Code Phon e Number [facility] [address] [place] [address] SERVICES [facility] [address] [place] [address] POCT URINE SEDIMENT (02/25/2012 9:15 EST) Pathologist Sig nature WBC, POC 0 5 /HPF POINT OF CARE RBC, POC 0-1 0 - 5 /HPF POINT OF CARE Squamous Epithelial 0 0 - 0 /HPF POINT OF CARE Cells, POC Renal Epithelial Cells, 0 0 - 0 /HPF POINT OF CARE POC Casts, POC 0 0 - 2 Hyaline/HPF POINT OF CARE Crystals, POC 0 POINT OF CARE Mucous, POC 0 POINT OF CARE Bacteria, POC 0 0 - 0 /HPF POINT OF CARE Specimen Urine (substance) Performing Organization Address City/[facility]/ZIP [facility] Phon e Number [facility] POINT OF CARE POINT OF CARE documented in this encounter Visit Diagnoses Diagnosis Microscopic hematuria - Primary documented in this encounter Care Teams Typesetters Printer Relationship Specialty Start Date End Date Sheila Nayak MD PhD PCP - General 06/10/08 05/18/17 [address] [place] [address] documented as of this encounter
--- OUTSIDE RECORDS SUMMARY | 2021-08-25 00:46 | XMS_ITS | Encounter Summary ---
:[address] [facility] Address [address] [place] [address] Care Team Providers Name Role Phone Sheila Nayak MD PhD Primary Care Provider [phone] Reason for Visit Reason Onset Date Comments Medications Refill 07/21/2009 Encounter Details Date Type Department Care Team Description 07/21/2009 Refill [facility] Adult Sheila Nayak MD Medications Refill Primary Care - [place] PhD [address] [place] [id number] [place] [address] [phone] (Wo rk) Social History Tobacco Use Types Packs/Day Years Used Date Never Assessed Comments: occasionally; trying to quit Alcohol Use Standard Drinks/Week Comments Yes 35 (1 standard drink = 0.6 oz pure alcoh ol) Sex Assigned at Date Recorded Not on file documented as of this encounter Ordered Prescriptions Prescription Sig Dispensed Refills Start Date End Date sildenafil citrate Take 1 Tab by mouth 3 Tab 5 07/22/19 10 08/13/2010 (VIAGRA) 100 mg tablet as needed for Erectile Dysfunction. documented in this encounter Miscellaneous Notes Telephone Encounter - Melita Morse - 07/21/2009 1331 EDT Patient states he usually gets #6 but would only like #3 because he doesn't have much money. documented in this encounter Plan of Treatment Not on filedocumented as of this encounter Visit Diagnoses Not on filedocumented in this encounter Discontinued Medications Medication Sig Discontinue Reason Start Date End Date sildenafil citrate Take 100 mg by mouth Reorder 0 07/21/2009 (VIAGRA) 100 mg tablet as needed for Erectile Dysfunction. documented as of this encounter Care Teams Link Trainer Maintenance Man Relationship Specialty Start Date End Date Sheila Nayak MD PhD PCP - General 06/10/08 05/18/17 [address] [place] [address] documented as of this encounter
--- OUTSIDE RECORDS SUMMARY | 2021-08-25 00:46 | XMS_ITS | Encounter Summary ---
:1950 Author Organization [facility] Address [address] [place] [address] Care Team Providers Name Role Phone Sheila Nayak MD PhD Primary Care Provider [phone] Reason for Visit Reason Comments Chest Pain Left ribs. Fell Tuesday at wo rk onto metal lift. Breathing and moving painful. Encounter Details Date Type Department Care Team Description 05/18/[address] [facility] Doug Amaral MD Contusion of chest Urgent Care - [place] [id number] [facility] [address] [place] [address] [phone] Social History Tobacco Use Types Packs/Day Years Used Date Never Assessed Comments: occasionally; trying to quit Alcohol Use Standard Drinks/Week Comments Yes 35 (1 standard drink = 0.6 oz pure alcoh ol) Sex Assigned at Date Recorded Not on file documented as of this encounter Last Filed Vital Signs Vital Sign Reading Time Taken Comments Blood Pressure 110/60 05/18/2009 1351 EDT Pulse 80 05/18/2009 1351 EDT Temperature 36.7 ??C (98.1 ??F) 05/18/2009 1351 EDT Respiratory Rate 18 05/18/2009 1351 EDT Oxygen Saturation - - Inhaled Oxygen Concentration - - Weight - - Height - - Body Mass Index - - documented in this encounter Discharge Instructions Viral Forrester - 05/18/2009 Images from the original note were not included. [facility] Patient Instructions Chest Contusion: After Your Visit Your Care Instructions A chest contusion, or bruise, is caused by a fall or direct blow to the chest. Car crashes, falls, getting punched, and injury from bicycle handlebars are common causes of chest contusions. A very forceful blow to the chest can injure the heart or blood vessels in the chest, the lungs, the airway, theliver, or the spleen. Pain may be caused by an injury to muscles, cartilage, or ribs. Deep breathing, coughing, or sneezing can increase your pain. Lying on the injured area also can cause pain. Follow-up care is a gilmore part of your treatment and safety. Be sure to make and go to all appointments, and call your doctor if you are having problems. It???s also a good idea to know your test resultsand keep a list of the medicines you take. How can you care for yourself at home? ?? Rest and protect the injured or sore area. Stop, change, or take a break from any activity that may be causing your pain. Put ice or a cold pack on the area for 10 to 20 minutes at a time. Put a thin cloth between the ice and your skin. After 2 or 3 days, if your swelling is gone, apply a heating pad set on low or a warm cloth to your chest. Some doctors suggest that you go back and forth between hot and cold. Put a thin cloth betweenthe heating pad and your skin. Do not wrap or tape your ribs for support. This may cause you to take smaller breaths, which could increase your risk of pneumonia and lung collapse. Take anti-inflammatory medicines to reduce pain and swelling. These include ibuprofen (Advil, Motrin) and naproxen (Aleve). Read and follow all instructions on the label. Take your medicines exactly as prescribed. Call your doctor if you think you are having a problem with your medicine. Gentle stretching and massage may help you feel better after a few days of rest. Stretch slowly to the point just before discomfort begins, then hold the stretch for 30 to 60 seconds. Do this 3 or 4 times per day. As your pain gets better, slowly return to your normal activities. Be patient, because chest bruisescan take weeks or months to heal. Any increased pain may be a sign that you need to rest a while longer. When should you call for help? Call 911 anytime you think you may need emergency care. For example, call if: ?? You have severe trouble breathing. You cough up blood. Call your doctor now or seek immediate medical care if: ?? You have belly pain. You are dizzy or lightheaded, or you feel like you may faint. You develop new symptoms with the chest pain. Your chest pain gets worse. You have a fever. You have some shortness of breath. You have a cough that brings up mucus from the lungs. Watch closely for changes in your health, and be sure to contact your doctor if: ?? Your chest pain is not improving after 1 week. Where can you learn more? Go to www.ipvive.net/fahc Enter I174 in the search box to learn more about Chest Contusion: After Your Visit. ?? 2005 - 2008 [employer]. Care instructions adapted under license by [facility], [facility] . This care instruction is for use with your licensed healthcare professional. If youhave questions about a medical condition or this instruction, always ask your healthcare professional. [employer] disclaims any warranty or liability for your use of this information. documented in this encounter Medications at Time of Discharge Medication Sig Dispensed Refills Start Date End Date alprazolam (XANAX) 0.5 Take 0.5 mg by mouth 0 10/31/2009 mg tablet 2 times daily as needed for Sleep. 1/2 - 1 BID PRN ASPIRIN ORAL Take by mouth. 0 12/12/19 10 diclofenac (CATAFLAM) 50 Take 50 mg by mouth 0 09/15/2009 mg tablet daily as needed. BID - TID PRN IPRATROPIUM/ALBUTEROL Inhale 2 Puffs as 0 11/29/2011 SULFATE (COMBIVENT INHL) directed 4 times daily as needed. lisinopril (PRINIVIL, Take 10 mg by mouth. 0 10/31/2009 ZESTRIL) 10 mg tablet sildenafil citrate Take 100 mg by mouth 0 07/21/2009 (VIAGRA) 100 mg tablet as needed for Erectile Dysfunction. simvastatin (ZOCOR) 10 Take 10 mg by mouth. 0 10/31/2009 mg tablet VARENICLINE TARTRATE Take by mouth. 0 09/15/2009 (CHANTIX ORAL) documented as of this encounter Discharge Disposition Disposition Code Departure Means Destination Home or Self Care documented in this encounter ED Notes Amaral, Viral L - 05/18/2009 1431 EDT Images from the original note were not included. DOS: 05/18/2009 Chief Complaint Patient presents with ??? Chest Pain Left ribs. Fell Tuesday at work onto metal lift. Breathing and moving painful. HPI Comments: This pleasant man present with pain in his left chest. He fell two days ago while at work. His arms were full so he did not break his fall. He struck a metal edge with his left chest. He has had rib injuries before and states that this feels similar. He took someaspirin from a friend and had moderate improvement. The history is provided by the patient. Chest Pain This is a new problem. The current episode started 2 days ago. The problem has not changed since onset. The pain is associated with exertion, coughing and movement. The pain is present in the lateral region. The pain quality is described as sharp. The pain does not radiate. The symptoms are worsened by certain positions and deep breathing. Pertinent negatives include no diaphoresis, no fever, no malaise/fatigue, no numbness, no claudication, no exertional chest pressure, no irregular heartbeat, no near-syncope, no orthopnea, no palpitations, no PND, no syncope, no abdominal pain, no nausea, no vomiting, no headaches, no back pain, no leg pain, no lower extremity edema, no dizziness, no weakness, no cough, no hemoptysis, no shortness of breath and no sputum production. Review of Systems Constitutional: Negative for fever, malaise/fatigue and diaphoresis. HENT: Negative. Eyes: Negative. Respiratory: Negative for cough, hemoptysis, sputum production, choking, chest tightness and shortness of breath. Cardiovascular: Positive for chest pain. Negative for palpitations, orthopnea, claudication, leg swelling, syncope and PND. Gastrointestinal: Negative for nausea, vomiting and abdominal pain. Musculoskeletal: Negative for back pain. Skin: Negative. Neurological: Negative for dizziness, weakness, numbness and headaches. Hematological: Negative. Psychiatric/Behavioral: Negative. Current outpatient prescriptions Medication Sig Dispense Refill ??? simvastatin (ZOCOR) 10 mg tablet Take 10 mg by mouth. ??? IPRATROPIUM/ALBUTEROL SULFATE (COMBIVENT INHL) Inhale 2 Puffs as directed 4 times daily as needed. ??? lisinopril (PRINIVIL, ZESTRIL) 10 mg tablet Take 10 mg by mouth. ??? diclofenac (CATAFLAM) 50 mg tablet Take 50 mg by mouth daily as needed. BID - TID PRN ??? alprazolam (XANAX) 0.5 mg tablet Take 0.5 mg by mouth 2 times daily as needed for Sleep. 1/2 - 1BID PRN ??? sildenafil citrate (VIAGRA) 100 mg tablet Take 100 mg by mouth as needed for Erectile Dysfunction. ??? ASPIRIN ORAL Take by mouth. ??? VARENICLINE TARTRATE (CHANTIX ORAL) Take by mouth. Allergies Allergen Reactions ??? Other - See Comments Rash Contrast Dye Past Medical History Diagnosis Date ??? Hypertension ??? COPD (chronic obstructive pulmonary disease) ??? Hyperlipidemia ??? Fracture to face History Substance Use Topics ??? Tobacco Use: occasionally; trying to quit ??? Alcohol Use: 21.0 oz/week 14 Shot(s) of liquor per week History reviewed. No pertinent family history. BP 110/60 Pulse 80 Temp(Src) 98.1 ??F (36.7 ??C) (Oral) Resp 18 Physical Exam Nursing note and vitals reviewed. Constitutional: He is oriented. He appears well-developed and well-nourished. He appears not diaphoretic. No distress. HENT: Head: Normocephalic and atraumatic. Eyes: Conjunctivae and extraocular motions are normal. Pupils are equal, round, and reactive to light. Neck: Normal range of motion. Neck supple. Cardiovascular: Normal rate, regular rhythm and normal heart sounds. No murmur heard. Pulmonary/Chest: Effort normal. He has decreased breath sounds. He has no wheezes. He has no rhonchi. He has no rales. Chest wall is not dull to percussion. He exhibits tenderness and bony tenderness. He exhibits no mass. Abdominal: Soft. Bowel sounds are normal. He exhibits no distension. No tenderness. Musculoskeletal: Normal range of motion. Neurological: He is alert and oriented. Skin: Skin is warm and dry. He is not diaphoretic. Psychiatric: He has a normal mood and affect. His behavior is normal. Judgment and thought content normal. Consult orders: None PCP: SHEILA NAYAK MD,PHD No results found for this visit on 05/18/09. Radiology orders: CHEST PA AND LATERAL CHEST PA AND LATERAL (Results Pending) Procedures Course: CXR: no acute abnormalities (reviewed studies and final reading). Discussed supportive care. Note written for work. No supervision required. MDM 05/18/2009 2:31 PM amion Melendez MA - 05/18/2009 1351 EDT Pt asked to put on a gown. documented in this encounter Miscellaneous Notes Scanned Note-Null - Inpatient, MD Mai - 05/26/2009 0731 EDT documented in this encounter Plan of Treatment Not on filedocumented as of this encounter Procedures Procedure Name Priority Date/Time Associated Diagnosis Comme nts CHEST PA AND STAT 05/18/2009 14:44 Results for this LATERAL EDT procedure are i n the results section. documented in this encounter Results CHEST PA AND LATERAL (05/18/2009 14:44 EDT) Anatomical Region Laterality Modality Other Specimen Narrative [facility] - 05/18/2009 18:11 EDT CHEST PA AND LAT ??May 18, 2009 02:44:00 PM Signs and Symptoms/Comments: ??CHEST MCKAYLA N- left chest wall Comparisons: None. Runnings: Two views of the chest were obtained and show coarse interstitial markings throughout the lungs. The diaph ragms are flattened and there is increased AP dimension of the chest. These findings likely reflect emphysematous disease. No focal airspace opacity or pleural effusion is identified. The cardiomediastinal franck houette and pulmonary vascularity is within normal limits. Evaluation of the skeleton reveals defor mity at the right acromioclavicular joint, likely from peggy or trauma. No acute fracture is identified. Impression: No acute cardiopulmonary disease. There are findings likely reflective of emphysema. I have personally reviewed the images an d the above interpretation and agree with the findings. Procedure Note Cindy Avina MD / Cindy Aivna MD / Cindy vAina MD - 05/18/2009 CHEST PA AND LAT May 18, 2009 02:44:00 P M Signs and Symptoms/Comments: CHEST PAIN- left chest wall Comparisons: None. Runnings: Two views of the chest were obtained and show coarse interstitial markings throughout the lungs. The diaph ragms are flattened and there is increased AP dimension of the chest. These findings likely reflect emphysematous disease. No focal airspace opacity or pleural effusion is identified. The cardiomediastinal franck houette and pulmonary vascularity is within normal limits. Evaluation of the skeleton reveals defor mity at the right acromioclavicular joint, likely from peggy or trauma. No acute fracture is identified. Impression: No acute cardiopulmonary disease. There are findings likely reflective of emphysema. I have personally reviewed the images an d the above interpretation and agree with the findings. Performing Organization Address City/State/ZIP Code Phon e Number [facility] documented in this encounter Visit Diagnoses Diagnosis Contusion of chest wall documented in this encounter Care Teams Historic Site Administrator Relationship Specialty Start Date End Date Sheila Nayak MD PhD PCP - General 06/10/08 05/18/17 [address] [place] [id number] documented as of this encounter
--- OUTSIDE RECORDS SUMMARY | 2021-08-25 00:46 | XMS_ITS | Encounter Summary ---
:1950 Author Organization [facility] Address [address] [place] [address] Care Team Providers Name Role Phone Sheila Nayak MD PhD Primary Care Provider [phone] Encounter Details Date Type Department Care Team Description 05/21/2011 Hospital Encounter [facility]- Sheila Nayak [facility] PhD [address] [address] [place], [place] [phone] (Wo rk) Social History Tobacco Use Types [...] (XANAX) 0.5 Take 1 Tab by mouth 14 Each 0 12/0911/29/2011 mg tablet at bedtime as needed for Sleep or Anxiety. aspirin 81 mg EC tablet Take 81 mg by mouth 0 12/25/2015 daily. buPROPion (WELLBUTRIN Take 1 Tab by mouth 30 Tab 2 05/0403/28/2012 XL) 150 mg XL every morning. tabletIndications: Tobacco abuse diclofenac (VOLTAREN) 50 Take 1 Tab by mouth 2 180 Each 0 11/12/2010 03/28/2012 mg EC tablet times daily. IPRATROPIUM/ALBUTEROL Inhale 2 Puffs as 0 11/29/2011 SULFATE (COMBIVENT INHL) directed 4 times daily as needed. lisinopril (PRINIVIL, Take 1 Tab by mouth 90 Tab 3 02/1101/28/2012 ZESTRIL) 10 mg tablet daily. omeprazole (PRILOSEC Take 1 Tab by mouth 90 Tab 3 201004/25/2012 OTC) 20 mg tablet daily. sildenafil citrate Take 1 Tab by mouth 6 Tab 3 12/08/19 11 11/29/2011 (VIAGRA) 100 mg tablet as needed for Erectile Dysfunction. Needs Office visit before next refill. simvastatin (ZOCOR) 10 Take 1 Tab by mouth 90 Tab 3 06/201105/29/2012 mg tablet daily. documented as of this encounter Discharge Disposition Disposition Code Departure Means Destination Home or Self [facility] documented in this encounter Plan of Treatment Not on filedocumented as of this encounter Visit Diagnoses Not on filedocumented in this encounter Care Teams Oil Analyst Relationship Specialty Start Date End Date Sheila Nayak MD PhD PCP - General 06/10/08 05/18/17 [address] [place] [phone] documented as of this encounter
--- OUTSIDE RECORDS SUMMARY | 2021-08-25 00:46 | XMS_ITS | Encounter Summary ---
:1950 Author Organization [facility] Address [address] [place] [address] Care Team Providers Name Role Phone Sheila Nayak MD PhD Primary Care Provider [phone] Reason for Visit Reason Comments Hematuria Encounter Details Date Type Department Care Team Description 03/21/2012 Office Visit [facility] Unknown, Prov MD dequan Microhematuria (Primary Urology - Main Víctor Cordova MD [address] [place] [phone] Dx) [facility], Ultrasound [address] [place], [place] [id number] Social History Tobacco Use Types Packs/Day Years Used Date Current Every Day Smoker Cigarettes 1 45 Smokeless Tobacco: Never Used Comments: occasionally; trying to quit Alcohol Use Standard Drinks/Week Comments Yes 35 (1 standard drink = 0.6 oz pure alcoh ol) Sex Assigned at Date Recorded Not on file documented as of this encounter Progress Notes Mc Sigala - 03/21/2012 1004 EST Renal ultrasound performed 03/21/2012 documented in this encounter Plan of Treatment Not on filedocumented as of this encounter Visit Diagnoses Diagnosis Microhematuria - Primary Microscopic hematuria documented in this encounter Care Teams Flag Signaler Relationship Specialty Start Date End Date Sheila Nayak MD PhD PCP - General 06/10/08 05/18/[address] [place] [phone] documented as of this encounter
--- OUTSIDE RECORDS SUMMARY | 2021-08-25 00:46 | XMS_ITS | Encounter Summary ---
:1950 Author Organization [facility] Address [address] [place] [address] Care Team Providers Name Role Phone Sheila Nayak MD PhD Primary Care Provider [phone] Reason for Visit Reason Comments Rash on left hand itches blisters , gets better than breaks out again. at least 2 months Encounter Details Date Type Department Care Team Description 09/15/2009 Office Visit [facility] Sheila Nayak Ec zema (Primary Dx); Adult Primary Care - PhD HTN (hypertension); Ghassan [address] COPD (chronic obstructive pulmonary dise ase) ([facility]); [address] [place] [address] Hyperlipidemia; [place] [phone] Stomach ulcer; [phone] (Wo rk) Arthritis Social History Tobacco Use Types Packs/Day Years Used Date Current Every Day Smoker Cigarettes 1 45 Comments: occasionally; trying to quit Alcohol Use Standard Drinks/Week Comments Yes 35 (1 standard drink = 0.6 oz pure alcoh ol) Sex Assigned at Date Recorded Not on file documented as of this encounter Last Filed Vital Signs Vital Sign Reading Time Taken Comments Blood Pressure 110/62 09/15/2009 1018 EDT Pulse 62 09/15/2009 1018 EDT reg Temperature 36.7 ??C (98.1 ??F) 09/15/2009 1018 EDT Respiratory Rate - - Oxygen Saturation - - Inhaled Oxygen Concentration - - Weight 68.5 kg (151 lb) 09/15/2009 1018 EDT Height - - Body Mass Index - - documented in this encounter Ordered Prescriptions Prescription Sig Dispensed Refills Start Date End Date diclofenac (CATAFLAM) 50 Take 1 Tab by mouth 30 Tab 0 12/11/2009 mg tabletIndications: daily as needed. BID Arthritis - TID PRN triamcinolone (KENALOG) Apply topically 2 1 Tube 1 09/1512/07/2010 0.1 % ointment times daily. As instructed. documented in this encounter Progress Notes Sheila Nayak MD PhD - 10/08/2009 4011 EDT Primary Care Internal Medicine [address] [place] [address] PROGRESS/FOLLOWUP NOTE - 09/15/2009 PROBLEM 1: Rash. PROBLEM 2: Hypertension. PROBLEM 3: Hyperlipidemia. SUBJECTIVE: Celestine is here today for a new problem of rash on his right hand, as well as chronic problems of hypertension and hyperlipidemia. His medication list was reviewed and updated. He is due for laboratory studies. Complains of at least a month of a very itchy rash on his left hand. Part of this has blistered at various times. He has treated it with peroxide and alcohol, as well as skin lubricants over the counter. He has not tried any ulgv-qoo-zlxcixa triamcinolone or steroid. He does not recall any new activities with his hands. Does not recall any new exposures. Does not have any rash on his right hand. Other review of systems is negative for chest pain, shortness of breath, weakness or dizziness. He has had athletes foot in the past, but not currently. Usually treats that with wwez-muz-nfsbifg antifungals. He has had no fever or chills. No cough. SOCIAL HISTORY: Continues to smoke 1 pack per day. Sexually active with female partners and drinks 21 ounces of alcohol per week. OBJECTIVE: He is pleasant and in no distress. Blood pressure is 110/62. Pulse 62. Weight 151 pounds,temperature 98.1. No pain. His lungs are clear to auscultation bilaterally. Heart regular rate and rhythm. Left hand has a slightly erythematous lichenified patch at the dorsal surface of his left handat the base of his 5th digit and extending along the metacarpal. He also has some lichenification over the knuckles of his 2nd, 3rd and 4th digits. This area has less erythema. His right hand is without any rashes. ASSESSMENT: 1. Suspect eczema. No prior trial of topical steroid. 2. Hypertension with blood pressure at goal. 3. Hyperlipidemia, due for recheck of labs. PLAN: 1. Begin triamcinolone 0.1% applied b.i.d. Return office visit in 3 weeks. Check labs to include a fasting lipid profile, CMP and CBC. Electronically Signed by Sheila Nayak MD,PhD 10/08/2009 22:25 Sheila Nayak MD,PhD - Sheila Nayak MD,PhD - [facility] Job ID: SM Doc ID: [id number] Ext Doc ID: [id number] cc: Sheila Nayak MD PhD - 09/15/2009 8531 EDT This office note has been dictated. documented in this encounter Plan of Treatment Not on filedocumented as of this encounter Procedures Procedure Name Priority Date/Time Associated Comments Diagnosis COMPLETE BLOOD COUNT Routine 09/15/2009 10:58 HTN (hypertensio n) Results for this EDT procedure are i n the results section. LIPID PROFILE Routine 09/15/2009 10:58 HTN (hypertensi on) Results for this (INCLUDES CHOLESTEROL, EDT Hyperlipidemia pro cedure are in TRIGLYCERIDES, HDL, the resu lts LDL) section. COMPREHENSIVE Routine 09/15/2009 10:58 HTN (hypertension) Resu lts for this METABOLIC PANEL (CMP) EDT proced ure are in the results section. documented in this encounter Results HEMAGRAM (09/15/2009 10:58 EDT) [facility] WBC 7.76 4.0 - 10.4 K/cmm [facility] RBC 4.89 4.36 - 5.78 M/cmm [facility] Hemoglobin 15.0 13.8 - 17.3 gm/dl [facility] HCT 43.8 39.5 - 50.2 % [facility] MCV 90 81 - 95 fl [facility] MCH 30.7 27.6 - 33.0 pg [facility] MCHC 34.2 32.8 - 36.4 gm/dl [facility] PLT 235 141 - 320 K/cmm [facility] RDW-CV 13.1 11.8 - 14.1 % [facility] Specimen Blood specimen (specimen) Performing Organization Address City/[facility] Phon e Number [facility] [address] [place] [address] SERVICES [facility] [address] [place] [address] (ABNORMAL) COMPREHENSIVE METABOLIC PANEL (09/15/2009 10:58 EDT) [facility] Potassium 4.7 3.5 - 5.0 mEq/L [facility] Sodium 138 136 - 145 mEq/L [facility] Chloride 106 96 - 110 mEq/L [facility] CO2 24 24 - 32 mEq/L [facility] Total Alkaline 62 38 - 126 U/L [facility] Phosphatase Bilirubin, Total <0.5 0.2 - 1.3 mg/dl [facility] AST 24 15 - 46 U/L [facility] ALT 27 21 - 72 U/L [facility] Albumin 3.9 3.4 - 4.9 g/dl [facility] Total Protein 6.4 (L) 6.5 - 8.3 g/dl [facility] Creatinine 0.98 0.7 - 1.5 mg/dl [facility] GFR, Calculated >60 ml/min/1.73m2 [facility] BUN 24 10 - 26 mg/dl [facility] Calcium 9.0 8.5 - 10.5 [facility] mg/dl Calculated Calcium 9.5 8.5 - 10.5 [facility] mg/dl Glucose, Serum 74 70 - 100 mg/dl [facility] Fasting? Unknown [facility] Specimen Blood specimen (specimen) Performing Organization Address City/[facility] Phon e Number [facility] [address] [place] [address] SERVICES [facility] [address] [place] [address] LIPID PROFILE (INCLUDES CHOLESTEROL, TRIGLYCERIDES, HDL, LDL) (09/15/2009 10:58 EDT) Cholesterol 138Comment: mg/dl [facility] Desirable:<200 LAB Borderline High:200-239 High:>oq=345 Triglycerides 71 35 - 160 mg/dl [facility] HDL 40Comment: Low:<40 mg/dl [facility] High(Desirable):>or LAB =60 LDL, Calculated 84 mg/dl [facility] Comment: LAB Optimal:<100 Above optimal:100-129 Borderline High:130 -159 High:160-189 Very High:>nx=287 Chol/HDL Ratio 3.5 [facility] Fasting? Unknown [facility] Specimen Blood specimen (specimen) Performing Organization Address City/State/ZIP Code Phon e Number [facility] [address] [place] [address] SERVICES [facility] [address] [place] [address] documented in this encounter Visit Diagnoses Diagnosis Eczema - Primary Contact dermatitis and other eczema, due to unspecified cause HTN (hypertension) Unspecified essential hypertension COPD (chronic obstructive pulmonary dise ase) ([facility]) ([facility]) Chronic airway obstruction, not elsewher e classified Hyperlipidemia Other and unspecified hyperlipidemia Gastric ulcer, unspecified as acute or c hronic, without mention of hemorrhage, perforation, or obstruction Arthritis Arthropathy, unspecified, site unspecifi ed documented in this encounter Discontinued Medications Medication Sig Discontinue Reason Start Date End Date VARENICLINE TARTRATE Take by mouth. Patient Stopped Taking 09/15/2009 (CHANTIX ORAL) diclofenac (CATAFLAM) Take 50 mg by Reorder 09/15 50 mg tablet mouth daily as needed. BID - TID PRN documented as of this encounter Care Teams Obstetrics/Gynecology Nurse Relationship Specialty Start Date End Date Sheila Nayak MD PhD PCP - General 06/10/08 05/18/17 [address] [place] [phone] documented as of this encounter
--- OUTSIDE RECORDS SUMMARY | 2021-08-25 00:46 | XMS_ITS | Encounter Summary ---
:1950 Author Organization [facility] Address [address] [place] [address] Care Team Providers Name Role Phone Sheila Nayak MD PhD Primary Care Provider [phone] Encounter Details Date Type Department Care Team Description 11/14/2008 [facility] Adult Sheila Nayak MD Primary Care - Ghassan PhD [address] [place] [address] [place], [place] [phone] (Wo rk) Social History Tobacco Use Types Packs/Day Years Used Date Never Assessed Sex Assigned at Date Recorded Not on file documented as of this encounter Plan of Treatment Not on filedocumented as of this encounter Visit Diagnoses Not on filedocumented in this encounter Historical Medications This list may reflect changes made after this encounter. Medication Sig Dispensed Refills Start Date End Date VARENICLINE TARTRATE Take by mouth. 0 09/15/2009 (CHANTIX ORAL) ASPIRIN ORAL Take by mouth. 0 12/12/19 10 sildenafil citrate Take 100 mg by mouth 0 07/21/2009 (VIAGRA) 100 mg tablet as needed for Erectile Dysfunction. alprazolam (XANAX) 0.5 Take 0.5 mg by mouth 0 10/31/2009 mg tablet 2 times daily as needed for Sleep. 1/2 - 1 BID PRN diclofenac (CATAFLAM) 50 Take 50 mg by mouth 0 09/15/2009 mg tablet daily as needed. BID - TID PRN lisinopril (PRINIVIL, Take 10 mg by mouth. 0 10/31/2009 ZESTRIL) 10 mg tablet IPRATROPIUM/ALBUTEROL Inhale 2 Puffs as 0 11/29/2011 SULFATE (COMBIVENT INHL) directed 4 times daily as needed. simvastatin (ZOCOR) 10 Take 10 mg by mouth. 0 10/31/2009 mg tablet added in this encounter Care Teams Journeyman Wireman Relationship Specialty Start Date End Date Sheila Nayak MD PhD PCP - General 06/10/08 05/18/17 [address] [place] [phone] documented as of this encounter
--- OUTSIDE RECORDS SUMMARY | 2021-08-25 00:46 | XMS_ITS | Encounter Summary ---
:1950 Author Organization [facility] Address [address] [place] [address] Care Team Providers Name Role Phone Sheila Nayak MD PhD Primary Care Provider [phone] Reason for Referral Consult (Routine) - Closed Specialty Diagnoses / Procedures Referred By Contact Refer red To Contact Dermatology Diagnoses Sheila Brown MD [facility] PhD [address] [facility] [address] [place] [address] [place], [place] Phone: [phone] Referral ID Status Reason Start Date Expiration Date Visits V isits Requested Authorized [id number] Closed Specialty 12/04/2009 1 1 Services Required Question Answer Reason for Request: rash Reason for Visit Reason Onset Date Comments Rash 12/04/2009 Encounter Details Date Type Department Care Team Description 12/04/2009 Telephone [facility] Adult Sheila Nayak MD Rash Primary Care - Ad[place] PhD [address] [place] [address] [address] [place] [address] [place], [place] [phone] (Wo rk) Social History Tobacco Use Types Packs/Day Years Used Date Current Every Day Smoker Cigarettes 1 45 Comments: occasionally; trying to quit Alcohol Use Standard Drinks/Week Comments Yes 35 (1 standard drink = 0.6 oz pure alcoh ol) Sex Assigned at Date Recorded Not on file documented as of this encounter Miscellaneous Notes Telephone Encounter - Albina Mcclelland - 12/04/2009 1258 EDT Left message on patient's home phone that the referral will be mailed to him today. He can schedule the appt with [facility] ([phone]) directly. elephone Encounter - Sheila Nayak MD PhD - 12/04/2009 1240 EDT I have ordered. Please call pt elephone Encounter - Albina Mcclelland - 12/04/2009 1010 EDT The medicine you gave him for his skin condition doesn't work. He would like to be referred to a chief radiology as you suggested. Please refer. He prefers [facility]. documented in this encounter Plan of Treatment Scheduled Referrals Name Type Priority Associated Order Schedule Diagnoses AMB CONSULT Outpatient Referral Routine Rash Ordered: DERMATOLOGY 12/04/2009 documented as of this encounter Visit Diagnoses Diagnosis Rash Rash and other nonspecific skin eruption documented in this encounter Care Teams Investment Strategist Relationship Specialty Start Date End Date Sheila Nayak MD PhD PCP - General 06/10/08 05/18/17 [address] [place] [phone] documented as of this encounter
--- OUTSIDE RECORDS SUMMARY | 2021-08-25 00:46 | XMS_ITS | Encounter Summary ---
:1950 Author Organization [facility] Address [address] [place] [address] Care Team Providers Name Role Phone Sheila Nayak MD PhD Primary Care Provider [phone] Reason for Visit Reason Onset Date Comments Results 02/02/2012 Encounter Details Date Type Department Care Team Description 02/02/2012 Telephone [facility] Adult Primary Parker Jackman RN Results Care - [address] [phone] Social History Tobacco Use Types Packs/Day Years Used Date Current Every Day Smoker Cigarettes 1 45 Smokeless Tobacco: Never Used Comments: occasionally; trying to quit Alcohol Use Standard Drinks/Week Comments Yes 35 (1 standard drink = 0.6 oz pure alcoh ol) Sex Assigned at Date Recorded Not on file documented as of this encounter Miscellaneous Notes Telephone Encounter - Erin Llanes RN - 02/02/2012 1452 EST See duplicate encounter. Patient aware of hematuria. Patient aware of referral to urology. The patient indicates understanding of these issues and agrees with the plan. Telephone Encounter - Parker Jackman RN - 02/02/2012 0831 EST Message copied by PARKER JACKMAN on TueFeb 02, 2012 0831 ------ Message from: SHEILA NAYAK Created: TueFeb 01, 2012 2130 Please let pt know that final urinc culture was negative for infection. He should have appt with [facility]. documented in this encounter Plan of Treatment Not on filedocumented as of this encounter Visit Diagnoses Not on filedocumented in this encounter Care Teams Retirement Village Manager Relationship Specialty Start Date End Date Sheila Nayak MD PhD PCP - General 06/10/08 05/18/17 [address] [place] [phone] documented as of this encounter
--- OUTSIDE RECORDS SUMMARY | 2021-08-25 00:46 | XMS_ITS | Encounter Summary ---
:[address] [facility] Address [address] [place] [address] Care Team Providers Name Role Phone Sheila Nayak MD PhD Primary Care Provider [phone] Encounter Details Date Type Department Care Team Description 03/03/2012 Hospital Encounter [facility] [address] [address] [place], [place] [phone] Social History Tobacco Use Types Packs/Day Years [...] 1 Tab by mouth 14 Each 0 11/0803/28/2012 mg tablet at bedtime as needed for Sleep or Anxiety. aspirin 81 mg EC tablet Take 81 mg by mouth 0 12/25/2015 daily. buPROPion (WELLBUTRIN Take 1 Tab by mouth 30 Tab 2 05/0403/28/2012 XL) 150 mg XL every morning. tabletIndications: Tobacco abuse diclofenac (VOLTAREN) 50 Take 1 Tab by mouth 2 180 Each 0 11/12/2010 03/28/2012 mg EC tablet times daily. ipratropium-albuterol Inhale 2 Puffs as 1 Inhaler 3 012 04/23/2013 (COMBIVENT) 18-103 directed every 6 mcg/actuation inhaler hours as needed. omeprazole (PRILOSEC Take 1 Tab by mouth 90 Tab 3 201004/25/2012 OTC) 20 mg tablet daily. sildenafil citrate Take 1 Tab by mouth 6 Tab 3 11/29/19 12 03/28/2012 (VIAGRA) 100 mg as needed for tabletIndications: Male Erectile Dysfunction. erectile disorder Needs Office visit before next refill. simvastatin (ZOCOR) 10 Take 1 Tab by mouth 90 Tab 3 06/201105/29/2012 mg tablet daily. documented as of this encounter Discharge Disposition Disposition Code Departure Means Destination Home or Self [facility] documented in this encounter Plan of Treatment Not on filedocumented as of this encounter Procedures Procedure Name Priority Date/Time Associated Diagnosis Comme nts MULTIPLE DOC ORDERS Routine 03/03/2012 11:22 Resu lts for this EST procedure are i n the results section. documented in this encounter Results MULTIPLE DOC ORDERS (03/03/2012 11:22 EST) Multiple Doc This report contains lab results ordered [facility] Orders Comment: LAB by another provider which were collected and processed simultaneously with the orders you requested. If you have any questions, please call Customer Service at [phone]. Specimen Performing Organization Address City/State/ZIP Code Phon e Number [facility] [address] [place] [address] SERVICES [facility] [address] [place] [address] documented in this encounter Visit Diagnoses Not on filedocumented in this encounter Care Teams Salesperson Furs Relationship Specialty Start Date End Date Sheila Nayak MD PhD PCP - General 06/10/08 05/18/17 [address] [place] [phone] documented as of this encounter
--- OUTSIDE RECORDS SUMMARY | 2021-08-25 00:46 | XMS_ITS | Encounter Summary ---
:1950 Author Organization [facility] [address] Care Team Providers Name Role Phone Bill Damon Primary Care Provider Reason for Referral Diagnostic Test (Routine) - New Request Specialty Diagnoses / Procedures Referred By Contact Refer red To Contact Radiology Diagnoses Non-small cell cancer of right lung Villa Roper MD Procedures CT Chest w Contrast [facility] [place] [address] Referral ID Status Reason Start Expiration Visits Visits Date Date Requested Authorized [id number] New Request Specialty 07/22/2022 1 1 Service 1 Requested Encounter Details Date Type Department Care Team Description 01/21/2021 Office Visit Radiation Oncology at [facility] Roper, Non-small cell cancer [facility] ROUSSEAU of right lung [address] [place] [phone] RADIATION ONCOLOGY [phone] [place], [place] [address] Social History Tobacco Use Types Packs/Day Years Used Date Current Every Day Smoker Cigarettes 1 55 Smokeless Tobacco: Never Used Comments: 5-10 cigarettes per day. he is trying to quit Alcohol Use Standard Drinks/Week Comments Yes 14 (1 standard drink = 0.6 oz pure alcoh ol) Financial Resource Strain Answer Date Recorded How hard is it for you to pay for the very basics like Somew hat hard 09/03/2020 food, housing, medical care, and heating? Transportation Needs Answer Date Recorded In the past 12 months, has lack of transportation kept you f rom No 09/03/2020 medical appointments or from getting medications? In the past 12 months, has lack of transportation kept you f rom No 09/03/2020 meetings, work, or getting things needed for daily living? Housing Stability Answer Date Recorded In the last 12 months, was there a time when you were Patien t refused 09/03/2020 not able to pay the mortgage or rent on time? In the last 12 months, how many places have you lived? 1 09/03/2020 In the last 12 months, was there a time when you did No 09/03/[address] to sleep or slept in a assisted (including now)? Sex Assigned at Date Recorded Not on file documented as of this encounter Last Filed Vital Signs Vital Sign Reading Time Taken Comments Blood Pressure 134/73 01/21/2021 9:10 AM EST Pulse 71 01/21/2021 9:10 AM EST Temperature 36.5 ??C (97.7 ??F) 01/21/2021 9:10 AM EST Respiratory Rate 20 01/21/2021 9:10 AM EST Oxygen Saturation 100% 01/21/2021 9:10 AM EST Inhaled Oxygen Concentration - - Weight 65 kg (143 lb 6.4 oz) 01/21/2021 9:10 AM EST wit h shoes Height - - Body Mass Index 23.86 08/07/2020 1:15 PM EDT documented in this encounter Progress Notes Villa Roper MD - 01/21/2021 9:00 AM EST Images from the original note were not included. Radiation Oncology Follow Up Patient Visit PATIENT NAME: Celestine Dickson DATE OF : 1950 ONCOLOGIC HISTORY DIAGNOSIS / TREATMENT OVERVIEW?? 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 TREATMENT DETAILS Treatment Intent Curative Site Treated Primary malignancy Technique IMRT, MRI LINAC (ViewRay) Adaptive Plan Required No Concurrent Chemo No Clinical Trial No TECHNICAL DETAILS ?? View-Ray IMRT plan --Total Beams:19 --Total Segments: 33 ?? Treatment Dates: 10/06/20 to 10/20/20, treated every other day ?? Total Dose: 50 Gy in 5 fractions ?? PLAN IMAGES ? Post-therapy course: Time from therapy completion: ~ 3 months INTERVAL HISTORY: no interval issues Currently, he has the following symptoms: Symptom Description Intervention Pain He notes pain associated with his right mid-back, radiates up to shoulder and into arm. It lasts for a few minutes at a time, occurs infrequently. Dyspnea Baseline dyspnea, not at rest, but with activity. Moderate. Cough Baseline cough. Dysphagia Mild dysphagia immediately after treating but has resolved Nutrition Issues / Weight Loss No issues Smoking Status Smoking ~ 1 ppd. Voice Changes Denies Other No Issues ECOG PS: 0 Grade ECOG PERFORMANCE STATUS 0 Fully active, able to carry on all pre-disease performance without restriction 1 Restricted in physically strenuous activity but ambulatory and able to carry out work of a light or sedentary nature 2 Ambulatory and capable of all selfcare but unable to carry out any work activities; up and about > 50% of waking hours 3 Capable of only limited selfcare; confined to bed or chair more than 50% of waking hours 4 Completely disabled; cannot carry on any selfcare; totally confined to bed or chair EXAM There were no vitals filed for this visit. Physical Exam Constitutional: Appearance: He is well-developed. Eyes: Pupils: Pupils are equal, round, and reactive to light. Pulmonary: Effort: Pulmonary effort is normal. No respiratory distress. Breath sounds: Normal breath sounds. No wheezing or rales. Chest: Chest wall: No tenderness. Skin: Findings: No erythema. Neurological: Mental Status: He is alert and oriented to person, place, and time. Cranial Nerves: No cranial nerve deficit. Psychiatric: Behavior: Behavior normal. HISTORY Allergies as of 01/21/2021 - Review Complete 01/21/2021 Allergen Reaction Noted ??? X-ray dye [iodine and iodide containing products] Rash 10/13/2018 Past Medical History: Diagnosis Date ??? COPD (chronic obstructive pulmonary disease) ??? Hypercholesteremia ??? Lung cancer ??? Tobacco use Past Surgical History: Procedure Laterality Date ??? CT GUIDED BIOPSY LUNG 07/31/2020 CT Guided Biopsy Lung 07/31/2020 Bishnu Renee MD [facility] RAD CAT SCAN ??? PRO COLONOSCOPY, FLEX, W/DIR SUBMUC INJECT N/A 08/07/2020 COLONOSCOPY WITH DIRECTED SUBMUCOSAL INJ (WRVU 3.66) performed by Basil Martin MD at [facility] ENDOSCOPY ??? PRO COLONOSCOPY, REMV LESN, SNARE N/A 08/07/2020 COLONOSCOPY, POLYPECTOMY, REMOVAL LESION BY SNARE (WRVU 4.67) performed by [facility] END[facility] Social History Socioeconomic History ??? Marital status: Spouse name: Not on file ??? Number of children: Not on file ??? Years of education: Not on file ??? Highest education level: Not on file Occupational History ??? Not on file Tobacco Use ??? Smoking status: Current Every Day Smoker Packs/day: 1.00 Years: 55.00 Pack years: 55.00 Types: Cigarettes ??? Smokeless tobacco: Never Used ??? Tobacco comment: 5-10 cigarettes per day. he is trying to quit Vaping Use ??? Vaping Use: Never used Substance and Sexual Activity ??? Alcohol use: Yes Alcohol/week: 14.0 standard drinks Types: 14 Shots of liquor per week ??? Drug use: Not Currently ??? Sexual activity: Not on file Other Topics Concern ??? Not on file Social History Narrative Worked in [employer] Social Determinants of Health Financial Resource Strain: Medium Risk ??? Difficulty of Paying Living Expenses: Somewhat hard Food Insecurity: Unknown ??? Worried About Running Out of Food in the Last Year: Patient refused ??? Ran Out of Food in the Last Year: Not on file Transportation Needs: No Transportation Needs ??? Lack of Transportation (Medical): No ??? Lack of Transportation (Non-Medical): No Physical Activity: Not on file Housing Stability: Unknown ??? Unable to Pay for Housing in the Last Year: Patient refused ??? Number of Places Lived in the Last Year: 1 ??? Unstable Housing in the Last Year: No No family history on file. ROS: I reviewed and agree with the nursing review of systems accompanying this encounter. The remainder of the comprehensive review of systems was negative with the exception of the pertinent positivesand negatives noted above. MEDICATIONS Current Outpatient Medications on File Prior to Visit Medication Sig Dispense Refill ??? nicotine (NICOTROL) 10 mg Cartridge Inhale 1 puff into the lungs as needed for Smoking cessation. 42 each 0 ??? finasteride (Proscar) 5 mg Tablet Take 5 mg by mouth daily. ??? simvastatin (Zocor) 10 mg Tablet 5 mg daily. ??? sildenafiL (VIAGRA) 100 mg Tablet TAKE 1 TABLET BY MOUTH DAILY SEXUAL ACTIVITY NEEDED No current facility-administered medications on file prior to visit. IMAGING/LAB I have personally reviewed the imaging reports and images referenced in the oncologic hx and agree with the assessment as stated. Further pertinent imaging data below CT chest 01/19/21: In comparison to 09/22/20 the mass appears slightly smaller with associated post-radiotherapy changes. ASSESSMENT / PLAN Disease Status: No evidence of progression on imaging. ?? We discussed that he is still at risk of recurrence and requires continued surveillance Toxicity: ?? No significant issues. FU: follow per NCC standard We again discussed smoking cessation, he was not interested in see a counselor at this time. documented in this encounter Plan of Treatment Upcoming Encounters Date Type Specialty Care Team Description 08/26/2021 Office Visit Radiation Oncology Jeremias Roper MD [facility] [place] [address] (Wo rk) Scheduled Orders Name Type Priority Associated Diagnoses Order S chedule Creatinine Lab Routine Non-small cell cancer of Exp ected: 04/21/2021 right lung (Approximate), Expires: 10/21/2021 CT Chest w Contrast Imaging Routine Non-small cell cancer of Expected: 04/21/2021 right lung (Approximate), Expires: 10/21/2021 documented as of this encounter Visit Diagnoses Diagnosis Non-small cell cancer of right lung documented in this encounter Care Teams Manufacturing Coordinator Relationship Specialty Start Date End Date Bill Damon DO PCP - General Family Medicine 06/27/[address] [place] [address] documented as of this encounter
--- OUTSIDE RECORDS SUMMARY | 2021-08-25 00:46 | XMS_ITS | Encounter Summary ---
:1950 Author Organization [facility] Address [address] [place] [address] Care Team Providers Name Role Phone Sheila Nayak MD PhD Primary Care Provider [phone] Encounter Details Date Type Department Care Team Description 04/22/[address] [facility] - Cook Supervisor, Hyp erlipidemia; [facility] Outpatient HTN (hypertension) [address] [place] [address] Social History Tobacco Use Types Packs/Day Years [...] Associated Diagnosis Comme nts LIPID PROFILE Routine 04/22/2011 9:56 Hyperlipidemia Results f or this (INCLUDES EDT procedure are i n CHOLESTEROL, the results TRIGLYCERIDES, HDL, section. LDL) COMPREHENSIVE Routine 04/22/2011 9:56 HTN (hypertension) Resul ts for this METABOLIC PANEL (CMP) EDT proced ure are in the results section. documented in this encounter Results (ABNORMAL) COMPREHENSIVE METABOLIC PANEL (CMP) (04/22/2011 9:56 EDT) Pathologist Sig nature Potassium 5.4 (H) 3.5 - 5.0 mEq/L [facility] Sodium 140 136 - 145 mEq/L [facility] Chloride 105 96 - 110 mEq/L [facility] CO2 26 24 - 32 mEq/L [facility] Total Alkaline 64 38 - 126 U/L [facility] Phosphatase Bilirubin, Total <0.5 0.2 - 1.3 mg/dl [facility] AST 37 15 - 46 U/L [facility] ALT 44 21 - 72 U/L [facility] Albumin 4.1 3.4 - 4.9 g/dl [facility] Total Protein 7.0 6.5 - 8.3 g/dl [facility] Creatinine 1.33 (H) 0.66 - 1.25 [facility] mg/dl GFR, Calculated 55 (L) >60 [facility] ml/min/1.73m2 BUN 32 (H) 10 - 26 mg/dl [facility] Calcium 9.1 8.5 - 10.5 [facility] mg/dl Calculated Calcium 9.4 8.5 - 10.5 [facility] mg/dl Glucose, Serum 89 70 - 100 mg/dl [facility] Fasting? Yes [facility] Specimen Blood specimen (specimen) Performing Organization Address [facility] Phon e Number [facility] [address] [place] [address] SERVICES [facility] [address] [place] [address] LIPID PROFILE (INCLUDES CHOLESTEROL, TRIGLYCERIDES, HDL, LDL) (04/22/2011 9:56 EDT) Cholesterol 153 mg/dl [facility] Comment: Desirable:<200 Borderline High:200-239 High:>lc=092 Triglycerides 71 mg/dl [facility] Comment: Normal:<150 Borderline High:150-199 High:200-499 Very High:>lu=312 HDL 47 mg/dl [facility] Comment: Low:<40 Normal:40-60 Desirable: >60 LDL, Calculated 92 mg/dl [facility] Comment: Optimal:<100 Near Optimal:100-129 Borderline High:130-159 High:160-189 Very High:>fp=116 Chol/HDL Ratio 3.3 [facility] Fasting? Yes [facility] Specimen Blood specimen (specimen) Performing Organization Address [facility] Phon e Number [facility] [address] [place] [address] SERVICES [facility] [address] [place] [address] documented in this encounter Visit Diagnoses Diagnosis Hyperlipidemia Other and unspecified hyperlipidemia HTN (hypertension) Unspecified essential hypertension documented in this encounter Care Teams Parts Data Writer Relationship Specialty Start Date End Date Sheila Nayak MD PhD PCP - General 06/10/08 05/18/17 [address] [place] [address] documented as of this encounter
--- OUTSIDE RECORDS SUMMARY | 2021-08-25 00:46 | XMS_ITS | Encounter Summary ---
:1950 Author Organization [facility] [place] [address] Care Team Providers Name Role Phone Bill Damon Primary Care Provider Reason for Referral Diagnostic Test (Routine) - New Request Specialty Diagnoses / Procedures Referred By Contact Refer red To Contact Radiology Diagnoses Non-small cell cancer of right lung Villa Roper MD Procedures CT Chest wo Contrast (Generic) [facility] [place] [place] [address] Referral ID Status Reason Start Expiration Visits Visits Date Date Requested Authorized [id number] New Request Specialty 07/31/2021 01/30/2023 1 1 Service Requested Encounter Details Date Type Department Care Team Description 07/31/2021 Orders Only Radiation Oncology at [facility], Non-small cell cancer [facility] [place] [place] of right lung [facility] [place] [address] RADIATION ONCOLOGY [phone] [place], [place] [address] Social History Tobacco Use Types Packs/Day Years [...] place to sleep or slept in a custodial (including now)? Sex Assigned at Date Recorded Not on file documented as of this encounter Plan of Treatment Upcoming Encounters Date Type Specialty Care Team Description 08/26/2021 Office Visit Radiation Oncology Jeremias Roper MD [facility] RADIATION ONCOLO [place], [place] [address] (Wo rk) Scheduled Orders Name Type Priority Associated Diagnoses Order S chedule CT Chest wo Contrast Imaging Routine Non-small cell cance r of Expected: 08/30/2021 (Generic) right lung (Approximate), Expires: 2022 documented as of this encounter Visit Diagnoses Diagnosis Non-small cell cancer of right lung documented in this encounter Care Teams Superintendent Division Relationship Specialty Start Date End Date Bill Damon DO PCP - General Family Medicine 06/27/[address] [place] [address] documented as of this encounter
--- OUTSIDE RECORDS SUMMARY | 2021-08-25 00:46 | XMS_ITS | Encounter Summary ---
:1950 Author Organization [facility] Address [address] [place] [address] Care Team Providers Name Role Phone Sheila Nayak MD PhD Primary Care Provider [phone] Encounter Details Date Type Department Care Team Description 03/08/2012 Hospital Encounter [facility]- [facility] [address] [address] [place], [place] [phone] [address] Social History Tobacco Use Types Packs/Day Years [...] Code Departure Means Destination Home or Self Residential documented in this encounter Plan of Treatment Not on filedocumented as of this encounter Visit Diagnoses Not on filedocumented in this encounter Care Teams Data Management Relationship Specialty Start Date End Date Sheila Nayak MD PhD PCP - General 06/10/08 05/18/17 [address] [place] [address] documented as of this encounter
--- OUTSIDE RECORDS SUMMARY | 2021-08-25 00:46 | XMS_ITS | Encounter Summary ---
:1950 Author Organization [facility] Address [address] [place] [address] Care Team Providers Name Role Phone Sheila Nayak MD PhD Primary Care Provider [phone] Reason for Visit Reason Onset Date Comments Medications Refill 02/24/2010 Encounter Details Date Type Department Care Team Description 02/24/2010 Telephone [facility] Adult Sheila Nayak nn, Medications Refill Primary Care - Ghassan ROUSSEAU PhD [address] [place] [address] [place] [address] [phone] (Wo rk) Social History Tobacco Use [...] Dispensed Refills Start Date End Date diclofenac (VOLTAREN) 50 Take 1 Tab by mouth 30 Each 0 11/12/2010 mg EC tablet 2 times daily. documented in this encounter Miscellaneous Notes Telephone Encounter - Sheila Nayak MD PhD - 02/25/2010 1802 EST Ordered. elephone Encounter - Мария Bee - 02/24/2010 1527 EST PATIENT CALLED FOR REFILL OF DICLOFEN DOT 50 MG 1-3 TIMES DAILY PRN, USES FOR ARTHRITIS PAIN , USUALLY GET 30 NOT ON MED LIST documented in this encounter Plan of Treatment Not on filedocumented as of this encounter Visit Diagnoses Not on filedocumented in this encounter Care Teams Dryer Feeder Relationship Specialty Start Date End Date Sheila Nayak MD PhD PCP - General 06/10/08 05/18/17 [address] [place] [address] documented as of this encounter
--- OUTSIDE RECORDS SUMMARY | 2021-08-25 00:46 | XMS_ITS | Encounter Summary ---
:1950 Author Organization [facility] Address [address] [place] [address] Care Team Providers Name Role Phone Sheila Nayak MD PhD Primary Care Provider [phone] Reason for Visit Reason Onset Date Comments Medications Refill 08/13/2010 Encounter Details Date Type Department Care Team Description 08/13/2010 Refill [facility] Adult Sheila Nayak MD Medications Refill Primary Care - [place] PhD [address] [place] [id number] [place] [address] [phone] (Wo rk) Social History Tobacco Use [...] Take 1 Tab by mouth 6 Tab 0 08/14/19 11 09/02/2010 (VIAGRA) 100 mg tablet as needed for Erectile Dysfunction. Needs Office visit before next refill. documented in this encounter Miscellaneous Notes Telephone Encounter - Gabbi Hadley - 08/13/2010 1522 EDT Pt left RX refill message in voicemail for Viagra 100mg tab documented in this encounter Plan of Treatment Not on filedocumented as of this encounter Visit Diagnoses Not on filedocumented in this encounter Discontinued Medications Medication Sig Discontinue Reason Start Date End Date sildenafil citrate Take 1 Tab by mouth Reorder 07/21/2009 (VIAGRA) 100 mg tablet as needed for Erectile Dysfunction. documented as of this encounter Care Teams Fast Food Sales Assistant Relationship Specialty Start Date End Date Sheila Nayak MD PhD PCP - General 06/10/08 05/18/17 [address] [place] [phone] documented as of this encounter
--- OUTSIDE RECORDS SUMMARY | 2021-08-25 00:46 | XMS_ITS | Encounter Summary ---
:1950 Author Organization [facility] [place] [address] Care Team Providers Name Role Phone Bill Damon Nico HENRIQUEZ Primary Care Provider Reason for Referral Diagnostic Test (Routine) - Closed Specialty Diagnoses / Procedures Referred By Contact Refer red To Contact Diagnoses Non-small cell cancer of right lung Villa Roper MD Procedures CT Chest w Contrast [facility] [place] [address] Referral ID Status Reason Start Date Expiration Date Visits V isits Requested Authorized [id number] Closed Specialty 04/29/2021 10/30/2022 1 1 Service Requested Encounter Details Date Type Department Care Team Description 04/29/2021 Telephone Radiation Oncology [place] [facility] [place] Roper MD [facility] [place] [address] RADIATION ONCOLOGY [phone] [place] [id number] (Wo rk) Social History Tobacco Use Types [...] place to sleep or slept in a nursing home (including now)? Sex Assigned at Date Recorded Not on file documented as of this encounter Miscellaneous Notes Telephone Encounter - Villa Roper MD - 04/29/2021 9:50 AM EDT Images from the original note were not included. I called Mr. Dickson regarding the results of his CT scan, which I have reviewed: He has no symptoms, and is overall doing well. We will see him in routine follow up. documented in this encounter Plan of Treatment Upcoming Encounters Date Type Specialty Care Team Description 08/26/2021 Office Visit Radiation Oncology Jeremias Roper MD [facility] RADIATION [place], [place] [address] (Wo rk) Scheduled Orders Name Type Priority Associated Diagnoses Order S chedule Creatinine Lab Routine Non-small cell cancer of Exp ected: 08/29/2021 right lung (Approximate), Expires: 02/28/2022 CT Chest w Contrast Imaging Routine Non-small cell cancer of Expected: 08/29/2021 right lung (Approximate), Expires: 02/28/2022 documented as of this encounter Visit Diagnoses Diagnosis Non-small cell cancer of right lung documented in this encounter Care Teams Beck Operator Relationship Specialty Start Date End Date Bill Damon DO PCP - General Family Medicine 06/27/[address] [place] [address] documented as of this encounter
--- OUTSIDE RECORDS SUMMARY | 2021-08-25 00:46 | XMS_ITS | Encounter Summary ---
:1950 Author Organization [facility] Address [address] [place] [address] Care Team Providers Name Role Phone Sheila Nayak MD PhD Primary Care Provider [phone] Reason for Visit Reason Onset Date Comments Medications Refill 11/12/2010 Encounter Details Date Type Department Care Team Description 11/12/2010 Refill [facility] Adult Sheila Nayak MD Medications Refill Primary Care - [place] PhD [address] [place] [id number] [place] [address] [phone] (Wo rk) Social History Tobacco Use [...] (VOLTAREN) 50 Take 1 Tab by mouth 180 Each 0 03/28/2012 mg EC tablet 2 times daily. alprazolam (XANAX) 0.5 mg Take by mouth. 1/2 14 Each 0 12/07/2010 tablet - 1 BID PRN simvastatin (ZOCOR) 10 mg Take 1 Tab by mouth 90 Tab 0 1 12/07/2010 tablet daily. lisinopril (PRINIVIL, Take 1 Tab by mouth 90 Tab 0 11/1212/07/2010 ZESTRIL) 10 mg tablet daily. documented in this encounter Miscellaneous Notes Telephone Encounter - Risa Medina - 11/12/2010 1337 EDT Alprazolam called in to [facility] in [place], pt aware that it was only for #14. Viagra not done per note on last fill that pt needs OV before next fill. Spoke w/pt, he will call to schedule. elephone Encounter - Rubina Myles MD - 11/12/2010 1312 EDT No refill for viagra without visit per Dr. Nayak note. elephone Encounter - Risa Medina - 11/12/2010 0845 EDT Pt requesting refill for Alprazolam, Diclofenac, Lisinopril, Viagra, & Simvastatin, all to go [facility] in [place]. Routing to doc of session due to the Alprazolam. Pt needs before the weekend, Dr. Nayak not back in until Tuesday. documented in this encounter Plan of Treatment Not on filedocumented as of this encounter Visit Diagnoses Not on filedocumented in this encounter Discontinued Medications Medication Sig Discontinue Reason Start Date End Date lisinopril (PRINIVIL, Take 1 Tab by mouth Reorder 10/31/2009 11/12/2010 ZESTRIL) 10 mg tablet daily. simvastatin (ZOCOR) 10 mg Take 1 Tab by mouth Reorder 11/01/19 10 11/12/2010 tablet daily. alprazolam (XANAX) 0.5 mg Take by mouth. 1/2 Reorder 0 11/12/2010 tablet - 1 BID PRN diclofenac (VOLTAREN) 50 Take 1 Tab by mouth Reorder 1 11/12/2010 mg EC tablet 2 times daily. documented as of this encounter Care Teams Resolution Rep Relationship Specialty Start Date End Date Sheila Nayak MD PhD PCP - General 06/10/08 05/18/17 [address] [place] [address] documented as of this encounter
--- OUTSIDE RECORDS SUMMARY | 2021-08-25 00:46 | XMS_ITS | Encounter Summary ---
:1950 Author Organization [facility] Address [address] [place] [address] Care Team Providers Name Role Phone Sheila Nayak MD PhD Primary Care Provider [phone] Encounter Details Date Type Department Care Team Description 03/03/2012 Phlebotomy Only [facility] Home Therapy Clinician, Helene uria; - [facility] Outpatient Microscopic hematuria [address] [place] [address] Social History Tobacco Use Types Packs/Day Years [...] Associated Diagnosis Comme nts URINE CHEMICAL Routine 03/03/2012 11:22 Microscopic Results f or this (DIP) & SEDIMENT EST hematuria procedure a re in (MICRO) WITHOUT the results REFLEX TO CULTURE section. documented in this encounter Results (ABNORMAL) UA WITH MICROSCOPIC (03/03/2012 11:22 EST) Color, UA Yellow [facility] Clarity, UA Clear [facility] Glucose, UA Neg Neg [facility] Bilirubin, UA Neg Neg [facility] Ketones, UA Neg Neg [facility] Specific [place], 1.015 1.001 - 1.035 [facility] Blood, UA Trace (A) Neg [facility] [...] Hyaline Casts, UA None seen /LPF [facility] UA Comment Microscopic results ALEKSANDER ABDALLA Comment: LAB are unreliable on urines unrefrig >2hrs or refrig >8hrs. Specimen Urine (substance) - Urine Performing Organization Address City/State/ZIP Code Phon e Number [facility] [address] [place] [address] SERVICES [facility] [address] [place] [address] documented in this encounter Visit Diagnoses Diagnosis Hematuria Hematuria, unspecified Microscopic hematuria documented in this encounter Care Teams Rewrite Editor Relationship Specialty Start Date End Date Sheila Nayak MD PhD PCP - General 06/10/08 05/18/17 [address] [place] [address] documented as of this encounter
--- OUTSIDE RECORDS SUMMARY | 2021-08-25 00:46 | XMS_ITS | Encounter Summary ---
:1950 Author Organization [facility] Address [address] [place] [address] Care Team Providers Name Role Phone Sheila Nayak MD PhD Primary Care Provider [phone] Encounter Details Date Type Department Care Team Description 04/22/2011 Hospital Encounter [facility] Sheila Nayak [facility] MD PhD [address] [address] [place], [place] [phone] (Wo rk) Social History Tobacco Use Types [...] 1 Tab by mouth 14 Each 0 1 02/28/2010 11/29/2011 tablet at bedtime as needed for Sleep or Anxiety. aspirin 81 mg EC tablet Take 81 mg by mouth 0 12/25/2015 daily. cyclobenzaprine (FLEXERIL) Take 1 Tab by mouth 20 Each 1 12/07/2010 05/05/2011 10 mg tablet at bedtime as needed for Muscle Spasms. diclofenac (VOLTAREN) 50 Take 1 Tab by mouth 180 Each 0 03/28/2012 mg EC tablet 2 times daily. IPRATROPIUM/ALBUTEROL Inhale 2 Puffs as 0 11/29/2011 SULFATE (COMBIVENT INHL) directed 4 times daily as needed. lisinopril (PRINIVIL, Take 1 Tab by mouth 90 Tab 3 02/1101/28/2012 ZESTRIL) 10 mg tablet daily. omeprazole (PRILOSEC OTC) Take 1 Tab by [...] Code Departure Means Destination Home or Self Assisted documented in this encounter Plan of Treatment Not on filedocumented as of this encounter Visit Diagnoses Not on filedocumented in this encounter Care Teams Annual Giving Officer Relationship Specialty Start Date End Date Sheila Nayak MD PhD PCP - General 06/10/08 05/18/17 [address] [place] [phone] documented as of this encounter
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
--- OUTSIDE RECORDS SUMMARY | 2021-08-25 00:46 | XMS_ITS | Encounter Summary ---
:1950 Author Organization [facility] Address [address] [place] [address] Care Team Providers Name Role Phone Sheila Nayak MD PhD Primary Care Provider [phone] Reason for Visit Reason Onset Date Comments Orders (Non Pre-visit) 02/22/2012 Encounter Details Date Type Department Care Team Description 02/22/2012 Orders Only [facility] Víctor Cordova, Hemat uria, unspecified Urology - [facility] Jaqueline arreguin MD (Primary Dx) [address] [facility] [address] [place], [place] [id number] [place] [address] [phone] Social History Tobacco Use Types Packs/Day [...] as of this encounter Visit Diagnoses Diagnosis Hematuria, unspecified - Primary documented in this encounter Care Teams Plastic Roller Relationship Specialty Start Date End Date Sheila Nayak MD PhD PCP - General 06/10/08 05/18/17 [address] [place] [address] documented as of this encounter
--- OUTSIDE RECORDS SUMMARY | 2021-08-25 00:46 | XMS_ITS | Encounter Summary ---
:1950 Author Organization [facility] Address [address] [place] [address] Care Team Providers Name Role Phone Sheila Nayak MD PhD Primary Care Provider [phone] Reason for Referral Consult, Test and Treat (Routine) - Closed Specialty Diagnoses / Procedures Referred By Contact Refer red To Contact Rehab Therapies Diagnoses Neck pain Sheila Nayak MD PhD [address] [place] [address] Referral ID Status Reason Start Date Expiration Date Visits V isits Requested Authorized [id number] Closed Specialty 12/07/2010 1 1 Services Required Question Answer Reason for Request: upper back pain Reason for Visit Reason Comments Back Pain upper back, for the past wee k Medications Refill Encounter Details Date Type Department Care Team Description 12/07/2010 Office Visit [facility] Sheila Nayak, HT N (hypertension); Adult Primary Care - PhD COPD (chronic obstructive pulmonary dise ase) ([facility] [place] [address] Hyperlipidemia; [address] [place] [address] Anxiety; [place] [phone] Tobacco dependence; [phone] (Wo rk) Neck pain Social History Tobacco Use Types Packs/Day Years [...] Sign Reading Time Taken Comments Blood Pressure 128/80 12/07/2010 1016 EDT Pulse 80 12/07/2010 1016 EDT R Temperature - - Respiratory Rate - - Oxygen Saturation - - Inhaled Oxygen Concentration - - Weight 68 kg (150 lb) 12/07/2010 1016 EDT with shoes Height - - Body Mass Index - - documented in this encounter Ordered Prescriptions Prescription Sig Dispensed Refills Start Date End Date simvastatin (ZOCOR) 10 mg Take 1 Tab by mouth 90 Tab 3 1 02/11/2011 tablet daily. lisinopril (PRINIVIL, Take 1 Tab by mouth 90 Tab 3 12/0702/11/2011 ZESTRIL) 10 mg tablet daily. cyclobenzaprine (FLEXERIL) Take 1 Tab by mouth 20 Each 1 12/07/2010 05/05/2011 10 mg tablet at bedtime as needed for Muscle Spasms. omeprazole (PRILOSEC OTC) Take 1 Tab by mouth 28 Tab 5 1 01/04/2011 20 mg tablet daily. alprazolam (XANAX) 0.5 mg Take 1 Tab by mouth 14 Each 0 1 12/29/2010 tablet at bedtime as needed for Sleep or Anxiety. sildenafil citrate Take 1 Tab by mouth 6 Tab 3 12/08/19 11 11/29/2011 (VIAGRA) 100 mg tablet as needed for Erectile Dysfunction. Needs Office visit before next refill. documented in this encounter Progress Notes Sheila Nayak MD PhD - 12/07/2010 1250 EDT Subjective: Patient ID: Celestine Dickson is an 60 y.o. male. Chief Complaint Patient presents with ??? Back Pain upper back, for the past week ??? Medications Refill HPI HTN, COPD, tobacco, anxiety, ED. New complaint of upper back pain. He recently was living in [place] and moved back to [place]. Last office visit was over a year ago. Here today because he called for refills and was told he needed to be seen. Taking all meds. Needs all refills. Occasionally takes xanax at bedtime - about one per week. Due for labs. Upper back and neck pain for 5 days. Woke with pain last . Ferrari snot recall any trauma. Wonders if he should go to a chiropractor. Has been to chiropractor before and not sure if he needs a referral. 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 He has tried OTC med . He has diclofenac but not clear if he is taking this. Describes pain at his left neck radiating to the left medial scapula and tingling in left arm and hand. No weakness. No fever. COPD: Continues to smoke. Breathing ok. ED: Out of viagra and needs renewal. Patient Active Problem List Diagnoses ??? HTN [...] Review of Systems Constitutional: Negative for fever, chills and weight loss. HENT: Positive for neck pain. Negative for congestion. Respiratory: Negative for cough and shortness of breath. Cardiovascular: Negative for chest pain. Gastrointestinal: Negative for abdominal pain. Genitourinary: Negative for dysuria, urgency and frequency. Musculoskeletal: Positive for back pain. Skin: Negative for itching and rash. Neurological: Positive for tingling. Negative for weakness and headaches. Endo/Heme/Allergies: Negative. Psychiatric/Behavioral: Negative for suicidal ideas. - See HPI Objective: BP 128/80 Pulse 80 Wt 68.04 kg (150 lb) Physical Exam Vitals reviewed. Constitutional: He is [...] no rales. Musculoskeletal: He exhibits no edema. Good rom of shoulders and neck. Entire spine has some tenderness to palpation. Tender to palpate left trapezius. Lymphadenopathy: He has no cervical adenopathy. Neurological: He is alert and oriented to person, place, and time. He has normal reflexes. Strength in upper extremities is normal. Slight resting tremor in fingers bilateral. FTN intact. Zeina normal. Skin: Skin is warm. Psychiatric: He has a normal mood and affect. His behavior is normal. Judgment and thought content normal. Assessment: Plan: Celestine was seen today for back pain and medications refill. Diagnoses and associated orders for this visit: Htn (hypertension) - at goal - Comprehensive Metabolic Panel (CMP); Future Copd (chronic obstructive pulmonary disease) Hyperlipidemia - due for labs. - Lipid Profile (Includes Cholesterol, Triglycerides, HDL, LDL); Future Anxiety Tobacco dependence - encouraged cessation Neck pain - 5 days of pain, advise ibuprofen, Add OTC prilosec. Flexeril at HS. Refer to PT and willcheck xray. rov in one month. - CERVICAL SPINE 2-3 VIEWS - Ambulatory Consult Physical Therapy Other Orders - sildenafil citrate (VIAGRA) 100 mg tablet; Take 1 Tab by mouth as needed for Erectile Dysfunction.Needs Office visit before next refill. - alprazolam (XANAX) 0.5 mg tablet; Take 1 Tab by mouth at bedtime as needed for Sleep or Anxiety. - omeprazole (PRILOSEC OTC) 20 mg tablet; Take 1 Tab by mouth daily. - cyclobenzaprine (FLEXERIL) 10 mg tablet; Take 1 Tab by mouth at bedtime as needed for Muscle Spasms. - lisinopril (PRINIVIL, ZESTRIL) 10 mg tablet; Take 1 Tab by mouth daily. - simvastatin (ZOCOR) 10 mg tablet; Take 1 Tab by mouth daily. documented in this encounter Plan of Treatment Scheduled Referrals Name Type Priority Associated Diagnoses Order S chedule AMB CONSULT Outpatient Referral Routine Neck pain Ordered: PHYSICAL THERAPY 12/07/2010 documented as of this encounter Procedures Procedure Name Priority Date/Time Associated Diagnosis Comme nts CERVICAL SPINE 2-3 Routine 12/29/2010 14:54 Neck pain Resul ts for this VIEWS EST procedure are i n the results [...] Specimen Blood specimen (specimen) Performing Organization Address [facility] Phon e Number [facility] [address] [place] [address] SERVICES [facility] [address] [place] [address] LIPID PROFILE (INCLUDES CHOLESTEROL, TRIGLYCERIDES, HDL, LDL) (04/22/2011 9:56 EDT) Cholesterol 153 mg/dl [facility] Comment: Desirable:<200 Borderline High:200-239 High:>qw=686 Triglycerides 71 mg/dl [facility] Comment: Normal:<150 Borderline High:150-199 High:200-499 Very High:>oi=855 HDL 47 mg/dl [facility] Comment: Low:<40 Normal:40-60 Desirable: >60 LDL, Calculated 92 mg/dl [facility] Comment: Optimal:<100 Near Optimal:100-129 Borderline High:130-159 High:160-189 Very High:>ma=003 Chol/HDL Ratio 3.3 [facility] Fasting? Yes [facility] Specimen Blood specimen (specimen) Performing Organization Address [facility] Phon e Number [facility] [address] [place] [address] SERVICES [facility] [address] [place] [address] CERVICAL SPINE 2-3 VIEWS (12/29/2010 14:54 EST) Anatomical Region Laterality Modality Other Specimen Narrative [facility] - 12/29/2010 15:34 EST CERVICAL SPINE 2-3 VIEWS ??Dec 29, 2010 02:54:00 PM Signs and Symptoms/Comments: ??723.1-CER [id number]-[id number]-CM neck pain No comparison studies. Lateral, odontoid, AP, swimmer's views o f the cervical spine. No gross abnormality at the C1-C2 articu lation on the open-mouth odontoid or lateral view. Lateral view s hows mild retrolisthesis of C3 on C4. There is some posterior spurri ng at other levels but no definite malalignment on the lateral charles ge. There is no lateral subluxation. AP view does suggest greate r uncinate spurring on the right at the C3-C4 level. No compression fractures. Multilevel disc narrowing noted. No gross retropharyngea l soft tissue abnormality. Impression: Degenerative changes through out the cervical spine which focally are greatest at the C3-C4 level where there is retrolisthesis and uncinate spurring greater on the rig ht. Further evaluation could be done with MRI if indicated. Procedure Note 12/29/2010 CERVICAL SPINE 2-3 VIEWS Dec 29, 2010 02 :54:00 PM Signs and Symptoms/Comments: 723.1-CERVI GBFKAN-FFF-0-CM neck pain No comparison studies. Lateral, odontoid, AP, swimmer's views o f the cervical spine. No gross abnormality at the C1-C2 articu lation on the open-mouth odontoid or lateral view. Lateral view s hows mild retrolisthesis of C3 on C4. There is some posterior spurri ng at other levels but no definite malalignment on the lateral charles ge. There is no lateral subluxation. AP view does suggest greate r uncinate spurring on the right at the C3-C4 level. No compression fractures. Multilevel disc narrowing noted. No gross retropharyngea l soft tissue abnormality. Impression: Degenerative changes through out the cervical spine which focally are greatest at the C3-C4 level where there is retrolisthesis and uncinate spurring greater on the rig ht. Further evaluation could be done with MRI if indicated. Performing Organization Address City/State/ZIP Code Phon e Number [facility] documented in this encounter Visit Diagnoses Diagnosis HTN (hypertension) Unspecified essential hypertension COPD (chronic obstructive pulmonary dise ase) ([facility]) (HCC) Chronic airway obstruction, not elsewher e classified Hyperlipidemia Other and unspecified hyperlipidemia Anxiety Anxiety state, unspecified Tobacco dependence Tobacco use disorder Neck pain Cervicalgia documented in this encounter Discontinued Medications Medication Sig Discontinue Reason Start Date End Date triamcinolone (KENALOG) Apply topically 2 09/15/2009 12/07/2010 0.1 % ointment times daily. As instructed. sildenafil citrate Take 1 Tab by mouth Reorder 09/02/2010 (VIAGRA) 100 mg tablet as needed for Erectile Dysfunction. Needs Office visit before next refill. alprazolam (XANAX) 0.5 Take by mouth. /2 - 11/12/2010 12/07/2010 mg tablet 1 BID PRN lisinopril (PRINIVIL, Take 1 Tab by mouth Reorder 11/12/2010 12/07/2010 ZESTRIL) 10 mg tablet daily. simvastatin (ZOCOR) 10 Take 1 Tab by mouth Reorder 11/12/2010 12/07/2010 mg tablet daily. documented as of this encounter Care Teams Software Maintenance Engineer Relationship Specialty Start Date End Date Sheila Nayak MD PhD PCP - General 06/10/08 05/18/17 [address] [place] [phone] documented as of this encounter
--- OUTSIDE RECORDS SUMMARY | 2021-08-25 00:46 | XMS_ITS | Encounter Summary ---
:1950 Author Organization [facility] Address [facility] [address] [place] [address] Care Team Providers Name Role Phone Bill Damon Primary Care Provider Encounter Details Date Type Department Care Team Description 11/07/2020 Telephone Radiation Oncology a t [facility] Villa Roper MD [facility] [place] [address] [place] [phone] RADIATION ONCOLOGY [phone] [place], [place] [address] (Wo rk) Social History Tobacco Use Types [...] place to sleep or slept in a group home (including now)? Sex Assigned at Date Recorded Not on file documented as of this encounter Miscellaneous Notes Telephone Encounter - Villa Roper MD - 11/07/2020 12:01 PM EDT I called Mr. Dickson regarding SBRT. He is experiencing fatigue, as expected, and some mild back irritation overall is doing well. We will see him in routine follow up. documented in this encounter Plan of Treatment Upcoming Encounters Date Type Specialty Care Team Description 08/26/2021 Office Visit Radiation Oncology Jeremias Roper MD [facility] RADIATION ONCOLO [place], [place] [address] (Wo rk) documented as of this encounter Visit Diagnoses Not on filedocumented in this encounter Care Teams Community Mental Health Worker Relationship Specialty Start Date End Date Bill Damon DO PCP - General Family Medicine 06/27/[address] [place] [address] documented as of this encounter
--- OUTSIDE RECORDS SUMMARY | 2021-08-25 00:46 | XMS_ITS | Encounter Summary ---
:1950 Author Organization [facility] Address [address] [place] [address] Care Team Providers Name Role Phone Sheila Nayak MD PhD Primary Care Provider [phone] Reason for Referral Consult (Routine/Next Available) - Closed Specialty Diagnoses / Procedures Referred By Contact Refer red To Contact Urology Diagnoses Microhematuria Sheial Nayak MD PhD [address] [place], [place] [address] Referral ID Status Reason Start Date Expiration Date Visits V isits Requested Authorized [id number] Closed Specialty 01/28/2012 1 1 Services Required Question Answer Reason for Request: microhematuria Reason for Visit Reason Onset Date Comments Results 01/28/2012 Encounter Details Date Type Department Care Team Description 01/28/2012 Telephone [facility] Sheila Nayak MD Results Primary Care - Ghassan PhD [address] [place] [address] [address] [place] [address] [place] [phone] (Wo rk) Social History Tobacco Use [...] Notes Telephone Encounter - Risa Medina - 02/02/2012 1555 EST 02.24.13, 9:15, Dr. Víctor Cordova, ACC, EP5, pt aware. elephone Encounter - Erin Llanes RN - 02/02/2012 1445 EST Patient aware of hematuria. Patient aware of urology referral. Patient will await call with date andtime of appointment. elephone Encounter - Sheila Nayak MD - 01/28/2012 1552 EST Microhematuria on UA persists. I made referral to urology. Please let pt know of appt. He was here for UA today and result not available before he left. Renal function normal. documented in this encounter Plan of Treatment Scheduled Referrals Name Type Priority Associated Diagnoses Order S chedule AMB CONSULT Outpatient Referral Routine Microhematuria Ordere d: UROLOGY 01/28/2012 documented as of this encounter Visit Diagnoses Diagnosis Microhematuria - Primary Microscopic hematuria documented in this encounter Care Teams Director Of Cath Lab Relationship Specialty Start Date End Date Sheila Nayak MD PhD PCP - General 06/10/08 05/18/17 [address] [place] [address] documented as of this encounter
--- OUTSIDE RECORDS SUMMARY | 2021-08-25 00:46 | XMS_ITS | Encounter Summary ---
:1950 Author Organization [facility] Address [address] [place] [address] Care Team Providers Name Role Phone Sheila Nayak MD PhD Primary Care Provider [phone] Reason for Referral Consult (Routine/Next Available) - Closed Specialty Diagnoses / Procedures Referred By Contact Refer red To Contact Otolaryngology Diagnoses Oral lesion Sheila Nayak MD PhD [address] [place] [address] Referral ID Status Reason Start Date Expiration Date Visits V isits Requested Authorized [id number] Closed Specialty 01/27/2012 1 1 Services Required Question Answer Reason for Request: grouth in mouth Reason for Visit Reason Onset Date Comments Referral Request 01/24/2012 follow 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 Also told him the recommendation to have lab work done and a UA. Offered him an OV with Dr. Nayak tomorrow if he preferred. He took the OV tomorrow at 8:30 (time was added to PCP's schedule).The patient indicates understanding of these issues and agrees with the plan. Since pt will be in the office. Discussed with MA's and will add a POCT UA, UMIO and bacterial culture and cancel the UA with micro. elephone Encounter - Amanda Goldstein RN - 01/27/2012 1522 EST PSS made the appt with ENT. It is tomorrow 01/28/[address] Dykes. [facility] level 5 at 3:00. ([phone] to reschedule). Triage will give him this information when speaking with him about the other issue. Called pt and left message asking for a call back today. elephone Encounter - Sheila Nayak MD - 01/27/2012 1426 EST I placed an order for referral to ENT for oral lesion. Please call, if the wait is too long, we can refer to oral surgeon instead. Regarding the hematuria, he should have the UA repeated and renal function. I will also order that and he can go to lab to get done. I am also happy to add him on tomorrowin the am - 8:30 or noon. We could do UA in the office if visit is better for him. elephone Encounter - Yessy Horvath - 01/27/2012 0814 EST Pt called again - very worried. 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 He wants to get this taken care of immediately. elephone Encounter - Мария Bee - 01/24/2012 1302 EST Please see letter from [facility] for results from DOT physical , re: hematuria and growth in mouth Letter will be on board documented in this encounter Plan of Treatment Scheduled Referrals Name Type Priority Associated Diagnoses Order S chedule AMB CONSULT ENT Outpatient Referral Routine Oral lesion Order ed: 01/27/2012 documented as of this encounter Results BACTERIAL CULTURE, URINE (01/28/2012 10:28 EST) Specimen Description Urine [facility] Result No growth [facility] Report Status 01/29/2012 Final [facility] Specimen Urine (substance) - Urine Performing Organization Address City/[facility]/ZIP Code Phon e Number [facility] [address] [place] [address] SERVICES [facility] [address] [place] [address] (ABNORMAL) POCT URINE DIPSTICK (01/28/2012 9:14 EST) Color YELLOW [facility] Clarity, UA Clear [facility] Glucose Neg Neg [facility] Bilirubin Neg Neg [facility] Ketones Neg Neg [facility] Specific [place] 1.020 1.001 - 1.035 [facility] Blood 1+ (A) Neg [facility] pH 6.0 4.6 - 8.0 [facility] Protein Neg Neg [facility] Urobilinogen 0.2 0.2 - 1.0 [facility] Nitrite Neg Neg [facility] Leuk Esterase Neg Neg [facility] pecan gatherer ID [id number]: [facility] Test performed at LAB [facility] Specimen Urine (substance) Performing Organization Address City/[facility]/ZIP Code Phon e Number [facility] [address] [place] [address] SERVICES [facility] [address] [place] [address] documented in this encounter Visit Diagnoses Diagnosis Oral lesion - Primary Other and unspecified diseases of the or al soft tissues Hematuria Hematuria, unspecified documented in this encounter Orders Lab Orders Without Results Count Last Ordered Date Fir st Ordered Date URINE MICROSCOPIC ONLY 1 01/27/2012 documented in this encounter Care Teams Blanket Weaver Relationship Specialty Start Date End Date Sheila Nayak MD PhD PCP - General 06/10/08 05/18/17 [address] [place] [address] documented as of this encounter
--- OUTSIDE RECORDS SUMMARY | 2021-08-25 00:46 | XMS_ITS | Encounter Summary ---
:1950 Author Organization [facility] Address [address] [place] [address] Care Team Providers Name Role Phone Sheila Nayak MD PhD Primary Care Provider [phone] Reason for Visit Reason Onset Date Comments Medications Refill 12/29/2010 Encounter Details Date Type Department Care Team Description 12/29/2010 Refill [facility] Adult Sheila Nayak MD Medications Refill Primary Care - Ghassan PhD [address] [place] [address] [place] [address] [phone] (Wo rk) Social History Tobacco Use [...] bedtime as needed for Sleep or Anxiety. documented in this encounter Miscellaneous Notes Telephone Encounter - Мария Bee - 12/29/2010 7345 EST Phoned in Telephone Encounter - Gabbi Hadley - 12/29/2010 1512 EST Rec'd fax from pharmacy for refill of Alprazolam 0.5mg tabs, QTY 14, take one tablet by outh at bedtime as needed for sleep or anxiety. documented in this encounter Plan of Treatment Not on filedocumented as of this encounter Visit Diagnoses Not on filedocumented in this encounter Discontinued Medications Medication Sig Discontinue Reason Start Date End Date alprazolam (XANAX) 0.5 Take 1 Tab by mouth Reorder 12/07/2010 12/29/2010 mg tablet at bedtime as needed for Sleep or Anxiety. documented as of this encounter Care Teams Accelerator Technician Relationship Specialty Start Date End Date Sheila Nayak MD PhD PCP - General 06/10/08 05/18/17 [address] [place] [address] documented as of this encounter
--- OUTSIDE RECORDS SUMMARY | 2021-08-25 00:46 | XMS_ITS | Encounter Summary ---
:[address] [facility] Address [address] [place] [address] Care Team Providers Name Role Phone Sheila Nayak MD PhD Primary Care Provider [phone] Reason for Visit Reason Onset Date Comments Medications Refill 02/11/2011 Encounter Details Date Type Department Care Team Description 02/11/[address] [facility] Adult Sheila Nayak MD Medications Refill Primary Care - [place] PhD [address] [place] [id number] [place] [address] [phone] (Wo rk) Social History Tobacco Use [...] Tab 3 0 02/11/2011 05/29/2012 tablet daily. lisinopril (PRINIVIL, Take 1 Tab by mouth 90 Tab 3 02/1101/28/2012 ZESTRIL) 10 mg tablet daily. documented in this encounter Miscellaneous Notes Telephone Encounter - Risa Medina - 02/11/2011 0851 EST Pt requesting refill for Lisinopril & Simvastatin. I have amrita'd it up w/refills per office protocol. documented in this encounter Plan of Treatment Not on filedocumented as of this encounter Visit Diagnoses Not on filedocumented in this encounter Discontinued Medications Medication Sig Discontinue Reason Start Date End Date lisinopril (PRINIVIL, Take 1 Tab by mouth Reorder 12/07/2010 02/11/2011 ZESTRIL) 10 mg tablet daily. simvastatin (ZOCOR) 10 mg Take 1 Tab by mouth Reorder 12/08/19 11 02/11/2011 tablet daily. documented as of this encounter Care Teams Allergist/Md Relationship Specialty Start Date End Date Sheila Nayak MD PhD PCP - General 06/10/08 05/18/17 [address] [place] [address] documented as of this encounter
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
--- OUTSIDE RECORDS SUMMARY | 2021-08-25 00:46 | XMS_ITS | Encounter Summary ---
:1950 Author Organization [facility] Address [address] [place] [address] Care Team Providers Name Role Phone Sheila Nayak MD PhD Primary Care Provider [phone] Reason for Visit Reason Comments Back Pain Encounter Details Date Type Department Care Team Description 01/04/2011 Office Visit [facility] Sheila Nayak Anxiety ; Adult Primary Care - MD Jaelyn PhD COPD (chronic obstructive pulmonary dise ase) ([facility]); [address] HTN (hypertension); [address] [place] [address] Hyperlipidemia; [place] [phone] Need for pneumococcal vaccination; [phone] Flu vaccine nebud d; (Work) Neck pain Social History Tobacco Use Types [...] Sign Reading Time Taken Comments Blood Pressure 120/70 01/04/2011 1015 EST Pulse 60 01/04/2011 1015 EST Temperature - - Respiratory Rate - - Oxygen Saturation - - Inhaled Oxygen Concentration - - Weight 71.4 kg (157 lb 8 oz) 01/04/2011 1015 EST w/shoe s Height 167.6 cm (5' 6) 01/04/2011 1015 EST w/shoes Body Mass Index 25.42 01/04/2011 1015 EST documented in this encounter Progress Notes Sheila Nayak MD PhD - 01/04/2011 1254 EST Subjective: Patient ID: Celestine Dickson is an 60 y.o. male. Chief Complaint Patient presents with ??? Back Pain HPI Celestine is here for followup for multiple medical problems. Neck and back pain have improved considerably. Has been seeing physical therapy and a chiropractor. Pain is better, strength is better. Hyperlipidemia and hypertension: Did not get labwork done. Breathing is good. Using Combivent only occasionally. Taking other medications. Medication list was reviewed and updated and problem list reviewed. COPD: Continues to smoke. Has been able to cut down to 1 pack per day from 2 packs per day. As above, not using Combivent very much. Wart on left small toe. Please see review of systems. Problem list reviewed and updated. Patient Active Problem List Diagnoses ??? HTN [...] before next refill. 6 Tab 3 ??? omeprazole (PRILOSEC OTC) 20 mg tablet Take 1 Tab by mouth daily. 28 Tab 5 ??? cyclobenzaprine (FLEXERIL) 10 mg tablet Take 1 Tab by mouth at bedtime as needed for Muscle Spasms. 20 Each 1 ??? lisinopril (PRINIVIL, ZESTRIL) 10 mg tablet [...] Negative. HENT: Negative. Eyes: Negative. Respiratory: Negative. Cardiovascular: Negative. Gastrointestinal: Negative. Genitourinary: Negative. Musculoskeletal: Negative. Skin: Negative. Wart on left small toe Neurological: Negative. Endo/Heme/Allergies: Negative. Psychiatric/Behavioral: Negative. - See HPI Objective: BP 120/70 Pulse 60 Ht 167.6 cm (66) Wt 71.442 kg (157 lb 8 oz) BMI 25.42 kg/m2 Physical Exam Vitals reviewed. Constitutional: He [...] is normal. Judgment and thought content normal. wart left smalltoe. Assessment: Plan: Celestine was seen today for back pain. Diagnoses and associated orders for this visit: Anxiety Copd (chronic obstructive pulmonary disease) - encouraged tobacco cessation. Htn (hypertension) - BP at goal. He will get lab work done. rov in 4 months. Hyperlipidemia Need for pneumococcal vaccination - Pneumococcal polysaccharide vaccine 23-valent greater than or equal to 2yo subcutaneous/IM Flu vaccine need - Flu vaccine greater than or equal to 3yo preservative free IM Neck pain - back to baseline. Follow up prn. HM: Review at [facility] in 4 months. More Anderson - 01/04/2011 1124 EST Flu vaccine administered today Patient here for Pneumococcal vaccine 1. Route: Intramuscular Location: Right deltoid 2. Med Lot #: [id number] 3. NDC #: 4981-0137-43 4. Exp Date: 06/12/12 5. Restorative Coordinator: Kspl[employer] Patient EducationTopic: Pneumococcal vaccine Method: Handout Taught to: Patient Barriers: None Outcomes: verbalized understanding I was supervised by dr. Nayak who was present and immediately available in the office suite. More Watts 01/04/2011 11:25 documented in this encounter Plan of Treatment Not on filedocumented as of this encounter Visit Diagnoses Diagnosis Anxiety Anxiety state, unspecified COPD (chronic obstructive pulmonary dise ase) ([facility]) (HCC) Chronic airway obstruction, not elsewher e classified HTN (hypertension) Unspecified essential hypertension Hyperlipidemia Other and unspecified hyperlipidemia Need for pneumococcal vaccination Need for prophylactic vaccination agains t streptococcus pneumoniae (pneumococcus) Flu vaccine need Need for prophylactic vaccination and in oculation against influenza Neck pain Cervicalgia documented in this encounter Orders Immunization/Injection Count Last Ordered Date First O rdered Date INFLUENZA VACCINE =>3YO SPLIT PRESERVATIVE 1 01/04 FREE IM PNEUMOCOCCAL POLYSACCHARIDE VACCINE 1 01/04/2011 23-VALENT =>2YO SQ/IM documented in this encounter Care Teams Bill Board Poster Relationship Specialty Start Date End Date Sheila Nayak MD PhD PCP - General 06/10/08 05/18/17 [address] [place] [phone] documented as of this encounter
--- OUTSIDE RECORDS SUMMARY | 2021-08-25 00:46 | XMS_ITS | Encounter Summary ---
:1950 Author Organization [facility] Address [address] [place] [address] Care Team Providers Name Role Phone Sheila Nayak MD PhD Primary Care Provider [phone] Reason for Visit Reason Onset Date Comments Medications Refill 09/02/2010 Encounter Details Date Type Department Care Team Description 09/02/2010 Refill [facility] Adult Sheila Nayak MD Medications Refill Primary Care - [place] PhD [address] [place] [id number] [place] [address] [phone] (Wo rk) Social History Tobacco Use [...] 1 Tab by mouth 6 Tab 0 09/03/19 11 12/07/2010 (VIAGRA) 100 mg tablet as needed for Erectile Dysfunction. Needs Office visit before next refill. documented in this encounter Miscellaneous Notes Telephone Encounter - Yessy Horvath - 09/02/2010 1348 EDT Pt called for refill of viagra Last ov 09/2009 documented in this encounter Plan of Treatment Not on filedocumented as of this encounter Visit Diagnoses Not on filedocumented in this encounter Discontinued Medications Medication Sig Discontinue Reason Start Date End Date sildenafil citrate Take 1 Tab by mouth Reorder 08/13/2010 (VIAGRA) 100 mg tablet as needed for Erectile Dysfunction. Needs Office visit before next refill. documented as of this encounter Care Teams Shipping Clerk Packing Relationship Specialty Start Date End Date Sheila Nayak MD PhD PCP - General 06/10/08 05/18/17 [address] [place] [phone] documented as of this encounter
--- OUTSIDE RECORDS SUMMARY | 2021-08-25 00:46 | XMS_ITS | Encounter Summary ---
:1950 Author Organization [facility] Address [address] [place] [address] Care Team Providers Name Role Phone Sheila Nayak MD PhD Primary Care Provider [phone] Encounter Details Date Type Department Care Team Description 03/08/[address] [facility] [place] [facility] [address] [place] [address] Social History Tobacco Use Types Packs/Day Years [...] on filedocumented in this encounter Care Teams Production Control Coordinator Relationship Specialty Start Date End Date Sheila Nayak MD PhD PCP - General 06/10/08 05/18/17 [address] [place] [phone] documented as of this encounter
--- OUTSIDE RECORDS SUMMARY | 2021-08-25 00:46 | XMS_ITS | Encounter Summary ---
:1950 Author Organization [facility] Address [address] [place] [address] Care Team Providers Name Role Phone Sheila Nayak MD PhD Primary Care Provider [phone] Encounter Details Date Type Department Care Team Description 03/03/2012 Abstract [facility] Spine [place], DPM Program - [place] [address] [place], [place] [phone] (Wo rk) Social History Tobacco Use Types [...] on filedocumented in this encounter Care Teams Rn Acute Dialysis Relationship Specialty Start Date End Date Sheila Nayak MD PhD PCP - General 06/10/08 05/18/17 [address] [place] [phone] documented as of this encounter
--- OUTSIDE RECORDS SUMMARY | 2021-08-25 00:46 | XMS_ITS | Encounter Summary ---
:1950 Author Organization [facility] Address [address] [place] [address] Care Team Providers Name Role Phone Sheila Nayak MD PhD Primary Care Provider [phone] Encounter Details Date Type Department Care Team Description 05/21/2011 Phlebotomy Only [facility] Microarray Operations Vice President, Esequiel surseh [facility] Outpatient creatinine [address] [place] [address] Social History Tobacco Use Types Packs/Day Years [...] Procedure Name Priority Date/Time Associated Comments Diagnosis NEPHROLOGY PROFILE Routine 05/21/2011 12:36 Elevated serum Res ults for this (INCLUDES BUN, EDT creatinine procedure are in CREATININE, the results CALCULATED GFR, section. ELECTROLYTES, CALCIUM, PHOSPHORUS, ALBUMIN) PSA TOTAL, Routine 05/21/2011 12:36 Elevated serum Results f or this DIAGNOSTIC EDT creatinine procedure are i n the results section. URINE Routine 05/21/2011 12:26 Elevated serum Results f or this [id number] EDT creatinine procedu re are in E RATIO (ACR) the results section. documented in this encounter Results (ABNORMAL) NEPHROLOGY PROFILE (INCLUDES BUN, CREATININE, CALCULATED GFR, ELECTROLYTES, CALCIUM, PHOSPHORUS, ALBUMIN) (05/21/2011 12:36 EDT) Pathologist Sig nature Sodium 136 136 - 145 mEq/L [facility] Potassium 4.3 3.5 - 5.0 mEq/L [...] Specimen Blood specimen (specimen) Performing Organization Address [facility] Phon e Number [facility] [address] [place] [address] SERVICES [facility] [address] [place] [address] PSA (05/21/2011 12:36 EDT) PSA 0.7 0 - 4.5 ng/ml [facility] Comment: LAB Serum PSA concentration should not be interpreted as absolute evidence for the presence or absence of malignant disease. Assayed utilizing [employer] ([employer]) chemiluminescent technology. ??Values obtained by using different assay methods cannot be used interchangeably. Specimen Blood specimen (specimen) Performing Organization Address [facility] Phon e Number [facility] [address] [place] [address] SERVICES [facility] [address] [place] [address] ALBUMIN, URINE (05/21/2011 12:26 EDT) Pathologist Sig nature Creatinine, Urn 191.4 mg/dl [facility] [place] [facility] Albumin mg/dl 0.7 <1.9 mg/dl [facility] Ur Alb ug/mg Crea 3.7 ug/mg Crea [facility] Comment: Normal: <30 ug/mg creat High: 30-300 ug/mg creat Very high and nephrotic: >300 ug/mg creat Specimen Urine (substance) Performing Organization Address [facility] Phon e Number [facility] [address] [place] [address] SERVICES [facility] [address] [place] [address] documented in this encounter Visit Diagnoses Diagnosis Elevated serum creatinine Other nonspecific findings on examinatio n of blood documented in this encounter Care Teams Saloon Keeper Relationship Specialty Start Date End Date Sheila Nayak MD PhD PCP - General 06/10/08 05/18/17 [address] [place] [address] documented as of this encounter
--- OUTSIDE RECORDS SUMMARY | 2021-08-25 00:46 | XMS_ITS | Encounter Summary ---
:1950 Author Organization [facility] Address [address] [place] [address] Care Team Providers Name Role Phone Sheila Nayak MD PhD Primary Care Provider [phone] Reason for Visit Reason Onset Date Comments Medications Refill 01/04/2011 Encounter Details Date Type Department Care Team Description 01/04/2011 Refill [facility] Adult Sheila Nayak MD Medications Refill Primary Care - Hgassan PhD [address] [place] [address] [place] [address] [phone] (Wo rk) Social History Tobacco Use [...] Sig Dispensed Refills Start Date End Date omeprazole (PRILOSEC OTC) Take 1 Tab by mouth 90 Tab 3 1 03/06/2010 04/25/2012 20 mg tablet daily. documented in this encounter Miscellaneous Notes Telephone Encounter - Мария Bee - 01/04/2011 1009 EST Because of insurance, needs to be 90 day script (prilosec 20 mg) documented in this encounter Plan of Treatment Not on filedocumented as of this encounter Visit Diagnoses Not on filedocumented in this encounter Discontinued Medications Medication Sig Discontinue Reason Start Date End Date omeprazole (PRILOSEC OTC) Take 1 Tab by mouth Reorder 12/08/19 11 01/04/2011 20 mg tablet daily. documented as of this encounter Care Teams Garment Steamer Relationship Specialty Start Date End Date Sheila Nayak MD PhD PCP - General 06/10/08 05/18/17 [address] [place] [address] documented as of this encounter
--- OUTSIDE RECORDS SUMMARY | 2021-08-25 00:46 | XMS_ITS | Encounter Summary ---
:1950 Author Organization [facility] Address [address] [place] [address] Care Team Providers Name Role Phone Sheila Nayak MD PhD Primary Care Provider [phone] Encounter Details Date Type Department Care Team Description 12/29/2010 Hospital Encounter [facility] Sheila Nayak [facility] PhD [address] [address] [place], [place] [phone] (Wo rk) Social History Tobacco Use Types [...] 3 12/0702/11/2011 ZESTRIL) 10 mg tablet daily. omeprazole (PRILOSEC OTC) Take 1 Tab by mouth 28 Tab 5 1 01/04/2011 20 mg tablet daily. sildenafil citrate Take 1 Tab by mouth 6 Tab 3 12/08/19 11 11/29/2011 (VIAGRA) 100 mg tablet as needed for Erectile Dysfunction. Needs Office visit before next refill. simvastatin (ZOCOR) 10 mg Take 1 Tab by mouth 90 Tab 3 1 02/11/2011 tablet daily. documented as of this encounter Discharge Disposition Disposition Code Departure Means Destination Auto Discharge Home documented in this encounter Plan of Treatment Not on filedocumented as of this encounter Visit Diagnoses Not on filedocumented in this encounter Care Teams Bench Mechanic Relationship Specialty Start Date End Date Sheila Nayak MD PhD PCP - General 06/10/08 05/18/17 [address] [place] [id number] documented as of this encounter
--- OUTSIDE RECORDS SUMMARY | 2021-08-25 00:46 | XMS_ITS | Encounter Summary ---
:1950 Author Organization [facility] Address [address] [place] [address] Care Team Providers Name Role Phone Sheila Nayak MD PhD Primary Care Provider [phone] Reason for Visit Reason Onset Date Comments Other 01/28/2012 Encounter Details Date Type Department Care Team Description 01/28/2012 Telephone [facility] Adult Sheila Nayak MD Other Primary Care - [place] PhD [address] [place] [address] [address] [place] [address] [place], [place] [phone] (Wo rk) Social History Tobacco Use [...] Telephone Encounter - Sheila Nayak MD - 02/08/20122206 EST error documented in this encounter Plan of Treatment Not on filedocumented as of this encounter Visit Diagnoses Not on filedocumented in this encounter Care Teams Cleaning Machine Operator Relationship Specialty Start Date End Date Sheila Nayak MD PhD PCP - General 06/10/08 05/18/17 [address] [place] [address] documented as of this encounter
--- OUTSIDE RECORDS SUMMARY | 2021-08-25 00:46 | XMS_ITS | Encounter Summary ---
:1950 Author Organization [facility] [place] [address] Care Team Providers Name Role Phone Bill Damon Primary Care Provider Encounter Details Date Type Department Care Team Description 04/20/2021 Ancillary Procedure Radiology Library at Jeremias Roper, [facility] [place] [address] RADIATION ONCOLOGY [phone] [place] [address] (Wo rk) Social History Tobacco Use Types [...] place to sleep or slept in a penitentiary (including now)? Sex Assigned at Date Recorded Not on file documented as of this encounter Plan of Treatment Upcoming Encounters Date Type Specialty Care Team Description 08/26/2021 Office Visit Radiation Oncology Jeremias Roper MD [facility] RADIATION [place], [place] [address] (Wo rk) documented as of this encounter Procedures Procedure Name Priority Date/Time Associated Diagnosis Comme nts FILM LIBRARY Routine 04/20/2021 12:00 AM Results for this STORAGE ONLY CT EDT procedure ar e in CHEST the results section. documented in this encounter Results Film Library- Storage Only CT Chest (04/20/2021 12:00 AM EDT) Specimen (Source) Anatomical Location Collection Method / Collectio n Time Received Time / Laterality Volume Narrative RAD - 04/21/2021 6:28 AM EDT This exam is auto-finalizing. It's purpo se is for storage only. Villa Roper MD IMG FILM LIBRARY ORDERABLES Performing Organization Address City/State/ZIP Code Phon e Number [place], [place] documented in this encounter Visit Diagnoses Not on filedocumented in this encounter Care Teams Vault Person Relationship Specialty Start Date End Date Bill Damon DO PCP - General Family Medicine 06/27/[address] [place] [address] documented as of this encounter
--- OUTSIDE RECORDS SUMMARY | 2021-08-25 00:47 | XMS_ITS | Encounter Summary ---
:1950 Author Organization [facility] Address [address] [facility] [place] [address] Care Team Providers Name Role Phone Bill Damon Primary Care Provider Encounter Details Date Type Department Care Team Description 09/17/2020 [facility] OFFICE OF CARE [address] [place] [phone] Social History Tobacco Use Types Packs/Day Years [...] place to sleep or slept in a care home (including now)? Sex Assigned at Date Recorded Not on file documented as of this encounter Progress Notes Leila Martinez MSW - 09/17/2020 9:46 AM EDT Reason for Referral: Brief assessment of social and emotional needs. Met with pt after his sim today. Social Supports: Pt indicated he relies on himself. He girlfriend Yisel visits weekly and is a support to him. He did indicate he has a few neighbors he could call on. Living Situation/Daily Activities/Transportation: Pt lives alone. 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 He manages his daily chores and activities. He is expecting 5 RT treatments. He does not expect any issues with transportation. Work/Finances/Insurance: Pt is retired from [employer] and [employer]. He has Managed Medicare and Medicaid for insurance. Advance Directives: Pt indicated he has completed his advance directive. Requested a copy for his record. Utilization of Community Resources: Food assistance; Fuel assistance Adjustment to Illness/Mental Health Issues: Pt indicated he is coping as best he can. He is independent and self reliant. He has some support from his girlfriends. Identified Needs: Pt did not identify any specific needs today. Referrals: None at this time. Interventions this visit:Psychosocial assessment Supportive Counseling Plan: Informed pt of [employer] availability and contact information. Will follow for support and resources. documented in this encounter Plan of Treatment Upcoming Encounters Date Type Specialty Care Team Description 08/26/2021 Office Visit Radiation Oncology Jeremias Roper MD [facility] RADIATION ONCOL[place], [place] [address] (Wo rk) documented as of this encounter Visit Diagnoses Not on filedocumented in this encounter Care Teams Director It Relationship Specialty Start Date End Date Bill Damon DO PCP - General Family Medicine 06/27/20 [address] [place] [address] documented as of this encounter
--- OUTSIDE RECORDS SUMMARY | 2021-08-25 00:47 | XMS_ITS | Encounter Summary ---
:1950 Author Organization [facility] [place] [address] Care Team Providers Name Role Phone Bill Damon Primary Care Provider Reason for Referral Consultation (Routine) - Closed Specialty Diagnoses / Procedures Referred By Contact Refer red To Contact Radiation Oncology Diagnoses Pre-operative cardiovascular examination, high risk surgery Adenocarcinoma of lung, right Jas Mary, [facility] Papi Onc MD Treatment [address] [place], [place] Thoracic Surgery [phone] [place] [address] Referral ID Status Reason Start Date Expiration Date Visits V isits Requested Authorized [id number] Closed Consult, 08/14/2020 08/14/2021 1 1 Test & Treat Diagnostic Test (Routine) - Closed Specialty Diagnoses / Procedures Referred By Contact Refer red To Contact Radiology Diagnoses Pre-operative cardiovascular examination, high risk surgery Adenocarcinoma of lung, right Jas Mary MD [facility] Rad Nuclear Med Procedures NM Pharmacologic Stress and Rest Myocardial Perfusion [facility] [place] [address] [place] [address] Fax: Referral ID Status Reason Start Date Expiration Date Visits V isits Requested Authorized [id number] Closed Specialty 08/14/2020 11/12/2020 1 1 Service Requested Diagnostic Test (Routine) - Closed Specialty Diagnoses / Procedures Referred By Contact Refer red To Contact Radiology Diagnoses Pre-operative cardiovascular examination, high risk surgery Adenocarcinoma of lung, right Jas Mary MD [facility] Rad Nuclear Med Procedures NM Pharmacologic Stress CT Component [facility] Thoracic Surgery [id number] [place] [address] Fax: Referral ID Status Reason Start Date Expiration Date Visits V isits Requested Authorized [id number] Closed Specialty 08/14/2020 11/12/2020 1 1 Service Requested Reason for Visit Reason Comments Lung Cancer Consultation (Routine) - Closed Specialty Diagnoses / Procedures Referred By Contact Refer red To Contact Thoracic Surgery Diagnoses Non-small cell cancer of right lung Non-small cell cancer of right lung Robert Garcia MD [facility] [address] [place] [address] Carmen [facility] PULMONARY MEDICINE [address] [address] Fax: Referral ID Status Reason Start Date Expiration Date Visits V isits Requested Authorized [id number] Closed Consult, 08/12/2020 08/12/2021 1 1 Test & Treat Encounter Details Date Type Department Care Team Description 08/14/2020 Office Visit Thoracic Surgery at Jas Mary Pre- operative cardiovascular examination, high risk surgery; [facility] MD Carmen Adenocarcinoma of lung, right; [facility] a [facility] [place] Thoracic Surgery [address] [place] [address] [phone] Social History Tobacco Use Types Packs/Day Years Used Date Current Every Day Smoker Cigarettes 1 55 Smokeless Tobacco: Never Used Tobacco Cessation: Ready to Quit: Yes Comments: 5-10 cigarettes per day. he is [...] place to sleep or slept in a usp (including now)? Sex Assigned at Date Recorded Not on file documented as of this encounter Last Filed Vital Signs Vital Sign Reading Time Taken Comments Blood Pressure 143/89 08/14/2020 10:31 AM EDT Pulse 70 08/14/2020 10:31 AM EDT Temperature 36.5 ??C (97.7 ??F) 08/14/2020 10:31 AM EDT Respiratory Rate 17 08/14/2020 10:31 AM EDT Oxygen Saturation 98% 08/14/2020 10:31 AM EDT Inhaled Oxygen Concentration - - Weight 62.9 kg (138 lb 9.6 oz) 08/14/2020 10:31 AM EDT Height - - Body Mass Index 23.06 08/07/2020 1:15 PM EDT documented in this encounter Patient Instructions Patient InstructionsHien Lewis RN - 08/14/2020 10:30 AM EDT Thank you for visiting Dr. Mary in clinic 08/14/20 Dr. Mary would like to see you back in clinic with a recent Nuclear Stress Test You will be having a stress test. A stress test shows how well your heart works with increased demands on it. You will check in for your stress test at [facility] area [address]. You must refrain from eating or drinking anything for 3 hours prior to your check in time. Additionally, you must refrain from eating or drinking any item that may contain caffeine for 12 hours prior to your check in time. This includes NO GUM. MINTS, TIC TACS - ANY FOOD. Our nurse will contact you with special instructions regarding your daily medications, if they need to be taken differently prior to the testing. Failure to adhere to these guidelines will result in your testing being canceled and rescheduled to a later date. We have also sent a referral to Radiation Oncology in [facility]. They will contact you to make an appointment. You will receive a letter in the mail to schedule this appointment. ?? Exercise each day for 30 minutes or longer. Daily aerobic exercise for at least 30 minutes will help improve your endurance and improve the breathing capacity of your lungs. This means that you are breathing hard, your heart is beating fast and that you are sweating. Examples of this include walking, biking, swimming, and using a treadmill or stationary bike. Please call Thoracic surgery at with any questions or concerns. documented in this encounter Progress Notes Robert Adams - 08/14/2020 10:30 AM EDT error documented in this encounter H&P Notes Robert Adams - 08/14/2020 10:30 AM EDT Images from the original note were not included. Thoracic Surgery Outpatient Consultation Note [place] [address] FAX: ?? Date of Consultation: 08/14/2020 This consultation has been requested by PCP: Bill Damon DO Referring Physician: Robert Garcia MD ?? Purpose for Consultation: Lung Cancer ?? HPI: Mr. Celestine Dickson is a 70 year old male with a history of COPD/emphysema and 55-pack year smoking history, current 0.5 ppd, and HLD who is referred by Dr. Robert Garcia for a newly diagnosed lung cancer. He was found to have a 1.4 cm spiculated nodule on routine screening chest CT. 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 PET CT showed avidity in this nodule without uptake in regional lymph nodes or elsewhere concerning for metastatic disease. (Uptake in the ascending colon non- specific and patient recently had a negative colonoscopy). Mr. Dickson is currently trying to quit smoking, down to half a pack per day from 2 ppd previously,but thinks he is allergic to the nicotine patches and the buproprion makes him nauseous. He drinks 3-4 servings of liquor per day, denies marijuana or other drug use. Symptomatically he feels well with no major changes apart from his chronic cough and dyspnea from COPD. He is able to walk up flights of stairs without stopping but does get short of breath around the 4th or 5th stair. He has a productive cough throughout the day and brings up white phlegm without anyblood, including coughing at night. Sometimes he feels a wheeze but it is intermittent and mild. He does not feel that he's lost weight overall but did note that he was down 5-7 pounds from his normal weight today (normal 145), attributing to recent colonoscopy and NPO for various procedures in the past 2 weeks (CT-guided biopsy and colo. ?? The patient endorses dyspnea on exertion, cough, intermittent wheeze, weight loss. The patient denies hemoptysis, chest pain, fever, chills, nausea, vomiting, dysphagia. ?? Past Medical History: Patient Active Problem List ?? Diagnosis Date Noted ??? HLD (hyperlipidemia) 07/23/2020 ??? Right lower lobe pulmonary nodule 07/23/2020 ??? History of tobacco use 07/23/2020 ?? Past Surgical History: Past Surgical History: Procedure Laterality Date ??? CT GUIDED BIOPSY LUNG ?? 07/31/2020 ?? CT Guided Biopsy Lung 07/31/2020 Bishnu Renee MD [facility] RAD CAT SCAN ??? PRO COLONOSCOPY, FLEX, W/DIR SUBMUC INJECT N/A 08/07/2020 ?? COLONOSCOPY WITH DIRECTED SUBMUCOSAL INJ (WRVU 3.66) performed by Basil Martin MD at [facility] ENDOSCOPY ??? PRO COLONOSCOPY, REMV LESN, SNARE N/A 08/07/2020 ?? COLONOSCOPY, POLYPECTOMY, REMOVAL LESION BY SNARE (WRVU 4.67) performed by Basil Martin MD at [facility] ENDOSCOPY ?? Current Outpatient Medications: ??? finasteride (Proscar) 5 mg Tablet, Take 5 mg by mouth daily., Disp: , Rfl: ??? simvastatin (Zocor) 10 mg Tablet, 5 mg daily., Disp: , Rfl: ??? sildenafiL (VIAGRA) 100 mg Tablet, TAKE 1 TABLET BY MOUTH DAILY SEXUAL ACTIVITY NEEDED, Disp:, Rfl: ??? buPROPion SR (Wellbutrin SR) 150 mg tablet sustained-release 12 hr, Take 1 tablet by mouth dailyfor 3 days, THEN 1 tablet 2 times daily for 90 days., Disp: 183 tablet, Rfl: 0 ??? nicotine (NICODERM CQ) 21 mg/24 hr Patch 24 hr, Change 1 patch on the skin daily. (Patient not taking: Reported on 08/14/2020), Disp: 56 patch, Rfl: 3 ??? nicotine polacrilex (COMMIT) 4 mg Lozenge, Place 1 lozenge inside cheek as needed for Smoking cessation. (Patient not taking: Reported on 08/14/2020), Disp: 100 tablet, Rfl: 0 ?? Allergies: Allergies Allergen Reactions ??? X-Ray Dye [Iodine And Iodide Containing Products] Rash ?? Family History: Father had skin cancer, aunt lung cancer, grandfather some sort of cancer but he is unsure of they type. ?? Social History: Social History ?? Socioeconomic History ??? Marital status: ? Spouse name: Not on file ??? Number of children: Not on file ??? Years of education: Not on file ??? Highest education level: Not on file Occupational History ??? Not on file Tobacco Use ??? Smoking status: Current Every Day Smoker ? Packs/day: 1-2ppd ? Years: 55.00 ? Pack years: 55.00 ? Types: Cigarettes ??? Smokeless tobacco: Never Used ??? Tobacco comment: 5-10 cigarettes per day. he is trying to quit Vaping Use ??? Vaping Use: Never used Substance and Sexual Activity ??? Alcohol use: Yes ? Alcohol/week: 14.0 standard drinks ? Types: 14 Shots of liquor per week ??? Drug use: Not Currently ??? Sexual activity: Not on file Other Topics Concern ??? Not on file Social History Narrative ??? Not on file ?? Social Determinants of Health ?? Financial Resource Strain: ??? Difficulty of Paying Living Expenses: Food Insecurity: ??? Worried About Running Out of Food in the Last Year: ??? Ran Out of Food in the Last Year: Transportation Needs: ??? Lack of Transportation (Medical): ??? Lack of Transportation (Non-Medical): Physical Activity: ??? Days of Exercise per Week: ??? Minutes of Exercise per Session: ? REVIEW OF SYSTEMS: General: Denies fatigue, chills, night sweats. + ~5 lb weight loss Neuro: Denies seizure, TIA, CVA, neurologic deficits including tremor, incoordination, paresthesias,difficulties with memory or speech, sensory or motor disturbances, or muscular coordination. Cardiovascular: Denies arrythmias, CAD, HTN, family history of cardiac disease, CHF. + Hx hyperlipidemia per chart. Respiratory: + COPD, emphysema, cough productive of white sputum. Mild intermittemt wheezing. Deniesasthma, hemoptysis, respiratory infection. GI/: Denies changes in bowel or bladder habits. Denies N/V/D, abdominal pain, changes in appetite. Hematologic: Denies history of DVT, PE, petechiae, bleeding diathesis. Endocrine: Denies diabetes mellitus ?? Physical Exam: There were no vitals taken for this visit. General Appearance: Alert, cooperative, no distress, appears stated age ?? HEENT: PERRL, MMM, non-icteric Neck: Supple, symmetrical, trachea midline, no adenopathy; no tenderness/mass/nodules Lungs: Faint coarse inspiratory sounds diffusely, mild crackles RLL, respirations unlabored, no wheezes Heart: Regular rate and rhythm, S1 and S2 normal, no murmur, rub, or gallop Abdomen: Soft, non-tender, non-distended ?? Extremities: Extremities normal, no cyanosis, mild clubbing. No LE edema ?? Neurologic: A+Ox3, cranial nerves II-XII grossly intact Musculoskeletal: 5/5 throughout with normal gait ? Diagnostics: Imaging has been reviewed, including: ?? CT Chest (07/23/20): PET (07/23/20): 1. ??FDG avid known approximately 1 cm irregular subpleural superior segment right lower lobe pulmonary nodule, highly suspicious for a primary lung malignancy. No regional yariel or distant FDG avid metastases identified. 2. ??CT visualized sub-5 mm right middle lobe nodular opacity, stable dating back to April 2017 CT, which would favor a benign process/scarring. 3. ??UNEXPECTED FINDING: Diffuse increased metabolic activity within the lumen of the ascending colon correlating with intraluminal soft tissue is indeterminate for a possible primary colonic neoplasm versus normal variant bowel activity. ?? Pathology (07/31/20): Right lung, biopsy: - Poorly-differentiated carcinoma with spindle cell (sarcomatoid) features. The morphology and IHC profile performed are not specific for tumor site of origin. 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 Focal associated markedly atypical pneumocytes are also present, which may possibly represent a better differentiated adenocarcinoma component; however, reactive type II pneumocyte atypia cannot be excluded in this small biopsy. ?? PFT (07/23/20): FVC 123% predicted, FEV1 96% predicted, DLCO 72% predicted, DLCO/VA 64% ? Assessment: This is a 70 y.o. male with PET-avid RLL spiculated nodule with biopsy showing carcinomawith high-grade features consistent with NSCLC. There was no FDG uptake in local lymph nodes or elsewhere concerning for metastatic disease, which would classify as [id number] pending surgical pathology for the lesion and nodes. Patient has emphysema but DLCO 72% makes him an appropriate surgical candidate, provided he is able to quit smoking and has a reassuring cardiac stress test. The patient was counseled on treatment options for stage I disease including lung resection versus stereotactic radiation therapy, both options which he would like to think about.? Plan of Management: 1. Pt counseled about surgical option of anatomic lung resection (segmentectomy vs lobectomy) with lymph node biopsies, if able to quit smoking. 2. Continue nicotine replacement, and meeting with smoking cessation today. Is interested in and currently attempting to quit 3. Pt would like to speak with Rad Onc as well; will be referred to Dr. Frank at [facility] 4. Cardiac stress test to further risk stratify for surgery 5. Exercise as tolerated to improve functional status ?? Sandygertrude Adams, MS4 This patient was seen and examined with Attending Physician: Dr. Mary I have seen the patient and reviewed the student's above note and I agree with the details as written. I have personally reviewed the relevant imaging. The assessment and plan were formulated in discussion with me and I agree with them as documented. I have edited the note as appropriate. Please see my note for further details. Jas Mary MD ?? Jas Mary MD - 08/14/2020 10:30 AM EDT Thoracic Surgery Attending Outpatient Consultation Note Jas Mary MD [place] [phone] FAX: Referring Provider: Bill Damon DO [address] [place] [phone] Reason for Consultation: Right lower lobe lung cancer Today, 08/15/2020, I saw Mr. Dickson in the Thoracic Surgery Clinic at [facility] in consultation for a Right lower lobe lung cancer at your request. His history was obtained from the patient. I have also reviewed his medical records and imaging prior to today's visit. As you know, Mr. Dickson is a 70 y.o. male with a newly diagnosed lung cancer. He was found to have a 1.4 cm spiculated nodule on routine screening chest CT. 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 PET CT showed avidity in this nodule without uptake in regional lymph nodes or elsewhere concerning for metastatic disease. (Uptake in the ascending colon non-specific and patient recently had a negative colonoscopy). ?? He is currently trying to quit smoking, down to half a pack per day from 2 ppd previously, but thinks he is allergic to the nicotine patches and the buproprion makes him nauseous. He drinks 3-4 servings of liquor per day, denies marijuana or other drug use. ?? Symptomatically he feels well with no major changes apart from his chronic cough and dyspnea from COPD. He is able to walk up flights of stairs without stopping but does get short of breath around the 4th or 5th stair. He has a productive cough throughout the day and brings up white phlegm without anyblood, including coughing at night. Sometimes he feels a wheeze but it is intermittent and mild. He does not feel that he's lost weight overall but did note that he was down 5-7 pounds from his normal weight today (normal 145), attributing to recent colonoscopy and NPO for various procedures in the past 2 weeks (CT-guided biopsy and colonoscopy). ? He endorses dyspnea on exertion, cough, intermittent wheeze, weight loss. He denies hemoptysis, chest pain, fever, chills, nausea, vomiting, dysphagia.??. I have personally reviewed the following scans and results that are part of the work up, including: Pulmonary function tests on 07/23/20 showed an FVC of 4.38L, 123% of predicted; and FEV1 of 2.62L, 96% predicted; and a DLCO of 72% predicted. CT Chest 06/16/20: spiculated nodule in the right lower lobe which measures approximately 1.4 by 0.7 cm, this non-calcified nodule appearing concerning and not previously present. Emphysema; No lymphadenopathy; +CAD. PET/CT 07/23/20: IMPRESSION 1. FDG avid known approximately 1 cm irregular subpleural superior segment right lower lobe pulmonary nodule, highly suspicious for a primary lung malignancy. No regional yariel or distant FDG avid metastases identified. 2. CT visualized sub-5 mm right middle lobe nodular opacity, stable dating back to April 2017 CT, which would favor a benign process/scarring. 3. UNEXPECTED FINDING: Diffuse increased metabolic activity within the lumen of the ascending colon correlating with intraluminal soft tissue is indeterminate for a possible primary colonic neoplasm versus normal variant bowel activity. Suggest correlation with direct visualization. Colonoscopy 08/07/20 10mm adenoma in the sigmoid; no concerning lesion in the ascending colon His ECOG performance status is 1 - Symptomatic but completely ambulatory REVIEW OF SYSTEMS: General:??Denies fatigue, chills, night sweats. + ~5 lb weight loss Neuro:??Denies seizure, TIA, CVA, neurologic deficits including tremor, incoordination, paresthesias, difficulties with memory or speech, sensory or motor disturbances, or muscular coordination. Cardiovascular:??Denies arrythmias, CAD, HTN, family history of cardiac disease, CHF. + Hx hyperlipidemia per chart. Respiratory:??+ COPD, emphysema, cough productive of white sputum. Mild intermittemt wheezing. Denies asthma, hemoptysis, respiratory infection. GI/:??Denies changes in bowel or bladder habits. Denies N/V/D, abdominal pain, changes in appetite. Hematologic:??Denies history of DVT, PE, petechiae, bleeding diathesis. Endocrine:??Denies diabetes mellitus He has a past medical history of HLD, COPD and tobacco use. He has a past surgical history that includes CT Guided Biopsy Lung (07/31/2020); Colonoscopy, Remv Lesn, Snare ([id number]) (N/A, 08/07/2020); and Colonoscpy, Flex, W/Dir Submuc Inject ([id number]) (N/A, 08/07/2020). He has a current medication list which includes the following prescription(s): finasteride, simvastatin, sildenafil, bupropion sr, nicotine, and nicotine polacrilex. He is allergic to x-ray dye [iodine and iodide containing products]. His family history is significant for skin cancer in his father, a grandfather who had some type of metastatic cancer and an aunt with breast cancer. A review of his social history shows: Social History Tobacco Use ??? Smoking status: Current Every Day Smoker Packs/day: 1.00 Years: 55.00 Pack years: 55.00 Types: Cigarettes ??? Smokeless tobacco: Never Used ??? Tobacco comment: 5-10 cigarettes per day. he is trying to quit Substance Use Topics ??? Alcohol use: Yes Alcohol/week: 14.0 standard drinks Types: 14 Shots of liquor per week Prior 1-2 ppd smoker; currently at 1/2ppd and trying to quit. On examination, Mr. Dickson is a well nourished, well-developed male. He is alert and oriented. Vital Signs: BP 143/89 (Patient Position: Sitting) Pulse 70 Temp 36.5 ??C (97.7 ??F) (Temporal) Resp 17 Wt 62.9 kg (138 lb 9.6 oz) SpO2 98% BMI 23.06 kg/m?? Body mass index is 23.06 kg/m??. Hispulse is regular, breathing is unlabored and temperature is afebrile. In general he is in no acute distress. His pupils are reactive. His sclera are anicteric. He has no palpable cervical or supraclavicular adenopathy. The lung gibbs are coarse to auscultation bilaterally. Heart rate and rhythm are normal, and there is no murmur. The abdomen is soft and nontender. There is no peripheral edema or cyan osis. He does have mild clubbing of the fingers. Pulses are full and equal bilaterally at the wrists. Neurologic examination is grossly intact. Musculoskelatal exam is grossly intact with 5/5 strength.His skin is non-jaundiced. In summary, Mr. Dickson is a 70 y.o. male with a lung nodule/mass. We have discussed the differential diagnosis including primary lung cancer or less likely metastatic cancer to the lung. Today we had a long discussion related to the diagnosis, staging and potential treatments of lung cancer. We discussed that the standard of care treatment for those who can medically undergo surgery isan anatomic lung resection, which for him would be a robotic-assisted superior segmentectomy or lower lobectomy with mediastinal lymph node dissection as indicated by intraoperative findings. He would need a stress test given his age, smoking status and evidence of coronary artery disease on his CT. We also discussed radiation therapy with SBRT as an alternative to surgery in early stage disease. We discussed that complete smoking cessation is necessary for him to be considered an operative candidate. Today we reviewed the risks of anatomic lung resection. He understands the risks of bleeding, damageto surrounding structures, including the laryngeal nerve resulting in hoarseness, the phrenic nerve resulting in diaphragmatic paralysis, possible shortness of breath, the need for oxygen, a benign nodule, cancer recurrence, a prolonged air leak, heart attack, arrhythmia, stroke and . He asked appropriate questions and would like to attempt to quit smoking, schedule the stress test and also meetwith radiation oncology to hear more about this as a potential treatment option. I have placed a referral to Dr. Frank in [facility]. We have asked Mr. Dickson to begin a regular exercise regimen that involves dedicated walking 30-60minutes per day, 6 days per week, or some equivalent form of exercise/activity. We have provided himwith an incentive spirometer and instructed him on its use, asking him to use it several times a day. He will meet with our tobacco cessation specialist today. He will need to be completely smoke free for 2 weeks prior to surgery if he decides to have this as his treatment. His stress test is scheduledfor 08/19/20. I would like him to return to see me in 2 weeks to check on the status of his smoking. If he should have any further questions or concerns, he should feel free to contact us. Jas Mary MD 08/14/20 documented in this encounter Plan of Treatment Upcoming Encounters Date Type Specialty Care Team Description 08/26/2021 Office Visit Radiation Oncology Jeremias Roper MD [facility] RADIATION ONCLINDA [place], [place] 0[address] (Wo rk) Scheduled Referrals Name Type Priority Associated Diagnoses Order S chedule Referral to Outpatient Referral Routine Pre-operative Ordered : Radiation Oncology cardiovascular 021 examination, high risk surgery Adenocarcinoma of lung, right documented as of this encounter Results NM Pharmacologic Stress CT Component (08/19/2020 10:05 AM EDT) Anatomical Region Laterality Modality Nuclear Medicine Specimen (Source) Anatomical Location Collection Method / Collectio n Time Received Time / Laterality Volume Narrative 08/19/2020 2:12 PM EDT EXAMINATION: NM PHARMACOLOGIC STRESS CT COMPONENT CLINICAL HISTORY: Study performed for at tenuation correction of the myocardial perfusion scan. TECHNIQUE: A limited field of view, non- contrast, non-breath hold, low dose CT scan of the region surrounding the myoca rdium was performed for the purpose of attenuation correction of the myocardial perfusion scan. COMPARISON: None INCIDENTAL CT FINDINGS: Coronary and aortic calcification. Pleur al-based nodule in the posterior right lower lobe, better characterized on PET/ CT of 07/23/2020. I have personally reviewed the image(s) and the resident's interpretation and agree with the findings, Trey Lopez at 08/19/2020 2:12 PM Thank you for letting us participate in the care of this patient. ??If you are a health care provider and have any questi ons regarding this report, please contact the number below. ??For patients who have questions please contact the health director of career resources that requested your imaging first. ? Procedure Note Nic Rosales MD - 08/19/2020Formatti ng of this note might be different from the original. EXAMINATION: NM PHARMACOLOGIC STRESS CT COMPONENT CLINICAL HISTORY: Study performed for at tenuation correction of the myocardial perfusion scan. TECHNIQUE: A limited field of view, non- contrast, non-breath hold, low dose CT scan of the region surrounding the myoca rdium was performed for the purpose of attenuation correction of the myocardial perfusion scan. COMPARISON: None INCIDENTAL CT FINDINGS: Coronary and aortic calcification. Pleur al-based nodule in the posterior right lower lobe, better characterized on PET/ CT of 07/23/2020. I have personally reviewed the image(s) and the resident's interpretation and agree with the findings, Trey Lopez at 08/19/2020 2:12 PM Thank you for letting us participate in the care of this patient. If you are a health care provider and have any questi ons regarding this report, please contact the number below. For patients w ho have questions please contact the health director of career resources that requested your imaging first. Jas Mary MD [facility] [place] [place] ORDERABLES Nuclear Pharmacologic Stress Cardiology (08/19/2020 9:45 AM EDT) Specimen (Source) Anatomical Location Collection Method / Collectio n Time Received Time / Laterality Volume Narrative This result has an attachment that is no t available. Jas Mary MD [facility] ORDERABLES NM Pharmacologic Stress and Rest Myocardial Perfusion (08/19/2020 9:45 AM EDT) Anatomical Region Laterality Modality Nuclear Medicine Specimen (Source) Anatomical Location Collection Method / Collectio n Time Received Time / Laterality Volume Impressions 08/19/2020 12:36 PM EDT 1. ??No ischemia or scar. 2. ??Left ventricular function is normal . Preliminary report signed by: Miguel Angel martines at 08/19/2020 12:10 PM I have personally reviewed the image(s) and the resident's interpretation and agree with the findings, Víctor Lewis MD at 08/19/2020 12:36 PM Thank you for letting us participate in the care of this patient. ??If you are a health care provider and have any questi ons regarding this report, please contact the number below. ??For patients who have questions please contact the health director of career resources that requested your imaging first. ? Narrative 08/19/2020 12:36 PM EDT EXAMINATION: NM PHARMACOLOGIC STRESS AND REST MYOCARDIAL PERFUSION CLINICAL HISTORY: Patient with NSCLC, pelaez rgical planning, evidence of cardiac issue on scans Paient with NSCLC, surgical planning TECHNIQUE: During rest, 8.3 mCi of techn etium-99m sestamibi was administered intravenously. Approximately 20 minutes later, SPECT images of the heart were obtained with reconstruction in the shor t, vertical long and horizontal long axis. The patient then received regadenoson in travenously at a dose of 0.4 mg. 20 seconds later, 28.3 mCi of technetium-99 m sestamibi was administered intravenously. Images of the heart were then again obtained with SPECT reconstruction. A low-dose CT scan was acquired for the purpose of attenuation correction COMPARISON: None FINDINGS: No fixed or reversible perfusion defects are present. Functional analysis: Myocardial function: There is normal wal l thickening and wall motion. Left ventricular ejection fraction: 56 % (normal greater than than 50%). INCIDENTAL CT FINDINGS: Incidental findings CT chest performed f rom the purpose of attenuation correction will be reported separately. Procedure Note Víctor Lewis MD - 08/19/2020Formatt ing of this note might be different from the original. EXAMINATION: NM PHARMACOLOGIC STRESS AND REST MYOCARDIAL PERFUSION CLINICAL HISTORY: Patient with NSCLC, pelaez rgical planning, evidence of cardiac issue on scans Paient with NSCLC, surgical planning TECHNIQUE: During rest, 8.3 mCi of techn etium-99m sestamibi was administered intravenously. Approximately 20 minutes later, SPECT images of the heart were obtained with reconstruction in the shor t, vertical long and horizontal long axis. The patient then received regadenoson in travenously at a dose of 0.4 mg. 20 seconds later, 28.3 mCi of technetium-99 m sestamibi was administered intravenously. Images of the heart were then again obtained with SPECT reconstruction. A low-dose CT scan was acquired for the purpose of attenuation correction COMPARISON: None FINDINGS: No fixed or reversible perfusion defects are present. Functional analysis: Myocardial function: There is normal wal l thickening and wall motion. Left ventricular ejection fraction: 56 % (normal greater than than 50%). INCIDENTAL CT FINDINGS: Incidental findings CT chest performed f rom the purpose of attenuation correction will be reported separately. IMPRESSION 1. No ischemia or scar. 2. Left ventricular function is normal. Preliminary report signed by: Miguel Angle martines at 08/19/2020 12:10 PM I have personally reviewed the image(s) and the resident's interpretation and agree with the findings, Víctor Lewis MD at 08/19/2020 12:36 PM Thank you for letting us participate in the care of this patient. If you are a health care provider and have any questi ons regarding this report, please contact the number below. For patients w ho have questions please contact the health director of career resources that requested your imaging first. Jas Mary MD [facility] ORDERABLES documented in this encounter Visit Diagnoses Diagnosis Pre-operative cardiovascular examination , high risk surgery Pre-operative cardiovascular examination Adenocarcinoma of lung, right Tobacco abuse Tobacco use disorder Pre-operative cardiovascular examination , high risk surgery Pre-operative cardiovascular examination Adenocarcinoma of lung, right Pre-operative cardiovascular examination , high risk surgery Pre-operative cardiovascular examination Adenocarcinoma of lung, right documented in this encounter Care Teams Making Department Preparer Relationship Specialty Start Date End Date Bill Damon DO PCP - General Family Medicine 06/27/20 [address] [place] [address] documented as of this encounter
--- OUTSIDE RECORDS SUMMARY | 2021-08-25 00:47 | XMS_ITS | Encounter Summary ---
:1950 Author Organization [facility] Address [facility] [place] [address] Care Team Providers Name Role Phone Bill Damon Primary Care Provider Encounter Details Date Type Department Care Team Description 07/24/2020 Telephone Pulmonology at [facility] Jesica Vásquez [facility] [place] [address] Social History Tobacco Use Types Packs/Day Years Used Date Current Every Day Smoker Cigarettes 1 55 Smokeless Tobacco: Never Used Financial Resource Strain Answer Date Recorded How [...] place to sleep or slept in a intermediate (including now)? Sex Assigned at Date Recorded Not on file documented as of this encounter Plan of Treatment Upcoming Encounters Date Type Specialty Care Team Description 08/26/2021 Office Visit Radiation Oncology Jeremias Roper MD [facility] RADIATION ON[place], [place] [address] (Wo rk) documented as of this encounter Visit Diagnoses Not on filedocumented in this encounter Care Teams Undercover Operator Relationship Specialty Start Date End Date Bill Damon DO PCP - General Family Medicine 06/27/[address] [place] [address] documented as of this encounter
--- OUTSIDE RECORDS SUMMARY | 2021-08-25 00:47 | XMS_ITS | Encounter Summary ---
:1950 Author Organization [facility] [place] [address] Care Team Providers Name Role Phone Bill Damon Nico HENRIQUEZ Primary Care Provider Reason for Visit Diagnostic Test (Routine) - Closed Specialty Diagnoses / Procedures Referred By Contact Refer red To Contact Radiology Diagnoses Pre-operative cardiovascular examination, high risk surgery Adenocarcinoma of lung, right Jas Mary MD [facility] Rad Nuclear Med Procedures NM Pharmacologic Stress and Rest Myocardial Perfusion [facility] [place] [address] [place] [address] Fax: Referral ID Status Reason Start Date Expiration Date Visits V isits Requested Authorized [id number] Closed Specialty 08/14/2020 11/12/2020 1 1 Service Requested Encounter Details Date Type Department Care Team Description 08/19/2020 Hospital Encounter Nuclear Medicine at [facility], Melita Wisdom [place] [address] Thoracic Surgery [phone] [place], [place] [address] (Wo rk) Social History Tobacco [...] place to sleep or slept in a halfway (including now)? Sex Assigned at Date Recorded Not on file documented as of this encounter Medications at Time of Discharge Medication Sig Dispensed Refills Start Date End Date finasteride (Proscar) 5 Take 5 mg by mouth 0 mg Tablet daily. simvastatin (Zocor) 10 5 mg daily. 0 05/28/2020 mg Tablet sildenafiL (VIAGRA) 100 TAKE 1 TABLET BY 0 2020 mg Tablet MOUTH DAILY SEXUAL ACTIVITY NEEDED buPROPion SR (Wellbutrin Take 1 tablet by 183 tablet 0 07/2310/14/2020 SR) 150 mg tablet mouth daily for 3 sustained-release 12 hr days, THEN 1 tablet 2 times daily for 90 days. nicotine (NICODERM CQ) Change 1 patch on 56 patch 3 202010/14/2020 21 mg/24 hr Patch 24 hr the skin daily. nicotine polacrilex Place 1 lozenge 100 tablet 0 07/23/2020 10/14/2020 (COMMIT) 4 mg Lozenge inside cheek as needed for Smoking cessation. documented as of this encounter Plan of Treatment Upcoming Encounters Date Type Specialty Care Team Description 08/26/2021 Office Visit Radiation Oncology Jeremias Roper MD [facility] RADIATION ONCLINDA [place], [place] [address] (Wo rk) documented as of this encounter Procedures Procedure Name Priority Date/Time Associated Diagnosis Comme nts NM PHARMACOLOGIC Routine 08/19/2020 9:45 Pre-operative Results for this STRESS AND REST AM EDT cardiovascular procedure are in MYOCARDIAL PERFUSION examination, high ri sk the results surgery section. Adenocarcinoma of lung, right documented in this encounter Visit Diagnoses Not on filedocumented in this encounter Administered Medications Inactive Administered Medications - up to 3 most recent administrations Medication Order MAR Action Action Date Dose Rate Site regadenoson (Lexiscan) Given 08/19/2020 9:40 AM EDT 0.4 mg Right Arm injection 0.4 mg 0.4 mg, Intravenous, ONCE, 1 dose, On Tue08/19/20 at 1015, Radiology Contrast, Routine technetium (Tc-99m) sestamibi Given 08/19/2020 9:40 AM EDT 28.3 mCi Right Arm injection 0-30 mCi 0-30 mCi, Intravenous, 2 TIMES DAILY PRN, 2 doses, Starting on Tue08/19/20 at 0850, Until Tue08/19/20 at 0940, Per Protocol, Radiology Contrast, Routine Given 08/19/2020 8:45 AM EDT 8.3 mCi Right Arm documented in this encounter Care Teams Rooming House Operator Relationship Specialty Start Date End Date Bill Damon DO PCP - General Family Medicine 06/27/[address] [place] [address] documented as of this encounter
--- OUTSIDE RECORDS SUMMARY | 2021-08-25 00:47 | XMS_ITS | Encounter Summary ---
:1950 Author Organization [facility] Address [address] [place] [address] Care Team Providers Name Role Phone Bill Damon Primary Care Provider Reason for Visit Auth/Cert Specialty Diagnoses / Procedures Referred By Contact Refer red To Contact Diagnoses Nodule of colon Diffuse increased metabolic activity within the lumen of ascent colon correlating with intraluminal soft tissue lesion; no prior screening colonoscopy. Concern for malignancy. Being worked up for FDG av id pulmonary nodule in parallel Procedures PRO COLONOSCOPY, DIAGNOSTIC PRO MOD SED SAME PHYS/QHP INITIAL 15 MINS 5/> YRS COLONOSCOPY, DIAGNOSTIC Referral ID Status Reason Start Date Expiration Date Visits Requ ested Visits Authorized [id number] 1 1 Encounter Details Date Type Department Care Team Description 08/07/[address] [facility] Basil Martin, COLONOSCOPY, [facility] Carmen preston MD [place], [place] [address] [facility] [phone] DR Shukla) GASTROENTEROLOGY [place], [place] [address] Social History Tobacco Use Types [...] Sign Reading Time Taken Comments Blood Pressure 129/76 08/07/2020 2:45 PM EDT Pulse 66 08/07/2020 2:45 PM EDT Temperature 36.8 ??C (98.2 ??F) 08/07/2020 1:15 PM EDT Respiratory Rate 15 08/07/2020 2:45 PM EDT Oxygen Saturation 98% 08/07/2020 2:45 PM EDT Inhaled Oxygen Concentration - - Weight 63.5 kg (140 lb) 08/07/2020 1:15 PM EDT Height 165.1 cm (5' 5) 08/07/2020 1:15 PM EDT Body Mass Index 23.3 08/07/2020 1:15 PM EDT documented in this encounter Discharge Instructions Discharge InstructionsToReba zhou RN - 08/07/2020 3:22 PM EDT Colonoscopy: What to Expect at Home Your Recovery Your doctor will talk to you about when you will need your next colonoscopy. Your doctor can help you decide how often you need to be checked. This will depend on the results of your test and your riskfor colorectal cancer. After the test, you may be bloated or have gas pains. You may need to pass gas. If a biopsy was doneor a polyp was removed, you may have streaks of blood in your stool (feces) for a few days. Problemssuch as heavy rectal bleeding may not occur until several weeks after the test. This isn't common. But it can happen after polyps are removed. This care sheet gives you a general idea about how long it will take for you to recover. But each person recovers at a different pace. Follow the steps below to get better as quickly as possible. How can you care for yourself at home? Activity Rest when you feel tired. ?? You can do your normal activities when it feels okay to do so. Diet ?? Follow your doctor's directions for eating. ?? Unless your doctor has told you not to, drink plenty of fluids. This helps to replace the fluidsthat were lost during the colon prep. ?? Do not drink alcohol. Medicines ?? Your doctor will tell you if and when you can restart your medicines. He or she will also give you instructions about taking any new medicines. ?? If you take blood thinners, such as warfarin (Coumadin), clopidogrel (Plavix), or aspirin, be sure to talk to your doctor. He or she will tell you if and when to start taking those medicines again.Make sure that you understand exactly what your doctor wants you to do. ?? If polyps were removed or a biopsy was done during the test, your doctor may tell you not to take aspirin or other anti-inflammatory medicines for a few days. These include ibuprofen (Advil, Motrin) and naproxen (Aleve). Other instructions ?? For your safety, do not drive or operate machinery until the medicine wears off and you can think clearly. Your doctor may tell you not to drive or operate machinery until the day after your test. ?? Do not sign legal documents or make major decisions until the medicine wears off and you can think clearly. The anesthesia can make it hard for you to fully understand what you are agreeing to. Additional Information for Sedation Patients For patients who received sedation: ?? You may have received medications before and/or during your procedure which effects your judgement and reaction time. ?? Do not drive, operate machinery, drink alcoholic beverages or make important decisions for 24 hours. ?? Be careful on stairs as you may be unsteady on your feet. ?? You may eat a regular diet as tolerated. ?? Do not smoke if you are alone. ?? IV site: Slight redness or tenderness is normal, you can use a warm compress if you would like. If tenderness and/or redness increase or if foul drainage occurs, please contact your Doctor. Please call [phone] before 8pm Mon-Fri with problems, questions or concerns. If you call after 8pm or on weekends, call the Hospital at [phone] and ask to speak to the Equities Analyst lubrication technician and the turner machine operator will contact that person for you. When should you call for help? Call 911 anytime you think you may need emergency care. For example, call if: ?? You passed out (lost consciousness). ?? You pass maroon or bloody stools. ?? You have trouble breathing. Call your doctor now or seek immediate medical care if: ?? You have pain that does not get better after you take pain medicine. ?? You are sick to your stomach or cannot drink fluids. ?? You have new or worse belly pain. ?? You have blood in your stools. ?? You have a fever. ?? You cannot pass stools or gas. Watch closely for changes in your health, and be sure to contact your doctor if you have any problems. Where can you learn more? [facility] View your After Visit Summary and more online at [email or web address] If you would like to provide feedback about your hospital experience, please call the Office of Patient and Family Relations at . If you have received this After Visit Summary in error, please immediately return it in person to the department, or notify the [facility] Privacy Office by calling toll free at between the hours of 8AM and 5PM to arrange for our retrieval of the documents at no cost to you. Content Version: 12.2 ?? [id number] [employer]. Care instructions adapted under license by [facility]. If you have questions about a medical condition or this instruction, always ask your healthcare professional. [employer] disclaims any warranty or liability for your [...] Smoking cessation. documented as of this encounter H&P Notes Basil Martin MD - 08/07/2020 1:32 PM EDT Patient Name: Celestine Dickson Patient Age: 70 y.o. Birthdate: 1950 Admit date: 08/07/2020 Attending Physician: Basil Martin MD Gastroenterology and Hepatology Pre-Procedure History and Physical Exam Procedure: Colonoscopy: Indication: FDG avid lesion in ascending colon; lung cancer, concern for metastasis vs second primary Patient Active Problem List Diagnosis Code ??? HLD (hyperlipidemia) E78.5 ??? Right lower lobe pulmonary nodule R91.1 ??? History of tobacco use Z87.891 EXAM: HEENT: Airway examined, oropharynx clear Mallampati Score: I (soft palate, uvula, fauces, tonsillar pillars visible) LUNGS: Clear to auscultation HEART: Regular rate and rhythm, normal S1, S2 ABDOMEN: Normal bowel sounds, soft, non tender, non distended, A/P Proceed with the planned endoscopic procedure. ASA 2 - Patient with mild systemic disease with no functional limitations Sedation Plan: moderate (conscious sedation) Risks and benefits of the procedure explained to the patient. Consent signed. documented in this encounter Plan of Treatment Upcoming Encounters Date Type Specialty Care Team Description 08/26/2021 Office Visit Radiation Oncology Jeremias Roper MD [facility] ER RADIATION ONCLINDA GY [place], [place] [address] (Wo rk) documented as of this encounter Procedures Procedure Name Priority Date/Time Associated Diagnosis Comme nts SPECIMEN TO Routine 08/07/2020 3:17 PM Results f or this PATHOLOGY EDT procedure are i n the results section. SURGICAL PATHOLOGY Routine 08/07/2020 3:08 PM Res ults for this REPORT EDT procedure are i n the results section. COLONOSCOPY WITH 08/07/2020 2:12 PM Diffuse increased DIRECTED SUBMUCOSAL EDT metabolic activity INJ (WRVU 3.66) within the lumen of ascent colon correlating with intraluminal soft tissue lesion; no prior screening colonoscopy. Concern for malignancy. Being worked up for FDG avid pulmonary nodule in parallel COLONOSCOPY, 08/07/2020 2:12 PM Diffuse increased POLYPECTOMY, REMOVAL EDT metabolic activity LESION BY SNARE within the lumen of (WRVU 4.67) ascent colon correlating with intraluminal soft tissue lesion; no prior screening colonoscopy. Concern for malignancy. Being worked up for FDG avid pulmonary nodule in parallel COLONOSCOPY Routine 08/07/2020 2:08 PM Results f or this EDT procedure are i n the results section. documented in this encounter Results Specimen to Pathology (08/07/2020 3:17 PM EDT) Specimen Anatomical Collection Method Collection Time Receive d Time (Source) Location / / Volume Laterality AP Specimen 08/07/2020 3:17 PM 3:17 EDT PM EDT Narrative [facility] - 08/07/2020 3:17 PM EDT Specimen requisition ordered. ??Separate Pathology report to follow Basil Martin MD PATHOLOGY/CYTOLOGY ORDERABLE S Performing Organization Address City/State/ZIP [place] [address] Surgical Pathology Report (08/07/2020 3:08 PM EDT) Component Value Ref Test Analysis Performed At [facility] gist Range Method Time Signature Surgical [id number] ? Location: 4T; EA06; [facility] Report The signing pathologist has (i) examined the relevant preparation(s) for the [facility] specimen(s) and (ii) rendered or confirmed the diagnosis(es) . HOSPITAL LABORATORY . ?Surgic al Pathology DIAGNOSIS A - Sigmoid polyp, excision: - ??Tubular adenoma. CR-PX Electronically signed by: ?Michelle De Jessu MD Verified: ??08/12/2020 8:38 ?? Pathologist Performed at: ??-[facility] [place]. [place], [place], [place] SPECIMEN(S) SUBMITTED A - Sigmoid polyp 1cm, excision (1) CLINICAL INFORMATION 70-year-old male with FDG avid lesion in ascending colon,? M etastases SPECIMEN PROCESSING A - Labeled/Fixative: Sigmoid colon polyp 1 cm, formalin. Quantity/Size: Single, of 0.9 x 0.5 x 0.4 cm. Tissue Description: Polypoid, doss-pink soft tissue. Sections/Processing: Inked, bisected and entirely submitted in 1 cassette labeled A1. ??pps Specimen (Source) Anatomical Collection Method Collection Time Re ceived Time Location / / Volume Laterality 08/07/2020 3:08 PM EDT Basil Martin MD PATHOLOGY/CYTOLOGY ORDERABLE S Performing Organization Address City/State/ZIP [place] [address] [facility] [address] COLONOSCOPY (08/07/2020 2:08 PM EDT) [facility] gist Method Time Signature COLONOSCOPY [facility] Endoscopy Procedure Date: 08/07/2020 2:08 PM ? Patient Name: Celestineemi Rodríguezelle ? Date of : 1950 ? Age: 70 ? Order #: [id number] ? Instrument Name: [id number],OLYMP TRIAL 492 ? Procedure: ? Colonoscopy Indications: ? FDG avid colon lesion, lung cancer Patient Profile: ? 70 yo M with lung cancer presents for ? colonoscopy to evaluate for F DG-avid ? lesion ascending colon lesion on PET. Providers: ? Felton Gaviria, PAYAM, ? Trae Garcia Referring MD: ?Bill Damon DO, Elliot D. ? Backer, MD Medicines: ? Midazolam 6 mg IV, Fentanyl 250 ? micrograms IV Complications: ? No immediate complications. Procedure: ? Pre-Anesthesia Assessment: ? - Prior to the procedure, a H istory ? and Physical was performed, a nd ? patient medications and aller gies ? were reviewed. The patient is ? competent. The risks and bene fits of ? the procedure and the sedatio n ? options and risks were discus sed with ? the patient. All questions we re ? answered and informed consent was ? obtained. Patient identificat ion and ? proposed procedure were verif ied by ? the physician, the nurse and the ? video game technician in the pre-procedu re area ? in the endoscopy suite. Menta l Status ? Examination: alert and orient ed. ? Airway Examination: normal ? oropharyngeal airway and neck ? mobility. Respiratory Examina tion: ? clear to auscultation. CV ? Examination: normal. Prophyla ctic ? Antibiotics: The patient does not ? require prophylactic antibiot ics. ? Prior Anticoagulants: The pat ient has ? taken no previous anticoagula nt or ? antiplatelet agents. ASA Grad e ? Assessment: II - A patient wi th mild ? systemic disease. After revie wing the ? risks and benefits, the patie nt was ? deemed in satisfactory condit ion to ? undergo the procedure. The an esthesia ? plan was to use moderate colt tion / ? analgesia (conscious sedation ). ? Immediately prior to administ ration ? of medications, the patient w as ? re-assessed for adequacy to r eceive ? sedatives. The heart rate, ? respiratory rate, oxygen satu rations, ? blood pressure, adequacy of p ulmonary ? ventilation, and response to care ? were monitored throughout the ? procedure. The physical statu s of the ? patient was re-assessed after the ? procedure. ? The procedure, indications, b enefits, ? risks and alternatives were e xplained ? to the patient. Specifically ? discussed were potential ? complications including, but not ? limited to, bleeding, perfora tion, ? infection, missing a cancer, and ? adverse medication reactions. The ? patient was placed in the lef t ? lateral decubitus position, a nd a ? digital rectal exam was perfo rmed. ? The Colonoscope was inserted in the ? anus with the intention of ad angela ? to the cecum. The scope was a dvanced ? to the sigmoid colon before t he ? procedure was aborted. Medica tions ? were given. The Endoscope was ? inserted in the and under dir ect ? visualization, advanced to th e cecum, ? identified by appendiceal adriana fice and ? ileocecal valve. Careful insp ection ? was made as the colonoscope w as ? withdrawn. The colonoscopy wa s ? performed without difficulty. The ? patient tolerated the procedu re well. ? The quality of the bowel prep aration ? was adequate. ? Findings: ? Skin tags were found on perianal exam. ? There was significant tortuosity in the sigmoid colon ? which was unable to be traversed with the pediatric ? colonoscope. The upper endoscope was used to advance ? to the cecum. ? A 10 mm polyp was found in the sigmoid colon. The ? polyp was pedunculated on a broad base. The base of ? the polyp was injected with epinephrine (1:10,000, ? 1.5 mL injected) and the polyp was removed with a ? cold snare. Resection and retrieval were complete. ? There was no bleeding following polypectomy. ? Four 3-mm sessile polyps were found in the sigmoid ? colon (x1), descending colon (x1), transverse colon ? (x1) and cecum (x1). These were not resected in the ? setting of a significantly tortuous colon as they are ? unlikely to be source of FDG-avid lesions. ? Innumerable diverticulum in the sigmoid and ? descending colon, small and large; scattered ? diverticulum in the transverse and ascending colon. ? Internal hemorrhoids and hypertrophied anal papillae. ? At completion of the procedure patient was ? comfortable with no abdominal discomfort. ? Moderate Sedation: ? Moderate (conscious) sedation was administered by the ? endoscopy nurse and supervised by the endoscopist. ? The following parameters were monitored: oxygen ? saturation, heart rate, blood pressure, and response ? to care. ? I was present during the intraservice time as ? documented by the sedation RN. Impression: ?- Perianal skin tags found on ? perianal exam. ? - One 10 mm polyp in the sigm oid ? colon, removed with a cold sn are. ? Resected and retrieved. ? - Four diminuitive polyps (3- mm ? diameter) not resected in set ting of ? known pulmonary malignancy an d ? signfiicantly tortuous colon. ? - Significantly tortuous colo n ? requiring upper endoscope to intubate ? the cecum. ? - Bravo-colonic diverticulosis. ? - No masses. Recommendation: ?- Patient has a contact number ? available for emergencies. Th e signs ? and symptoms of potential del ayed ? complications were discussed with the ? patient. Return to normal act ivities ? tomorrow. Written discharge ? instructions were provided to the ? patient. ? - Follow up pathology ? - Continue work-up with oncol odin. ? - If needed, would repeat col onoscopy ? with advanced endoscopist for ? resection of diminuitive colo n polyps. ? Attending Participation: ? I personally performed the entire procedure. ? Basil Martin, 08/07/2020 3:24:27 PM Number of Addenda: 0 Note Initiated On: 08/07/2020 2:08 PM Specimen (Source) Anatomical Collection Method Collection Time Re ceived Time Location / / Volume Laterality 08/07/2020 2:08 PM EDT Bill A Myrter DO GENERAL SURGICAL ORDERABLES Performing Organization Address City/State/ZIP Code Phon e Number [facility] documented in this encounter Visit Diagnoses Not on filedocumented in this encounter Administered Medications Inactive Administered Medications - up to 3 most recent administrations Medication Order MAR Action Action Date Dose Rate Site EPINEPHrine (Adrenalin) Given 08/07/2020 2:44 PM 0.15 mg 20-Other (document (0.1 mg/mL) injection EDT in comment sect ion) ONCE PRN, Starting on Ni 08/07/20 at 1444, Until Ni 08/07/20 at 1826, Intra-Operative (Intra-Procedure) fentaNYL (pf) (50 mcg/mL) multi-dose Given 08/07/2020 2:35 PM ED T 50 mcg injection ONCE PRN, Starting on Ni 08/07/20 at 1416, Until Ni 08/07/20 at 1826, Intra-Operative (Intra-Procedure), Routine Given 08/07/2020 2:26 PM EDT 50 mcg Given 08/07/2020 2:22 PM EDT 50 mcg lactated ringers infusion New Bag 08/07/2020 1:26 PM EDT 100 mL/hr 100 mL/hr 100 mL/hr, Intravenous, CONTINUOUS, Starting on Ni 08/07/20 at 1330, Until Ni 08/07/20 at 1621, Endoscopy (Day of Procedure) midazolam (pf) (Versed) (1 mg/mL) multi-dose Given 08/07/2020 2: 35 PM EDT 1 mg injection ONCE PRN, Starting on Ni 08/07/20 at 1419, Until Ni 08/07/20 at 1826, Intra-Operative (Intra-Procedure), Routine Given 08/07/2020 2:26 PM EDT 1 mg Given 08/07/2020 2:23 PM EDT 1 mg documented in this encounter Active and Recently Administered Medications Times are shown in EDT. Continuous Medication Order 08/05/2020 08/06/2020 08/07/2020 lactated ringers infusion (CANCELED) 1326 (New Bag - Provider: Sunita Benitez RN) 100 mL/hr, at 100 mL/hr, Intravenous, CO NTINUOUS, Starting on Ni 08/07/20 at 1330, Until Ni 08/07/20 at 1621, Endo (Day of Procedure) PRN Medication Order 08/05/2020 08/06/2020 08/07/2020 EPINEPHrine (Adrenalin) (0.1 mg/mL) injection (CANCELED) 1444 (Given - Provider: Basil Martin MD - Comment: sigmoid colon polyp) ONCE PRN, Starting on Ni 08/07/20 at 1444 , Until Ni 08/07/20 at 1826, Intra- Operative (Intra-Procedure) fentaNYL (pf) (50 mcg/mL) multi-dose injection (CANCELED) 1416 (Given - Provider: Felton Nayak RN)1419 (Given - Provider: Felton Nayak RN)1422 (Given - Provider: Felton Nayak RN)1426 (Given - Provider: Felton Nayak RN)1435 (Given - Provider: Basil Martin MD) ONCE PRN, Starting on Ni 08/07/20 at 1416 , Until Ni 08/07/20 at 1826, Intra- Operative (Intra-Procedure), Routine midazolam (pf) (Versed) (1 mg/mL) multi-dose injection (CANCELED ) 1416 (Given - Provider: Felton Nayak RN)1419 (Given - Provider: Felton Nayak RN)1423 (Given - Provider: Felton Nayak RN)1426 (Given - Provider: Felton Nyaak RN)1435 (Given - Provider: Basil Martin MD) ONCE PRN, Starting on Ni 08/07/20 at 1419 , Until Ni 08/07/20 at 1826, Intra- Operative (Intra-Procedure), Routine documented in this encounter Care Teams Retirement Village Manager Relationship Specialty Start Date End Date Bill Damon DO PCP - General Family Medicine 06/27/20 [address] [place] [address] documented as of this encounter
--- OUTSIDE RECORDS SUMMARY | 2021-08-25 00:47 | XMS_ITS | Encounter Summary ---
:1950 Author Organization [facility] [place] [address] Care Team Providers Name Role Phone NelsonBill DO Primary Care Provider Reason for Referral Diagnostic Test (Routine) - Closed Specialty Diagnoses / Procedures Referred By Contact Refer red To Contact Radiology Diagnoses Pulmonary nodule, right Backer, Robert Morales MD [facility] Rad Nuclear Med Procedures NM PET CT Skull [place] [address] [place] [address] Referral ID Status Reason Start Date Expiration Date Visits V isits Requested Authorized [id number] Closed Specialty 07/09/2020 10/07/2020 1 1 Service Requested Reason for Visit Diagnostic Test (Routine) - Closed Specialty Diagnoses / Procedures Referred By Contact Refer red To Contact Radiology Diagnoses Pulmonary nodule, right Backer, Robert Morales MD [facility] Rad Nuclear Med Procedures NM PET CT Skull Base to Mid-thigh [facility] [place] [address] [place] [address] Referral ID Status Reason Start Date Expiration Date Visits V isits Requested Authorized [id number] Closed Specialty 07/09/2020 10/07/2020 1 1 Service Requested Encounter Details Date Type Department Care Team Description 07/23/2020 Hospital Encounter Nuclear Medicine at [facility], Robert Pulmonary nodule, Melita Morales MD [facility] [address] [place]UL[place] [address] MEDICINE [phone] [place] [address] Social History Tobacco Use Types Packs/Day Years [...] place to sleep or slept in a senior living (including now)? Sex Assigned at Date Recorded Not on file documented as of this encounter Medications at Time of Discharge Medication Sig Dispensed Refills Start Date End Date simvastatin (Zocor) 10 mg 5 mg daily. 0 1 Tablet sildenafiL (VIAGRA) 100 TAKE 1 TABLET BY MOUTH 0 06/24/2020 mg Tablet DAILY SEXUAL ACTIVITY NEEDED documented as of this encounter Plan of Treatment Upcoming Encounters Date Type Specialty Care Team Description 08/26/2021 Office Visit Radiation Oncology Jeremias Roper MD [facility] RADIATION ONCLINDA [place], [place] [address] (Wo rk) documented as of this encounter Procedures Procedure Name Priority Date/Time Associated Diagnosis Comme nts NM PET CT SKULL Routine 07/23/2020 10:00 AM Pulmonary nodule, Results for this BASE TO MID-THIGH EDT right procedure are in ([facility]) the results section. documented in this encounter Results (ABNORMAL) NM PET CT Skull Base to Mid-thigh (07/23/2020 10:00 AM EDT) Anatomical Region Laterality Modality Positron Emission To mography (PET) Specimen (Source) Anatomical Location Collection Method / Collectio n Time Received Time / Laterality Volume Impressions 07/23/2020 11:33 AM EDT 1. ??FDG avid known approximately 1 cm irregular subpleural superior segment right lower lobe pulmonary nodule, highl y suspicious for a primary lung malignancy. No regional yariel or distant FDG avid metastases identified. 2. ??CT visualized sub-5 mm right middle lobe nodular opacity, stable dating back to April 2017 CT, which would favor a be nign process/scarring. 3. ??UNEXPECTED FINDING: Diffuse increas ed metabolic activity within the lumen of the ascending colon correlating with int raluminal soft tissue is indeterminate for a possible primary colonic neoplasm versus normal variant bowel activity. Suggest correlation with direct visualiz ation. I have personally reviewed the image(s) and the resident's interpretation and agree with the findings, Tory Wheat MD at 07/23/2020 11:33 AM Thank you for letting us participate in the care of this patient. ??If you are a health care provider and have any questi ons regarding this report, please contact the number below. ??For patients who have questions please contact the health health care liaison that requested your imaging first. ? Electronically signed by: Tory Wheat MD, [facility] ([phone]), at 07/23/2020 11:33 AM Narrative 07/23/2020 11:33 AM EDT EXAMINATION: NM PET CT SKULL BASE TO MID-THIGH CLINICAL HISTORY: New spiculated RLL nod ule in a high risk patient TECHNIQUE: Following IV injection of 18- sibtpu-9-gsgcpmuxzxeq (FDG) a standard uptake of approximately 60 minutes, a no ncontrast CT scan followed by a PET scan were acquired from the base of the skull to mid thighs. The noncontrast CT was used for anatomic localization and photo n attenuation correction of the PET scan. No oral contrast was administered. Blood glucose level: 109 mg/dL FDG dose: 9.7 mCi Reference liver mean SUV: 2 COMPARISON: Outside institution chest CT 06/16/2010 FINDINGS: HEAD/NECK: Normal activity in all soft tissue regio ns of the neck and visualized lower head. Incidental CT visualized moderate calcification of the imaged left vertebral artery. CHEST: FDG avid known irregular subpleural pulm onary nodule in the posterior superior segment of the right lower lobe (axial i mage 81) measuring approximately 10 mm with SUV max of 7, largely similar in si ze compared to the breath-hold 06/16/2020 CT allowing for differences in technique . Normal activity in all other soft tissue regions. ??Stable CT visualized 4 mm pleural-based nodular opacity in the lat eral right middle lobe (axial image 103), unchanged dating back to 04/12/[address] visualized prominent but nonenlarged mediastinal an d bilateral axillary lymph nodes with metabolic activity less than reference m ediastinal blood pool. Severe bilateral paraseptal emphysematous change in an ap ical to basal gradient, as seen previously. Multivessel coronary artery calcification, scattered calcifications of the thoracic aorta redemonstrated. ABDOMEN/PELVIS: Diffuse increased metabolic activity wit hin the lumen of the ascending colon correlating with intraluminal soft tissu e density on CT. Normal activity in all other soft tissue regions. CT visualized sigmoid diverticulosis without inflammatory lutz ge to suggest acute diverticulitis. Aortoiliac vascular calcifications. SKELETON/EXTREMITIES: Normal marrow activity in all regions of the axial and visualized appendicular skeleton. 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 Bilateral, right greater than left, glenohumeral joint osteoarthropath y. Resulting Agency Comment Unexpected Finding Robert Garcia MD IMG PET ORDERABLES documented in this encounter Visit Diagnoses Diagnosis Pulmonary nodule, right Solitary pulmonary nodule documented in this encounter Administered Medications Inactive Administered Medications - up to 3 most recent administrations Medication Order MAR Action Action Date Dose Rate Site fludeoxyglucose (F-18) FDG Given 07/23/2020 8:50 AM 9.7 mCi Left Arm injection 0-20 mCi EDT 0-20 mCi, Intravenous, ONCE PRN, 1 dose, Starting on Tue07/23/20 at 0852, Until Tue07/23/20 at 0850, Per Protocol, Radiology Contrast, Routine documented in this encounter Care Teams Nicu Rn Relationship Specialty Start Date End Date Bill Damon DO PCP - General Family Medicine 06/27/[address] [place] [address] documented as of this encounter
--- OUTSIDE RECORDS SUMMARY | 2021-08-25 00:47 | XMS_ITS | Encounter Summary ---
:1950 Author Organization [facility] Address [address] [place] [address] Care Team Providers Name Role Phone Bill Damon Nico HENRIQUEZ Primary Care Provider Encounter Details Date Type Department Care Team Description 09/08/2020 Telephone Radiation Oncology at SheliaPilar olvera , RN [address] [phone] Social History Tobacco Use Types Packs/Day Years [...] this encounter Miscellaneous Notes Telephone Encounter - Pilar Menon RN - 09/08/2020 11:40 AM EDT Message left on identifiable voicemail inquiring if patient would like nicotine inhaler sent to his pharmacy along with contact information and request for call back with response and pharmacy to send it to should he like to do so. Telephone Encounter - Pilar Menon RN - 09/08/2020 11:38 AM EDT ----- Message from Villa Roper MD sent at 09/05/2020 11:06 AM EDT ----- Please call him and ask him if he would like us to send a nicotine inhaler to his pharmacy to assistwith smoking cessation. Thanks. -Jeremias ----- Message ----- From: Leyda Calderon Sent: 09/03/2020 3:29 PM EDT To: Villa Roper MD You should be able to send an rx to his pharmacy. It is called the Nicotrol inhalation system or nicotine inhaler. ----- Message ----- From: Villa Roper MD Sent: 09/03/2020 1:04 PM EDT To: Jas Mary MD, Leyda Crabtree. He was interested in a nicotine inhaler, as he is not tolerating other nicotine administration devices. Do you know how he would best obtain this? Thanks. -Jeremias documented in this encounter Plan of Treatment Upcoming Encounters Date Type Specialty Care Team Description 08/26/2021 Office Visit Radiation Oncology Jeremias Roper MD [facility] RADIATION ONCLINDA [place], [place] [address] (Wo rk) documented as of this encounter Visit Diagnoses Not on filedocumented in this encounter Care Teams Camera Technician Relationship Specialty Start Date End Date Bill Damon, PCP - General Family Medicine 06/27/[address] [place] [address] documented as of this encounter
--- OUTSIDE RECORDS SUMMARY | 2021-08-25 00:47 | XMS_ITS | Encounter Summary ---
:1950 Author Organization [facility] [place] [address] Care Team Providers Name Role Phone Bill Damon Primary Care Provider Reason for Visit Diagnostic Test (Routine) - Closed Specialty Diagnoses / Procedures Referred By Contact Refer red To Contact Radiology Diagnoses Malignant neoplasm of lower lobe, right bronchus or lung Villa Roper MD [facility] Rad Mri Procedures MR Rad Onc Chest Interp Only [facility] [place] [address] [place] [address] Referral ID Status Reason Start Date Expiration Date Visits V isits Requested Authorized [id number] Closed Specialty 09/22/2020 03/25/2022 1 1 Service Requested Encounter Details Date Type Department Care Team Description 09/22/2020 Ancillary Procedure Radiation Oncology Villa Roper Malignant neoplasm at Melita Rizzo MD of lower lobe, right [facility] bronchus or lung [facility] [address] RADIATION [place] ONCOLOGY [address] [place], [place] [phone] [facility] Social History Tobacco Use Types Packs/Day Years [...] Radiation Oncology Jeremias Roper MD [facility] [place], [place] [address] (Wo rk) documented as of this encounter Procedures Procedure Name Priority Date/Time Associated Diagnosis Comme nts MR RAD ONC CHEST Routine 09/22/2020 5:53 PM Malignant neoplasm Results for this INTERP ONLY EDT of lower lobe, right procedu re are in bronchus or lung the results section. documented in this encounter Results MR Rad Onc Chest Interp Only (09/22/2020 5:53 PM EDT) Anatomical Region Laterality Modality Chest Magnetic Resonance Specimen (Source) Anatomical Location Collection Method / Collectio n Time Received Time / Laterality Volume Impressions 09/23/2020 12:40 PM EDT Axial MRI images of the chest were obtained for radiation planning. Thank you for letting us participate in the care of this patient. ??If you are a health care provider and have any questi ons regarding this report, please contact the number below. ??For patients who have questions please contact the health complex care nurse that requested your imaging first. ? 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 SBRT TECHNIQUE: Limited T2-weighted axial images of the chest for procedural guidance. COMPARISON: Radiation planning CT 09/22/2020. FINDINGS: Known 1.5 cm pulmonary malignancy in the posterior aspect of the right lower lobe. On series 2 and 3 a linear artifact is s een with focally increased signal intensity in the right upper lobe. There are 3 superficial markers vertically along the mid right anterior chest skin level. 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 SBRT TECHNIQUE: Limited T2-weighted axial images of the chest for procedural guidance. COMPARISON: Radiation planning CT 09/22/2020. FINDINGS: Known 1.5 cm pulmonary malignancy in the posterior aspect of the right lower lobe. On series 2 and 3 a linear artifact is s een with focally increased signal intensity in the right upper lobe. There are 3 superficial markers vertically along the mid right anterior chest skin level. IMPRESSION Axial MRI images of the chest were obtai gabrielle for radiation planning. Thank you for letting us participate in the care of this patient. If you are a health care provider and have any questi ons regarding this report, please contact the number below. For patients w ho have questions please contact the health complex care nurse that requested your imaging first. Electronically signed by: Lay Heart MD, [facility] ([phone]), at 09/23/2020 12:40 PM Villa Roper MD IMG MRI ORDERABLES documented in this encounter Visit Diagnoses Diagnosis Malignant neoplasm of lower lobe, right bronchus or lung documented in this encounter Care Teams Pediatric Dental Hygienist Relationship Specialty Start Date End Date Bill Damon DO PCP - General Family Medicine 06/27/[address] [place] [address] documented as of this encounter
--- OUTSIDE RECORDS SUMMARY | 2021-08-25 00:47 | XMS_ITS | Encounter Summary ---
:1950 Author Organization [facility] [place] [address] Care Team Providers Name Role Phone Bill Damon Primary Care Provider Reason for Visit Consultation (Routine) - Specialty Diagnoses / Procedures Referred By Contact Refer red To Contact Radiation Oncology Diagnoses Non-small cell cancer of right lung Villa Roper MD [facility] Rad Onc Office Procedures Simulation for Radiation Therapy Planning [facility] [address] [place] [address] RADIATION ONCOLOGY [place] [phone] Fax: Referral ID Status Reason Start Date Expiration Date Visits V isits Requested Authorized [id number] Consult, 09/17/2020 12/16/2020 5 5 Test & Treat Encounter Details Date Type Department Care Team Description 09/17/2020 Ancillary Appointment Radiation Oncology at [facility] [place] MD [address] [place] [phone] RADIATION ONCOLOGY [phone] [place], [place] [address] Social History Tobacco Use Types [...] place to sleep or slept in a fdc (including now)? Sex Assigned at Date Recorded Not on file documented as of this encounter Progress Notes Villa Roper MD - 09/17/2020 8:30 AM EDT Celestine Dickson was simulated in anticipation of radiotherapy for non small cell lung cancer. The consent was reviewed with the physician and signed by both the patient and physician. The patient was then brought to the simulation room and a time-out was performed per protocol. The pt was immobilizedvia a vacuum bag, with arms overhead. The gating box was placed and the breathing pattern was evaluated by the physician. A 4D CT scan was performed, and tattoos were created by the therapy staff as indicated. The patient tolerated the procedure without difficulty, and he was given a start time to return to start radiotherapy. documented in this encounter Plan of Treatment Upcoming Encounters Date Type Specialty Care Team Description 08/26/2021 Office Visit Radiation Oncology Jeremias Roper MD [facility] RADIATION ONCLINDA [place], [place] [address] (Wo rk) Scheduled Orders Name Type Priority Associated Diagnoses Order S chedule Simulation for Procedures Routine Non-small cell cancer Orde red: 09/10/2020 Radiation Therapy of right lung Planning documented as of this encounter Visit Diagnoses Not on filedocumented in this encounter Care Teams Database Security Administrator Relationship Specialty Start Date End Date Myrter, Bill A, DO PCP - General Family Medicine 06/27/[address] [place] [address] documented as of this encounter
--- OUTSIDE RECORDS SUMMARY | 2021-08-25 00:47 | XMS_ITS | Encounter Summary ---
:1950 Author Organization [facility] [place] [address] Care Team Providers Name Role Phone Bill Damon Nico HENRIQUEZ Primary Care Provider Encounter Details Date Type Department Care Team Description 07/31/2020 Laboratory Appointment Lab 3L Ignacio Wisdom Right lower lobe pulmonary nodule; [facility] [place] [phone] Social History Tobacco Use Types Packs/Day Years Used Date Current Every Day Smoker Cigarettes 1 55 Smokeless Tobacco: Never Used Alcohol Use Standard Drinks/Week Comments Not Currently 0 (1 standard drink = 0.6 oz pure alcoho l) Financial Resource Strain Answer Date Recorded How [...] place to sleep or slept in a residential (including now)? Sex Assigned at Date Recorded Not on file documented as of this encounter Plan of Treatment Upcoming Encounters Date Type Specialty Care Team Description 08/26/2021 Office Visit Radiation Oncology Jeremias Roper MD [facility] [place] [address] (Wo rk) documented as of this encounter Procedures Procedure Name Priority Date/Time Associated Diagnosis Comme nts HC VENIPUNCTURE STAT 07/31/2020 7:32 AM Right lower lobe Re sults for this EDT pulmonary nodule procedure are in Pre-op testing the results section. HC PLATELET COUNT STAT 07/31/2020 7:32 AM Right lower lobe Results for this EDT pulmonary nodule procedure are in Pre-op testing the results section. documented in this encounter Results Platelet count (07/31/2020 7:32 AM EDT) athologist Signature Platelets 233 145 - 357 IGNACIO SAPPHIRE x10(3)/[facility] LABORATORY Plat Immature 1.1 0.0 - 7.4 APX % % [facility] LABORATORY Comment: Limitation of the Immature Platelet Frac tion (IPF)-May be less reliable when the platelet count is less than 07p430/u L due to statistical imprecision. The IPF value provides an assessment of the Bone Marrow production status. ??It is useful in differentiating Thrombocyto penia caused by platelet destruction/consumption versus decreased production. It also helps to determine the imminent release of platelets and ca n be therefore a helpful parameter in Chemotherapy and Bone marrow transplant patients. ELEVATED IPF value: ?? When the bone marrow is in a state of over production such as when increased destruction and consumption are the unde rlying issue. ?? When the marrow is recovering post ch emotherapy or bone marrow transplant. LOW to NORMAL IPF value: ?? When the bone marrow in not respondin g and is in a decreased state of production. References: [employer] The Clinical Value of the Immature Platelet Fraction (IPF) in Cell Recovery Document Number [id number] 07/2010 [employer] The Role of the Imm ature Platelet Fraction (IPF) in the Differential Diagnosis of Thrombocytopen ia, Document [id number] V05/01/20 P05/14 Specimen Anatomical Collection Method Collection Time Receive d Time (Source) Location / / Volume Laterality Blood 07/31/2020 7:32 AM 1 7:39 EDT AM EDT Resulting Agency Comment Spec In Lab Robert Garcia MD HEMATOLOGY ORDERABLES Performing Organization Address City/[facility]/[place] [address] Prothrombin Time (07/31/2020 7:32 AM EDT) P athologist Signature PT 11.2 9.4 - 12.5 [facility] LABORATORY INR 1.0 [facility] LABORATORY Comment: An INR <2.0 indicates adequate procoagul ant activity for hemostasis in most patients without underlying bleeding dis orders, though the INR may not adequately reflect hemostatic capacity i n patients with liver disease and synthetic impairment. The recommended ta rget INR range for therapeutic anticoagulation is 2.0 ? 3.0 for most applications, though lower and higher ranges may be appropriate depending on c linical circumstances. Specimen Anatomical Collection Method Collection Time Receive d Time (Source) Location / / Volume Laterality Blood 07/31/2020 7:32 AM 1 7:39 EDT AM EDT Resulting Agency Comment Spec In Lab Robert Garcia MD HEMATOLOGY ORDERABLES Performing Organization Address City/[facility]/[place] [address] documented in this encounter Visit Diagnoses Diagnosis Right lower lobe pulmonary nodule Pre-op testing Preoperative examination, unspecified documented in this encounter Care Teams Eclectic Doctor Relationship Specialty Start Date End Date Bill Damon DO PCP - General Family Medicine 06/27/[address] [place] [address] documented as of this encounter
--- OUTSIDE RECORDS SUMMARY | 2021-08-25 00:47 | XMS_ITS | Encounter Summary ---
:1950 Author Organization [facility] Address [facility] [place] [address] Care Team Providers Name Role Phone Bill Damon Primary Care Provider Encounter Details Date Type Department Care Team Description 10/09/2020 Notes Only Tobacco Treatment at [facility] Leyda Calderon [facility] [place] [phone] Social History Tobacco Use Types Packs/Day [...] place to sleep or slept in a fpc (including now)? Sex Assigned at Date Recorded Not on file documented as of this encounter Progress Notes Leyda Calderon - 10/09/2020 2:54 PM EDT ..Tobacco Treatment Program Consultation LUCIANO Ptael (Kate) [place], [place] [address] FAX: HPI: Celestine Dickson is a 70 y.o. male who is being seen today for tobacco cessation follow up. CO Monitor Reading First Visit 10 Subsequent visit 14 Barriers- Tried Wellbutrin and it made him jumpy Successes: has tried the nicotine inhaler. Using NRT or medication?He has been using the nicotine inhaler at about 1 per day. He thought because it burned his throat that he should not use it much. I encouraged him to use the inhaler liberally. I reminded him that his body was in need of nicotine and not tobacco, so he should be using the nicotine inhaler instead of smoking. I also reminded him that he can use the nicotine patch with the nicotine inhaler if he finds it helpful. Mr. Dickson stated he is going to give it a try. We will touch base again in one week to monitor his progress with increasing the use of the nicotine inhaler. I also recommended that he practice cutting down as he moves toward becoming totally abstinent. Leyda Calderon 10/09/20 Tobacco Treatment Program [facility] documented in this encounter Plan of Treatment Upcoming Encounters Date Type Specialty Care Team Description 08/26/2021 Office Visit Radiation Oncology Jeremias Roper MD [facility] RADIATION ONCLINDA [place], [place] [address] (Wo rk) documented as of this encounter Visit Diagnoses Not on filedocumented in this encounter Care Teams Derrick Man Relationship Specialty Start Date End Date Bill Damon DO PCP - General Family Medicine 06/27/[address] [place] [address] documented as of this encounter
--- OUTSIDE RECORDS SUMMARY | 2021-08-25 00:47 | XMS_ITS | Encounter Summary ---
:1950 Author Organization [facility] Address [facility] [address] [place] [address] Care Team Providers Name Role Phone Bill Damon Primary Care Provider Encounter Details Date Type Department Care Team Description 08/05/2020 Telephone Pulmonology at [facility] Robert Garcia MD [facility] [place] [phone] PULMONARY MEDICINE [phone] [place], [place] [address] (Wo rk) Social History Tobacco [...] place to sleep or slept in a skilled nursing (including now)? Sex Assigned at Date Recorded Not on file documented as of this encounter Miscellaneous Notes Telephone Encounter - Robert Garcia MD - 08/05/2020 12:39 PM EDT Interventional Pulmonology Telephone Encounter: I received a call from Mr. Celestine Dickson at home on 08/05/2020, 12:39 PM. Discussed results of hisTTBx demonstrating carcinoma. Discussed his upcoming colonoscopy on and plans for discussion at CTOP next Tuesday. We discussed possibilities of having two primary malignancies (colon plus lung) versus metastatic colon cancer (if colon cancer identified on and biopsies show same histology as lung process) versus an early stage lung cancer plus no malignancy in the colon. I will callhim next Tuesday following CTOP at which time we'll also have information from 's colonoscopy. Mr. Celestine Dickson was provided ample time to ask questions which were answered to his liking. Robert Garcia MD, 08/05/2020, 12:39 PM Interventional Pulmonology Section of Pulmonary & Critical Care Pager: [phone] documented in this encounter Plan of Treatment Upcoming Encounters Date Type Specialty Care Team Description 08/26/2021 Office Visit Radiation Oncology Jeremias Roper MD [facility] RADIATION ONCL[place]DA [place], [place] [address] (Wo rk) documented as of this encounter Visit Diagnoses Not on filedocumented in this encounter Care Teams Garbage Man Relationship Specialty Start Date End Date Bill Damon DO PCP - General Family Medicine 06/27/[address] [place] [address] documented as of this encounter
--- OUTSIDE RECORDS SUMMARY | 2021-08-25 00:47 | XMS_ITS | Encounter Summary ---
:1950 Author Organization [facility] [address] Care Team Providers Name Role Phone Bill Damon Nico HENRIQUEZ Primary Care Provider Encounter Details Date Type Department Care Team Description 07/24/2020 Telephone Gastroenterology at [facility] [place] [address] Social History Tobacco Use Types Packs/Day Years [...] this encounter Miscellaneous Notes Telephone Encounter - Jolie Hudson - 07/24/2020 11:53 AM EDT Celestine Dickson [id number] Diagnosis/Indication: Diffuse increased metabolic activity within the lumen of ascent colon correlating with intraluminal soft tissue lesion; no prior screening colonoscopy. Concern for malignancy. Being worked up for FDG avid pulmonary nodule in parallel 1. Have you ever had a/an Colonoscopy before? No If yes, did you have any problems with the procedure? No What type of sedation was used: None 2. Do you take any blood thinners or have you been diagnosed with a bleeding disorder that increasesyour risk of bleeding with procedures? No 3. Do you have a Pacemaker or Defibrillator device? No 4. Are you a diabetic? No 5. Do you have any Allergies to Eggs, Latex or Medications? Yes: see edh 6. Do you take any Oral Iron Supplements (Including multi-vitamins)? No 7. Do you have a history of three or more abdominal surgeries? No 8. Have you had a problem with sedation or anesthesia? No 9. Do you use a c-pap machine or oxygen tank? Neither 10. Do you take prescription narcotic pain medications, including suboxone or methodone? No 11. Do you have a preference regarding the gender of your provider? No Preference 12. Is there any other information you would like to us to note for the provider and nursing team who will perform your case? No 13. Say to patient: You must have a responsible libertarian who will drive you to your procedure, stay on campus for the entire duration of your procedure, and drive you home from your procedure? *Please Verify the height and weight, and adjust if height and/or weight have changed* There is no height or weight on file to calculate BMI. *Delete if not needed* Height: 5'5 Weight: 145 BMI: Age:70 y.o. documented in this encounter Plan of Treatment Upcoming Encounters Date Type Specialty Care Team Description 08/26/2021 Office Visit Radiation Oncology Jeremias Roper MD [facility] RADIATION [place], [place] [address] (Wo rk) documented as of this encounter Visit Diagnoses Not on filedocumented in this encounter Care Teams Project Officer Relationship Specialty Start Date End Date Bill Damon DO PCP - General Family Medicine 06/27/20 Matteo KLEIN [facility] [place] [address] documented as of this encounter
--- OUTSIDE RECORDS SUMMARY | 2021-08-25 00:47 | XMS_ITS | Encounter Summary ---
:1950 Author Organization [facility] Address [facility] [place] [address] Care Team Providers Name Role Phone Bill Damon Primary Care Provider Encounter Details Date Type Department Care Team Description 07/23/2020 Telephone Pulmonology at [facility] Robert Garcia MD [facility] [place] [phone] PULMONARY MEDICINE [phone] [place], [place] [address] (Wo rk) Social History Tobacco [...] place to sleep or slept in a correction (including now)? Sex Assigned at Date Recorded Not on file documented as of this encounter Miscellaneous Notes Telephone Encounter - Robert Garcia MD - 07/23/2020 5:06 PM EDT Interventional Pulmonology Telephone Encounter: I called Mr. Celestine Dickson at home on 07/23/2020, 5:06 PM. Discussed final plan to proceed with CTguided transthoracic biopsy now that I've spoken to our radiologists. Also discussed the unexpected finding on his PET/CT involving his ascending colon and the plan to move forward with diagnostic colonoscopy which he was agreeable to (ordered). Mr. Celestine Dickson was provided ample time to ask questions which were answered to his liking. Robert Garcia MD, 07/23/2020, 5:06 PM Interventional Pulmonology Section of Pulmonary & Critical Care Pager: [phone] documented in this encounter Plan of Treatment Upcoming Encounters Date Type Specialty Care Team Description 08/26/2021 Office Visit Radiation Oncology Jeremias Roper MD [facility] RADIATION ONCL[place], [place] [address] (Wo rk) documented as of this encounter Visit Diagnoses Not on filedocumented in this encounter Care Teams Sap Technical Developer Relationship Specialty Start Date End Date Bill Damon DO PCP - General Family Medicine 06/27/[address] [place] [address] documented as of this encounter
--- OUTSIDE RECORDS SUMMARY | 2021-08-25 00:47 | XMS_ITS | Encounter Summary ---
:1950 Author Organization [facility] [place] [address] Care Team Providers Name Role Phone NelsonBill DO Primary Care Provider Reason for Visit Consultation (Routine) - Closed Specialty Diagnoses / Procedures Referred By Contact Refer red To Contact Radiation Oncology Diagnoses Pre-operative cardiovascular examination, high risk surgery Adenocarcinoma of lung, right [facility] Rad Onc Treatment [address] [place] Thoracic Surgery [address] [place] [address] Referral ID Status Reason Start Date Expiration Date Visits V isits Requested Authorized [id number] Closed Consult, 08/14/2020 08/14/2021 1 1 Test & Treat Encounter Details Date Type Department Care Team Description 09/03/2020 Office Visit Radiation Oncology at [facility], Non-small cell cancer [facility]SEAU of right lung [address] [place] [phone] RADIATION ONCOLOGY [phone] [place], [place] [address] Social History Tobacco Use Types Packs/Day Years [...] Sign Reading Time Taken Comments Blood Pressure 132/78 09/03/2020 10:05 AM EDT Pulse 72 09/03/2020 10:05 AM EDT Temperature 36.6 ??C (97.9 ??F) 09/03/2020 10:05 AM EDT Respiratory Rate - - Oxygen Saturation 98% 09/03/2020 10:05 AM EDT Inhaled Oxygen Concentration - - Weight 63.4 kg (139 lb 12.8 oz) 09/03/2020 10:05 AM wit h shoes EDT Height - - Body Mass Index 23.26 08/07/2020 1:15 PM EDT documented in this encounter Progress Notes [facility] MD - 09/03/2020 10:00 AM EDT Images from the original note were not included. Radiation Oncology New Patient Visit PATIENT NAME: Celestine Dickson DATE OF : 1950 HISTORY OF PRESENT ILLNESS Celestine Dickson is a 70 y.o. 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 He was referred to Dr. Garcia, who he saw on 07/23/20. At that time the patient indicated a desire to quit smoking, and smoking cessation was initiated. A PET-CT on the same day revealed no evidence of mediastinal disease, and FDG avidity of the concerning nodule. Non-specific FDG avidity of the colon was evaluated via colonoscopy and was benign. A CT guided biopsy was performed on 07/31/20, and revealed a poorly differentiated carcinoma. He was presented at [facility] on 08/12/20, and surgical resection with MLND wasrecommended as primary therapy, contingent on quitting smoking. He now presents to discuss radiotherapy as an alternative to surgery. Staging & Therapy CT Chest (screening, no contrast) 06/16/20: Advanced emphysematous changes. A new right lower lobe spiculated nodule at 1.4 is evident. No adenopathy evident, exam limited by absence of contrast. PET-CT 07/23/20: 1. FDG avid known approximately 1 cm [...] bowel activity. Suggest correlation with direct visualization. 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 Discussion: The morphology and IHC profile performed are not specific for tumor site of origin. 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 Focal associated markedly atypical pneumocytes are also present, which may possibly represent a better differentiated adenocarcinoma component; however, reactive type II pneumocyte atypia cannot be excluded in this small biopsy. PFTs 07/23/20: FVC of 4.38L, 123% of predicted; and FEV1 of 2.62L, 96% predicted; and a DLCO of 72% predicted. Other Pertinent Issues: None Currently, he has the following symptoms: Symptom Description Ongoing Intervention Dyspnea Dyspnea with activity, such as walking a block, but not at rest Cough Productive cough, intermittent. No hemoptysis Dysphagia Denies Weight loss / Nutrition Denies Nutritional Intake Eating Normal Diet Voice Changes Denies Social Issues Travels ~ 20 minutes to [facility] Tobacco Currently smoking, ranges from ~ 4 cigarettes / day to 1 ppd He is not tolerating the patches. He does not like Wellbutrin. He does have lozenges. Total Pack Years ~ 55 PY. EtOH ~ 14 drinks / week Other No Issues ECOG PS: 1 Grade ECOG PERFORMANCE STATUS 0 Fully active, [...] totally confined to bed or chair EXAM Vitals: 09/03/20 1005 BP: 132/78 Patient Position: Sitting Pulse: 72 Temp: 36.6 ??C (97.9 ??F) TempSrc: Temporal SpO2: 98% Weight: 63.4 kg (139 lb 12.8 oz) Physical Exam Constitutional: Appearance: He is well-developed. [...] Behavior: Behavior normal. HISTORY Allergies as of 09/03/2020 - Review Complete 09/03/2020 Allergen Reaction Noted ??? X-ray dye [iodine and iodide containing products] Rash 10/13/2018 Past Medical History: Diagnosis Date ??? COPD (chronic obstructive pulmonary disease) ??? Hypercholesteremia ??? Lung cancer ??? Tobacco use Past Surgical History: Procedure Laterality Date ??? CT GUIDED BIOPSY LUNG 07/31/2020 CT Guided Biopsy Lung 07/31/2020 Bishnu Renee MD [facility] RAD CAT SCAN ??? PRO COLONOSCOPY, FLEX, W/DIR SUBMUC INJECT N/A 08/07/2020 COLONOSCOPY WITH DIRECTED SUBMUCOSAL INJ (WRVU 3.66) performed by Basil Martin MD at [facility] ENDOSCOPY ??? PRO COLONOSCOPY, REMV LESN, SNARE N/A 08/07/2020 COLONOSCOPY, POLYPECTOMY, REMOVAL LESION BY SNARE (WRVU 4.67) performed by Basil Martin MD [facility] ENDOSCOPY Social History Socioeconomic History ??? Marital status: Spouse name: None ??? Number of children: None ??? Years of education: None ??? Highest education level: None Occupational History ??? None Tobacco Use ??? Smoking status: Current Every [...] Drug use: Not Currently ??? Sexual activity: None Other Topics Concern ??? 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 Days of Exercise per Week: ??? Minutes of Exercise per Session: History reviewed. No pertinent family history. ROS: I reviewed and agree with the nursing review of systems accompanying this encounter. The remainder of the comprehensive review of systems was negative with the exception of the pertinent positivesand negatives noted above. MEDICATIONS Current Outpatient Medications on File Prior to Visit Medication Sig Dispense Refill ??? finasteride (Proscar) 5 mg Tablet Take 5 mg by mouth daily. ??? simvastatin (Zocor) 10 mg Tablet 5 mg daily. ??? sildenafiL (VIAGRA) 100 mg Tablet TAKE 1 TABLET BY MOUTH DAILY SEXUAL ACTIVITY NEEDED ??? nicotine (NICODERM CQ) 21 mg/24 hr Patch 24 hr Change 1 patch on the skin daily. 56 patch 3 ??? buPROPion SR (Wellbutrin SR) 150 mg tablet sustained-release 12 hr Take 1 tablet by mouth daily for 3 days, THEN 1 tablet 2 times daily for 90 days. (Patient not taking: Reported on 09/03/2020) 183 tablet 0 ??? nicotine polacrilex (COMMIT) [address] 1 lozenge inside cheek as needed for Smoking cessation. (Patient not taking: Reported on 08/14/2020) 100 tablet 0 No current facility-administered medications on file prior to visit. IMAGING I have personally reviewed the imaging reports and images referenced in the oncologic hx and agree with the assessment as stated. Further pertinent imaging data below LABORATORY VALUES CONTRAINDICATIONS TO RADIOTHERAPY NO YES: Date, site, dose (women only) X Prior Radiotherapy X Collagen-Vascular dz X ASSESSMENT /PLAN HN CANCER Staging CT Chest PET-CT Pathologic Evaluation: CT guided biopsy PFTs Further Staging None Required Therapy Discussion Celestine Dickson has been referred to discuss definitive SBRT in his care. He has a small peripheral lung malignancy found on CT screening, and his lung function is compatible with a lobectomy. However, he continues to smoke, and continues to struggle with cessation; we discussed the need to quit smoking in order to be eligible for surgery. He is connected with smoking cessation. We discussed the relative risks and benefits of SBRT and surgical therapy in detail, noting that the standard of care would be a lobectomy with a MLND. he has been discussed at [facility] tumor board and it was recommended thathe proceed with the SOC if possible.These recommendations are in line with NCCN recommendations. We discussed the rationale and logistics (including simulation, planning, and treatment) of definitive SBRT. We discussed the risks of therapy, including but not limited to short term sequelae (fatigue, esophagitis, skin erythema, cough) and intermediate sequelae (radiation pneumonitis, the potential for increased dyspnea resulting in oxygen dependence, chronic chest wall pain / rib fracture, and the possibility of significant damage to soft tissue, bone or skin requiring surgical or medical intervention). Mr. Dickson expressed an understanding of these risks. The patient had a number of questions regarding optimal therapy and potential side effects. These questions were answered to his satisfaction Therapy Decision He will continue to work on smoking cessation and consider his options. Supportive Care Referral to Buckle Strap Drum Operator OTHER ISSUES Tobacco use: we discussed the need to quit smoking and that regardless of treatment decisions both the efficacy of therapy would be decreased and the toxicity increased if he were to continue smoking through treatment. he expressed an understanding of these recommendations. He is connected with [employer] cessation counseling. Greater than five minutes were spent discussing smoking cessation. 45 minutes of this 60 minute visit were spent discussing treatment options. Pilar Menon RN - 09/03/2020 10:00 AM EDT RADIATION ONCOLOGY NURSING INITIAL NURSING ASSESSMENT IDENTIFICATION: Celestine Dickson is a 70 y.o. year-old male with lung cancer. PRESENTING SYMPTOMS/CHIEF COMPLAINT: REVIEW OF SYSTEMS: Review of Systems - Oncology IN THE PAST 12 MONTHS HAVE YOU: Fallen more than one time? no Injured yourself as result of the fall? n/a Experienced difficulty with walking/problems with balance? no Do you use any assistive devices? no Any history of collagen vascular diseases: no Any Implanted Devices/Hardware: no If yes please put alert in ARIA patient summary Prior Radiotherapy: no Prior Chemotherapy: no Prior Hormone Therapy: no LEARNING ASSESSMENT REVIEWED: yes ADVANCED DIRECTIVE: not addressed this visit PAIN ASSESSMENT: 0 out of 10 *eD-H Adult PCS Flow Sheet if 4 or above SOCIAL ASSESSMENT: See EDH social assessment information entered. Support Systems: Barriers to treatment: None identified Referrals/Interventions: INSTRUMENT FITTER per routine RADIATION SPECIFIC TEACHING: [facility] Radiation Therapy and You Site specific teaching : site specific teaching to be done on day of simulation by nursing Other: PLAN: Per Dr. Roper documented in this encounter Plan of Treatment Upcoming Encounters Date Type Specialty Care Team Description 08/26/2021 Office Visit Radiation Oncology Jeremias Roper MD [facility] RADIATION [place], [place] [address] (Wo rk) Scheduled Referrals Name Type Priority Associated Diagnoses Order S chedule Referral to Outpatient Referral Routine Pre-operative Ordered : Radiation Oncology cardiovascular 021 examination, high risk surgery Adenocarcinoma of lung, right documented as of this encounter Visit Diagnoses Diagnosis Non-small cell cancer of right lung documented in this encounter Care Teams Excelsior Cutter Relationship Specialty Start Date End Date Bill Damon DO PCP - General Family Medicine 06/27/[address] [place] [address] documented as of this encounter
--- OUTSIDE RECORDS SUMMARY | 2021-08-25 00:47 | XMS_ITS | Encounter Summary ---
:1950 Author Organization [facility] Address [facility] [place] [address] Care Team Providers Name Role Phone Bill Damon Primary Care Provider Encounter Details Date Type Department Care Team Description 07/03/2020 Telephone Pulmonology at [facility] Jesica Vásquez [facility] [place] [address] Social History Tobacco Use Types Packs/Day Years Used Date Never Assessed Financial Resource Strain Answer Date Recorded How [...] Office Visit Radiation Oncology Jeremias Roper MD [facility] RADIATION [place], [place] [address] (Wo rk) documented as of this encounter Visit Diagnoses Not on filedocumented in this encounter Care Teams Flight Operations Coordinator Relationship Specialty Start Date End Date Bill Damon DO PCP - General Family Medicine 06/27/20 [address] [place] [address] documented as of this encounter
--- OUTSIDE RECORDS SUMMARY | 2021-08-25 00:47 | XMS_ITS | Encounter Summary ---
:1950 Author Organization [facility] Address [facility] [place] [address] Care Team Providers Name Role Phone Bill Damon Primary Care Provider Encounter Details Date Type Department Care Team Description 10/06/2020 Procedure visit Radiation Oncology [facility] ign[facility] neoplasm of [place] [facility] MD Matthias lower lobe, right [facility] bronchus or lung [address] [place] RADIATION [phone] ONCOLOGY [phone] [place], [place] [address] Social History Tobacco Use Types [...] Sign Reading Time Taken Comments Blood Pressure 144/84 10/06/2020 9:08 AM EDT Pulse 69 10/06/2020 9:08 AM EDT Temperature 37.1 ??C (98.8 ??F) 10/06/2020 9:08 AM EDT Respiratory Rate 17 10/06/2020 9:08 AM EDT Oxygen Saturation 99% 10/06/2020 9:08 AM EDT Inhaled Oxygen Concentration - - Weight 62.9 kg (138 lb 9.6 oz) 10/06/2020 9:08 AM EDT Height - - Body Mass Index 23.06 08/07/2020 1:15 PM EDT documented in this encounter Progress Notes [facility] MD - 10/06/2020 10:00 AM EDT Lung SBRT Procedure Note Identification: Celestine Dickson is an 70 y.o. male with Stage I non-small cell lung carcinoma. he is receiving stereotactic body radiotherapy as definitive treatment for this malignancy. Procedure: Today the patient arrived in the radiation oncology department alert, oriented and in satisfactory condition for radiation delivery. his identity was confirmed per protocol, and he was evaluated by theradiation oncologist prior to treatment delivery: Celestine Dickson notes no new symptoms since his last visit with the physician, and is fit to continue therapy. KPS is 100%. On physical examination: -General: no distress -Lungs: CTAB without w/r/r, no respiratory distress, resonant to percussion -Heart: regular rate and rhythm without murmurs, rubs or gallops -Skin: no erythema Today he is to receive his 1st fraction of radiation therapy using an IMRT technique. Today's treatment will bring the dose to 10 Gy out of a planned 50 Gy. The patient was placed and immobilized in a manner identical to that performed during simulation. hewas treated on the [employer] LINAC; the treatment therapists, the physician, and a physicist were present as appropriate during treatment. An initial low resolution MRI scan was performed, and after alignment a high resolution MRI scan was obtained. The GTV contours were confirmed by the physician, and OAR contours were also approved after deformation and adjustment. The plan was recalculated, and all treatment planning parameters were reviewed. An adaptive plan was not necessary. Treatment was approved, and the patient was treated in [facility] using real time monitoring. Celestine Dickson tolerated with procedure without any difficulty. he was evaluated by the radiation oncologist after treatment delivery. We will plan to deliver his next radiation fraction per the established treatment schedule. documented in this encounter Plan of Treatment Upcoming Encounters Date Type Specialty Care Team Description 08/26/2021 Office Visit Radiation Oncology Jeremias Roper MD [facility] RADIATION [place], [place] [address] (Wo rk) documented as of this encounter Visit Diagnoses Diagnosis Malignant neoplasm of lower lobe, right bronchus or lung documented in this encounter Care Teams Director Of Emergency Nursing Relationship Specialty Start Date End Date Bill Damon DO PCP - General Family Medicine 06/27/20 [address] [place] [address] documented as of this encounter
--- OUTSIDE RECORDS SUMMARY | 2021-08-25 00:47 | XMS_ITS | Encounter Summary ---
:1950 Author Organization [facility] Address [address] [facility] [place] [address] Care Team Providers Name Role Phone Bill Damon Primary Care Provider Encounter Details Date Type Department Care Team Description 10/16/2020 Procedure visit Radiation Oncology Villa Roper ignant neoplasm of at [facility] MD Matthias lower lobe, right [facility] bronchus or lung [address] [place] RADIATION [id number] ONCOLOGY [phone] [place], [place] [address] Social History Tobacco Use Types [...] place to sleep or slept in a snf (including now)? Sex Assigned at Date Recorded Not on file documented as of this encounter Last Filed Vital Signs Vital Sign Reading Time Taken Comments Blood Pressure 135/72 10/16/2020 12:58 PM EDT Pulse 75 10/16/2020 12:58 PM EDT Temperature 36.2 ??C (97.2 ??F) 10/16/2020 12:58 PM EDT Respiratory Rate 17 10/16/2020 12:58 PM EDT Oxygen Saturation 99% 10/16/2020 12:58 PM EDT Inhaled Oxygen Concentration - - Weight 64 kg (141 lb) 10/16/2020 12:58 PM EDT Height - - Body Mass Index 23.46 08/07/2020 1:15 PM EDT documented in this encounter Patient Instructions Patient InstructionsSelina Turner RN - 10/16/2020 1:30 PM EDT Your radiation is continuing to work even though you have finished the actual treatments. You may still have some side effects related to the treatments that may last three to four weeks after radiation completion . Cough: If you have a cough, it may continue. Shortness of breath: If you are unable to catch your breath while sitting down or you are getting increasingly short of breath as you do things, please let us know. Walking is a good exercise and if you have been able to walk and are now unable to do so, please alert us to this new problem. Swallowing difficulties: If you have been having trouble swallowing, continue using the doctor prescribed medication so that you are able to eat and drink. Avoid spicy foods. Eat frequent, small meals.Call if you have a sudden change in pain. Chest fullness: Please call us if you have this. Pain: Continue to use the medication(s) prescribed for pain control for swallowing and/or cough. Other: Please call us if your legs swell or a new numbness/tingling starts anywhere. documented in this encounter Progress Notes Villa Rpoer MD - 10/16/2020 1:30 PM EDT Lung SBRT Procedure Note Identification: Celestine [...] erythema Today he is to receive his 4th fraction of radiation therapy using an IMRT technique. Today's treatment will bring the dose to 40 Gy out of a planned 50 Gy. The patient was placed and immobilized in a manner identical to that performed during simulation. hewas treated on the [employer] LINAC; the treatment therapists, the physician, and [...] approved, and the patient was treated in [facility] using real time monitoring. Celestine Dickson tolerated with procedure without any difficulty. he was evaluated by the radiation oncologist after treatment delivery. We will plan to deliver his next radiation fraction per the established treatment schedule. documented in this encounter Plan of Treatment Upcoming Encounters Date Type Specialty Care Team Description 08/26/2021 Office Visit Radiation Oncology Jeremias Roper MD [facility] RADIATION [place], [place] [address] (Wo rk) documented as of this encounter Visit Diagnoses Diagnosis Malignant neoplasm of lower lobe, right bronchus or lung documented in this encounter Care Teams Merchandising Manager Relationship Specialty Start Date End Date Bill Damon DO PCP - General Family Medicine 06/27/[address] [place] [address] documented as of this encounter
--- OUTSIDE RECORDS SUMMARY | 2021-08-25 00:47 | XMS_ITS | Encounter Summary ---
:1950 Author Organization [facility] [place] [address] Care Team Providers Name Role Phone Bill Damon Primary Care Provider Reason for Referral Diagnostic Test (Routine) - Closed Specialty Diagnoses / Procedures Referred By Contact Refer red To Contact Diagnoses Malignant neoplasm of lower lobe, right bronchus or lung Villa Roper MD Procedures CT Chest w Contrast [facility] [place] [address] Referral ID Status Reason Start Date Expiration Date Visits V isits Requested Authorized [id number] Closed Specialty 10/20/2020 04/19/2022 1 1 Service Requested Encounter Details Date Type Department Care Team Description 10/20/2020 Procedure visit Radiation Oncology Villa Roper ignant neoplasm of at [facility] MD Matthias lower lobe, right [facility] bronchus or lung [address] [place] RADIATION [phone] ONCOLOGY [phone] [place], [place] [address] Social History Tobacco Use Types [...] place to sleep or slept in a retirement (including now)? Sex Assigned at Date Recorded Not on file documented as of this encounter Last Filed Vital Signs Vital Sign Reading Time Taken Comments Blood Pressure 141/90 10/20/2020 9:36 AM EDT Pulse 69 10/20/2020 9:36 AM EDT Temperature 36.3 ??C (97.4 ??F) 10/20/2020 9:36 AM EDT Respiratory Rate 17 10/20/2020 9:36 AM EDT Oxygen Saturation 98% 10/20/2020 9:36 AM EDT Inhaled Oxygen Concentration - - Weight 63.8 kg (140 lb 9.6 oz) 10/20/2020 9:36 AM EDT Height - - Body Mass Index 23.4 08/07/2020 1:15 PM EDT documented in this encounter Progress Notes Villa Roper MD - 10/20/2020 10:30 AM EDT Lung SBRT Procedure Note Identification: [...] erythema Today he is to receive his 5th fraction of radiation therapy using an IMRT technique. Today's treatment will bring the dose to 50 Gy out of a planned 50 Gy. The patient was placed and immobilized in a manner identical to that performed during simulation. hewas treated on the [employer] [facility]; the treatment therapists, the physician, and [...] approved, and the patient was treated in [facility] using real time monitoring. Celestine Dickson tolerated with procedure without any difficulty. he was evaluated by the radiation oncologist after treatment delivery. We will plan to see him in routine follow up. . documented in this encounter Plan of Treatment Upcoming Encounters Date Type Specialty Care Team Description 08/26/2021 Office Visit Radiation Oncology Jeremias Roper MD [facility] RADIATION [place], [place] [address] (Wo rk) Scheduled Orders Name Type Priority Associated Diagnoses Order S chedule Creatinine Lab Routine Malignant neoplasm of Expect ed: 01/19/2021 lower lobe, right (Approxima te), Expires: bronchus or lung 07/21/2021 CT Chest w Contrast Imaging Routine Malignant neoplasm of Expected: 01/19/2021 lower lobe, right (Approxima te), Expires: bronchus or lung 07/21/2021 documented as of this encounter Visit Diagnoses Diagnosis Malignant neoplasm of lower lobe, right bronchus or lung documented in this encounter Care Teams Manager Control Relationship Specialty Start Date End Date Bill Damon DO PCP - General Family Medicine 06/27/[address] [place] [address] documented as of this encounter
--- OUTSIDE RECORDS SUMMARY | 2021-08-25 00:47 | XMS_ITS | Encounter Summary ---
:1950 Author Organization [facility] [place] [address] Care Team Providers Name Role Phone Bill Damon Primary Care Provider Reason for Referral Diagnostic Test (Routine) - Closed Specialty Diagnoses / Procedures Referred By Contact Refer red To Contact Radiology Diagnoses Pulmonary nodule, right BackerRobert MD [facility] Scan Procedures CT Guided Biopsy Lung [facility] [place] [address] [place] [address] Referral ID Status Reason Start Date Expiration Date Visits V isits Requested Authorized [id number] Closed Specialty 07/23/2020 01/22/2022 1 1 Service Requested Reason for Visit Diagnostic Test (Routine) - Closed Specialty Diagnoses / Procedures Referred By Contact Refer red To Contact Radiology Diagnoses Pulmonary nodule, right BackerRobert MD [facility] Scan Procedures [place] [address] [place] [address] Referral ID Status Reason Start Date Expiration Date Visits V isits Requested Authorized [id number] Closed Specialty 07/23/2020 01/22/2022 1 1 Service Requested Encounter Details Date Type Department Care Team Description 07/31/[address] Scan at [facility] Robert Garcia Right lower lobe pulmonary n odule; [facility] MD [place] Pre-op testing; [facility] Pulmonary nodule, right [facility] [address] PULMONARY [phone] [place] [address] Social History Tobacco Use Types Packs/Day Years [...] place to sleep or slept in a [place] health care facility (including now)? Sex Assigned at Date Recorded Not on file documented as of this encounter Last Filed Vital Signs Vital Sign Reading Time Taken Comments Blood Pressure 143/75 07/31/2020 12:00 PM EDT Pulse 60 07/31/2020 10:12 AM EDT Temperature 36.6 ??C (97.9 ??F) 07/31/2020 10:21 AM EDT Respiratory Rate 18 07/31/2020 12:00 PM EDT Oxygen Saturation 98% 07/31/2020 12:00 PM EDT Inhaled Oxygen Concentration - - Weight - - Height - - Body Mass Index - - documented in this encounter Discharge Instructions Discharge Dano Ramirez RN - 07/31/2020 9:51 AM EDT [facility] Vascular and Interventional Radiology Biopsy Discharge Instructions ??? Lung biopsy: coughing up a little blood is common during the next 24 hours. If large blood clotscome up, or if the bleeding gets worse, you should contact us or your doctor immediately. The most common complication is collapse of the lung. The symptoms of lung collapse are increasing pain on breathing, often extending into the shoulder on the side of the biopsy, and increasing difficulty breathing. If these symptoms occur after you leave the hospital, have someone drive you to the nearest Emergency Department as it must be treated promptly or call 911. Activity And Diet: ??? Go home and rest quietly for the remainder of the day. You may resume your normal activities tomorrow. ??? Resume your usual diet after the procedure. ??? Do not drive, sign any important/legal documents, or make any important decisions for 24 hours following sedation medications. When to call your healthcare provider: ??? If you see any redness, swelling or drainage at the biopsy site. ??? If you develop chills. ??? If you have a fever greater than or equal to 101 degrees Fahrenheit. ??? If you develop pain around the biopsy site. Bandage: ??? Check the dressing/bandaid throughout the day for an increase in drainage. Keep the biopsy site dry for 24 hours. Replace the bandaid as needed. You may shower 24 hours after the biopsy. Medication: ??? DO NOT take aspirin-containing products, ibuprofen, or blood-thinning medication for the next 24hours unless your clinician says you may do so. ??? Generally you may use acetaminophen as needed for discomfort unless you have liver disease and are instructed not to take acetaminophen. Biopsy Results ??? The results of your biopsy should be available within 5 business days and will be reported to you by your primary ocular care technician or the clinician who ordered the biopsy. Please do not call us for results as we will not have them. ??? If you have not been contacted by your clinician within 5 business days you should call that office for further information. When to call the Interventional Radiology Department: Please call with any questions or concerns. Ifit is during regular office hours, please call [phone]. If it is after regular office hours, oron weekends or holidays, please call [phone] and ask to speak to the Finishing Supervisor on callfor Interventional Radiology. You have received medication during your procedure to help lessen anxiety and keep you comfortable.These medications affect judgement and reaction time. We recommend that you do not drive, operate equipment, sign any important documents, or smoke unattended for 24 hours following your procedure. Because of the sedation, be careful on stairs, as you may be unsteady on your feet. You may resume your regular diet as tolerated. IV site -- slight redness, or tenderness is normal, you can use a warm compress. If tenderness and redness increases or foul drainage occurs, please contact your M. D. Revised 11/23/18 documented in this encounter Medications at Time [...] Smoking cessation. documented as of this encounter Progress Notes Dano Mota RN - 07/31/2020 9:43 AM EDT [facility] Name: AIRAM CANALES Date of : 1950 AGE: 70 y.o. Address: [address] [place], [place] [id number] (home) Mobile: Telephone Information: Referring Provider: Robert Morales Backflor REASON FOR VISIT: Order Questions Answers Where will study be performed? [facility] Radiology [120] Laterality Right Is the patient on anticoagulant / antiplatelet therapy ? No Is this biopsy due to suspicion for disease progression No Does the patient have any pertinent outside imaging? Yes If so, please submit to Imaging Center/Film Library In our system Reason for exam and clinical history: FDG avid ~10 mm FDG avid peripheral RLL nodule in a high risk patient. The case approved by Dr. Taylor. Send for path AND BACTERIAL/FUNGAL CULTURE Allergies Allergen Reactions ??? X-Ray Dye [Iodine And Iodide Containing Products] Rash Pertinent PMH: Patient Active Problem List Diagnosis Code ??? HLD (hyperlipidemia) E78.5 ??? Right lower lobe pulmonary nodule R91.1 ??? History of tobacco use Z87.891 Date/Procedure Meds Given/Comments 07/31/20 CT guided right lung biopsy Fentanyl 50 mcg IV, versed 1 mg IV [address]-1 via stretcher. Onto table on right side. All monitors, O2, safety strap in place. Meds per protocol. Needle out: 1009 Laboratory Results: documented in this encounter H&P Notes Bishnu Renee MD - 07/31/2020 9:20 AM EDT INTERVENTIONAL RADIOLOGY FOCUSED H&P: Procedure: CT guided right lung biopsy The patient's history and physical exam have been reviewed and completed. There has been no intervalchange from that of the pre-operative history and physical exam done within the last 30 days. Physical Exam: Cardiovascular: Regular, Normal Pulmonary: Breath sounds clear to auscultation The planned procedure (and sedation plan if appropriate) , its benefits and risks, and alternatives were discussed with the patient. The patient consented to the procedure. PRE-SEDATION ASSESSMENT: Sedation Plan: moderate (conscious sedation) ASA: 2: Patient with mild systemic disease Mallampati: III: only the base of the uvula can be seen Confirm NPO status: Yes History of anesthetic complications: No Current medications reviewed: Yes Allergies reviewed: Yes Source Note - Cory Cordova MD - 07/23/2020 5:04 PM EDT Images from the original note were not included. RADIOLOGY FOCUSED H&P and PRE-PROCEDURE NOTE: PCP: Bill Damon, Referring Provider/Team Contact: Robert Garcia MD Procedure Indication: Lung nodule Presenting Diagnosis/ Complaint: Airam Canales is a 70 y.o. male smoker with FDG avid ~10 mm FDG avid peripheral RLL nodule in a high risk patient. Send for path AND BACTERIAL/FUNGAL CULTURE Past Medical/Surgical History Patient Active Problem List Diagnosis Code ??? HLD (hyperlipidemia) E78.5 ??? Right lower lobe pulmonary nodule R91.1 ??? History of tobacco use Z87.891 No past medical history on file. No past surgical history on file. Medications: Current Outpatient Medications: ??? simvastatin (Zocor) 10 mg Tablet, 5 [...] hr, Change 1 patch on the skin daily., Disp: 56 patch, Rfl: 3 ??? nicotine polacrilex (COMMIT) 4 mg Lozenge, Place 1 lozenge inside cheek as needed for Smoking cessation., Disp: 100 tablet, Rfl: 0 No current facility-administered medications for this visit. Allergies: X-ray dye [iodine and iodide containing products] Social History and Habits: Social History Tobacco Use ??? Smoking status: Current Every Day Smoker Packs/day: 1.00 Years: 55.00 Pack years: 55.00 Types: Cigarettes ??? Smokeless tobacco: Never Used Vaping Use ??? Vaping Use: Never used Substance Use Topics ??? Alcohol use: Not on file ??? Drug use: Not on file Significant Family History: No family history on file. Physical Exam: Pending Labs: Prior relevant imaging: Assessment: 70 y.o. male smoker with FDG avid ~10 mm FDG avid peripheral RLL nodule in a high risk patient. Send for path AND BACTERIAL/FUNGAL CULTURE The nodule amenable to biopsy but is small increasing the risk for a non- diagnostic biopsy. I have reviewed the sedation plan for this patient???s case and concur that Fentanyl and Versed are appropriate choices for sedation and will be provided per the protocoled order set for this case. Labs to be performed day of procedure: Plt, INR Medication to STOP: none Sedation: Moderate Planned access site: Posterior Position: Prone Consent: Pending Pathology Present: TBD Discussed with Dr. Claudia Cordova MD Radiology Fellow 07/23/2020 documented in this encounter Plan of Treatment Upcoming Encounters Date Type Specialty Care Team Description 08/26/2021 Office Visit Radiation Oncology Jereimas Roper MD [facility] RADIATION [place], [place] [address] (Wo rk) documented as of this encounter Procedures Procedure Name Priority Date/Time Associated Diagnosis Comme nts XR CHEST ONE VIEW Routine 07/31/2020 12:23 PM Res ults for this EDT procedure are i n the results section. CT GUIDED BIOPSY Routine 07/31/2020 10:20 AM Pulmonary nodule, Results for this LUNG EDT right procedure are i n the results section. HC FUNGUS CULTURE, Routine 07/31/2020 10:10 AM MISC SOURCE EDT ANAEROBIC CULTURE Routine 07/31/2020 10:10 AM Res ults for this EDT procedure are i n the results section. HC TISSUE CULTURE Routine 07/31/2020 10:10 AM EDT FUNGAL STAIN Routine 07/31/2020 10:10 AM Results for this EDT procedure are i n the results section. TISSUE CULTURE Routine 07/31/2020 10:10 AM Result s for this EDT procedure are i n the results section. FUNGUS CULTURE Routine 07/31/2020 10:10 AM Result s for this EDT procedure are i n the results section. SURGICAL PATHOLOGY Routine 07/31/2020 9:40 AM Res ults for this REPORT EDT procedure are i n the results section. SPECIMEN TO Routine 07/31/2020 9:13 AM Results f or this PATHOLOGY EDT procedure are i n the results section. documented in this encounter Results XR Chest One View (07/31/2020 12:23 PM EDT) Anatomical Region Laterality Modality Chest N/A Digital Radiography Specimen (Source) Anatomical Location Collection Method / Collectio n Time Received Time / Laterality Volume Impressions 07/31/2020 12:32 PM EDT No pneumothorax post right lung biopsy. Thank you for letting us participate in the care of this patient. ??If you are a health care provider and have any questi ons regarding this report, please contact the number below. ??For patients who have questions please contact the health administrator health care facility that requested your imaging first. ? Narrative 07/31/2020 12:32 PM EDT EXAMINATION: XR CHEST ONE VIEW CLINICAL HISTORY: 2 hour post right lung biopsy, no immediate ptx TECHNIQUE: 2 view of the chest COMPARISON: Images from CT-guided lung biopsy perfor med earlier the same day FINDINGS: No pneumothorax. Diffuse reticular opaci ties throughout the lungs likely reflecting known paraseptal emphysema. H azy opacification superior segment of the right lower lobe compatible with kno wn hemorrhage secondary to recent lung biopsy. No pleural effusions. Normal con tours of the cardiac and mediastinal silhouettes. Procedure Note Bishnu Renee MD - 07/31/2020Format ting of this note might be different from the original. EXAMINATION: XR CHEST ONE VIEW CLINICAL HISTORY: 2 hour post right lung biopsy, no immediate ptx TECHNIQUE: 2 view of the chest COMPARISON: Images from CT-guided lung biopsy perfor med earlier the same day FINDINGS: No pneumothorax. Diffuse reticular opaci ties throughout the lungs likely reflecting known paraseptal emphysema. H azy opacification superior segment of the right lower lobe compatible with kno wn hemorrhage secondary to recent lung biopsy. No pleural effusions. Normal con tours of the cardiac and mediastinal silhouettes. IMPRESSION No pneumothorax post right lung biopsy. Thank you for letting us participate in the care of this patient. If you are a health care provider and have any questi ons regarding this report, please contact the number below. For patients w ho have questions please contact the health administrator health care facility that requested your imaging first. Bishnu Renee MD IMG DX ORDERABLES CT Guided Biopsy Lung (07/31/2020 10:20 AM EDT) Anatomical Region Laterality Modality Lung Computed Tomography Specimen (Source) Anatomical Location Collection Method / Collectio n Time Received Time / Laterality Volume Impressions 07/31/2020 11:42 AM EDT Impression: Technically successful CT-guided core needle biopsy of the right lower lobe nodule. Angle Shearer(s): Attending: Bishun Renee M.D. Procedure/Teaching Attestation: ??I perf ormed the procedure. Moderate Sedation Attestation: I was pre sent during the intra-service time as documented by the IR nurse. Thank you for letting us participate in the care of this patient. ??If you are a health care provider and have any questi ons regarding this report, please contact the number below. ??For patients who have questions please contact the health administrator health care facility that requested your imaging first. ? Narrative 07/31/2020 11:42 AM EDT RADIOLOGY PROCEDURE NOTE Procedure: CT-guided right lung biopsy. Indication for Procedure: FDG avid ~10 m m FDG avid peripheral RLL nodule in a high risk patient. Consent: After discussing the risks (inc luding infection, hemorrhage, damage to surrounding structures, respiratory depr ession, and pneumothorax) and benefits, the patient consented to the procedure. Method of Sedation: Due to the painful n ature of the procedure, patient received split doses of intravenous fentanyl and midazolam from the IR nurse while pulse, pressure, and oxygen saturation were con tinuously monitored. 1% lidocaine was used for local analgesia. Technique: Prior to beginning the proced ure, a standard time out Moment of Truth was performed. The patient was po sitioned right lateral decubitus on the CT table. ??An initial planning non-cont rast localizing CT scan of the chest was obtained. The site for biopsy was identi fied and marked on the skin with the assistance of the CT laser lights. The s kin was prepped and draped in the usual sterile fashion. Local anesthesia provid ed with 1% lidocaine. A 19 ga introducer needle was directed to the target lesion with the assistance of CT fluoroscopy. Coaxially, 5 core biopsies were taken. T hrough the introducer needle, the [employer] pleural plug was deployed. ??T he needle was removed. Petroleum gauze and sterile gauze dressing was applied. A post-procedure noncontrast CT scan was obtained. Medications: Please see EMR Contrast: None EBL: <5 cc Complications: No immediate Specimens: 5 core biopsy samples of the right lower lobe nodule. One of these was sent for bacterial and fungal cultur es. Findings: Pre-procedure planning CT exam of the chest showed apex predominant paraseptal emphysema. Intra-procedural C T showed the biopsy needle in the target lesion. Post-biopsy CT showed no pneumot horax. Small amount of perilesional hemorrhage in the superior segment of th e right lower lobe. Procedure Note Bishnu Renee MD - 07/31/2020Format ting of this note might be different from the original. RADIOLOGY PROCEDURE NOTE Procedure: CT-guided right lung biopsy. Indication for Procedure: FDG avid ~10 m m FDG avid peripheral RLL nodule in a high risk patient. Consent: After discussing the risks (inc luding infection, hemorrhage, damage to surrounding structures, respiratory depr ession, and pneumothorax) and benefits, the patient consented to the procedure. Method of Sedation: Due to the painful n ature of the procedure, patient received split doses of intravenous fentanyl and midazolam from the IR nurse while pulse, pressure, and oxygen saturation were con tinuously monitored. 1% lidocaine was used for local analgesia. Technique: Prior to beginning the proced ure, a standard time out Moment of Truth was performed. The patient was po sitioned right lateral decubitus on the CT table. An initial planning non-contra st localizing CT scan of the chest was obtained. The site for biopsy was identi fied and marked on the skin with the assistance of the CT laser lights. The s kin was prepped and draped in the usual sterile fashion. Local anesthesia provid ed with 1% lidocaine. A 19 ga introducer needle was directed to the target lesion with the assistance of CT fluoroscopy. Coaxially, 5 core biopsies were taken. T hrough the introducer needle, the [employer] pleural plug was deployed. The needle was removed. Petroleum gauze and sterile gauze dressing was applied. A post-procedure noncontrast CT scan was obtained. Medications: Please see EMR Contrast: None EBL: <5 cc Complications: No immediate Specimens: 5 core biopsy samples of the right lower lobe nodule. One of these was sent for bacterial and fungal cultur es. Findings: Pre-procedure planning CT exam of the chest showed apex predominant paraseptal emphysema. Intra-procedural C T showed the biopsy needle in the target lesion. Post-biopsy CT showed no pneumot horax. Small amount of perilesional hemorrhage in the superior segment of th e right lower lobe. IMPRESSION Impression: Technically successful CT-gu ided core needle biopsy of the right lower lobe nodule. Angle Shearer(s): Attending: Bishnu Renee M.D. Procedure/Teaching Attestation: I perfor med the procedure. Moderate Sedation Attestation: I was pre sent during the intra-service time as documented by the IR nurse. Thank you for letting us participate in the care of this patient. If you are a health care provider and have any questi ons regarding this report, please contact the number below. For patients w ho have questions please contact the health administrator health care facility that requested your imaging first. Robert Garcia MD IMG CT ORDERABLES Calcofluor White Stain (07/31/2020 10:10 AM EDT) [facility] Method Time Signature Calcofluor Calcofluor IGNACIO Stain White SAPPHIRE Preparation: [facility] LABORATORY Specimen Anatomical Collection Method Collection Time Receive d Time (Source) Location / / Volume Laterality Lung 07/31/2020 10:10 07/31/2020 AM EDT 10:49 AM EDT Comment: AIRAM CANALES IS A 70 Y.O. M MAAME SMOKER WITH FDG AVID Resulting Agency Comment Spec In Lab Robert Garcia MD MICROBIOLOGY - GENERAL ORDER KIMMY Performing Organization Address City/State/[place] [address] Fungus culture (07/31/2020 10:10 AM EDT) [facility] Method Time Signature Fungus No Fungus IGNACIO SAPPHIRE Culture isolated [facility] Specimen Anatomical Collection Method Collection Time Receive d Time (Source) Location / / Volume Laterality Lung 07/31/2020 10:10 07/31/2020 AM EDT 10:49 AM EDT Comment: AIRAM CANALES IS A 70 Y.O. M MAAME SMOKER WITH FDG AVID Resulting Agency Comment Spec In Lab Robert Garcia MD MICROBIOLOGY - GENERAL ORDER KIMMY Performing Organization Address City/State/[place] [address] Anaerobic Culture (07/31/2020 10:10 AM EDT) [facility] Method Time Signature Anaerobic No anaerobic IGNACIO SAPPHIRE Culture organisms [facility] LABORATORY Specimen Anatomical Collection Method Collection Time Receive d Time (Source) Location / / Volume Laterality Lung 07/31/2020 10:10 07/31/2020 AM EDT 10:48 AM EDT Comment: AIRAM CANALES IS A 70 Y.O. M MAAME SMOKER WITH FDG AVID Resulting Agency Comment Spec In Lab Robert Garcia MD MICROBIOLOGY - GENERAL ORDER KIMMY Performing Organization Address City/State/[place] [address] Tissue culture (07/31/2020 10:10 AM EDT) Component Value Ref Test Analysis Performed At [facility] gist Range Method Time Signature Tissue No growth IGNACIO Culture [facility] LABORATORY Gram Stain Few Neutrophils seen IGNACIO No microorganisms seen. [facility] LABORATORY Specimen Anatomical Collection Method Collection Time Receive d Time (Source) Location / / Volume Laterality Lung 07/31/2020 10:10 07/31/2020 AM EDT 10:48 AM EDT Comment: AIRAM CANALES IS A 70 Y.O. M MAAME SMOKER WITH FDG AVID Resulting Agency Comment Spec In Lab Robert Garcia MD MICROBIOLOGY - GENERAL ORDER KIMMY Performing Organization Address City/[facility]/ZIP Code Phon e Number [address] Surgical Pathology Report (07/31/2020 9:40 AM EDT) Component Value Ref Test Analysis Performed At [facility] Method Time Signature Surgical [id number] ? Location: [address] [place] [address] Pathology [place] Report The signing pathologist has (i) examined the relevant preparation(s) for the [facility] specimen(s) and (ii) rendered or confirmed the diagnosis(es) . HOSPITAL LABORATORY . ?Molecu lar Genetics RESULTS Solid Tumor Somatic Mutation Analysis Panel Analysis: ??Examination of D NA and RNA extracted from formalin-fixed paraffin-embedded tumor tissue for somatic mutation analysis. Results: ??The submitted spe cimen, block A1, failed the ?? DNA/RNA quantification ??QC checkpoint, and was therefo re not sufficient for somatic mutation analysis. ??If testing is warranted as per clinical in dication, please contact the attending pathologist in order to resubmit an alternative tissue [facility]. Pathologist/Notification Date: ?KELVIN / 08-14-2020 MG Pathologist/Notification Date: ?JERALD / 08-14-2020 Electronically signed by: ?Al Ph.D., [facility], Alessandro Walsh Verified: ??05/28/2021 10:58 ??Clinical Svp/Mol ecular Machine Group Leader Performed at: ??-[facility] Dept. 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 ?? (see Discussion.) Electronically signed by: ?MD Kelvin, Darío Campos Verified: ??08/05/2020 15:32 ??Pathologist Performed at: ??-[facility] Dept. of Pathology, [place], [place] DISCUSSION The morphology and IHC profi le performed are not specific for tumor site of origin. 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 Focal associated markedly atypical pneumocytes are also present, which may possibly represent a better differentiated adenocarcinoma component; however, reactiv e type II pneumocyte atypia cannot be excluded in this small biopsy. Tumor somatic mutation testi ng and PD-L1 IHC testing have been ordered and will be reported separately. ADDITIONAL STUDIES Whole slide scan: passenger representative slide(s) Immunohistochemistry Studies: Formalin-fixed, paraffin-emb edded tissue sections are studied using the polymer technique with appropriate positive and negative controls. ?These IHC studies provide the pathologist wit h adjunctive diagnostic information. Antibody specificity has been verified by testin g antibodies on a series of in-house tissues with known immunohistochemical perform ance characteristics. The clinical interpretation of any antibody positive stain ing or its absence is evaluated within the context of clinical presentation, morp hology, histopathological criteria and other diagnostic tests. . ADDITIONAL STUDIES Block ? Antibody ?Result (Positive /Negative) A1 ? TTF1 ? Positive in atypical pneumocytes only A1 ? p40 ?Negative A1 ? CDX2 ? Negative A1 ? CK7 ?Focally positiv e A1 ? CK20 ? Negative A1 ? [id number] ? Positive SPECIMEN(S) SUBMITTED A - right lung, biopsy (Multiple) CLINICAL INFORMATION Right lung lesion. Patient i s a 70-year-old male smoker with FDG avid approximately 10 mm FDG avid peripheral RLL nodule in the high risk patie nt SPECIMEN PROCESSING A - Labeled/Fixative: Patient demographics, formalin. Quantity/Size: Multiple, fragments from 0.1 cm to 1 x 1 x 0. 1 cm Tissue Description: Delicate, friable, wispy doss-saavedra need le core biopsies. Sections/Processing: Entirely submitted in 1 cassette labeled A1. ??pps ? 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 Combined Positive Score (CPS): 20 Interpretation Table: PD-L1 assay (22C3 pharmDX) for Keytruda (pembrolizumab): Combined Positive Score (CPS): ? <1 ? PD-L1 Negative ? >=1 ?PD-L1 Positive Note: CPS is determined by the number of PD-L1 staining ce lls (tumor cells, lymphocytes, macrophages) divided by total number of tumor cells evaluated, multiplied by 100. Immunohistochemical assay wa s performed on paraffin-embedded tissue sections fixed in 10% neutral buffered for raymon for 6-72 hours using the polymer system technique with appropriate controls. The assay was performed according to the precinct i police sergeant's instructions using Anti-PD-L1 (22C3, pharmDX) antibody. Electronically signed by: ?Dave Lloyd MD Verified: ??08/05/2020 9:07 ?? Pathologist Performed at: ??-[facility] Dept. of Pathology, [place], [place] Specimen (Source) Anatomical Collection Method Collection Time Re ceived Time Location / / Volume Laterality 07/31/2020 9:40 AM EDT Robert Garcia MD PATHOLOGY/CYTOLOGY ORDERABLE S Performing Organization Address [facility]/ZIP Code Phon e Number [address] Specimen to Pathology (07/31/2020 9:13 AM EDT) Specimen Anatomical Collection Method Collection Time Receive d Time (Source) Location / / Volume Laterality AP Specimen 07/31/2020 9:13 AM 9:13 EDT AM EDT Narrative [facility] - 07/31/2020 9:13 AM EDT Specimen requisition ordered. ??Separate Pathology report to follow Robert Garcia MD PATHOLOGY/CYTOLOGY ORDERABLE S Performing Organization Address City/[facility]/[place] [address] Prothrombin Time (07/31/2020 7:32 AM EDT) athologist Signature PT 11.2 9.4 - 12.5 [facility] LABORATORY INR 1.0 [facility] Comment: An INR <2.0 indicates adequate [...] / Volume Laterality Blood 07/31/2020 7:32 AM 7:39 EDT AM EDT Resulting Agency Comment Spec In Lab Robert Garcia MD HEMATOLOGY ORDERABLES Performing Organization Address City/State/[place] [address] Platelet count (07/31/2020 7:32 AM EDT) P athologist Signature Platelets 233 145 - [facility] x10(3)/[facility] LABORATORY Plat Immature 1.1 0.0 - 7.4 IGNACIO LEARY % % [place] [facility] Comment: Limitation of the Immature Platelet Frac tion (IPF)-May be less reliable when the platelet count is less than 73j822/u L due to statistical imprecision. The IPF [...] in a decreased state of production. References: [employer] The Clinical Value of the Immature Platelet Fraction (IPF) in Cell Recovery Document Number 10-1143 07/2010 [employer] The Role of the Imm ature Platelet Fraction (IPF) in the Differential Diagnosis of Thrombocytopen ia, Document [id number] V05/14 P05/14 Specimen Anatomical Collection Method Collection Time Receive d Time (Source) Location / / Volume Laterality Blood 07/31/2020 7:32 AM 7:39 EDT AM EDT Resulting Agency Comment Spec In Lab Robert Garcia MD HEMATOLOGY ORDERABLES Performing Organization Address City/State/ZIP Code Phon e Number [place] [id number] documented in this encounter Visit Diagnoses Diagnosis Right lower lobe pulmonary nodule Pre-op testing Preoperative examination, unspecified Pulmonary nodule, right Solitary pulmonary nodule documented in this encounter Administered Medications Inactive Administered Medications - up to 3 most recent administrations Medication Order MAR Action Action Date Dose Rate Site fentaNYL (pf) (50 mcg/mL) Given 07/31/2020 9:59 AM EDT 25 mcg multi-dose injection 25-50 mcg 25-50 mcg, Intravenous, EVERY 3 MIN PRN, Starting on Ni 07/31/20 at 0922, Until Ni 21 at 1236, Pain, per unit protocol, - Start dose 50 mcg (reduce dose to 25 mcg if history of sedation sensitivity). - Titration dose 25-50 mcg IV, (based on patient response) every 3 minutes PRN, to maintain procedural pain less than 2 per pain Scale. Maximum dose: 50 mcg/dose, 250 mcg/hour For use in Interventional Radiology (IR) only for procedural sedation with direct provider supervision and verbal order., Angio/IR (Intra-Procedure), Routine Given 07/31/2020 9:48 AM EDT 25 mcg lidocaine (Xylocaine) 1% (10 mg/mL) injection Given 9:59 AM EDT 10 mg 10 mg 10 mg, Subcutaneous, ONCE, 1 dose, On Ni 07/31/20 at 0945, For use in Interventional Radiology (IR) only for procedure with direct provider supervision and verbal order., Angio/IR (Intra-Procedure), Routine midazolam (pf) (Versed) (1 mg/mL) multi-dose Given 9:59 AM EDT 0.5 mg injection 0.5-1 mg 0.5-1 mg, Intravenous, EVERY 3 MIN PRN, Starting on Ni 07/31/20 at 0922, Until Ni 07/31/20 at 1236, Sleep, - Start dose; 1 mg (Reduce dose to 0.5 mg if history of sedation sensitivity). - Titration dose: 0.5 mg - 1 mg (based on patient response) every 3 minutes PRN to obtain RASS score of -3. Maximum dose: 1 mg per dose, 5 mg/hour. For use in Interventional Radiology (IR) only for procedural sedation with direct provider supervision and verbal order., Angio/IR (Intra-Procedure), Routine Given 07/31/2020 9:49 AM EDT 0.5 mg sodium chloride 0.9 % (flush) flush 5 mL Given 07/31/2020 9:30 AM EDT 5 mLs 5 mL, Intravenous, 2 TIMES DAILY, First dose on Ni 07/31/20 at 0930, Until Discontinued, Routine documented in this encounter Care Teams Retirement Administrator Relationship Specialty Start Date End Date Bill Damon DO PCP - General Family Medicine 06/27/[address] [place] [address] documented as of this encounter
--- OUTSIDE RECORDS SUMMARY | 2021-08-25 00:47 | XMS_ITS | Encounter Summary ---
:1950 Author Organization [facility] Address [facility] [address] [place] [address] Care Team Providers Name Role Phone Bill [...] Expiration Date Visits Requ ested Visits Authorized [id number] 1 1 Encounter Details Date Type Department Care Team Description 08/07/2020 Hospital Encounter Gastroenterology at [facility] [place] [address] [place] [address] [facility] [place] [address] Social History Tobacco Use Types [...] place to sleep or slept in a jail (including now)? Sex Assigned at Date Recorded Not on file documented as of this encounter Last Filed Vital Signs Vital Sign Reading Time Taken Comments Blood Pressure 109/58 08/07/2020 4:10 PM EDT Pulse 72 08/07/2020 3:21 PM EDT Temperature 36.8 ??C (98.2 ??F) 08/07/2020 1:15 PM EDT Respiratory Rate 22 08/07/2020 3:21 PM EDT Oxygen Saturation 96% 08/07/2020 4:10 PM EDT Inhaled Oxygen Concentration - - Weight 63.5 kg (140 lb) 08/07/2020 1:15 PM EDT Height 165.1 cm (5' 5) 08/07/2020 1:15 PM EDT Body Mass Index 23.3 08/07/2020 1:15 PM EDT documented in this encounter Discharge Instructions Discharge InstructionsReba Holly RN - 08/07/2020 3:22 PM EDT Colonoscopy: [...] occurs, please contact your Doctor. Please call [phone] before 8pm Mon-Fri with problems, questions or concerns. If you call after 8pm or on weekends, call the Hospital at [phone] and ask to speak to the Silverware Supervisor enterprise integration developer and the rail operator will contact that person for you. [...] any problems. Where can you learn more? [facility] View your After Visit Summary and more online at [email or web address] If you would like to provide feedback about your hospital experience, please call the Office of Patient and Family Relations at . If you have received this After Visit Summary in error, please immediately return it in person to the department, or notify the [facility] Privacy Office by calling toll free at between the hours of 8AM and 5PM to arrange for our retrieval of the documents at no cost to you. Content Version: 12.2 ?? [id number] [employer]. Care instructions adapted under license by [facility]. If you have questions about a medical condition or this instruction, always ask your healthcare professional. [employer] disclaims any warranty or liability for your [...] MD [facility] RADIATION [place], [place] [address] (Wo rk) documented as of [...] 3:17 PM 3:17 EDT PM EDT Narrative [facility] - 08/07/2020 3:17 PM EDT Specimen requisition ordered. ??Separate Pathology report to follow Basil Martin MD PATHOLOGY/CYTOLOGY ORDERABLE S Performing Organization Address City/State/ZIP [place] [facility] [address] Surgical Pathology Report (08/07/2020 3:08 PM EDT) Component Value Ref Test Analysis [facility] Range Method Time Signature Surgical [id number] ? Location: 4T; EA06; A [facility] Report The signing pathologist has (i) examined the relevant preparation(s) for the [facility] specimen(s) and (ii) rendered or confirmed the diagnosis(es) . HOSPITAL LABORATORY . ?Surgic al Pathology DIAGNOSIS A - Sigmoid polyp, excision: - ??Tubular adenoma. CR-PX Electronically signed by: ?Neal ROUSSEAU, Michelle Walsh Verified: ??08/12/2020 8:38 ?? Pathologist Performed at: ??-[facility] Dept. of Pathology, [place], [place] SPECIMEN(S) SUBMITTED A - Sigmoid polyp [...] Organization Address City/State/[place] [address] [facility] [address] COLONOSCOPY (08/07/2020 2:08 PM EDT) [facility] gist Method Time Signature COLONOSCOPY [facility] Endoscopy Procedure Date: 08/07/2020 2:08 PM ? Patient Name: Celestine Dickson ? Date of : 1950 ? Age: 70 ? Order #: [id number] ? Instrument Name: [id number],OLYMP TRIAL 492 ? Procedure: ? Colonoscopy Indications: ? FDG avid colon lesion, lung cancer Patient Profile: ? 70 yo M with lung cancer presents for ? colonoscopy to evaluate for F DG-avid ? lesion ascending colon lesion on PET. Providers: ? Felton Gaviria, RN, ? Trae Garcia Referring : ?Bill Damon DO, Elliot D. ? MD Radha Medicines: ? Midazolam 6 mg IV, Fentanyl [...] the physician, the nurse and the ? cctv technician in the pre-procedu re area ? [...] ? anus with the intention of ad vancing ? to the cecum. The scope was [...] Volume Laterality 08/07/2020 2:08 PM EDT Bill Damon DO GENERAL SURGICAL ORDERABLES Performing Organization Address City/State/ZIP Code Phon e Number [facility] documented in this encounter Visit Diagnoses Not on filedocumented in this encounter Administered Medications Inactive Administered Medications - up to 3 most recent administrations Medication Order MAR Action Action Date Dose Rate Site lactated ringers infusion New Bag 08/07/2020 1:26 PM EDT 100 mL/hr 100 mL/hr 100 mL/hr, Intravenous, CONTINUOUS, Starting on Ni 08/07/20 at 1330, Until Ni 08/07/20 at 1621, Endoscopy (Day of Procedure) documented in this encounter Active and Recently [...] Felton Nayak RN)1423 (Given - Provider: Felton G Nael, RN)1426 (Given - Provider: Felton Nayak RN)1435 (Given - Provider: Basil Martin MD) ONCE PRN, Starting on Ni 08/07/20 at 1419 , Until Ni 08/07/20 at 1826, Intra- Operative (Intra-Procedure), Routine documented in this encounter Care Teams Floor Covering Installer Relationship Specialty Start Date End Date Bill Damon DO PCP - General Family Medicine 06/27/[address] [place], [place] [address] [address] documented as of this encounter
--- OUTSIDE RECORDS SUMMARY | 2021-08-25 00:47 | XMS_ITS | Encounter Summary ---
:1950 Author Organization [facility] Address [facility] [place] [address] Care Team Providers Name Role Phone Bill Damon Primary Care Provider Encounter Details Date Type Department Care Team Description 08/14/2020 Clinical Support Tobacco Treatment Leyda Calderon nicotine at [facility] A dependence without [facility] [place] [id number] Social History Tobacco Use Types Packs/Day Years [...] this encounter Progress Notes Leyda Calderon - 08/14/2020 11:30 AM EDT ..Tobacco Treatment Consultation LUCIANO Patel (Kate) [facility] [address] [place], [place] [address] FAX: Celestine Dickson is a 70 y.o. male seen today for smoking cessation counseling. He is currently smoking one half ppd Pall Mall cigarettes and does wish to quit at this time. He reported that he has quit for 5 months in the past. A friend offered him a cigarette and he resumed smoking immediately after. We discussed reasons to stop smoking. He wants to stop smoking in order to have surgery. He currently smokes in his house but tries not to around non smokers as much. He has used the nicotine patch in the past. One time it irritated his skin. Certain patches do not irritate his skin. He has used Wellbutrin which he stated made him jittery. He used Chantix which he said made him sick to his stomach. Readiness: Importance scale: 9 Confidence scale: 5 Stage of Change: Precontemplation: Contemplation: Preparation: Action: X Maintenance: NICOTINE DEPENDENCE 0 Points 1Points 2 Points 3 Points Score 1.How soon after waking do you smoke your first cigarette? After 60 minutes 31- 60 minutes minutes 6-30 minutes Within 5 minutes 3 2. Do you find it difficult to refrain from smoking in places where it is forbidden? (ex. gnosticist) Regi 1 3. Which cigarette would you hate to give up? All others The first one in the morning 0 4. How many cigarette do you smoke a day? 10 or less 11-20 21-30 30 or more 1 Do you smoke more frequently during the first hour after waking than the rest of the day? No Yes 1 6. Do you smoke if you are so ill that you are in bed all day? 0 Classification: 6/High 0-2 Very low 3-4 Low 5 Moderate 6-7 High 8-10 Very high Assessment/Plan: Mr. Dickson has a Fagerstrom Score of 6 indicating a high dependence on Nicotine. I reviewed the physiology of addiction as well as apparent health risks specific to the patient. I discussed the options for treatment including NRT, Zyban and Chantix. I reviewed possible side effects of therapy. I stressed that medication alone is not optimum but used in conjunction with behavioral counseling will add to success for cessation. The patient decided that the best course of action is tothe use of the 21 mg. Nicotine patch and is also willing to try the 4mg. Nicotine lozenge. I reviewed the correct way to use the Nicotine patch, changing the place where it is put it on the skin daily, and proper disposal, to keep it out of reach of children or pets. I warned that some patients experience vivid dreams on the patch and instructed that if this were to happen the patch should be removed at bedtime and replaced each morning. The patient should be sure to leave a nicotine lozenge at the bedside to use first thing every morning. The patient will be on 21 mg, patch for at least two weeks or longer depending on his level of urges. If at any point after tapering the patient has an increased craving he should go back to the higherdose for another two weeks then try to decrease again. I instructed Mr. Zuniga in the correct use of the Nicotine lozenge and explained that the nicotine would be absorbed through the mucous membranes of the mouth, at a specific pH or acidity. Therefore they should not eat or drink anything except water for 15 minutes before or during use of the lozenge orthe nicotine would not be absorbed and the medication won't help . The patient understands it shouldnot be chewed or swallowed whole or in pieces. The maximum number of lozenges to be used in a day is20. Most people who use the Nicotine patch plus lozenges generally use about 4-5 lozenges a day. Thepatient has been instructed to use the lozenge upon awakening, 30 minutes before meals and at bedtime at a minimum. It can also be used every 1-2 hours in between. The lozenge should be used when thereis a strong urge to smoke, instead of smoking. When asked what he liked about smoking he said, nothing, I smoke so I don't feel the urge. We briefly discussed the burden of smoking. He understands he can save a lot of money by quitting. I reviewed several tips for helping with quitting including the 4 D's, using straws cut the length of cigarettes, cinnamon sticks, flavored toothpicks, sugar free candy, etc. I also discussed the meaning of elevated CO measurements and explained that this level would return to normal within 24-48 hours of quitting smoking. We discussed the importance of exercise, especially walking. Support systems include: his significant other. The patient has been provided with a [facility] Smoking Cessation packet. The patient has my card with my contact information and has been encouraged to call with additional questions or concerns. The patient also has the Quit line number and the smokefree txt information. Patient has been advised to contact me if any unusual symptoms occur. A follow up clinic appointment has been made for Tuesday, August 18. CO Monitor Reading First Visit 10 Subsequent visit Leyda Calderon 08/14/20 Tobacco Treatment Program [facility] documented in this encounter Plan of Treatment Upcoming Encounters Date Type Specialty Care Team Description 08/26/2021 Office Visit Radiation Oncology Jeremias Roper MD [facility] RADIATION [place], [place] [address] (Wo rk) documented as of this encounter Visit Diagnoses Diagnosis Cigarette nicotine dependence without co mplication Tobacco use disorder documented in this encounter Care Teams Solar Hot Water Installer Relationship Specialty Start Date End Date Bill Damon DO PCP - General Family Medicine 06/27/[address] [place] [address] documented as of this encounter
--- OUTSIDE RECORDS SUMMARY | 2021-08-25 00:47 | XMS_ITS | Encounter Summary ---
:1950 Author Organization [facility] [address] Care Team Providers Name Role Phone Bill Damon Primary Care Provider Reason for Visit Diagnostic Test (Routine) - Closed Specialty Diagnoses / Procedures Referred By Contact Refer red To Contact Radiology Diagnoses Pulmonary nodule, right Radha, Robert Morales MD [facility] Rad Nuclear Med Procedures NM PET CT Skull Base to Mid-thigh [facility] [place] [address] [place] [address] Referral ID Status Reason Start Date Expiration Date Visits V isits Requested Authorized [id number] Closed Specialty 07/09/2020 10/07/2020 1 1 Service Requested Encounter Details Date Type Department Care Team Description 07/23/2020 [facility] [place] [address] [place] [address] [phone] (Wo rk) Social History Tobacco Use Types [...] Office Visit Radiation Oncology Jeremias Roper MD [facility] RADIATION [place], [place] [address] (Wo rk) documented as of this encounter Procedures Procedure Name Priority Date/Time Associated Diagnosis Comme nts NM PET CT SKULL Routine 07/23/2020 10:00 AM Pulmonary nodule, Results for this BASE TO MID-THIGH EDT right procedure are in ([facility]) the results section. POCT GLUCOSE Routine 07/23/2020 8:45 AM Results f or this EDT procedure are i n the results section. documented in this encounter Results POCT Glucose (07/23/2020 8:45 AM EDT) P athologist Signature POC Glucose 109 65 - 199 [facility] mg/dL [facility] Comment: Supplemental ranges: <140 mg/dL before meals <180 mg/dL all other times of the day Specimen Anatomical Collection Method Collection Time Receive d Time (Source) Location / / Volume Laterality Blood 07/23/2020 8:45 AM 8:45 EDT AM EDT Robert Garcia MD POINT OF CARE TEST ORDERABLE S Performing Organization Address City/State/Z[place] [address] documented in this encounter Visit Diagnoses Not on filedocumented in this encounter Care Teams Supervisor Prepress Relationship Specialty Start Date End Date Bill Damon DO PCP - General Family Medicine 06/27/[address] [place] [address] documented as of this encounter
--- OUTSIDE RECORDS SUMMARY | 2021-08-25 00:47 | XMS_ITS | Encounter Summary ---
:1950 [place] [address] Care Team Providers Name Role Phone Bill Damon Primary Care Provider Encounter Details Date Type Department Care Team Description 08/19/2020 Hospital Encounter Non-Invasive Mary, Pre-opera tive cardiovascular examination, high risk surgery; Cardiology Lab Melita Morales MD Adenocarcinoma of lung, right [facility] [address] [address] [phone] Social History Tobacco Use Types Packs/Day Years [...] Office Visit Radiation Oncology Jeremias Roper MD [facility] RADIATION [place], [place] [address] (Wo rk) documented as of this encounter Procedures Procedure Name Priority Date/Time Associated Diagnosis Comme nts NUCLEAR PHARMACOLOGIC Routine 08/19/2020 9:45 AM Pre-operative STRESS CARDIOLOGY EDT cardiovascular examination, high risk surgery Adenocarcinoma of lung, right documented in this encounter Results Nuclear Pharmacologic Stress Cardiology (08/19/2020 9:45 AM EDT) Specimen (Source) Anatomical Location Collection Method / Collectio n Time Received Time / Laterality Volume Narrative This result has an attachment that is no t available. Jas Mary MD CARDIAC SERVICES ORDERABLES documented in this encounter Visit Diagnoses Diagnosis Pre-operative cardiovascular examination , high risk surgery Pre-operative cardiovascular examination Adenocarcinoma of lung, right documented in this encounter Care Teams Return To Factory Clerk Relationship Specialty Start Date End Date Bill Damon DO PCP - General Family Medicine 06/27/[address] [place] [address] documented as of this encounter
--- OUTSIDE RECORDS SUMMARY | 2021-08-25 00:47 | XMS_ITS | Encounter Summary ---
:1950 Author Organization [facility] Address [address] [place] [address] Care Team Providers Name Role Phone Bill Damon Primary Care Provider Encounter Details Date Type Department Care Team Description 08/05/2020 Telephone Pulmonology at [facility] [place] Garcia [place] [facility] [place] [address] PULMONARY MEDICINE [phone] [place], [place] [address] (Wo rk) Social History Tobacco [...] place to sleep or slept in a alf (including now)? Sex Assigned at Date Recorded Not on file documented as of this encounter Miscellaneous Notes Telephone Encounter - Robert Garcia MD - 08/05/2020 9:13 AM EDT Interventional Pulmonology Telephone Encounter: I called Mr. Celestine Dickson at home on 08/05/2020, 9:13 AM. No answer. VM left to call back to discuss results from his 07/31/20 CT guided TTBx. 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 I'll plan to present his case at next week's CTOP given the parallel work-up for the FDG avid soft tissue lesion in the colon (colonoscopy planned for 08/07/20). Robert Garcia MD, 08/05/2020, 9:13 AM Interventional Pulmonology Section of Pulmonary & Critical Care Pager: [phone] documented in this encounter Plan of Treatment Upcoming Encounters Date Type Specialty Care Team Description 08/26/2021 Office Visit Radiation Oncology Jeremias Roper MD [facility] RADIATION [place]O [place], [place] [address] (Wo rk) documented as of this encounter Visit Diagnoses Not on filedocumented in this encounter Care Teams Share Holder Relationship Specialty Start Date End Date Bill Damon DO PCP - General Family Medicine 06/27/20 [address] [place] [address] documented as of this encounter
--- OUTSIDE RECORDS SUMMARY | 2021-08-25 00:47 | XMS_ITS | Encounter Summary ---
:1950 Author Organization [facility] [place] [address] Care Team Providers Name Role Phone Bill Damon Primary Care Provider Reason for Referral Consultation (Routine) - Specialty Diagnoses / Procedures Referred By Contact Refer red To Contact Radiation Oncology Diagnoses Non-small cell cancer of right lung Villa Roper MD [facility] Rad Onc Office Procedures Simulation for Radiation Therapy Planning [address] [place] [phone] Fax: Referral ID Status Reason Start Date Expiration Date Visits V isits Requested Authorized [id number] Consult, 09/17/2020 12/16/2020 5 5 Test & Treat Encounter Details Date Type Department Care Team Description 09/10/2020 Notes Only Radiation Oncology a [place] [facility] Villa Roper MD [facility] [place] [address] RADIATION ONCOLOGY [phone] [place], [place] [address] (Wo rk) Social History Tobacco [...] encounter Progress Notes Villa Roper MD - 09/10/2020 4:38 PM EDT I spoke with Mr. Dickson regarding surgery versus SBRT for his NSCLC. We again reviewed that surgery is the standard of care, and that he should proceed with that if possible. However, he remains unable to quit smoking, and he wishes to proceed with radiotherapy. He will continue to attempt to quit smoking. I will order the simulation. documented in this encounter Plan of Treatment Upcoming Encounters Date Type Specialty Care Team Description 08/26/2021 Office Visit Radiation Oncology Jeremias Roper MD [facility] RADIATION [place], [place] [address] (Wo rk) Scheduled Orders Name Type Priority Associated Diagnoses Order S chedule Simulation for Procedures Routine Non-small cell cancer Orde red: 09/10/2020 Radiation Therapy of right lung Planning documented as of this encounter Visit Diagnoses Diagnosis Non-small cell cancer of right lung documented in this encounter Care Teams Manager Fitness Relationship Specialty Start Date End Date Bill Damon DO PCP - General Family Medicine 06/27/20 [address] [place] [address] documented as of this encounter
--- OUTSIDE RECORDS SUMMARY | 2021-08-25 00:47 | XMS_ITS | Encounter Summary ---
:1950 Author Organization [facility] [place] [address] Care Team Providers Name Role Phone Bill Damon Nico HENRIQUEZ Primary Care Provider Reason for Visit Diagnostic Test (Routine) - Closed Specialty Diagnoses / Procedures Referred By Contact Refer red To Contact Radiology Diagnoses Pre-operative cardiovascular examination, high risk surgery Adenocarcinoma of lung, right Jas Mary MD [facility] Rad Nuclear Med Procedures NM Pharmacologic Stress and Rest Myocardial Perfusion [facility] [place] [address] [place] [address] Fax: Referral ID Status Reason Start Date Expiration Date Visits V isits Requested Authorized [id number] Closed Specialty 08/14/2020 11/12/2020 1 1 Service Requested Encounter Details Date Type Department Care Team Description 08/19/2020 Hospital Encounter Nuclear Medicine at [facility], Melita Wisdom MD [place] [address] Thoracic Surgery [phone] [place], [place] [address] (Wo rk) Social History Tobacco [...] Office Visit Radiation Oncology Jeremias Roper MD [facility] MEDICAL [facility] RADIATION ONCL[place]DA [place], [place] [address] (Wo rk) documented as of this encounter Procedures Procedure Name Priority Date/Time Associated Diagnosis Comme nts NM PHARMACOLOGIC Routine 08/19/2020 9:45 Pre-operative Results for this STRESS AND REST AM EDT cardiovascular procedure are in MYOCARDIAL PERFUSION examination, high ri sk the results surgery section. Adenocarcinoma of lung, right documented in this encounter Results NM Pharmacologic Stress and Rest Myocardial Perfusion [...] who have questions please contact the health home care music therapist that requested your imaging first. ? Electronically signed by: Víctor Lewis MD, [facility] ([phone]), at 08/19/2020 12:36 PM Narrative 08/19/2020 12:36 PM EDT EXAMINATION: NM [...] is normal. Preliminary report signed by: Miguel Angel martines [...] ho have questions please contact the health home care music therapist that requested your imaging first. Electronically signed by: Víctor Lewis MD, [facility] ([phone]), at 08/19/2020 12:36 PM Jas Mary MD IMG [place] ORDERABLES documented in this encounter Visit Diagnoses Not on filedocumented in this encounter Care Teams Tool Lapper Hand Relationship Specialty Start Date End Date Bill Damon DO PCP - General Family Medicine 06/27/20 [address] [place] [address] documented as of this encounter
--- OUTSIDE RECORDS SUMMARY | 2021-08-25 00:47 | XMS_ITS | Encounter Summary ---
:1950 Author Organization [facility] [place] [address] Care Team Providers Name Role Phone Bill Damon DO Primary Care Provider Reason for Referral Consultation (Urgent) - Closed Specialty Diagnoses / Procedures Referred By Contact Refer red To Contact Gastroenterology Diagnoses Nodule of colon Robert Garcia MD [facility] [address] [place] [address] [place] [address] Referral ID Status Reason Start Date Expiration Date Visits V isits Requested Authorized [id number] Closed Test Only 07/23/2020 07/23/2021 1 1 iagnostic Test (Routine) - Closed Specialty Diagnoses / Procedures Referred By Contact Refer red To Contact Radiology Diagnoses Pulmonary nodule, right Robert Garcia MD [facility] Rad Ct Scan Procedures CT Guided [place] [address] [place] [address] Referral ID Status Reason Start Date Expiration Date Visits V isits Requested Authorized [id number] Closed Specialty 07/23/2020 01/22/2022 1 1 Service Requested Reason for Visit Consultation (Routine) - Closed Specialty Diagnoses / Procedures Referred By Contact Refer red To Contact Pulmonology Diagnoses Solitary pulmonary nodule Bill Damon, [facility] Pulmonology [address]c [address] [facility] [place] [id number] Referral ID Status Reason Start Date Expiration Date Visits V isits Requested Authorized [id number] Closed Consult, Test 06/27/2020 06/27/2021 6 6 [facility] PCP Updated and/or Approved Encounter Details Date Type Department Care Team Description 07/23/2020 Office Visit [place]ology [place] [facility] [place], Pulmonary nodule, right; [facility] Nodule of colon; Drive [facility] Right [place] [address] [address] [phone] PULMONARY MEDICI [place], [place] [address] Social History Tobacco Use Types [...] Sign Reading Time Taken Comments Blood Pressure 124/70 07/23/2020 10:57 AM EDT Pulse 70 07/23/2020 10:57 AM EDT Temperature - - Respiratory Rate - - Oxygen Saturation 97% 07/23/2020 10:57 AM EDT Inhaled Oxygen Concentration - - Weight - - Height - - Body Mass Index - - documented in this encounter Progress Notes Robert Garcia MD - 07/23/2020 11:00 AM EDT Images from the original note were not included. INTERVENTIONAL PULMONOLOGY OUTPATIENT CONSULT NOTE SECTION OF PULMONARY & CRITICAL CARE MEDICINE PATIENT NAME: Celestine Dickson : 1950 MEDICAL RECORD: [id number] DATE OF SERVICE: 07/22/2020 REFERRING PHYSICIAN: Bill Damon DO PRIMARY CARE PHYSICIAN: Bill Damon DO Reason for Consultation: 70 male with a new 1.4 x 0.7 spiculated mass discovered via yearly lung cancer screening CT in the right lower lobe, malignant suspected. Chief Complaint: He said I have a small tumor in my lung, but that's about all I know. History of Present Illness: Mr. Celestine Dickson is a 70 y.o. gentleman who has been sent to Interventional Pulmonology for consultation regarding a solitary pulmonary nodule. In speaking to Mr. Dickson, he does experience chronic daily dyspnea attributed to smoking and he finds this limiting. He has had PFTs several years and tells me he was historically on various inhalers but they weren't really doing anything for me. Not currently on any inhalers. He has a chronic daily cough and tells me I get a lot of phlegm up in the morning described as milky white. This is unchanged for him. No hemoptysis. No weight loss. No night sweats or fevers. He denies any personal history of cancer. He says he is scheduled for his ColoGuard but has not yet completed it and has not previously had a colonoscopy. He has been undergoing lung cancer screening studies here since 2018 and he tells me he had received them prior that in [place] as well. Review of Systems: A 12 point ROS was negative aside from as listed in the HPI. Past Medical/Surgical History: Patient Active Problem List Diagnosis Code ??? HLD (hyperlipidemia) E78.5 ??? Right lower lobe pulmonary nodule R91.1 ??? History of tobacco use Z87.891 Medications: Your Medications Accurate as of July 23, 2020 11:40 AM. If you have any questions, ask your nurse or doctor. Continued medications, unchanged Dose Details sildenafiL 100 mg Tab Commonly known as: VIAGRA TAKE 1 TABLET BY MOUTH DAILY SEXUAL ACTIVITY NEEDED Refills: 0 simvastatin 10 mg Tab Commonly known as: Zocor 5 mg daily. 5 mg Refills: 0 Allergies: Allergies Allergen Reactions ??? X-Ray Dye [Iodine And Iodide Containing Products] Rash Family History: Father had skin cancer P Grandfather of a metastatic tumor on his foot M Aunt had breast cancer Social History: Smoking status: Active; last cigarette today Smoking history: 55 PY smoking history EtOH: Drinks 2-3 white russians per day; denies history of alcoholism Other drugs: Denies The patient lives in [facility]; grew up in [place]. Lived in [place] for 15 years and the rest of his life in [place]. 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 Objective: Patient Vitals for the past 24 hrs: Pulse BP SpO2 07/23/20 1057 70 124/70 97 % General: This is a 70 y.o. male, NAD HEENT: Moist mucous membranes, sclera are white Neck: Supple, trachea is midline, no gross deformity Lymphatics: No obvious lymphadenopathy or masses Cardiovascular: Nl s1/s2, rrr, no murmurs Respiratory: Clear to auscultation bilaterally, no adventitious LS GI: soft, nt, nd, +bs Musculoskeletal: Normal bulk and tone and muscles Extremities: no LE edema noted, no cyanosis, there is digital clubbing present in hands Integument: No rash, exposed skin appears grossly normal. Neurologic: Alert and oriented, moves all extremities appropriately, no obvious focal deficits Psychologic: Normal mood and affect. Labs: No recent to review PFTS: DATE FVC FEV1 FEV1/FVC DLCO TLC RV IT COMPLIANCE ANALYST? 07/23/20 4.38L/123% 2.62L/96% 60% 72% -- -- -- Imaging: (Images personally reviewed) 06/16/20 CT Chest ([facility]): Comparison: LDCT chest 04/13/18 LungRADS 4X ... there is now a spiculated nodule in the right lower lobe which measures approximately 1.4 by 0.7 cm, this non-calcified nodule appearing concerning and not previously present. 07/23/20 PET/CT 1. FDG avid known approximately 1 cm [...] bowel activity. Suggest correlation with direct visualization. Assessment: Celestine Dickson is a 70 y.o. gentleman who has been sent to me for consultation in regards to a 1.4cm solitary pulmonary nodule first identified on imaging from 06/16/20 (LDCT lung cancer screening with last imaging being in 2018 without nodule seen at that time). The lesion is moderately avid on today's PET/CT with an SUVmax of 7. He has a 55 PY smoking history; last cigarette was today, as well aswhat may be a rather extensive/remote history of direct asbestos exposure as noted above. He has what sounds like chronic digital clubbing. We reviewed his imaging together in detail and discussed the differential diagnosis including early stage primary lung cancer, a benign tumor (favored less), a non- specific inflammatory or granulomatous process, or infectious process (eg endemic fungal nodule from Histoplasmosis given his time spent living in [place]). Based on the [facility] Model, the probability of malignancy for this lesion is estimated to be 78% which is considered a high (>65%) pre-test probability (Gia SJ et al. Arch Clin Asst Med.1996Jun 04;157(8):849-55). We discussed the importance of need for a non-surgical biopsy to confirm a diagnosis given the elevated pre-test probability for malignancy. We did discuss the option of continued surveillance however I recommended biopsy now and Mr. Dickson was in agreement. From a diagnosis standpoint, this lesion is not amenable to transbronchial biopsy. I reviewed his case with body-radiology and they were agreeable to attempting a transthoracic biopsy which I have ordered. We also discussed the importance of finalizing his stage. Given the lack of yariel or extra-thoracic uptake (aside from the colonic findings) this would be a [id number] process (stage IA) if malignancy confirmed. We discussed how anatomic resection with MLND would be recommended with SBRT reserved for those in whom surgery is prohibitive or refuse surgery. We discussed his active smoking and the importance of quitting now; he is motivated to quit and I will start him onZyban plus nicotine replacement therapy (historically intolerant to Chantix). The patient's performance status using the ECOG assessment tool is 0 (fully active, no restrictions). Mr. Celestine Dickson was provided ample time to ask questions which were answered to his liking. Of note, the final PET/CT report was not in at the time of our consultation. It demonstrates avidityof the ascending colon with a possible endoluminal soft tissue filling defect. I have ordered an urgent colonoscopy and called Celestine/jef MAYES on his cell to call me back and discuss this plan. Recommendations: ?? PET/CT ordered and completed today ?? Pulmonary function tests ordered and to be completed today after this consultation ?? I confirmed with our body radiologists to ensure the lesion was amenable to biopsy attempt ?? A CT guided transthoracic biopsy order has been placed (path plus bacterial/fungal culture requested) ?? I have placed an URGENT referral for a colonoscopy ?? Recommend PCP assist in following up on colonoscopy results ?? Prescriptions for Zyban, nicotine patches, and nicotine lozenges provided ?? Counseling on smoking cessation provided ?? Note to be sent to Bill Damon, DO ?? I will follow-up with Celestine following his biopsy I personally performed a total of 60 minutes or greater of aggregate time involved in patient evaluation, reviewing medical records, interpreting diagnostic studies (imaging and/or labs), formulating my plan, and documentation of this consultation note. Robert Garcia MD, 07/22/2020, 9:41 PM Interventional Pulmonology Section of Pulmonary & Critical Care Pager: [phone] documented in this encounter Plan of Treatment Upcoming Encounters Date Type Specialty Care Team Description 08/26/2021 Office Visit Radiation Oncology Jeremias Roper MD [facility] DR RADIATION [place], [place] [address] (Wo rk) Scheduled Referrals Name Type Priority Associated Order Schedule Diagnoses REFERRAL TO Outpatient Referral Routine Nodule of colon Order ed: COLONOSCOPY PROCEDURE 2020 documented as of this encounter Results CT Guided Biopsy Lung (07/31/2020 10:20 AM EDT) Anatomical Region Laterality Modality Lung Computed Tomography Specimen (Source) Anatomical Location Collection Method / Collectio n Time Received Time / Laterality Volume Impressions 07/31/2020 11:42 AM EDT Impression: Technically successful CT-guided core needle biopsy of the right lower lobe nodule. Undertaker Helper(s): Attending: Bishnu Renee M.D. Procedure/Teaching Attestation: ??I perf ormed [...] who have questions please contact the health care transition coordinator that requested your imaging first. ? Electronically signed by: Bishnu ray MD, [facility] ([phone]), at 07/31/2020 11:42 AM Narrative 07/31/2020 11:42 AM EDT RADIOLOGY PROCEDURE [...] biopsy of the right lower lobe nodule. Undertaker Helper(s): Attending: Bishnu Renee M.D. Procedure/Teaching Attestation: I [...] ho have questions please contact the health care transition coordinator that requested your imaging first. Robert Garcia MD IMG CT ORDERABLES documented in this encounter Visit Diagnoses Diagnosis Pulmonary nodule, right Solitary pulmonary nodule Nodule of colon Other specified disorder of intestines Right lower lobe pulmonary nodule Right lower lobe pulmonary nodule Pre-op testing Preoperative examination, unspecified Pulmonary nodule, right Solitary pulmonary nodule documented in this encounter Care Teams Social Services Specialist Relationship Specialty Start Date End Date Bill Damon DO PCP - General Family Medicine 06/27/[address] [place] [address] documented as of this encounter
--- OUTSIDE RECORDS SUMMARY | 2021-08-25 00:47 | XMS_ITS | Encounter Summary ---
:1950 Author Organization [facility] [place] [address] Care Team Providers Name Role Phone Bill Damon Primary Care Provider Reason for Visit Reason Onset Date Comments Tobacco/smoking Cessation 08/28/2020 Encounter Details Date Type Department Care Team Description 08/28/2020 Telephone Tobacco Treatment at [facility] Tobacco/smoking [facility] [place] [address] Social History Tobacco Use Types Packs/Day [...] Office Visit Radiation Oncology Jeremias Roper MD [facility] MED[facility] RADIATION ONCL[place], [place] [address] (Wo rk) documented as of this encounter Visit Diagnoses Not on filedocumented in this encounter Care Teams Vp Site Relationship Specialty Start Date End Date Bill Damon DO PCP - General Family Medicine 06/27/[address] [place] [address] documented as of this encounter
--- OUTSIDE RECORDS SUMMARY | 2021-08-25 00:47 | XMS_ITS | Encounter Summary ---
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 Robert Garcia MD [facility] Thoracic Surg [address] [place] [address] [place] [address] [place] [address] Fax: Referral ID Status Reason Start Date Expiration Date Visits V isits Requested Authorized [id number] Closed Consult, 08/12/2020 08/12/2021 1 1 Test & Treat Encounter Details Date Type Department Care Team Description 08/12/2020 Telephone Pulmonology at [facility] Robert Garcia MD [facility] [place] [address] PULMONARY MEDICINE [phone] [place], [place] [address] (Wo rk) Social History Tobacco [...] place to sleep or slept in a detention (including now)? Sex Assigned at Date Recorded Not on file documented as of this encounter Miscellaneous Notes Telephone Encounter - Robert Garcia MD - 08/12/2020 11:01 AM EDT Interventional Pulmonology Telephone Encounter: I called Mr. Celestine Dickson at home on 08/12/2020, 11:01 AM. 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 In terms of smoking cessation- he tells me he's been working on it, is intolerant to the nicotine patches, and reported intolerance to Zyban (shaking, nausea; this resolved when stopping Zyban). He is currently attemptingcold turkey. He is down to 5-6 cigarettes per day (was smoking over 1 ppd when he met me on 07/23/20). Mr. Celestine Dickson was provided ample time to ask questions which were answered to his liking. Colonoscopy resulted in polyp demonstrating tubular adenoma. Robert Garcia MD, 08/12/2020, 11:01 AM Interventional Pulmonology Section of Pulmonary & Critical Care Pager: [phone] documented in this encounter Plan of Treatment Upcoming Encounters Date Type Specialty Care Team Description 08/26/2021 Office Visit Radiation Oncology Jeremias Roper MD [facility] MEDICAL [facility] RADIATION ONCL[place], [place] [address] (Wo rk) Scheduled Referrals Name Type Priority Associated Diagnoses Order S chedule Referral to Outpatient Referral Routine Non-small cell Ordere d: Thoracic Surgery cancer of right lung 07/2020 documented as of this encounter Visit Diagnoses Diagnosis Non-small cell cancer of right lung documented in this encounter Care Teams [employer] Fitness Instructor Relationship Specialty Start Date End Date Bill Damon DO PCP - General Family Medicine [facility]/27/20 [address] [facility] [address] [place] [address] documented as of this encounter
--- OUTSIDE RECORDS SUMMARY | 2021-08-25 00:47 | XMS_ITS | Encounter Summary ---
:1950 Author Organization [facility] [place] [address] Care Team Providers Name Role Phone Bill Damon DO Primary Care Provider Reason for Referral Diagnostic Test (Routine) - Closed Specialty Diagnoses / Procedures Referred By Contact Refer red To Contact Radiology Diagnoses Pre-operative cardiovascular examination, high risk surgery Adenocarcinoma of lung, right Jas Mary MD [facility] Rad Nuclear Med Procedures NM Pharmacologic Stress and Rest Myocardial Perfusion [facility] Dr [facility] [place] [address] [place] [address] Fax: Referral ID Status Reason Start Date Expiration Date Visits V isits Requested Authorized [id number] Closed Specialty 08/14/2020 11/12/2020 1 1 Service Requested Reason for Visit Diagnostic Test (Routine) - Closed Specialty Diagnoses / Procedures Referred By Contact Refer red To Contact Radiology Diagnoses Pre-operative cardiovascular examination, high risk surgery Adenocarcinoma of lung, right Jas Mary MD [facility] Rad Nuclear Med Procedures NM Pharmacologic Stress and Rest Myocardial Perfusion [place] [address] [place] [address] Fax: Referral ID Status Reason Start Date Expiration Date Visits V isits Requested Authorized [id number] Closed Specialty 08/14/2020 11/12/2020 1 1 Service Requested Encounter Details Date Type Department Care Team Description 08/19/2020 Hospital Encounter Nuclear Medicine at [facility], [place] M e-operative cardiovascular examination, high risk surgery; Melita Morales MD Adenocarcinoma of lung, right [facility] [address] [place], [place] Thoracic [address] Surgery [phone] [place] [address] Social History Tobacco Use Types Packs/Day Years [...] place to sleep or slept in a half-way (including now)? Sex Assigned at Date Recorded [...] [facility] RADIATION ONCL[place]DA [place], [place] [address] (Wo rk) documented as of [...] who have questions please contact the health managed care analyst that requested your imaging first. ? Electronically signed by: Víctor Lewis MD, [facility] ([phone]), at 08/19/2020 12:36 PM Narrative 08/19/2020 12:36 [...] ho have questions please contact the health managed care analyst that requested your imaging first. Electronically signed by: Víctor Lewis MD, [facility] ([phone]), at 08/19/2020 12:36 PM Jas Mary MD IMG NM ORDERABLES documented in this encounter Visit Diagnoses Diagnosis Pre-operative cardiovascular examination , high risk surgery Pre-operative cardiovascular examination Adenocarcinoma of lung, right documented in this encounter Administered Medications Inactive Administered Medications - up to 3 most recent administrations Medication Order MAR Action Action Date Dose Rate Site technetium (Tc-99m) Given 08/19/2020 9:40 AM EDT 28.3 mCi Right Arm sestamibi injection 0-30 mCi 0-30 mCi, Intravenous, 2 TIMES DAILY PRN, 2 doses, Starting on Tue08/19/20 at 0850, Until Tue08/19/20 at 0940, Per Protocol, Radiology Contrast, Routine Given 08/19/2020 8:45 AM EDT 8.3 mCi Right Arm documented in this encounter Care Teams Fiber Glass Worker Relationship Specialty Start Date End Date Bill Damon DO PCP - General Family Medicine 06/27/20 [address] [place] [address] documented as of this encounter
--- OUTSIDE RECORDS SUMMARY | 2021-08-25 00:47 | XMS_ITS | Encounter Summary ---
:1950 Author Organization [facility] [place] [address] Care Team Providers Name Role Phone Bill Damon Primary Care Provider Reason for Visit Reason Comments Simulation Encounter Details Date Type Department Care Team Description 09/22/2020 Ancillary Radiation Oncology Villa Roper-sm all cell Appointment at [facility] MD Matthias cancer of [facility] [address] [place] RADIATION [phone] ONCOLOGY [phone] [place] [address] Social History Tobacco Use Types Packs/Day Years [...] Sign Reading Time Taken Comments Blood Pressure 122/76 09/22/2020 3:05 PM EDT Pulse 83 09/22/2020 3:05 PM EDT Temperature 36.9 ??C (98.4 ??F) 09/22/2020 3:05 PM EDT Respiratory Rate 17 09/22/2020 3:05 PM EDT Oxygen Saturation 98% 09/22/2020 3:05 PM EDT Inhaled Oxygen Concentration - - Weight 62.6 kg (138 lb) 09/22/2020 3:05 PM EDT Shoes on Height - - Body Mass Index 22.96 08/07/2020 1:15 PM EDT documented in this encounter Progress Notes Villa Roper MD - 09/22/2020 3:30 PM EDT Celestine Dickson was simulated in anticipation of radiotherapy for non small cell lung cancer. Initial simulation demonstrated tumor motion in excess of 3 cm despite abdominal compression, and consequently resimulation is being performed in anticipation of treatment on the [facility] to achieve superior motion management. The patient was then brought to the simulation room and a time-out was performed per protocol. The pt was immobilized via a vacuum bag, with arms overhead. A breath hold CT scan was performed, and then the [facility] Simulation with breath hold was performed, it was determined that tracking was acceptable, and [facility]. The patient tolerated the procedure without difficulty, and he was given a start time to return to start radiotherapy. documented in this encounter Plan of Treatment Upcoming Encounters Date Type Specialty Care Team Description 08/26/2021 Office Visit Radiation Oncology Jeremias Roper MD [facility] RADIATION ONCL[place]DA [place], [place] [address] (Wo rk) documented as of this encounter Visit Diagnoses Diagnosis Non-small cell cancer of right lung documented in this encounter Care Teams An Employee Sponsor Or Advocate And Relationship Specialty Start Date End Date Bill Damon DO PCP - General Family Medicine 06/27/[address] [place] [address] documented as of this encounter
--- OUTSIDE RECORDS SUMMARY | 2021-08-25 00:47 | XMS_ITS | Encounter Summary ---
:1950 Author Organization [facility] Address [facility] [place] [address] Care Team Providers Name Role Phone Bill Damon Primary Care Provider Encounter Details Date Type Department Care Team Description 08/28/2020 Telephone Tobacco Treatment at [facility] Leyda Calderon [facility] [place] [phone] Social History Tobacco Use Types Packs/Day [...] this encounter Miscellaneous Notes Telephone Encounter - Leyda Calderon - 08/28/2020 9:30 AM EDT Mr. Dickson called to inquire about options other than the nicotine patch for quitting tobacco. I recommended the nicotine inhaler if his insurance covers it. I recommended he call his insurance to inquire and get back to me. He is currently using nicotine lozenges, but infrequently he reports. I recommended that he use one lozenge every one to two hours. He stated he will try to increase the use of the lozenge. He stated he has lozenges he can use. I asked him to call me back after he talks to his insurance company. documented in this encounter Plan of Treatment Upcoming Encounters Date Type Specialty Care Team Description 08/26/2021 Office Visit Radiation Oncology Jeremias Roper MD [facility] RADIATION [place], [place] [address] (Wo rk) documented as of this encounter Visit Diagnoses Not on filedocumented in this encounter Care Teams Manufacturer Relationship Specialty Start Date End Date Bill Damon DO PCP - General Family Medicine 06/27/[address] [place] [address] documented as of this encounter
--- OUTSIDE RECORDS SUMMARY | 2021-08-25 00:47 | XMS_ITS | Encounter Summary ---
:1950 Author Organization [facility] [place] [address] Care Team Providers Name Role Phone Bill Damon Primary Care Provider Encounter Details Date Type Department Care Team Description 08/28/2020 TH Visit Thoracic Surgery at Jas Mary ocarcinoma of lung, right; (TeleHealth) [facility] MD Carmen Tobacco abuse [facility] [address] [place] Thoracic Surgery [phone] [place], [place] [phone] [facility] Social History Tobacco Use Types Packs/Day Years [...] place to sleep or slept in a long-term (including now)? Sex Assigned at Date Recorded Not on file documented as of this encounter Progress Notes Jas Mary MD - 08/28/2020 9:00 AM EDT Thoracic Surgery Progress Note: Due to public health concerns related to COVID-19, this visit was conducted via telephone/telehealth. The patient was informed that they may receive a bill for services provided during this visit, similar to a clinic office visit, and they agreed to this. I provided care to the patient today via telephone call/Telehealth visit. The total time associated with this visit was 15 minutes. Today I called and spoke with Mr. Dickson regarding his known diagnosis of lung cancer. We reviewedthe results of his recent stress test demonstrating no evidence of ischemia and an EF of 56%. He is scheduled to meet with radiation oncology next week to discuss SBRT as an alternative treatment. He is working on quitting smoking. He is intermittently doing well with this. He is having some issues with skin irritation at the sites of the nicotine patches. He is using some lozenges. He has had arecent tooth infection and had a tooth extraction yesterday, and has thus been unable to use the nicotine gum. We talked about the possibility of getting a Nicotrol inhaler for him to further assist with smoking cessation. I will have our smoking cessation specialist call him later today to further discuss this. We further discussed that I believe he is an excellent surgical candidate for treatment of his lung cancer, provided that he is able to fully quit smoking. He is working on this and still wants to meetwith radiation oncology to discuss alternative options. He did bring up the idea of additional alternative treatments. He has received flyers in the mail from [facility]. I diddiscuss the alternative treatments that he brought up. In my opinion, there is no substantial or long-term data regarding these additional alternative treatments. I reiterated that the standard of carefor operative candidates for medically fit for surgery is anatomic lung resection. The standard of care alternative treatment is SBRT. I did tell him that I would be happy to facilitate a second opinion referral if he would like. He declined at this time. I reiterated the importance of quitting smoking and that we will do everything we can to help facilitate this. I will have our TTS call him later today to further discuss nicotine replacement options. I will await his meeting with Dr. Roper and radiation oncology next week. I asked him to please call my office once he has made a treatment decision. I further reiterated that if he is unable to quit smoking in the next 1 to 2 weeks, given the small size of the lesion, we certainly have some time to help facilitate smoking cessation if he chooses to go with surgery. He will call my office to let us know what his treatment decision is. Jas Mary MD 08/28/2020 documented in this encounter Plan of Treatment Upcoming Encounters Date Type Specialty Care Team Description 08/26/2021 Office Visit Radiation Oncology Jeremias Roper MD [facility] RADIATION [place]CL[place], [place] [address] (Wo rk) documented as of this encounter Visit Diagnoses Diagnosis Adenocarcinoma of lung, right Tobacco abuse Tobacco use disorder documented in this encounter Care Teams Verification Engineer Relationship Specialty Start Date End Date Bill Damon DO PCP - General Family Medicine 06/27/[address] [place] [address] documented as of this encounter
--- OUTSIDE RECORDS SUMMARY | 2021-08-25 00:47 | XMS_ITS | Encounter Summary ---
:1950 Author Organization [facility] Address [facility] [address] [place] [address] Care Team Providers Name Role Phone Bill Damon DO Primary Care Provider Encounter Details Date Type Department Care Team Description 09/10/2020 Orders Only Radiation Oncology a t [facility] Villa Roper MD [facility] [place] [address] RADIATION ONCOLOGY [phone] [place], [place] [address] (Wo rk) Social History Tobacco [...] place to sleep or slept in a chcf (including now)? Sex Assigned at Date Recorded Not on file documented as of this encounter Plan of Treatment Upcoming Encounters Date Type Specialty Care Team Description 08/26/2021 Office Visit Radiation Oncology Jeremias Roper MD [facility] RADIATION [place]CL[place]DA [place], [place] [address] (Wo rk) documented as of this encounter Visit Diagnoses Not on filedocumented in this encounter Care Teams Commercial Driver'S License Driver Relationship Specialty Start Date End Date Bill Damon DO PCP - General Family Medicine 06/27/[address] [place] [address] documented as of this encounter
--- OUTSIDE RECORDS SUMMARY | 2021-08-25 00:47 | XMS_ITS | Encounter Summary ---
:1950 Author Organization [facility] Address [facility] [address] [place] [address] Care Team Providers Name Role Phone Bill Damon Primary Care Provider Encounter Details Date Type Department Care Team Description 10/20/2020 Notes Only Radiation Oncology a t [facility] Villa Roper MD [facility] [place] [address] RADIATION ONCOLOGY [phone] [place], [place] [address] (Wo rk) Social History Tobacco [...] Progress Notes Villa Roper MD - 10/20/2020 11:59 PM EDT Images from the original note were not included. 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 TREATMENT DETAILS Treatment Intent Curative Site Treated Primary malignancy Technique IMRT, MRI LINAC (ViewRay) Adaptive Plan Required No Concurrent Chemo No Clinical Trial No TECHNICAL DETAILS View-Ray IMRT plan --Total Beams:19 --Total Segments: 33 Treatment Dates: 10/06/20 to 10/20/20, treated every other day Total Dose: 50 Gy in 5 fractions PLAN IMAGES CLINICAL COURSE Celestine Dickson had the following toxicities at the end of treatment: none noted FOLLOW UP Per NCC protocol documented in this encounter Plan of Treatment Upcoming Encounters Date Type Specialty Care Team Description 08/26/2021 Office Visit Radiation Oncology Jeremias Roper MD [facility] [place], [place] [address] (Wo rk) documented as of this encounter Visit Diagnoses Not on filedocumented in this encounter Care Teams Telecommunications Cable Jointer Relationship Specialty Start Date End Date Blil Damon DO PCP - General Family Medicine 06/27/20 [address] [place] [address] documented as of this encounter
--- OUTSIDE RECORDS SUMMARY | 2021-08-25 00:47 | XMS_ITS | Encounter Summary ---
:1950 Author Organization [facility] [place] [address] Care Team Providers Name Role Phone Bill Damon DO Primary Care Provider Reason for Referral Diagnostic Test (Routine) - Closed Specialty Diagnoses / Procedures Referred By Contact Refer red To Contact Radiology Diagnoses Pre-operative cardiovascular examination, high risk surgery Adenocarcinoma of lung, right Jas Mary MD [facility] Rad Nuclear Med Procedures NM Pharmacologic Stress CT Component [facility] Thoracic Surgery [place], [place] [phone] [place] [phone] Fax: Referral ID Status Reason Start Date Expiration Date Visits V isits Requested Authorized [id number] Closed Specialty 08/14/2020 11/12/2020 1 1 Service Requested Reason for Visit Diagnostic Test (Routine) - Closed Specialty Diagnoses / Procedures Referred By Contact Refer red To Contact Radiology Diagnoses Pre-operative cardiovascular examination, high risk surgery Adenocarcinoma of lung, right Jas Mary MD [facility] Rad Nuclear Med Procedures NM Pharmacologic Stress CT Component [facility] [place] [address] [place] [address] Fax: Referral ID Status Reason Start Date Expiration Date Visits V isits Requested Authorized [id number] Closed Specialty 08/14/2020 11/12/2020 1 1 Service Requested Encounter Details Date Type Department Care Team Description 08/19/2020 Hospital Encounter Nuclear Medicine at [place], [place] e-operative cardiovascular examination, high risk surgery; Melita Morales MD Adenocarcinoma of lung, right [facility] [address] [place], [place] Thoracic [address] Surgery [phone] [place] [address] Social History Tobacco Use Types Packs/Day Years [...] place to sleep or slept in a mcc (including now)? Sex Assigned at Date Recorded [...] Radiation Oncology Jeremias Roper MD [facility] RADIATION ONCLINDA [place], [place] [address] (Wo rk) documented as of this encounter Procedures Procedure Name Priority Date/Time Associated Diagnosis Comme nts NM PHARMACOLOGIC Routine 08/19/2020 10:05 Pre-operative Result s for this STRESS CT COMPONENT AM EDT cardiovascular proced ure are in examination, high risk the r esults surgery section. Adenocarcinoma of lung, right documented in this encounter Results NM Pharmacologic Stress CT [...] who have questions please contact the health post acute care nurse that requested your imaging first. ? Procedure [...] ho have questions please contact the health post acute care nurse that requested your imaging first. Jas Mary MD IM NM ORDERABLES documented in this encounter Visit Diagnoses Diagnosis Pre-operative cardiovascular examination , high risk surgery Pre-operative cardiovascular examination Adenocarcinoma of lung, right documented in this encounter Care Teams Dramatic Teacher Relationship Specialty Start Date End Date Bill Damon DO PCP - General Family Medicine 06/27/[address] [place] [address] documented as of this encounter
--- OUTSIDE RECORDS SUMMARY | 2021-08-25 00:47 | XMS_ITS | Encounter Summary ---
:1950 Author Organization [facility] Address [facility] [place] [address] Care Team Providers Name Role Phone Bill Damon Primary Care Provider Encounter Details Date Type Department Care Team Description 10/09/2020 Procedure visit Radiation Oncology Villa Roper ignant neoplasm of at [facility] MD Matthias lower lobe, right [facility] bronchus or lung [address] [place] RADIATION [address] ONCOLOGY [phone] [place], [place] [address] Social History Tobacco Use Types [...] Sign Reading Time Taken Comments Blood Pressure 127/66 10/09/2020 9:47 AM EDT Pulse 65 10/09/2020 9:47 AM EDT Temperature 36.5 ??C (97.7 ??F) 10/09/2020 9:47 AM EDT Respiratory Rate 16 10/09/2020 9:47 AM EDT Oxygen Saturation 98% 10/09/2020 9:47 AM EDT Inhaled Oxygen Concentration - - Weight 63.5 kg (140 lb) 10/09/2020 9:47 AM EDT Height - - Body Mass Index 23.3 08/07/2020 1:15 PM EDT documented in this encounter Progress Notes Villa Roper MD - 10/09/2020 10:30 AM EDT Lung SBRT Procedure Note [...] erythema Today he is to receive his 2nd fraction of radiation therapy using an IMRT technique. Today's treatment will bring the dose to 20 Gy out of a planned 50 Gy. The patient was placed and immobilized in a manner identical to that performed during simulation. hewas treated on the Facter[facility] LINAC; the treatment therapists, the physician, and [...] approved, and the patient was treated in [facility] using real time monitoring. Celestine Dickson [...] Roper MD [facility] RADIATION [place], [place] [address] (Wo rk) documented as of this encounter Visit Diagnoses Diagnosis Malignant neoplasm of lower lobe, right bronchus or lung documented in this encounter Care Teams Superintendent Radio Communications Relationship Specialty Start Date End Date Bill Damon DO PCP - General Family Medicine 06/27/20 4 [place] [address] documented as of this encounter
--- OUTSIDE RECORDS SUMMARY | 2021-08-25 00:47 | XMS_ITS | Encounter Summary ---
:1950 Author Organization [facility] Address [facility] [place] [address] Care Team Providers Name Role Phone Bill Damon Primary Care Provider Encounter Details Date Type Department Care Team Description 07/23/2020 Telephone Pulmonology at [facility] Jesica Vásquez [facility] [place] [phone] Social History Tobacco Use Types Packs/Day [...] place to sleep or slept in a mcfp (including now)? Sex Assigned at Date Recorded Not on file documented as of this encounter Plan of Treatment Upcoming Encounters Date Type Specialty Care Team Description 08/26/2021 Office Visit Radiation Oncology Jeremias Roper MD [facility] RADIATION [place]CL[place]DA [place], [place] [address] (Wo rk) documented as of this encounter Visit Diagnoses Not on filedocumented in this encounter Care Teams Appointment Manager Relationship Specialty Start Date End Date Bill Damon DO PCP - General Family Medicine 06/27/[address] [place] [address] documented as of this encounter
--- OUTSIDE RECORDS SUMMARY | 2021-08-25 00:47 | XMS_ITS | Encounter Summary ---
:1950 Author Organization [facility] [place] [address] Care Team Providers Name Role Phone Bill Damon DO Primary Care Provider Reason for Visit Consultation (Routine) - Closed Specialty Diagnoses / Procedures Referred By Contact Refer red To Contact Pulmonology Diagnoses Solitary pulmonary nodule Bill Damon, DO [facility] [place] [id number] Referral ID Status Reason Start Date Expiration Date Visits V isits Requested Authorized [id number] Closed Consult, Test 06/27/2020 06/27/2021 6 [facility] PCP Updated and/or Approved Encounter Details Date Type Department Care Team Description 07/23/2020 Hospital Encounter Pulmonology at [facility] Pulmonary nodule, [place] [address] Social History Tobacco Use Types Packs/Day [...] Start Date End Date simvastatin (Zocor) 10 5 mg daily. 0 [...] Visit Radiation Oncology Jeremias Roper MD [facility] [place], [place] [address] (Wo rk) documented as of this encounter Procedures Procedure Name Priority Date/Time Associated Diagnosis Comme nts PULMONARY FUNCTION Routine 07/23/2020 12:34 PM Pulmonary nodul e, Results for this TEST EDT right procedure are i n the results section. documented in this encounter Results Pulmonary Function Testing (07/23/2020 12:34 PM EDT) P athologist Signature FVC Actual 4.38 L COMPAS PFT Pre-BD FVC Pre-BD % of 123 % COMPAS PFT Predicted FVC Predicted 3.56 L COMPAS PFT FVC Pre-BD 1.45 COMPAS PFT Z-Score FVC Lower 2.64 L COMPAS PFT Limits of Normal FEV1 Actual 2.62 L COMPAS PFT Pre-BD FEV1 Pre-BD % 96 % COMPAS PFT of Predicted FEV1 Predicted 2.73 L COMPAS PFT FEV1 Pre-BD -0.25 COMPAS PFT Z-Score FEV1 Lower 1.97 L COMPAS PFT Limits of Normal FEV1 / FVC 60 % COMPAS PFT Actual Pre-BD FEV1/FVC Pre-BD -2.02 COMPAS PFT Z-Score FEV1 / FVC LLN 63 % COMPAS PFT [id number] Actual 1.14 L/s COMPAS PFT Pre-BD [id number] Pre-BD 53 % COMPAS PFT % of Predicted [id number] 2.16 L/s COMPAS PFT Predicted [id number] Pre-BD -1.33 COMPAS PFT Z-Score DLCO Hb Actual 16.01 mL/min/mmHg COMPAS PFT Pre-BD DLCO Hb Pre-BD 72 % COMPAS PFT % of Predicted DLCO Hb Pre-BD -1.74 COMPAS PFT Z-Score DLCO Hb 22.15 mL/min/mmHg COMPAS PFT Predicted DLCO UNC ACT 16.01 mL/min/mmHg COMPAS PFT PRE-BD DLCO UNC PRE-BD 72 % COMPAS PFT % of PRED DLCO UNC PRE-BD -1.74 % COMPAS PFT Z-SCORE DLCO UNC 22.15 mL/min/mmHg COMPAS PFT Predicted DLCO/VA Actual 2.65 mL/min/mmHg COMPAS PFT Pre-BD /L DLCO/VA Pre-BD 64 % COMPAS PFT % of Predicted DLCO/VA Pre-BD -2.39 COMPAS PFT Z-Score DLCO/VA 4.17 mL/min/mmHg COMPAS PFT Predicted /L Specimen (Source) Anatomical Location Collection Method / Collectio n Time Received Time / Laterality Volume Narrative COMPAS PFT - 07/23/2020 12:34 PM EDT FINDINGS: FEV1 and FVC are normal, FEV1/VC is reduced. Diffusion capacity not adjusted for hemoglobin is reduced. IMPRESSION: [place] demonstrates mild (FEV1 >70%) obstruction. Mild reduction in diffusing capacity (DLCO > 60% and < lower limit of normal). Obstruction combined with a reduced diffusion capacity sugges ts emphysema. Procedure Note Vikki Carballo MD - 07/26/2020 FINDINGS: FEV1 and FVC are normal, FEV1/ VC is reduced. Diffusion capacity not adjusted for hemoglobin is reduced. IMPRESSION: [place] demonstrates mild (FEV1 >70%) obstruction. Mild reduction in diffusing capacity (DLCO > 60% and < lower limit of normal). Obstruction combined with a reduced diffusion capacity sugges ts emphysema. Robert Garcia MD PFT ORDERABLES Performing Organization Address City/State/ZIP Code Phon e Number COMPAS PFT documented in this encounter Visit Diagnoses Diagnosis Pulmonary nodule, right Solitary pulmonary nodule documented in this encounter Care Teams Clinical Quality Manager Relationship Specialty Start Date End Date Bill Damon DO PCP - General Family Medicine 06/27/[address] [place] [address] documented as of this encounter
--- OUTSIDE RECORDS SUMMARY | 2021-08-25 00:47 | XMS_ITS | Encounter Summary ---
:1950 Author Organization [facility] [place] [address] Care Team Providers Name Role Phone Bill Damon Primary Care Provider Reason for Visit Reason Onset Date Comments Appointment 09/19/2020 Encounter Details Date Type Department Care Team Description 09/19/2020 Telephone Radiation Oncology a t [facility] Pilar Suero [facility]ointment [facility] [place] [address] Social History Tobacco Use Types Packs/Day [...] this encounter Miscellaneous Notes Telephone Encounter - Sandeep Suerojesus Yang - 09/19/2020 8:52 AM EDT Called patient late on and m to call back, needing to get safety questions and schedule view ray sim. I called again this am and left another vm for patient to call to answer safety questions and to setup view ray sim. documented in this encounter Plan of Treatment Upcoming Encounters Date Type Specialty Care Team Description 08/26/2021 Office Visit Radiation Oncology Jeremias Roper MD [facility] RADIATION [place], [place] [address] (Wo rk) documented as of this encounter Visit Diagnoses Not on filedocumented in this encounter Care Teams Generation Engineer Relationship Specialty Start Date End Date Bill Damon DO PCP - General Family Medicine 06/27/[address] [place] [address] documented as of this encounter
--- OUTSIDE RECORDS SUMMARY | 2021-08-25 00:47 | XMS_ITS | Encounter Summary ---
:1950 Author Organization [facility] [place] [address] Care Team Providers Name Role Phone Bill Damon Primary Care Provider Encounter Details Date Type Department Care Team Description 08/12/2020 Multidisciplinary Care Pulmonology at [facility] Robert Garcia Committee [facility] MD [place]en [place], [place] CENTER [address] PULMONARY [phone] [place] [address] Social History Tobacco Use Types Packs/Day Years [...] documented as of this encounter Progress Notes Robert Garcia MD - 08/12/2020 7:58 AM EDT Thoracic - Tumor Board Note Date Presented: 08/12/2020 Presenting Physician: Robert Garcia MD Diagnosis/Tumor Site: RLL malignancy Is this Metastatic Disease: No Synopsis of History/HPI: 70-year-old gentleman with an active [id number] smoking history presentedto the interventional pulmonology clinic on 07/23/2020 with a 1.4 cm right lower lobe solitary pulmonary nodule seen on a 06/16/[address] (new first 2019 imaging). A PET was obtained d emonstrating an SUV max of 7 without yariel or extrathoracic disease. Then for a CT-guided transthoracic biopsy performed on 07/31/2020 with path positive for poorly differentiated carcinoma. Smoking cessation provided on 07/23/20 appointment and prescribe Zyban and nicotine replacement therapy. 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 Robert Garcia MD, 08/12/2020, 7:59 AM Interventional Pulmonology Section of Pulmonary & Critical Care Pager: [phone] documented in this encounter Plan of Treatment Upcoming Encounters Date Type Specialty Care Team Description 08/26/2021 Office Visit Radiation Oncology Jeremias Roper MD [facility] [place]ATION [place], [place] [address] (Wo rk) documented as of this encounter Visit Diagnoses Not on filedocumented in this encounter Care Teams Diamond Sizer And Sorter Relationship Specialty Start Date End Date Bill Damon DO PCP - General Family Medicine 06/27/[address] [place] [address] documented as of this encounter
--- OUTSIDE RECORDS SUMMARY | 2021-08-25 00:48 | XMS_ITS | Encounter Summary ---
:1950 Author Organization [facility] Address [address] [place] [address] Care Team Providers Name Role Phone Unavailable Primary Care Provider Unavailable Reason for Visit - Closed Specialty Diagnoses / Procedures Referred By Contact Refer red To Contact Procedures Bill Damon DO Film Library- Storage Only CT [address] [place] [address] Referral ID Status Reason Start Date Expiration Date Visits Requ ested Visits Authorized [id number] Closed 06/27/2020 06/27/2021 1 1 Encounter Details Date Type Department Care Team Description 04/13/2018 Ancillary Procedure Radiology Library at [place] Damon, [facility] [place] [address] [place] [phone] (Wo rk) Social History Tobacco Use Types [...] Radiation Oncology Jeremias Roper MD [facility] RADIATION [place] [address] (Wo rk) documented as of this encounter Procedures Procedure Name Priority Date/Time Associated Diagnosis Comme nts FILM LIBRARY Routine 04/13/2018 12:00 AM Results for this STORAGE ONLY CT EST procedure susannah farrell in CHEST the results section. documented in this encounter Results Film Library- Storage Only CT Chest (04/13/2018 12:00 AM EST) Specimen (Source) Anatomical Location Collection Method / Collectio n Time Received Time / Laterality Volume Narrative JANUARY MAGANA - 06/27/2020 12:51 PM EDT This exam is auto-finalizing. It's purpo se is for storage only. Bill Damon DO IMRonaldo FILM LIBRARY ORDERABLES Performing Organization Address City/State/ZIP Code Phon e Number CHINO MAGANA [place], [place] documented in this encounter Visit Diagnoses Not on filedocumented in this encounter
--- OUTSIDE RECORDS SUMMARY | 2021-08-25 00:48 | XMS_ITS | Encounter Summary ---
:1950 Author Organization [facility] [place] [address] Care Team Providers Name Role Phone Bill Damon Primary Care Provider Encounter Details Date Type Department Care Team Description 07/01/2020 Orders Only Pulmonology at [facility] Robert Garcia, Pulmonary nodule, [facility] [place] [address] [address] [phone] PULMONARY MEDICI [place], [place] [address] Social History Tobacco Use Types [...] Oncology Jeremias Roper MD [facility] RADIATION ON[place] [facility], [place] [address] (Wo rk) documented as of this encounter Results Pulmonary Function Testing (07/23/2020 [...] / FVC LLN 63 % COMPAS PFT [id number] Actual 1.14 L/s COMPAS PFT Pre-BD [id number] Pre-BD 53 % COMPAS PFT % of Predicted [id number] 2.16 L/s COMPAS PFT Predicted [id number] Pre-BD -1.33 COMPAS PFT Z-Score DLCO Hb [...] not adjusted for hemoglobin is reduced. IMPRESSION: [place] metry demonstrates mild (FEV1 >70%) obstruction. Mild reduction in diffusing capacity (DLCO > 60% and < lower limit of normal). Obstruction combined with a reduced diffusion capacity sugges ts emphysema. Procedure Note Vikki Carballo MD - 07/26/2020 FINDINGS: FEV1 and FVC are normal, FEV1/ VC is reduced. Diffusion capacity not adjusted for hemoglobin is reduced. IMPRESSION: [place] metry demonstrates mild (FEV1 >70%) obstruction. Mild reduction in diffusing capacity (DLCO > 60% and < lower limit of normal). Obstruction combined with a reduced diffusion capacity sugges ts emphysema. Robert Garcia MD PFT ORDERABLES Performing Organization Address City/State/ZIP Code Phon e Number COMPAS PFT documented in this encounter Visit Diagnoses Diagnosis Pulmonary nodule, right Solitary pulmonary nodule Pulmonary nodule, right Solitary pulmonary nodule documented in this encounter Care Teams School Guard Relationship Specialty Start Date End Date Bill Damon DO PCP - General Family Medicine 06/27/[address] [place] [address] documented as of this encounter
--- OUTSIDE RECORDS SUMMARY | 2021-08-25 00:48 | XMS_ITS | Encounter Summary ---
:1950 Author Organization [facility] Address [facility] [place] [address] Care Team Providers Name Role Phone Bill Damon Primary Care Provider Encounter Details Date Type Department Care Team Description 06/27/2020 Telephone Pul[place]ology [place] [facility] Jesica Vásquez [facility] [place] [address] Social History Tobacco Use Types Packs/Day [...] Radiation Oncology Jeremias Roper MD [facility] RADIATION ONCLINDA [place], [place] [address] (Wo rk) documented as of this encounter Visit Diagnoses Not on filedocumented in this encounter Care Teams Reservoir Engineering Consultant Relationship Specialty Start Date End Date Bill Damon DO PCP - General Family Medicine 06/27/20 [address] [place] [address] documented as of this encounter
--- OUTSIDE RECORDS SUMMARY | 2021-08-25 00:48 | XMS_ITS | Encounter Summary ---
:1950 Author Organization [facility] Address [address] [place] [address] Care Team Providers Name Role Phone Unavailable Primary Care Provider Unavailable Reason for Visit - Closed Specialty Diagnoses / Procedures Referred By Contact Refer red To Contact Procedures Blil Damon DO Film Library- Storage Only CT [address] [place] [address] Referral ID Status Reason Start Date Expiration Date Visits Requ ested Visits Authorized [id number] Closed 06/27/2020 06/27/2021 1 1 Encounter Details Date Type Department Care Team Description 04/12/2017 Ancillary Procedure Radiology Library at [place] Damon, [place] [address] [place] [phone] (Wo rk) Social History Tobacco Use Types [...] Jeremias Roper MD [facility] RADIATION ONCL[place] [address] (Wo rk) documented as of this encounter Procedures Procedure Name Priority Date/Time Associated Diagnosis Comme nts FILM LIBRARY Routine 04/12/2017 12:00 AM Results for this STORAGE ONLY CT EST procedure susannah farrell in CHEST the results section. documented in this encounter Results Film Library- Storage Only CT Chest (04/12/2017 12:00 AM EST) Specimen (Source) Anatomical Location Collection Method / Collectio n Time Received Time / Laterality Volume Narrative JANUARY MAGANA - 06/27/2020 12:48 PM EDT This exam is auto-finalizing. It's purpo se is for storage only. Bill Damon DO IMRonaldo FILM LIBRARY ORDERABLES Performing Organization Address City/State/ZIP Code Phon e Number CHINO MAGANA [place], [place] documented in this encounter Visit Diagnoses Not on filedocumented in this encounter
--- OUTSIDE RECORDS SUMMARY | 2021-08-25 00:48 | XMS_ITS | Encounter Summary ---
:1950 Author Organization [facility] Address [address] [place] [address] Care Team Providers Name Role Phone Unavailable Primary Care Provider Unavailable Reason for Visit - Closed Specialty Diagnoses / Procedures Referred By Contact Refer red To Contact Procedures Bill Damon DO Film Library- Storage Only CT [address] [place] [address] Referral ID Status Reason Start Date Expiration Date Visits Requ ested Visits Authorized [id number] Closed 07/02/2020 07/02/2021 1 1 Encounter Details Date Type Department Care Team Description 06/16/2020 [facility]illary [facility] [address] [place] [phone] (Wo rk) Social History Tobacco Use Types [...] Radiation Oncology Jeremias Roper MD [facility] RADIATION [place], [place] [address] (Wo rk) documented as of this encounter Procedures Procedure Name Priority Date/Time Associated Diagnosis Comme nts FILM LIBRARY Routine 06/16/2020 12:00 AM Results for this STORAGE ONLY CT EDT procedure ar e in CHEST the results section. documented in this encounter Results Film Library- Storage Only CT Chest (06/16/2020 12:00 AM EDT) Specimen (Source) Anatomical Location Collection Method / Collectio n Time Received Time / Laterality Volume Narrative JANUARY MAGANA - 07/02/2020 1:06 PM EDT This exam is auto-finalizing. It's purpo se is for storage only. Bill Damon DO IMRonaldo FILM LIBRARY ORDERABLES Performing Organization Address City/State/ZIP Code Phon e Number CHINO S[place], [place] documented in this encounter Visit Diagnoses Not on filedocumented in this encounter
== END ==
PROVIDERS: PCP Family Medicine; Visit Provider Preventive Medicine Undersea and Hyperbaric Medicine
DX: C34.91 Malignant neoplasm of unspecified part of right bronchus or lung (principal); J44.9 Chronic obstructive pulmonary disease, unspecified; R91.1 Solitary pulmonary nodule
CPT/HCPCS: 71250

== ENCOUNTER → 2021-12-23 02:10 | Outpatient (CLI) | payer OTHER, MEDICAID, SELFPAY ==
[2021-12-23 13:55] LABS: CREATININE 0.9 mg/dL (0.70-1.30); Estimated GFR 91.31 (mL/min/1.73m2)
[2021-12-23] MEDS: Normal Saline - Diluent 50 ML VIAL IJ (14:21)
[2021-12-23] MEDS: Omnipaque 350 MG/ML 100 ML BTL 70 ML IJ (14:22)
--- NOTE | 2021-12-23 14:24 | DI.CT_ITS ---
Exam(s) CT CHEST W EXAM: CT CHEST W CLINICAL HISTORY: F/U RT LUNG CA, S/P RT,ASSESS FOR RESPONSE AND RECURRENCE TECHNIQUE: Imaging Protocol: Axial computed tomography images with coronal and sagittal reformatted images were created and reviewed CONTRAST MATERIAL: Intravenous: Omnipaque 350 Contrast volume:70 ml. COMPARISON: CT CT CHEST LUNG CANCER SCREEN from 06/16/[address] CHEST WO from 08/25/2021 FINDINGS: Tracheobronchial tree: No bronchiectasis or mucous plugging. Mediastinum and Sierra: No dominant adenopathy or fluid collection. Pulmonary parenchyma: There is now an area of increased density seen in the superior segment of the right lower lobe adjacent to the ple ura which could represent post radiation change. The nodule seen previously is no longer discretely visualized and may be obscured by the adjacent densities. No new nodules are seen. Moderate parasep maco and centrilobular emphysema greater in the upper lobes. Fibrotic changes greater peripherally. Pleura: No effusion or pneumothorax. Heart: The heart is not dilated. Moderate coronary artery calcifications are seen. Aorta: Ascending aorta 3.5 cm. Hqlk-ep-njxyybkc atherosclerotic changes. Upper abdomen: Stable cysts caudate lobe of the liver. Small cysts upper pole left kidney. Lymph nodes: Within normal limits. Bones: Milddegenerative changes in the spine.. Soft tissues: Unremarkable. IMPRESSION: Previously noted 9 millimeter nodule in the right lower lobe is not visible however there are increas ed densities in this area which may be secondary to radiation therapy. No new abnormalities. RADIATION DOSE DELIVERED: Total DLP DATA REPOSITORY: All CT scans at this facility are submitted to the National Radiology Data Registry (NRDR) Dose Index Registry (DIR) with the [employer] (ACR). RADIATION OPTIMIZATION: All CT scans at this facility use at least one of these dose optimization te chniques: automated exposure control; mA and/or kV adjustment per patient size (includes targeted exa ms where dose is matched to clinical indication); or iterative reconstruction.
== END ==
PROVIDERS: PCP Family Medicine; Visit Provider Preventive Medicine Undersea and Hyperbaric Medicine
DX: R91.1 Solitary pulmonary nodule (principal)
CPT/HCPCS: 71260; 82565; J3490

== ENCOUNTER 2022-05-10 01:51 | Outpatient (CLI) | payer OTHER, MEDICAID, SELFPAY ==
--- NOTE | 2022-05-10 | DI.CT_ITS ---
Exam(s) CT CHEST W EXAM: CT CHEST W CLINICAL HISTORY: F/U LUNG CA, C34.91,S/P RAD THER,ASSESS FOR RECURRENCE. TECHNIQUE: Multi planar reconstructions were performed. CONTRAST MATERIAL: Omnipaque 350; 75 cc COMPARISON: CT CT CHEST WO from 08/25/[address] CHEST W from 12/23/2021 FINDINGS: CHEST: LUNGS: COPD findings again evident in both lung gibbs. In the superior segment of the right lower l obe there is a posteriorly located subpleural area of infiltrate which is similar to previous study.. No associated pleural effusion nor other significant findings in right lung. No new left lung find ings. No pleural effusion on either side. No new findings in the trachea and mainstem bronchi. MEDIASTINUM: There is no hilar nor mediastinal adenopathy. Visualized thyroid unremarkable. CARDIAC: Heart size is normal. There is no pericardial effusion.Caliber of the thoracic aorta is wit hin normal limits. VISUALIZED UPPER ABDOMEN:There are no significant adrenal masses. Small benign cyst in the lateral c ortex of the left kidney noted which measures 1.6 x 1.4 cm and does not require further workup. OSSEOUS: No significant osseous lesions.. IMPRESSION: 1. Stable appearance of the subpleural area of infiltrate in the superior segment of the right lower lobe, exhibiting minimal change from 12/23/2021 and not associated with pleural effusion nor other si gnificant new right lung findings nor new left lung findings. 2. No intrathoracic adenopathy. RADIATION DOSE DELIVERED: 412.17mGy.cm Total DLP DATA REPOSITORY: All CT scans at this facility are submitted to the National Radiology Data Registry (NRDR) Dose Index Registry (DIR) with the [employer] (ACR). RADIATION OPTIMIZATION: All CT scans at this facility use at least one of these dose optimization te chniques: automated exposure control; mA and/or kV adjustment per patient size (includes targeted exa ms where dose is matched to clinical indication); or iterative reconstruction.
[2022-05-10 13:43] LABS: CREATININE 0.9 mg/dL (0.70-1.30); Estimated GFR 91.31 (mL/min/1.73m2)
[2022-05-10] MEDS: Normal Saline - Diluent 50 ML VIAL IJ (13:52)
[2022-05-10] MEDS: Omnipaque 350 MG/ML 500 ML BTL-Imaging package 100 ML IJ (13:53)
[2022-05-10] MEDS: Normal Saline Flush 10 ML SYR IVP (13:54)
== END 2022-05-10 02:11 ==
LOC: DI 01:51
PROVIDERS: PCP Family Medicine; Visit Provider Preventive Medicine Undersea and Hyperbaric Medicine
DX: Z01.812 Encounter for preprocedural laboratory examination (principal); C34.91 Malignant neoplasm of unspecified part of right bronchus or lung; Z92.3 Personal history of irradiation; J44.9 Chronic obstructive pulmonary disease, unspecified; R91.8 Other nonspecific abnormal finding of lung field
CPT/HCPCS: 71260; 82565

== ENCOUNTER → 2023-03-16 01:06 | Outpatient (CLI) | payer OTHER, MEDICAID, SELFPAY ==
--- NOTE | 2023-03-16 | DI.CT_ITS ---
Exam(s) CT CHEST W EXAM: CT CHEST W CLINICAL HISTORY: C34.91 Non-small cell cancer of right lung. TECHNIQUE: Multi planar reconstructions were performed. CONTRAST MATERIAL: Omnipaque 350; 75 cc COMPARISON: CT CT CHEST W CONTRAST from 09/17/2022 FINDINGS: CHEST: LUNGS: Severe COPD findings again noted in both lung gibbs. The area of infiltrate in the superior segment of the right lower lobe appears stable-unchanged from 09/17/2022. Mild increased markings in the right middle lobe adjacent to the fissure are unchanged. There are no new right lung findings n or pleural effusion. There are no new left lung findings. No significant focal findings in the trac hea and mainstem bronchi. MEDIASTINUM: There is no hilar nor mediastinal adenopathy. No new subcarinal adenopathy. Visualized thyroid unremarkable. CARDIAC: Heart size is normal. There is no pericardial effusion.Caliber of the thoracic aorta is wit hin normal limits. VISUALIZED UPPER ABDOMEN:There are no significant adrenal masses. Cyst is noted in the caudate lobe of the liver, unchanged. No new findings in the upper abdomen. OSSEOUS: No significant osseous lesions.No fractures.. IMPRESSION: 1. Stable appearance of the subpleural nodule in the superior segment of the right lower lobe, unchan ged from 09/17/2022. No new infiltrate nor pulmonary nodules. 2. No pleural effusions nor intrathoracic adenopathy. RADIATION DOSE DELIVERED: 406.57mGy.cm Total DLP DATA REPOSITORY: All CT scans at this facility are submitted to the National Radiology Data Registry (NRDR) Dose Index Registry (DIR) with the [employer] (ACR). RADIATION OPTIMIZATION: All CT scans at this facility use at least one of these dose optimization te chniques: automated exposure control; mA and/or kV adjustment per patient size (includes targeted exa ms where dose is matched to clinical indication); or iterative reconstruction.
[2023-03-16 13:15] LABS: CREATININE 1.1 mg/dL (0.70-1.30); Estimated GFR 71.32 (mL/min/1.73m2)
[2023-03-16] MEDS: Omnipaque 350 MG/ML 500 ML BTL-Imaging package IJ (14:01)
[2023-03-16] MEDS: Normal Saline - Diluent 50 ML VIAL IJ (14:01)
== END ==
PROVIDERS: PCP Family Medicine; Visit Provider Preventive Medicine Undersea and Hyperbaric Medicine
DX: C34.91 Malignant neoplasm of unspecified part of right bronchus or lung (principal)
CPT/HCPCS: 71260; 82565

== ENCOUNTER 2023-10-03 02:23 | Outpatient (CLI) | payer OTHER, MEDICAID, SELFPAY ==
--- NOTE | 2023-10-03 | DI.CT_ITS ---
Exam(s) CT CHEST W EXAM: CT CHEST W CLINICAL HISTORY: S/P SBRT FOR NSCLC RLL, ASSESS FOR RECURRENCE, C34.91. TECHNIQUE: Multi planar reconstructions were performed. CONTRAST MATERIAL: Omnipaque 350; 80 cc COMPARISON: CT CT CHEST W from 05/10/[address] CHEST W CONTRAST from 09/17/[address] CHEST W from 03/16/2023 FINDINGS: CHEST: LUNGS: Severe COPD findings again noted in both lung gibbs. Area of sub pleural infiltrate in the s uperior segment of the right lower lobe is again noted and appears stable when compared to March 11. Mild subpleural scarring in the posterior basal segment of the right lower lobe is also unchang ed. No new additional right lung findings and no pleural effusion. No new significant focal left rito ng findings and no left pleural effusion. There are no significant findings in the trachea and emigdio tem bronchi. MEDIASTINUM: There is no hilar nor mediastinal adenopathy. No subcarinal adenopathy.Visualized thyroi d unremarkable. CARDIAC: Heart size is normal. There is no pericardial effusion.Caliber of the thoracic aorta is wit hin normal limits. VISUALIZED UPPER ABDOMEN:No new significant adrenal masses. Partially included benign cyst in the le ft kidney which is not require further investigation. No splenomegaly. OSSEOUS: No significant osseous lesions.No fractures. Advanced degenerative changes in the right garland ulder glenohumeral joint again noted.. IMPRESSION: 1. There is continued stable appearance of the subpleural area of infiltrate in the superior segment of the right lower lobe, unchanged from CT scan of 03/16/2023. No new additional focal lung findings . 2. No pleural effusions nor intrathoracic adenopathy. RADIATION DOSE DELIVERED: 122.24mGy.cm Total DLP DATA REPOSITORY: All CT scans at this facility are submitted to the National Radiology Data Registry (NRDR) Dose Index Registry (DIR) with the [employer] (A[employer]). RADIATION OPTIMIZATION: All CT scans at this facility use at least one of these dose optimization te chniques: automated exposure control; mA and/or kV adjustment per patient size (includes targeted exa ms where dose is matched to clinical indication); or iterative reconstruction.
[2023-10-03 12:14] LABS: CREATININE 0.9 mg/dL (0.70-1.30); Estimated GFR 90.18 (mL/min/1.73m2)
[2023-10-03] MEDS: Normal Saline - Diluent 50 ML VIAL IJ (12:38)
[2023-10-03] MEDS: Omnipaque 350 MG/ML 100 ML BTL IJ (12:39)
== END 2023-10-03 02:43 ==
LOC: DI 02:23
PROVIDERS: PCP Family Medicine; Visit Provider Preventive Medicine Undersea and Hyperbaric Medicine
DX: C34.91 Malignant neoplasm of unspecified part of right bronchus or lung (principal)
CPT/HCPCS: 36415; 71260; 82565; J3490

== ENCOUNTER → 2023-12-06 13:38 | Outpatient (BNVA) | payer OTHER, MEDICAID, SELFPAY | PROVIDERS: PCP Family Medicine; Referring Provider Preventive Medicine Undersea and Hyperbaric Medicine; Visit Provider Psychiatry & Neurology Neurology | DX: I63.9 Cerebral infarction, unspecified (principal); G56.02 Carpal tunnel syndrome, left upper limb; R29.6 Repeated falls | CPT/HCPCS: 99205 ==

== ENCOUNTER → 2023-12-15 10:20 | Outpatient (BNVA) | payer OTHER, MEDICAID, SELFPAY | PROVIDERS: PCP Family Medicine; Referring Provider Family Medicine; Visit Provider Nurse Practitioner Adult Health | DX: G56.02 Carpal tunnel syndrome, left upper limb (principal); R29.6 Repeated falls | CPT/HCPCS: 95909; 99213 ==

== ENCOUNTER 2023-12-30 01:42 | Outpatient (CLI) | payer OTHER, MEDICAID, SELFPAY ==
--- NOTE | 2023-12-30 07:15 | DI.MRI_ITS ---
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 TECHNIQUE: Performed on 1.5 lin unit with [id number] sequence. CONTRAST MATERIAL: Intravenous: None COMPARISON: There are no prior brain imaging studies available at time of this MRA interpretation FINDINGS: MRA BRAIN: ANTERIOR CIRCULATION: Both internal carotid arteries are patent in the skull base-carotid canals as well as within the cave rnous sinuses. Supraclinoid aspects are patent and nonaneurysmal. Both A1 segments are patent as ar e the anterior cerebral arteries and there is no evidence of aneurysm at the level the anterior commu nicating artery. Both middle cerebral arteries are patent without evidence of significant stenosis nor intraluminal th rombus. POSTERIOR CIRCULATION: At the skull base both vertebral arteries contribute to the formation of the basilar artery.The left vertebral artery is the dominant contributor. Basilar Artery: Basilar artery ascends in the midline without significant stenosis nor dolichoectasia . Distally it gives off patent superior cerebellar arteries and above this level terminates as paten t bilateral posterior cerebral arteries. There is no evidence of aneurysm of the tip of the basilar artery nor elsewhere in the oclxed-xw-Piatst. No evidence of obvious vascular malformation. IMPRESSION: 1. Patent intracranial arteries with no evidence of significant stenosis nor thrombosis. 2. No aneurysms evident RADIATION DOSE DELIVERED: Total DLP DATA REPOSITORY: All CT scans at this facility are submitted to the National Radiology Data Registry (NRDR) Dose Index Registry (DIR) with the [employer] ([employer]). RADIATION OPTIMIZATION: All CT scans at this facility use at least one of these dose optimization te chniques: automated exposure control; mA and/or kV adjustment per patient size (includes targeted exa ms where dose is matched to clinical indication); or iterative reconstruction.
--- NOTE | 2023-12-30 07:15 | DI.MRI_ITS ---
Exam(s) MR ANGIO NECK WO EXAM: MR ANGIO NECK WO CLINICAL HISTORY: punctate R cerebellar stroke,i63.9. TECHNIQUE: Imaging Protocol: Performed on 1.5 lin unit with [id number] sequence. CONTRAST MATERIAL: Intravenous: None COMPARISON: There no prior brain imaging studies FINDINGS: MRA NECK WO: The aortic arch anatomy appears to be bovine configuration. ANTERIOR CIRCULATION: Both common carotid arteries ascend with normal luminal diameters. There is no significant stenosis at the level the carotid bifurcations and proximal internal carotid arteries on either side and both internal carotid arteries are demonstrated to be patent in the upper neck and skull base-carotid canals. POSTERIOR CIRCULATION: Both vertebral arteries originate in conventional fashion off of the subclavian arteries. Both vertebral arteries ascend in the foramen transversarium with normal luminal diameters. Left sarah tebral artery is dominant. At the skull base the dominant left vertebral artery forms the basilar artery. Smaller contribution branches seen coming off of these superior aspect of the right vertebral artery. There is no obvious vertebral artery occlusion. No obvious dissection. IMPRESSION: 1. No significant stenosis in the carotid arteries in the neck. 2. Vertebral arteries in the neck are patent, the left being dominant. RADIATION DOSE DELIVERED: Total DLP DATA REPOSITORY: All CT scans at this facility are submitted to the National Radiology Data Registry (NRDR) Dose Index Registry (DIR) with the [employer] (ACR). RADIATION OPTIMIZATION: All CT scans at this facility use at least one of these dose optimization te chniques: automated exposure control; mA and/or kV adjustment per patient size (includes targeted exa ms where dose is matched to clinical indication); or iterative reconstruction.
--- NOTE | 2023-12-30 07:15 | DI.US_ITS ---
APPROVED REPORT EXAM: Comprehensive 2D, Doppler, and color-flow Echocardiogram Patient Location: Out-Patient Property Inspector: Shima Benavides RDCS (AE) Indications: Stroke, CVA Other Information Study Quality: Adequate. Technically limited study due to history of smoking.. Conclusion Normal left ventricular wall thickness and chamber size. Ejection fraction is 60%. Wall motion is n ormal Normal right ventricular size and function Both atria are mildly enlarged Aortic valve is sclerotic and trileaflet without stenosis or regurgitation Normal mitral valve with mild to moderate regurgitation Normal tricuspid valve with trace to mild regurgitation. Estimated right ventricular systolic pressu re is 25 mmHg Wall motion Left Ventricle The left ventricle is normal size. The left ventricular systolic function is normal. The left ventric ular ejection fraction is within the normal range. There is normal left ventricular wall thickness. T here is normal LV segmental wall motion. There is no ventricular septal defect visualized. LVEF is 60 %. Right Ventricle The right ventricle is normal size. The right ventricular systolic function is normal. Atria Left atrium is mildly dilated. Right atrium is mildly dilated. The interatrial septum is intact with no evidence for an atrial septal defect. Aortic Valve The Aortic valve is sclerotic. Aortic valve is trileaflet. There is no aortic valvular stenosis. No a ortic regurgitation is present. Mitral Valve The mitral valve is normal in structure. No evidence of mitral valve stenosis. Mild to moderate mitr al regurgitation. Tricuspid Valve The tricuspid valve is normal in structure. There is no tricuspid valve stenosis. Trace to mild tricu spid regurgitation. The RVSP is 25.4 mmHg. Pulmonic Valve The pulmonary valve is normal in structure. There is no pulmonic valvular stenosis. There is no pulmo jaziel valvular regurgitation. Great Vessels The aortic root is normal in size. Ascending aorta is not well visualized. Aortic arch is normal in c aliber. IVC is normal in size and collapses >50% with inspiration. Pericardium There is no pericardial effusion. 2D Dimensions IVSD d PLAX 0.90 cm M: 0.6-1.2 Ao Root d 3.44 cm M: 3.1 - 3.7 LVPW d PLAX 0.90 cm M: 0.6 - 1.2 LVID d PLAX 4.50 cm M: 4.2 - 5.8 LVDs 3.11 cm M: 2.5 - 4.0 LV EF Teichholz 58.7 % FS 30.91 % LV EDV (Teich) 92.4 mL LV ESV (Teich) 38.2 mL M-Mode TAPSE 2.65 cm (M/F) >1.7 Auto EF LV EDV A4C 93.8 mL LV EDV A2C 108.1 mL LV EDV BP 103.4 mL LV ESV A4C 40.3 mL LV ESV A2C 44.5 mL LV ESV BP 42.6 mL LVEF(%) A4C 57.0 % LVEF(%) A2C 58.9 % LVEF(%) BP 58.8 % LV SV A4C 53.5 ml LV SV A2C 63.6 ml LV SV BP 60.8 ml LV CO A4C 3.2 L/min LV CO A2C 4.0 L/min LV CO BP 3.6 L/min HR A4C 59.61 BPM HR A2C 62.40 BPM LV EDV Index (BP) LA Volume LA Length A4C 5.6 cm LA Length A2C 5.6 cm LA Area A4C s 17.36 cm2 LA Area A2C s 23.52 cm2 LA Vol A4C A-L 45.61 mL LA Vol A2C A-L 83.83 mL LA Vol Biplane A-L 61.9 mL LA Vol/BSA A4C A-L LA Vol/BSA A2C A-L LA Vol/BSA BP A-L 36.8 mL/m2 LA Vol A4C MOD 42.5 mL LA Vol A2C MOD 77.7 mL LA Vol BP MOD 57.2 mL RA Volume RA Area A4C 15.0 cm2 RA ESV A4C (A-L) 39.9mL RA Vol/BSA A4C A-L RA Length A4C 4.8 cm RA ESV A4C (MOD) 36.0mL LV Diastology MV E' medial 0.071 (>0.07 m/s) MV E Vmax 0.61 (0.4-1.3 m/s) MV E/E' MED 8.49 (<14) MV A Vmax 0.70 (0.4-1.3 m/s) MV E' lateral 0.097 (>0.1 m/s) E/A Ratio 0.9 MV E/E' LAT 6.23 (<14) MV E' Average 0.084 m/s MV E/E'(average) 7.19 Aortic Valve AoV Vmax 1.19 m/s LVOT Vmax 0.80 m/s AoV Peak Grad 5.7 mmHg LVOT Peak Grad 2.5 mmHg AoV Area (Vmax) 2.17 cm2 LVOT VTI 0.171 m AoV VTI 0.279 m LVOT Mean Grad 1.3 mmHg AoV Mean Swapnil. 0.79 m/s LVOT SV 55.37 mL AoV Mean Grad 2.9 mmHg LVOT Diam s 2.00 cm AoV Area (VTI) 1.99 cm2 AV Regurg Peak Gr. 5.66 mmHg Velocity Ratio 0.67 Mitral Valve MV DT 263 (160-240 msec) MV Vmax TIPS 0.77 m/s MV Mean Grad 0.9 (<2mmHg) MV VTI 0.292 m Pulmonary Valve PV Vmax 0.85 (0.5-1.5 m/s) RVOT Vmax 0.71 m/s PV Peak Grad 2.9 mmHg RVOT Peak Gr. 2.0 mmHg PV Mean Swapnil 0.53 m/s RVOT VTI 0.150 m PV Mean Grad 1.4 mmHg RVOT Mean Gr. 0.9 mmHg Tricuspid Valve RA Pressure 3.00 mmHg TR Vmax 2.37 m/s TV S' 0.16 m/s TR Peak Grad 22.4 mmHg RVSP (TR) 25.4 mmHg
== END 2023-12-30 02:02 ==
LOC: DI 01:42
PROVIDERS: PCP Family Medicine; Visit Provider Psychiatry & Neurology Neurology
DX: I63.9 Cerebral infarction, unspecified (principal)
CPT/HCPCS: 70544; 70547; 93306

== ENCOUNTER 2024-01-16 12:46 | Outpatient (CLI) | payer OTHER, MEDICAID, SELFPAY | END 2024-01-16 12:47 | disposition home or self-care (01) | PROVIDERS: PCP Family Medicine; Visit Provider Psychiatry & Neurology Neurology | DX: I63.9 Cerebral infarction, unspecified (principal) | CPT/HCPCS: 93246 ==

== ENCOUNTER 2024-02-10 09:16 | Outpatient (CLI) | payer MEDICARE, MEDICAID, SELFPAY ==
--- NOTE | 2024-02-10 09:27 | W.CARDEVENT ---
Date of service: 02/10/24 Time of Service: 09:27 Cardiac Event Recorder Referring Provider:: Demetra Manley Indications:: Stroke Cardiac Event Note: This is a cardiac event monitor. Patient was monitored for 9 days and 3 hours. Predominant rhythm was sinus with an average heart rate of 77. Minimum was 51, maximum 133. There were occasional atrial and ventricular ectopic beats. There was no atrial fibrillation, no high-grade AV block, no pauses greater than 3 seconds. No patient symptoms were reported
== END 2024-02-10 09:17 | disposition home or self-care (01) ==
LOC: CARDOPNVT 09:16
PROVIDERS: PCP Family Medicine; Referring Provider Psychiatry & Neurology Neurology; Visit Provider Internal Medicine Cardiovascular Disease
DX: I63.9 Cerebral infarction, unspecified (principal); I49.1 Atrial premature depolarization; I49.3 Ventricular premature depolarization
CPT/HCPCS: 93248

== ENCOUNTER → 2024-02-20 12:18 | Outpatient (BNVA) | payer MEDICARE, MEDICAID, SELFPAY | PROVIDERS: PCP Family Medicine; Referring Provider Family Medicine; Visit Provider Psychiatry & Neurology Neurology | DX: I63.9 Cerebral infarction, unspecified (principal); R29.6 Repeated falls; G56.02 Carpal tunnel syndrome, left upper limb | CPT/HCPCS: 99213 ==

== ENCOUNTER → 2024-03-01 13:51 | Outpatient (BNVA) | payer MEDICARE, MEDICAID, SELFPAY | PROVIDERS: PCP Family Medicine; Referring Provider Family Medicine; Visit Provider Student in an Organized Health Care Education/Training Program | DX: G56.02 Carpal tunnel syndrome, left upper limb (principal) | CPT/HCPCS: 99213 ==

== ENCOUNTER 2024-03-20 07:30 | Outpatient (CLI) | payer MEDICARE, MEDICAID, SELFPAY ==
--- NOTE | 2024-03-20 12:46 | W.CARDEVENT ---
Date of service: 03/20/24 Time of Service: 12:46 Cardiac Event Recorder Referring Provider:: Demetra Manley Indications:: Cerebral infarction Cardiac Event Note: This is a cardiac event monitor. Patient was monitored for 12 days 27 minutes. Predominant rhythm was sinus with an average heart rate of 77. Minimum was 52, maximum 122. There were rare isolated ventricular ectopic beats. There were rare isolated atrial premature beats. A total of 77 self-limited atrial runs occurred. The longest of these was 17 beats in duration. There was no atrial fibrillation, no high-grade AV block, no pauses greater than 3 seconds. No symptoms were reported
== END 2024-03-20 07:31 | disposition home or self-care (01) ==
LOC: CARDOPNVT 07:30
PROVIDERS: PCP Family Medicine; Visit Provider Internal Medicine Cardiovascular Disease
DX: I49.1 Atrial premature depolarization (principal); I63.9 Cerebral infarction, unspecified
CPT/HCPCS: 93248

== ENCOUNTER 2024-04-25 13:48 | Day surgery (SDC) | payer MEDICARE, MEDICAID, SELFPAY ==
[2024-04-25 14:00] VITALS: BP 153/79; PULSE 91; RESP 16; TEMP 36.7; O2SAT 96
[2024-04-25] MEDS: Cephalexin 500 MG CAP 1000 MG PO (14:22)
--- NOTE | 2024-04-25 15:53 | W.PM.DSUDISC ---
Date of service: 04/25/24 Discharge Plan Disposition Patient Disposition: Home Condition: Good Discharge Details Reason For Visit: L ECTR Attending Provider: Bishnu Lara Primary Care Provider: Bill Damon Home Meds and New Rx's Prescriptions: New hydrocodone-acetaminophen 5-325 mg tablet 1 tab PO Q6H PRN (Reason: pain) Qty: 4 0RF acetaminophen 500 mg tablet 1,000 mg PO TID Qty: 90 0RF ibuprofen 600 mg tablet 600 mg PO TID PRN (Reason: pain) Qty: 90 0RF Continued finasteride [Proscar] 5 mg tablet 5 mg PO DAILY Qty: 90 3RF sildenafil [Viagra] 100 mg tablet 100 mg PO DAILY PRN (Reason: sexual activity) Qty: 3 12RF simvastatin 10 mg tablet 10 mg PO DAILY Qty: 90 3RF aspirin [Adult Aspirin Regimen] 81 mg tablet,delayed release (DR/EC) 81 mg PO DAILY Shingrix (PF) 50 mcg/0.5 mL suspension for reconstitution 50 mcg IM ONCE Qty: 1 1RF Discharge Instructions Stand Alone Forms: Jing Teixeira (DSU), Jane Lozano Tunnel Release Referrals: Bishnu Lara MD [ [facility] STAFF PHYSICIAN] - 05/04/24 11:00 am Activity:: Activity as Tolerated Remove Dressings/Wound Care:: 48 hours Shower/Bathe:: 48 hours Diet:: As Tolerated Discharge Orders Discharge Orders: Discharge Order (Routine); Ordered 04/25/24 Ordered By: Haider Shukla DS: Diagnosis Discharge Diagnosis (1) Carpal tunnel syndrome of left wrist: Status: Acute
[2024-04-25] MEDS: Sodium Bicarbonate 50 MEQ/50 ML VIAL (16:15)
[2024-04-25] MEDS: Lidocaine 1% Multi-Dose W/EPI 1/100,000 50 ML VIAL (16:15)
[2024-04-25 16:33] VITALS: BP 147/86; PULSE 69; RESP 16; TEMP 36.2; O2SAT 95
--- NOTE | 2024-04-25 20:04 | ROE_ITS ---
Operative Note Operative Note PRE-OP DIAGNOSIS: Left Carpal Tunnel Syndrome POST-OP DIAGNOSIS: same PROCEDURE: Left Endoscopic Carpal Tunnel Release SURGEON: Bishnu Lara ANESTHESIA TYPE: General:No Airway Refer to Anesthesia Record ESTIMATED BLOOD LOSS: 0 PATHOLOGY: none sent TOURNIQUET TIME: 6 COMPLICATIONS: None Patient was transported to: same day Patient's condition: stable Indications: I have seen Celestine in clinic for symptoms of carpal tunnel syndrome. The numbness, tingling, and pain limited function. Clinical exam findings confirmed the diagnosis of carpal tunnel syndrome. Nonoperative measures such as bracing, time, activity modifications had been tried but disability and pain persisted. I discussed carpal tunnel release with the patient. I reviewed the risks of the procedure to include, but not limited to, bleeding, infection, pain, stiffness, incomplete release, damage to nerves or vessels, persistent numbness, recurrence. Despite these risks, the patient elected to proceed. Findings: There was tightened carpal tunnel. This was dilated and released successfully with the endoscopic with increased space within the tunnel. The antebrachial fascia was released proximally freeing the median nerve at the wrist. Procedure Description: Celestine was greeted in the preoperative holding area where the correct side was identified and marked. The consent was reviewed with the patient and signed. The history and physical was updated. All questions were answered. He was taken back to the operating room. The patient was placed into the supine position on the operating room table with the left arm on an arm board. A nonsterile tourniquet was placed high onto the arm. All bony prominences were well padded. Prophylactic antibiotics in the form of cephalexin were administered in the DSU. The left arm was then prepped with Chloraprep and draped in a standard fashion with stockinette and extremity drape. A timeout to confirm correct identity, side and site, procedure, allergies, anesthesia, and medical concerns was performed. The surgical site was marked in the volar wrist creases in line with the radial border of the fourth ray. This area was anesthetized with approximately 6cc of 1% Lidocaine. The limb was then exsanguinated with an Esmarch. The skin was incised with a 15 blade, approximately 1cm. The skin only was cut and the deeper tissue was dissected bluntly with a tenotomy scissor, avoiding passing nerve and venous structures. The fascia was penetrated and opened bluntly. A two-prong skin hook was placed under this proximal fascial edge. A series of hamate finders were used to identify and dilate the carpal tunnel. Synovial miky vator was used to free synovial attachments to the underside of the transverse carpal ligament. My thumb was kept in the palm to alex the distal extent of the carpal tunnel and correctly position the hand. The Microaire endoscope was inserted without difficulty and without resistance. Excellent visualization showed horizontally running fibers of the transverse carpal ligament (TCL). The distal extent of the TCL was visualized and the end of the scope palpated with the thumb. The blade was elevated and withdrawn from distal to proximal. The TCL was split into two flaps. The endoscope was reinserted to confirm complete release and any remnant ligament was incised. The scope was withdrawn and the proximal aspect of the carpal tunnel was grossly inspected and appeared release with the median nerve visible. The antebrachial fascia at the level of the wrist was then freed from the overlying skin and then the underlying median nerve with blunt dissection. This was transected longitudinally for about 3cm proximal to the wrist incision. The wound was then irrigated with easy flow of irrigant distally and proximally. The incision was closed with a single 4-0 Nylon suture. The wound was dressed with Xeroform, Gauze, Kerlix and Khadar. The tourniquet was deflated with the initial dressing and held with some pressure. Blood flow returned easily to all digits with capillary refill less than 2 seconds. The patient tolerated the procedure well and was returned to the Same Day Surgery area in a stable condition suffering no known complication. Date of Procedure: 04/25/24
== END 2024-04-25 16:53 | disposition home or self-care (01) ==
PROVIDERS: PCP Family Medicine; Visit Provider Student in an Organized Health Care Education/Training Program
PROC: 01N54ZZ Release Median Nerve, Percutaneous Endoscopic Approach (ICD-10-PCS; CPT 29848; principal; 2024-04-25 16:00)
DX: G56.02 Carpal tunnel syndrome, left upper limb (principal)
CPT/HCPCS: 29848; J2004

== ENCOUNTER 2024-05-04 00:57 | Outpatient (CLI) | payer MEDICARE, MEDICAID, SELFPAY ==
[2024-05-04 12:35] LABS: Hemoglobin A1C 5.3 % (<5.7)
[2024-05-04 12:48] LABS: Calculated LDL 39 mg/dL (<100); Cholesterol 106 mg/dL (<200); HDL Cholesterol 54 mg/dL (>or=40); Triglyceride 66 mg/dL (<150)
== END 2024-05-04 00:58 | disposition home or self-care (01) ==
LOC: LBO 00:57
PROVIDERS: PCP Family Medicine; Visit Provider Psychiatry & Neurology Neurology
DX: I63.9 Cerebral infarction, unspecified (principal); R73.9 Hyperglycemia, unspecified
CPT/HCPCS: 36415; 80061; 83036

== ENCOUNTER → 2024-05-21 09:21 | Outpatient (BNVA) | payer MEDICARE, MEDICAID, SELFPAY | PROVIDERS: PCP Family Medicine; Visit Provider Psychiatry & Neurology Neurology | DX: I63.9 Cerebral infarction, unspecified (principal); R29.6 Repeated falls; G56.02 Carpal tunnel syndrome, left upper limb | CPT/HCPCS: 99214 ==